=== PATIENT | female | born 1945 | race Hispanic/Latino ===

== ENCOUNTER 2024-02-01 13:46 | Inpatient (IN) | payer OTHER, MEDICARE ==
[~2024-02-01] VITALS: Ht 160 cm; Wt 83.9 kg
--- NOTE | 2024-02-01 14:04 | ERN ---
ED Note History of Present Illness Stated Complaint: ABDOMINAL PAIN Chief Complaint: Abdominal Pain Time Seen by MD: 13:56 Dictation: This 78-year-old female is transferred to us via EMS from a clinic in [place] where she has been receiving IV fluids and antibiotics for one week without improvement. Apparently several weeks ago she was given some antibiotics for UTI. After that she began having three diarrhea stools a day and occasional nausea and vomiting and became progressively weaker. A family member from [place] visited her and found her much weaker than her baseline. They transported her to [place] to a GI clinic where she remained for a week receiving IV fluids, levofloxacin, metronidazole, ondansetron, albumin, acetaminophen, furosemide and Mezalina Her family from [place] came up and found that she was having Q 30 minutes stools over the course of last night and noted that she had had dramatic weight loss and continued to appear ill and [place]. Laboratories from January 27 in [place] include a white count of 17.3 with a left shift, normal platelets and hemoglobin use an elevated BUN and creatinine and an elevated uric acid. LFTs are unremarkable as were the sodium and potassium Was no evidence stool studies were done. An ultrasound was done but no CT imaging. Apparently they were planning to transfer to another hospital in [place] when the family took her out of the clinic. The physician note indicates concern for appendicitis The patient does not have a history of cigarettes alcohol or recreational drugs. She has had a cholecystectomy. She has diabetes and hypertension. She is followed by Dr. Morgan. Her home medications include rybelsus, paroxetine, atenolol, dicyclomine, momentum, olanzapine, valsartan Allergies: Coded Allergies: No Known Drug Allergies (Unverified Allergy, Unknown, 02/01/24) Past Medical History Past Medical History: Diabetes-Type II, Hypertension Surgical History: Cholecystectomy Review of System Dictation All pertinent systems reviewed, negative except as documented in the HPI The ROS is obtained from patient and granddaughter GENERAL/CONSTITUTIONAL: Negative except as documented in HPI. ENT: Negative except as documented in HPI. CARDIOVASCULAR: Negative except as documented in HPI. RESPIRATORY: Negative except as documented in HPI. GASTROINTESTINAL: Negative except as documented in HPI. GENITOURINARY: Negative except as documented in HPI. MUSCULOSKELETAL: Negative except as documented in HPI. SKIN: Negative except as documented in HPI. NEUROLOGIC: Negative except as documented in HPI. Initial Vital Sign VS Vital Signs Date Time Temp Pulse Resp B/P (MAP) Pulse Ox O2 Delivery O2 Flow Rate FiO2 02/01/24 13:50 98.4 86 20 100/63 98 0 02/01/24 16:43 Room Air* 21 Physical Exam Dictation VITAL SIGNS: note is made of triage vital signs CONSTITUTIONAL: This is an ill-appearing patient who is awake, alert, and appropriately interactive. HEAD: Normocephalic, Atraumatic. EYES: Periorbital areas with no swelling, redness, or edema. Lids and lashes are normal. Conjunctival injection is absent. Sclera anicteric. Pupils equal, round, reactive to light. ENT: No nasal discharge noted. Posterior pharynx is without exudate, redness, swelling, masses, or evidence of obstruction. Uvula midline. Mucous membranes dry with a white coating over the tongue NECK: Trachea midline, no masses palpated, and no cervical lymphadenopathy. No swelling. Supple, full range of motion without nuchal rigidity. No vertebral point tenderness. No meningismus. CHEST/AXILLA: Normal chest wall appearance and motion. No tenderness. No crepitus. CV: Normal rate, regular rhythm. No murmur. No edema. RESPIRATORY:Respiratory rate is normal. Bilateral equal breath sounds with good airflow. There were some crackles at both bases No increased work of breathi ng, no retractions. ABDOMEN: Inspection normal. No distention is appreciated. Bowel sounds are active. No mass or organomegaly is appreciated. There is right lower quadrant tenderness. No rebound. No rigidity. No voluntary or involuntary guarding. BACK: Inspection is normal. No midline tenderness is appreciated. The patient appears comfortable when moving. : No CVA tenderness or bladder tenderness. SKIN: Warm, dry, with normal turgor. Capillary refill less than 3 seconds. Normal color.No rash. No cellulitis or abscess. There are multiple bruises over the left arm and leg related to a fall approximately 10 days ago. MS/Extremity: There is no calf tenderness. Baseline range of motion is noted in all 4 extremities. There are no deformities. NEURO: The patient is awake and follows commands but speech is a little slow. Face is symmetric Motor strength 5/5 in all extremities. Sensory grossly intact. PSYCH: Patient is appropriately attentive and cooperative without evidence of hallucination. Results (Laboratory/Radiology) Laboratory/Radiology Laboratory Tests Test 02/01/24 14:15 02/01/24 15:38 02/01/24 16:30 Urine Color LIGHT-YELLOW (YELLOW) Urine Appearance CLEAR (CLEAR) Urine pH 5.5 (5.0-8.0) Urine Specific [place] 1.010 (1.001-1.031) Urine Protein NEGATIVE mg/dL (NEGATIVE) Urine Glucose (UA) NEGATIVE mg/dL (NEGATIVE) Urine Ketones NEGATIVE mg/dL (NEGATIVE) Urine Occult Blood NEGATIVE (NEGATIVE) Urine Nitrate NEGATIVE (NEGATIVE) Urine Bilirubin NEGATIVE mg/dL (NEGATIVE) Urine Urobilinogen 0.2 mg/dL (0.2-1.0) Urine Leukocyte Esterase 75 Breann/uL (NEGATIVE) H Urine RBC 0-1 /HPF (0-1) Urine WBC 6-10 /HPF (0-1) H Urine Squamous Epithelial Cells FEW /HPF (0-2) Urine Bacteria RARE /HPF (None Seen) White Blood Count 15.6 K/uL (4.8-10.8) H Red Blood Count 3.91 MIL/uL (4.00-5.50) L Hemoglobin 10.9 g/dL (12.0-16.0) L Hematocrit 33.9 % (36-48) L Mean Corpuscular Volume 86.7 fL (79-99) Mean Corpuscular Hemoglobin 27.9 pg (27.0-33.0) Mean Corpuscular Hemoglobin Concent 32.2 g/dL (32.0-36.0) Red Cell Distribution Width 16.1 % (11.0-15.5) H Platelet Count 295 K/uL (130-400) Mean Platelet Volume 9.0 fL (7.5-10.5) Immature Granulocyte % (Auto) 1.3 % (0-1) H Neutrophils (%) (Auto) 82.6 % (40.0-77.0) H Lymphocytes (%) (Auto) 7.6 % (21.0-51.0) L Monocytes (%) (Auto) 8.0 % (3.0-13.0) Eosinophils (%) (Auto) 0.1 % (0.0-8.0) Basophils (%) (Auto) 0.4 % (0.0-5.0) Neutrophils # (Auto) 12.9 K/uL (1.8-7.7) H Lymphocytes # (Auto) 1.2 K/uL (1.0-4.8) Monocytes # (Auto) 1.3 K/uL (0.1-1.0) H Eosinophils # (Auto) 0.02 K/uL (0.00-0.70) Basophils # (Auto) 0.06 K/uL (0.00-0.20) Absolute Immature Granulocyte (auto 0.20 K/uL (0-1) Nucleated Red Blood Cells 0.0 % (0.0-0.19) White Cell Morphology Comment CONSISTENT W/DIFF Sodium Level 139 mmol/L (136-145) Potassium Level 4.1 mmol/L (3.5-5.1) Chloride Level 108 mmol/L (101-111) Carbon Dioxide Level 22 mmol/L (21-32) Blood Urea Nitrogen 76 mg/dL (7-18) *H Creatinine 3.3 mg/dL (0.5-1.0) H Glomerular Filtration Rate Calc 14 mL/min (>90) Random Glucose 120 mg/dL (70-105) H Lactic Acid Level 1.8 mmol/L (0.8-2.5) Total Calcium 8.5 mg/dL (8.5-10.1) Magnesium Level 1.40 mg/dL (1.80-2.40) L Total Bilirubin 0.4 mg/dL (0.2-1.0) Aspartate Amino Transf (AST/SGOT) 19 U/L (10-37) Alanine Aminotransferase (ALT/SGPT) 19 U/L (12-78) Alkaline Phosphatase 118 U/L (50-136) B-Type Natriuretic Peptide 383 pg/mL (0-100) H Total Protein 5.5 g/dL (6.0-8.3) L Albumin 2.1 g/dL (3.5-5.0) L Lipase 13 U/L (16-77) L Stool Occult Blood NEGATIVE (NEGATIVE) Labs Reviewed?: Yes ED Course ED Course Orders Procedure Category Date Status Time Cbc With Differential LAB 02/01/24 Complete 14:02 Comprehensive LAB 02/01/24 Complete Metabolic Panel 14:02 Urinalysis Profile LAB 02/01/24 Complete 14:02 Chest 1vw RAD 02/01/24 Resulted 14:02 Lipase LAB 02/01/24 Complete 14:02 Blood Cult VIK 02/01/24 Logged 14:21 Lactic Acid LAB 02/01/24 Complete 14:21 Stool Culture VIK 02/01/24 Logged 14:21 C Difficile A/B LAB 02/01/24 Logged 14:21 Occult Blood Stool LAB 02/01/24 Complete Single Only 14:21 Culture Urine VIK 02/01/24 In Process 14:33 Magnesium LAB 02/01/24 Complete 15:19 B-Type Natriuretic LAB 02/01/24 Complete Peptide 15:19 Ct Abdomen/Pelvis W/O CT 02/01/24 Resulted Contrast 16:30 Zosyn 3.375gm+Ns 50ml PHA 02/01/24 Complete (Zosyn 3.375gm+Ns 18:30 12 Lead Ekg Tracing- EKG 02/01/24 Logged Technical 18:29 Admit Orders ADM 02/01/24 Transmitted 18:20 *Nursing CPOE 02/01/24 Transmitted Communication: 18:20 Continue Home CPOE 02/01/24 Transmitted Meds/Reviewed 18:20 Cbc With Differential LAB 02/02/24 Verified 04:00 Comprehensive LAB 02/02/24 Verified Metabolic Panel 04:00 Initiate MAU 02/01/24 In Process Hyperglycemia Protoco 18:20 Insulin Regular, PHA 02/01/24 In Process Human 3ml (Humulin R 21:00 Dextrose 5 %-0.45 % PHA 02/01/24 In Process Nacl (D5 1/2ns) 18:30 Metronidazole (Flagyl) PHA 02/01/24 In Process 18:30 Zosyn 3.375gm+Ns 50ml PHA 02/01/24 Logged (Zosyn 3.375gm+Ns 18:30 General Surgery CONPHYSVC 02/01/24 Transmitted Consult 18:34 Current Medications Medications (Trade) Dose Ordered Sig/Ana Route PRN Reason Start Time Stop Time Status Last Admin Dose Admin Dextrose/Sodium Chloride 1,000 ml @ 75 mls/hr [id number] IV 02/01/24 18:30 03/02/24 18:29 Insulin Human Regular (humuLIN R 100 UNIT/ML 3ML) INSULIN SLIDING SCAL... ACHS SQ 02/01/24 21:00 03/02/24 20:59 Metronidazole (flaGYL) 500 mg Q8H PO 02/01/24 18:30 02/11/24 18:29 Piperacillin Sod/ Tazobactam Sod (Zosyn 3.375gm+NS 50ml) 2.25 gm Q12H IV 02/02/24 06:30 02/12/24 06:29 Piperacillin Sod/ Tazobactam Sod (Zosyn 3.375gm+NS 50ml) 3.375 gm ONCE ONCE IVPB 02/01/24 18:30 02/01/24 18:31 DC 02/01/24 18:33 Vital Signs Date Time Temp Pulse Resp B/P (MAP) Pulse Ox O2 Delivery O2 Flow Rate FiO2 02/01/24 18:10 98.1 84 18 125/55 97 Room Air* 0 21 02/01/24 16:43 98.8 84 20 124/64 97 Room Air* 0 21 02/01/24 13:50 98.4 86 20 100/63 98 0 Medical Decision Making MDM INITIAL IMPRESSION Initial history and physical concerning for renal insufficiency, persistent diarrhea with leukocytosis after antibiotics possible C difficile diarrhea, Abdomen is tender on the right possible partially treated appendicitis metabolic disturbance Contributing medical problems: Diabetes and hypertension I have reviewed the triage nursing notes and vital signs. Blood pressure is low but the heart rate is normal. She is afebrile Initial plan: Laboratory screening, CT abdomen, anticipate admit DATA REVIEW I have reviewed additional NN, repeat VS, and monitoring where indicated. Heart rate, blood pressure, and O2 saturation are acceptable. Harris diagnostic results: Patient's white count is 15.6 with a left shift. She has mild anemia. Lactic acid is 1.8. BUN and creatinine are 76 and 3.3. Bicarb is 22. Glucose is 120. A BNP is 383. The magnesium is 1.4. There was UTI. CT scan is positive for diverticulitis with a small area of contained perforation and a 2.8 cm pelvic abscess. Other independent historian: The patient's granddaughter supplies some additional history Review of external data: There are no recent ED visits ED COURSE Interventions: Patient received Zosyn in the emergency department. Reassessment: She has been stable in the ED DISPOSITION Final diagnostic impression: Perforated diverticulitis with a pelvic abscess, acute kidney injury I discussed my findings, clinical impression and treatment recommendations with the patient and her family. I have reviewed the social factors contributing to the patient's presentation and disposition planning. My final plan for disposition was made based upon clinical findings, response to treatment and discussion with the patient regarding management options. At 6:14 a.m. I discussed the case with Dr. Morgan who is her primary care physician. At 6:27 p.m. I discussed the case with Dr. Maya on-call for General surgery. Hospitalization is indicated due to the patient's clinical condition and significant risk of short term progression, complication, morbidity or mortality related to the current diagnosis The patient will be admitted for further management of perforated diverticulitis with pelvic abscess, acute kidney injury The patient and family have been advised regarding the reason for admission Questions were invited and answered in layman's terms. This dictation was prepared using medical voice recognition software. Occasional voice recognition errors may occur. When identified, these errors have been corrected. While every attempt is made to correct errors during dictation, errors may still exist. DX & DISP Disposition: Inpatient Decision to Admit Date: Feb 01, 2024 Decision to Admit Time: 18:39 Departure Impression: Primary Impression: Pelvic abscess secondary to perforated diverticulitis Additional Impressions: Acute kidney injury, Hypomagnesemia Condition: Stable Time of Disposition: 18:41 EMERY HALL MD Feb 01, 2024 14:04
[2024-02-01 14:25] LABS: APPEARANCE,URINE CLEAR (CLEAR); BILIRUBIN,URINE NEGATIVE (NEGATIVE); COLOR,URINE LIGHT-YELLOW (YELLOW); GLUCOSE, URINE (UA) NEGATIVE (NEGATIVE); KETONES,URINE NEGATIVE (NEGATIVE); LEUKOCYTE ESTERASE ,URINE 75 Leu/uL (NEGATIVE); NITRATE,URINE NEGATIVE (NEGATIVE); OCCULT BLOOD,URINE NEGATIVE (NEGATIVE); PH,URINE 5.5 (5.0-8.0); PROTEIN,URINE NEGATIVE (NEGATIVE); UROBILINOGEN,URINE 0.2 mg/dL (0.2-1.0)
[2024-02-01 14:33] LABS: ADD UA MICROSCOPIC YES
[2024-02-01 14:38] LABS: BACTERIA,URINE RARE /HPF (None Seen); MUCUS,URINE FEW LPF (None Seen); RBC,URINE 0-1 /HPF (0-1); SQUAMOUS EPITHELIAL CELL,UR FEW /HPF (0-2)
--- NOTE | 2024-02-01 15:09 | HMCIMG ---
CHEST 1VW HISTORY: Abdominal pain COMPARISON: None FINDINGS: A frontal projection of the chest was obtained. Prominent interstitial markings are seen with possible superimposed infiltrates. Elevation of right hemidiaphragm is seen. The heart is borderline enlarged. Degenerative changes are seen. No evidence of aortic calcification is seen. IMPRESSION: 1. Prominent interstitial markings are seen with possible superimposed infiltrates.
[2024-02-01 15:46] LABS: BASOPHILS # (AUTO) 0.06 K/uL (0.00-0.20); BASOPHILS % (AUTO) 0.4 % (0.0-5.0); EOSINOPHILS # (AUTO) 0.02 K/uL (0.00-0.70); EOSINOPHILS % (AUTO) 0.1 % (0.0-8.0); HEMATOCRIT 33.9 % (36-48); LYMPHOCYTES # (AUTO) 1.2 K/uL (1.0-4.8); LYMPHOCYTES % (AUTO) 7.6 % (21.0-51.0); MEAN CORPUSCULAR HEMOGLOBIN 27.9 pg (27.0-33.0); MEAN CORPUSCULAR HGB CONC 32.2 g/dL (32.0-36.0); MEAN CORPUSCULAR VOLUME 86.7 fL (79-99); MONOCYTES # (AUTO) 1.3 K/uL (0.1-1.0); NEUTROPHILS # (AUTO) 12.9 K/uL (1.8-7.7); NEUTROPHILS % (AUTO) 82.6 % (40.0-77.0); PLATELET COUNT (AUTO) 295 K/uL (130-400); RED BLOOD CELL COUNT(AUTO) 3.91 MIL/uL (4.00-5.50); RED CELL DISTRIBUTION WIDTH 16.1 % (11.0-15.5); WHITE BLOOD COUNT (AUTO) 15.6 K/uL (4.8-10.8)
[2024-02-01 16:16] LABS: ALBUMIN 2.1 g/dL (3.5-5.0); BILIRUBIN,TOTAL 0.4 mg/dL (0.2-1.0); CREATININE 3.3 mg/dL (0.5-1.0); POTASSIUM 4.1 mmol/L (3.5-5.1); TOTAL PROTEIN, SERUM 5.5 g/dL (6.0-8.3)
[2024-02-01 16:21] LABS: WBC MORPHOLOGY CONSISTENT W/DIFF
--- NOTE | 2024-02-01 17:51 | HMCIMG ---
CT ABDOMEN/PELVIS W/O CONTRAST CLINICAL HISTORY: diarrhea, rlq tender COMPARISON: None TECHNIQUE: Sequential axial images of abdomen and pelvis without contrast and with sagittal and coronal reconstructions. CT was performed with one or more of the following dose reduction techniques: automated exposure control, adjustment of the mA and/or kV according to patient size, or use of iterative reconstruction technique FINDINGS: There is eventration right diaphragm with right lung base atelectasis. This demonstrated is advanced calcified coronary artery disease. There is diffuse fatty infiltration of the left liver. The spleen is unremarkable. Gallbladder is surgically absent. The pancreas and adrenal glands are unremarkable. There is bilateral renal cortical scarring. There is no identified bowel obstruction. Note is made of sigmoid colon diverticuli with minimal adjacent stranding and a small air and fluid collection communicating with a sigmoid colon diverticulitis 2.8 cm demonstrated best on image 70 of series 2 most consistent with contained sigmoid colon perforation and developing abscess. The uterus is surgically absent. There is mild diffuse degenerative changes of the spine. IMPRESSION: Acute mild sigmoid diverticulitis with contained perforation and developing small 2.8 cm pelvic abscess.
[2024-02-01] MEDS ORDERED: metRONIDazole 500 MG TABLET PO SCH (18:30)
[2024-02-01] MEDS: ZOSYN 3.375GM +NS 50ML IVPB ONE (18:33)
[2024-02-01] MEDS: DEXTROSE 5 %-0.45 % NACL 1,000 ML IV SCH (18:44)
[2024-02-01] MEDS: metRONIDazole 500MG/100ML BAG IV SCH (18:55)
[2024-02-01] MEDS ORDERED: MEMA14CA5 PO (19:39)
[2024-02-01] MEDS ORDERED: OLAN10TA73 PO (19:39)
[2024-02-01] MEDS ORDERED: DICY20TA3 PO (19:39)
[2024-02-01] MEDS ORDERED: ATEN50TA PO (19:39)
[2024-02-01] MEDS ORDERED: SEMA7TAB2 PO (19:39)
[2024-02-01] MEDS ORDERED: PARO-37 PO (19:39)
[2024-02-01] MEDS ORDERED: VALS160T29 PO (19:39)
[2024-02-01] MEDS: INSULIN humuLIN R 100 UNIT/ML 3ML SQ SCH (21:00)
--- NOTE | 2024-02-01 21:06 | EKG ---
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
[2024-02-01 22:54] VITALS: BP 122/57; PULSE 95; RESP 22; TEMP 99
[2024-02-01 23:00] VITALS: O2SAT 96
[2024-02-02] VITALS (8 sets, daily range): BP systolic 94–143; BP diastolic 46–76; PULSE 64–109; RESP 18–20; TEMP 97.5–99.1; O2SAT 94–96
[2024-02-02 03:46] LABS: BASOPHILS # (AUTO) 0.07 K/uL (0.00-0.20); BASOPHILS % (AUTO) 0.4 % (0.0-5.0); EOSINOPHILS # (AUTO) 0.03 K/uL (0.00-0.70); EOSINOPHILS % (AUTO) 0.2 % (0.0-8.0); HEMATOCRIT 33.7 % (36-48); IMMATURE GRANULOCYTE ABSOLUTE 0.19 K/uL (0-1); LYMPHOCYTES # (AUTO) 1.1 K/uL (1.0-4.8); LYMPHOCYTES % (AUTO) 6.5 % (21.0-51.0); MEAN CORPUSCULAR HEMOGLOBIN 27.9 pg (27.0-33.0); MEAN CORPUSCULAR HGB CONC 31.8 g/dL (32.0-36.0); MONOCYTES # (AUTO) 1.5 K/uL (0.1-1.0); NEUTROPHILS # (AUTO) 14.2 K/uL (1.8-7.7); NEUTROPHILS % (AUTO) 82.8 % (40.0-77.0); PLATELET COUNT (AUTO) 271 K/uL (130-400); RED BLOOD CELL COUNT(AUTO) 3.83 MIL/uL (4.00-5.50); RED CELL DISTRIBUTION WIDTH 16.1 % (11.0-15.5); WHITE BLOOD COUNT (AUTO) 17.1 K/uL (4.8-10.8)
[2024-02-02 04:05] LABS: ALBUMIN 1.9 g/dL (3.5-5.0); BILIRUBIN,TOTAL 0.4 mg/dL (0.2-1.0); CREATININE 3.1 mg/dL (0.5-1.0); POTASSIUM 4.3 mmol/L (3.5-5.1); TOTAL PROTEIN, SERUM 5.2 g/dL (6.0-8.3)
[2024-02-02] MEDS: ZOSYN 3.375GM +NS 50ML IV SCH ×2 (06:30→10:18)
[2024-02-02] MEDS: MAGNESIUM OXIDE 400 MG TABLET PO SCH (09:00)
[2024-02-02] MEDS: ATENOLOL 50 MG TABLET PO SCH (09:00)
[2024-02-02] MEDS: LoSARTan 100 MG TABLET PO SCH (09:00)
[2024-02-02] MEDS: DICYCLOMINE HCL 20 MG TAB PO SCH (09:00)
[2024-02-02] MEDS: oLANZapine 5 MG TAB PO SCH (09:00)
[2024-02-02] MEDS: PARoxetine HCL 20 MG TABLET PO SCH (09:00)
[2024-02-02] MEDS: SEMAGLUTIDE 7 MG PO SCH (09:00)
[2024-02-02] MEDS: BALSAM PERU/CASTOR OIL 60 GM TUBE TP SCH (10:14)
[2024-02-02] MEDS: MAGNESIUM 2GM PREMIX 50ML 50 ML IV PRN (10:25)
--- NOTE | 2024-02-02 12:12 | CONS ---
HISTORY OF PRESENT ILLNESS: The patient is a morbidly obese 79-year-old female complaining of diarrhea, nausea, and vomiting, which began last week. The patient had been treated for UTI prior to that with antibiotics and went to [place] for treatment. She was given IV antibiotics there. No studies are available. She was transferred here for further treatment. PAST MEDICAL HISTORY: Diabetes. PAST SURGICAL HISTORY: Cholecystectomy. The patient had a recent fall with bruising to the face and bilateral extremities. PHYSICAL EXAMINATION: GENERAL: The patient is awake, alert, and oriented. She is in no acute distress. VITAL SIGNS: She is afebrile, blood pressure is 98/46, with a heart rate of 109. She presently has no IV. HEART: Tachycardic, but regular. ABDOMEN: Soft with minimal tenderness in the right and left lower quadrants with localized guarding. EXTREMITIES: Show a diabetic foot ulcer to the right plantar metatarsal. Pulses are present, but decreased. DIAGNOSTIC DATA: CT scan of the abdomen shows acute mid sigmoid diverticulitis with small 2.8 cm contained abscess. LABORATORY DATA: White count of 17.1, hematocrit of 10.7, platelets are 271, creatinine of 3.1 with a BUN of 68. Albumin is 1.9. ASSESSMENT AND PLAN: Acute diverticulitis with diarrhea, rule out Clostridium difficile. If diarrhea persists, send for C and S and Clostridium difficile. N.p.o. for today. IV hydration once PICC line is placed. IV antibiotics. If the patient is improved with hydration, can start clears tonight and advance as tolerated. We will follow with you. TID: [id number] RECEIPT: [id number]
[2024-02-02 13:33] LABS: INR 1.13 (0.85-1.15); PROTHROMBIN TIME 12.1 SEC (9.6-11.6)
--- NOTE | 2024-02-02 14:44 | HMCIMG ---
CHEST 1VW REASON: VERIFY PICC LINE COMPARISON: 02/01/2024 FINDINGS: There is a left-sided PICC line with tip in superior vena cava. There is elevation of the right hemidiaphragm. There is some atelectasis medial right lung base. Lungs appear otherwise clear. Heart size is stable. IMPRESSION: 1. The PICC line with tip in the superior vena cava.
[2024-02-03] VITALS (23 sets, daily range): BP systolic 110–195; BP diastolic 52–99; PULSE 77–104; RESP 14–24; TEMP 98.4–99.3; O2SAT 23–100
--- NOTE | 2024-02-03 02:27 | HP ---
HISTORY OF PRESENT ILLNESS: The patient was brought to the Emergency Room via EMS from clinic in [place] where she went to receive therapy. The patient was seen in my office for treatment of diarrhea and abdominal pain, urinary tract infection symptoms. She received treatment with antibiotics and blood work was done, results were abnormal and we called the family to have the patient back in my office for treatment on admission, but they refused. They were taking the patient to [place] for treatment. Apparently, over there, she has received treatment with antibiotics and IV fluids and because of no improvement, they decided to bring her back to the [facility]. PAST MEDICAL HISTORY: Type 2 diabetes, hypertension, dyslipidemia, congestive heart failure, COPD, dementia, pulmonary hypertension. The patient has chronic kidney disease also. ALLERGIES: No known drug allergies. REVIEW OF SYSTEMS: There has been no fever, chills, seizures, loss of consciousness, no sore throat. No diplopia, dysarthria or dysphonia. No chest pain, palpitation. No cough, wheeze or rhonchi. No nausea or vomiting. No dysuria, urgency. PHYSICAL EXAMINATION: GENERAL: She is currently awake, alert, oriented in person, time and place. VITAL SIGNS: Blood pressure 100/63, pulse 86, respiratory rate 20, temperature 98.4. HEENT: Normocephalic, atraumatic. LUNGS: Clear to auscultation. HEART: S1, S2 are distant. ABDOMEN: Soft, nontender, no masses. Bowel sounds present. EXTREMITIES: No clubbing, cyanosis, no edema. LABORATORY DATA: In the Emergency Room, leukocyte esterase was positive, nitrates negative. WBC count 6-10 in urine. WBC count 15,000, hemoglobin 10.9, platelets 295. Sodium 139, potassium 4.1, BUN 76, creatinine 3.3, calcium 8.5, albumin 2.1. CT scan was reported as positive for acute mild sigmoid diverticulitis with contained perforation and developing a small 2.8 pelvic abscess. There is no bowel obstruction. Chest x-ray shows prominent interstitial markings with possible superimposed infiltrates. ASSESSMENT AND PLAN: * Sepsis. The patient will be admitted to medical floor after discussing with the ER physicians. Not a candidate for Intensive Care Unit at this time. We will continue with Zosyn IV, Flagyl IV and IV fluids. Cultures have been sent. * Diverticulitis. Continue with current antibiotics. * Bowel perforation. Continue current antibiotics. Surgical consultation has been made. * Type 2 diabetes. Continue with insulin sliding scale. * Anemia. Continue to monitor. * Acute kidney injury, most likely secondary to sepsis and hypovolemia. Continue to monitor. * Urinary tract infection, pending results of cultures. * The patient will be continued with Zosyn antibiotics, Flagyl. Surgical consultation has been made. Follow up with results. DOS: 02/02/2024 TID: [id number] RECEIPT: [id number] MTDD
[2024-02-03 03:49] LABS: BASOPHILS # (AUTO) 0.07 K/uL (0.00-0.20); BASOPHILS % (AUTO) 0.5 % (0.0-5.0); EOSINOPHILS # (AUTO) 0.05 K/uL (0.00-0.70); EOSINOPHILS % (AUTO) 0.3 % (0.0-8.0); HEMATOCRIT 30.7 % (36-48); IMMATURE GRANULOCYTE ABSOLUTE 0.35 K/uL (0-1); LYMPHOCYTES # (AUTO) 1.9 K/uL (1.0-4.8); LYMPHOCYTES % (AUTO) 12.7 % (21.0-51.0); MEAN CORPUSCULAR HEMOGLOBIN 27.5 pg (27.0-33.0); MEAN CORPUSCULAR HGB CONC 31.9 g/dL (32.0-36.0); MONOCYTES # (AUTO) 1.6 K/uL (0.1-1.0); NEUTROPHILS # (AUTO) 10.8 K/uL (1.8-7.7); NEUTROPHILS % (AUTO) 73.1 % (40.0-77.0); PLATELET COUNT (AUTO) 281 K/uL (130-400); RED BLOOD CELL COUNT(AUTO) 3.57 MIL/uL (4.00-5.50); RED CELL DISTRIBUTION WIDTH 16.1 % (11.0-15.5); WHITE BLOOD COUNT (AUTO) 14.8 K/uL (4.8-10.8)
[2024-02-03] MEDS: BACITRACIN 28.4 GM OINT TP ONE (08:37)
[2024-02-03] MEDS: 0.9%NACL 10ML VIAL IV SCH (08:41)
[2024-02-03] MEDS: HONEY 1 APPL/ML TUBE TP SCH (08:41)
--- NOTE | 2024-02-03 15:41 | PN ---
SUBJECTIVE: The patient was admitted yesterday for assessment and treatment of sepsis, diverticulitis, bowel perforation, and acute kidney injury, was started on IV fluids, IV antibiotics. Surgical consultation was made, not a surgical candidate. Continue with home medications. The patient is feeling significantly improved. No abdominal pain. She is tolerating oral intake. OBJECTIVE: GENERAL: Currently, awake, alert, oriented in person, and place. VITAL SIGNS: Blood pressure 124/54, pulse 104, and respiratory rate 18. HEENT: Normocephalic, atraumatic. LUNGS: Decreased breath sounds bilaterally. HEART: S1, S2 are distant. ABDOMEN: Soft, nontender. EXTREMITIES: No clubbing, cyanosis. LABORATORY DATA: WBC count 14.8, hemoglobin 9.8, and platelets 281. Glucose 140. Chest x-ray yesterday shows PICC line in place. Superior vena cava. ASSESSMENT AND PLAN: * Sepsis. Continue with IV antibiotics and IV fluids. * Diverticulitis. Continue current IV antibiotics as mentioned above. * Bowel perforation. Continue current antibiotics, not a surgical candidate. * Type 2 diabetes. Continue with sliding scale as well as diabetic diet. * Anemia. Continue to monitor. * Acute kidney injury. Continue to monitor. * Urinary tract infection. Continue with current antibiotics, pending results of cultures. Follow up in a.m. with results of tests. DOS:02/03/2024 TID: [id number] RECEIPT: [id number] MTD
[2024-02-03 17:21] LABS: ABG BASE EXCESS -6.7 mmol/L (-2.0-3.0); ABG HCO3 19.5 mmol/L (21.0-28.0); ABG OXYGEN SATURATION 98.4 % (94.0-98.0); ABG PCO2 42 mmHg (32-45); ABG PH 7.289 (7.350-7.450); CARBON MONOXIDE 0 % (0.5-1.5); HHb 1.6; PO2, ARTERIAL BG 349.3 mmHg (83.0-108.0); VENT MODE, BG NRM (ROOM AIR)
--- NOTE | 2024-02-03 17:46 | HMCIMG ---
CT HEAD/BRAIN W/O CONTRAST HISTORY: Lethargy COMPARISON: None TECHNIQUE: Multiple sequential axial images of the head were obtained from the base of the skull through vertex. Patient was not given contrast through intravenous route. FINDINGS: The ventricles and extraventricular CSF spaces are dilated consistent with cerebral atrophy. Nonspecific white matter changes seen. There is no midline shift, mass effect or herniation. No acute intracranial bleed is seen. Visualized portion of the paranasal sinuses are grossly within normal limits. IMPRESSION: 1. No acute intracranial bleed is seen. 2. Atrophy with white matter changes. CT was performed with one or more following dose reduction techniques: automated exposure control, adjustment of the mA and kv according to patient's size, or use of a iterative reconstruction technique.
[2024-02-03 18:00] LABS: BASOPHILS % (AUTO) 0.6 % (0.0-5.0); EOSINOPHILS # (AUTO) 0.07 K/uL (0.00-0.70); EOSINOPHILS % (AUTO) 0.4 % (0.0-8.0); HEMATOCRIT 32.6 % (36-48); IMMATURE GRANULOCYTE ABSOLUTE 0.52 K/uL (0-1); LYMPHOCYTES # (AUTO) 1.9 K/uL (1.0-4.8); LYMPHOCYTES % (AUTO) 10.5 % (21.0-51.0); MEAN CORPUSCULAR HEMOGLOBIN 27.9 pg (27.0-33.0); MEAN CORPUSCULAR HGB CONC 32.5 g/dL (32.0-36.0); MEAN CORPUSCULAR VOLUME 85.8 fL (79-99); MONOCYTES # (AUTO) 1.7 K/uL (0.1-1.0); MONOCYTES % (AUTO) 9.8 % (3.0-13.0); NEUTROPHILS # (AUTO) 13.4 K/uL (1.8-7.7); NEUTROPHILS % (AUTO) 75.8 % (40.0-77.0); PLATELET COUNT (AUTO) 272 K/uL (130-400); RED CELL DISTRIBUTION WIDTH 16.4 % (11.0-15.5); WHITE BLOOD COUNT (AUTO) 17.7 K/uL (4.8-10.8)
[2024-02-03 18:13] LABS: INR 1.06 (0.85-1.15); PROTHROMBIN TIME 11.4 SEC (9.6-11.6)
[2024-02-03 18:17] LABS: CREATININE 2.4 mg/dL (0.5-1.0); MAGNESIUM 2.6 mg/dL (1.80-2.40); POTASSIUM 4.4 mmol/L (3.5-5.1)
[2024-02-03 19:30] LABS: ABG BASE EXCESS -7.9 mmol/L (-2.0-3.0); ABG HCO3 18.3 mmol/L (21.0-28.0); ABG OXYGEN SATURATION 97.2 % (94.0-98.0); ABG PCO2 40 mmHg (32-45); ABG PH 7.279 (7.350-7.450); CPAP, BG 12 cm H2O; PO2, ARTERIAL BG 104.5 mmHg (83.0-108.0); VENT MODE, BG LR BIPAP (ROOM AIR)
--- NOTE | 2024-02-03 19:32 | CONS ---
[facility] CONSULTATION NOTE Date Patient Seen: Feb 03, 2024 Time of Visit: 19:26 Supervising Physician: Dr Rena Bustamante Reason for Consultation: AMS/ ARF Consulting Physician: Dr Morgan Outpatient Specialists: [ ] Inpatient Consults: [ ] PROBLEM LIST: Acute hypoxic respiratory failure Right pleural effusion, POA Acute diverticulitis with contained perforation, evaluated by General surgery, no surgical intervention at this time Urinary tract infection, POA Hypernatremia, POA Congestive heart failure, POA CKD, POA Acute metabolic acidosis, POA Acute encephalopathy, POA DM type II, with hyperglycemia, POA Hypertension, POA Hyperlipidemia, POA PLAN: Continue ICU care Continue BiPAP Keep head of bed above 30 Wean FiO2 to keep O2 saturation above 90% Chest x-ray and ABG daily DuoNeb q.6 hours Continue antibiotics Oral care Continue antibiotics Treat fever aggressively Monitor temperature curve Replete electrolyte accordingly BP monitoring per ICU protocol Continue cardiac monitoring Sodium bicarb 50 mEq x 1 now Pulmonary toilet Early mobilization Intubation watch HPI: 76-year-old female with past medical history of hypertension, congestive heart failure, CKD, DM type 2, high cholesterol who presented to ED via EMS with complaint of generalized body weakness, and worsening alteration in mental status and found to have urinary tract infection, and acute d iverticulitis with contained perforation. Patient was initially admitted to PCCU, was placed on antibiotic therapy and was evaluated by General surgery for possible surgical intervention. However earlier this afternoon patient developed worsening respiratory status and declining mentation. Patient was subsequently transferred to ICU and stat head CT was obtained with negative re sults. ABG was done and showed respiratory acidosis. Patient was then placed on BiPAP and [facility] was consulted for critical care evaluation and BiPAP management. Patient was seen and examined in her room with and family member present at bedside. Unable to complete ROS due to current mental state/BiPAP. All information were obtained from family member and nursing staff report. At present patient is currently hemodynamically stable, we will wake up on stimulation, not in acute respiratory distress, normal sinus rhythm on the monitor with adequate oxygenation and appropriate O2 saturation. She is currently on full support with BiPAP with IPAP of 14, EPAP of 5, with 40% FiO2. Latest chest x-ray and ABG results reviewed. PAST MEDICAL HX: see above PAST SURGICAL HX: noncontributory SOCIAL HISTORY: No tobacco, ETOH, or illicit drug use Coded Allergies: No Known Drug Allergies (Unverified Allergy, Unknown, 02/01/24) REVIEW OF SYSTEMS: Unable to obtain. PHYSICAL EXAM: GENERAL: Lethargic, on full BiPAP support HEENT: EOMI, Sclera non icteric, moist mucosa NECK: Supple, no JVD, trachea midline LUNGS: Clear breath sounds bilaterally. No wheezes HEART: Regular rate and rhythm. Normal S1 and S2, without murmurs ABD: Abdomen soft, nontender. Bowel sounds present EXT: No clubbing cyanosis or edema NEURO: Lethargic able to follow some commands Vital Signs (last 8hr) Date Time Temp Pulse Resp B/P (MAP) Pulse Ox O2 Delivery O2 Flow Rate FiO2 02/03/24 17:40 95 21 40 02/03/24 17:20 98 20 167/99 97 Nasal Cannula 2.0 02/03/24 17:15 92 20 149/85 98 Nasal Cannula 2.0 02/03/24 17:10 91 20 127/67 95 Nasal Cannula 2.0 02/03/24 17:00 87 20 125/57 97 Nasal Cannula 2.0 02/03/24 16:00 99.3 81 20 156/52 97 Nasal Cannula 2.0 02/03/24 12:06 98.8 85 18 118/53 97 Nasal Cannula 2.0 LABS: Hematology Labs: Test 02/03/24 17:47 Range/Units White Blood Count 17.7 H 4.8-10.8 K/uL Red Blood Count 3.80 L 4.00-5.50 MIL/uL Hemoglobin 10.6 L 12.0-16.0 g/dL Hematocrit 32.6 L 36-48 % Mean Corpuscular Volume 85.8 79-99 fL Mean Corpuscular Hemoglobin 27.9 27.0-33.0 pg Mean Corpuscular Hemoglobin Concent 32.5 32.0-36.0 g/dL Red Cell Distribution Width 16.4 H 11.0-15.5 % Platelet Count 272 130-400 K/uL Mean Platelet Volume 9.2 7.5-10.5 fL Immature Granulocyte % (Auto) 2.9 H 0-1 % Neutrophils (%) (Auto) 75.8 40.0-77.0 % Lymphocytes (%) (Auto) 10.5 L 21.0-51.0 % Monocytes (%) (Auto) 9.8 3.0-13.0 % Eosinophils (%) (Auto) 0.4 0.0-8.0 % Basophils (%) (Auto) 0.6 0.0-5.0 % Neutrophils # (Auto) 13.4 H 1.8-7.7 K/uL Lymphocytes # (Auto) 1.9 1.0-4.8 K/uL Monocytes # (Auto) 1.7 H 0.1-1.0 K/uL Eosinophils # (Auto) 0.07 0.00-0.70 K/uL Basophils # (Auto) 0.10 0.00-0.20 K/uL Absolute Immature Granulocyte (auto 0.52 0-1 K/uL Nucleated Red Blood Cells 0.0 0.0-0.19 % Chemistry Labs: Test 02/03/24 17:47 02/03/24 17:09 02/02/24 03:30 Range/Units Sodium Level 146 H 136-145 mmol/L Potassium Level 4.4 3.5-5.1 mmol/L Chloride Level 116 H 101-111 mmol/L Carbon Dioxide Level 20 L 21-32 mmol/L Blood Urea Nitrogen 56 H 7-18 mg/dL Creatinine 2.4 H 0.5-1.0 mg/dL Glomerular Filtration Rate Calc 20 >90 mL/min Random Glucose 137 H 70-105 mg/dL Lactic Acid Level 1.5 0.8-2.5 mmol/L Total Calcium 8.6 8.5-10.1 mg/dL Magnesium Level 2.60 H 1.80-2.40 mg/dL Whole Blood Glucose 115 H 70-110 MG/DL Total Bilirubin 0.4 0.2-1.0 mg/dL Aspartate Amino Transf (AST/SGOT) 19 10-37 U/L Alanine Aminotransferase (ALT/SGPT) 18 12-78 U/L Alkaline Phosphatase 113 50-136 U/L Total Protein 5.2 L 6.0-8.3 g/dL Albumin 1.9 L 3.5-5.0 g/dL Coagulation Labs: Test 02/03/24 17:47 Range/Units Prothrombin Time 11.4 9.6-11.6 SEC Prothromb Time International Ratio 1.06 0.85-1.15 Activated Partial Thromboplast Time 29.0 26.3-35.5 SEC DIAGNOSTICS / RADIOLOGY RESULTS: CT HEAD/BRAIN W/O CONTRAST HISTORY: Lethargy COMPARISON: None TECHNIQUE: Multiple sequential axial images of the head were obtained from the base of the skull through vertex. Patient was not given contrast through intravenous route. FINDINGS: The ventricles and extraventricular CSF spaces are dilated consistent with cerebral atrophy. Nonspecific white matter changes seen. There is no midline shift, mass effect or herniation. No acute intracranial bleed is seen. Visualized portion of the paranasal sinuses are grossly within normal limits. IMPRESSION: 1. No acute intracranial bleed is seen. 2. Atrophy with white matter changes. CT ABDOMEN/PELVIS W/O CONTRAST CLINICAL HISTORY: diarrhea, rlq tender COMPARISON: None TECHNIQUE: Sequential axial images of abdomen and pelvis without contrast and with sagittal and coronal reconstructions. CT was performed with one or more of the following dose reduction techniques: automated exposure control, adjustment of the mA and/or kV according to patient size, or use of iterative reconstruction technique FINDINGS: There is eventration right diaphragm with right lung base atelectasis. This demonstrated is advanced calcified coronary artery disease. There is diffuse fatty infiltration of the left liver. The spleen is unremarkable. Gallbladder is surgically absent. The pancreas and adrenal glands are unremarkable. There is bilateral renal cortical scarring. There is no identified bowel obstruction. Note is made of sigmoid colon diverticuli with minimal adjacent stranding and a small air and fluid collection communicating with a sigmoid colon diverticulitis 2.8 cm demonstrated best on image 70 of series 2 most consistent with contained sigmoid colon perforation and developing abscess. The uterus is surgically absent. There is mild diffuse degenerative changes of the spine. IMPRESSION: Acute mild sigmoid diverticulitis with contained perforation and developing small 2.8 cm pelvic abscess. CHEST 1VW HISTORY: Abdominal pain COMPARISON: None FINDINGS: A frontal projection of the chest was obtained. Prominent interstitial markings are seen with possible superimposed infiltrates. Elevation of right hemidiaphragm is seen. The heart is borderline enlarged. Degenerative changes are seen. No evidence of aortic calcification is seen. IMPRESSION: 1. Prominent interstitial markings are seen with possible superimposed infiltrates. PLAN NEURO: Minimize central acting medications as possible. Fall Precautions. Well lighted room through the day and minimize interruptions through the night to prevent acute delirium. PULMONARY: Supplemental 02 as needed Titrate Fio2 to keep Spo2 > or = 90% DuoNebs and CPT as needed IS hourly while awake for pulmonary hygiene Out of bed to chair as tolerated CARDIOVASCULAR: Follow hemodynamics. Titrate vasopressor to keep MAP >65 or systolic blood pressure >95mmHg DIPS: [ ] LINES: PIV GI & NUTRITION: Continue nutritional support Aspirations precautions Prokinetic agents and laxatives as needed KIDNEYS & ELECTROLYTES: Strict monitoring of intake and output Daily weights Avoid nephrotoxic agents Monitor electrolytes and replace as needed Goal urine output of 30mL/hr or 0.5mL/kg/hr Urine output: [ ] Fluid Balance: [ ] ENDOCRINE: Maintain blood glucose between 100-180 at all times. Insulin sliding scale for blood glucose management INFECTIOUS DISEASE: Trend temperature. Alarcon-culture if febrile. Micro: [ ] Antibiotics: [ ] HEMATOLOGY & COAGULATION: Monitor H&H. Keep Hgb > 7 Transfuse 1 unit of PRBC for Hgb < 7 Transfuse 1 pack of platelets of platelets < 20, 000 Watch for any signs and symptoms of bleeding SKIN: Pressure ulcer prevention per facility protocol Rehab: PT/OT Prophylaxis: GI: [ ] DVT: [ ] Code Status: Full Resuscitation Disposition: ICU Other: Total patient care time exceeds 35 minutes excluding all procedures. Supervising physician: [facility]L Martinez [facility] Feb 03, 2024 19:32
[2024-02-03] MEDS: SODIUM BICARB 50MEQ 50ML VIAL IV ONE (22:04)
[2024-02-03 22:58] LABS: INFLUENZA TYPE A Negative For Type A (NEGATIVE); INFLUENZA TYPE B Negative For Type B (NEGATIVE)
[2024-02-03 23:02] LABS: SARS-CoV-2, RNA, NAAT NEGATIVE SARS CoV-2 (NEGATIVE)
[2024-02-04] VITALS (49 sets, daily range): BP systolic 116–167; BP diastolic 47–92; PULSE 69–123; RESP 16–36; TEMP 97.7–99.5; O2SAT 97–100
[2024-02-04 04:20] LABS: BASOPHILS # (AUTO) 0.08 K/uL (0.00-0.20); BASOPHILS % (AUTO) 0.5 % (0.0-5.0); EOSINOPHILS # (AUTO) 0.03 K/uL (0.00-0.70); EOSINOPHILS % (AUTO) 0.2 % (0.0-8.0); HEMATOCRIT 29.9 % (36-48); LYMPHOCYTES # (AUTO) 1.4 K/uL (1.0-4.8); LYMPHOCYTES % (AUTO) 9.3 % (21.0-51.0); MEAN CORPUSCULAR HEMOGLOBIN 28.4 pg (27.0-33.0); MEAN CORPUSCULAR HGB CONC 32.4 g/dL (32.0-36.0); MEAN CORPUSCULAR VOLUME 87.4 fL (79-99); MONOCYTES # (AUTO) 1.3 K/uL (0.1-1.0); MONOCYTES % (AUTO) 8.7 % (3.0-13.0); NEUTROPHILS # (AUTO) 11.8 K/uL (1.8-7.7); PLATELET COUNT (AUTO) 243 K/uL (130-400); RED BLOOD CELL COUNT(AUTO) 3.42 MIL/uL (4.00-5.50); RED CELL DISTRIBUTION WIDTH 16.5 % (11.0-15.5); WHITE BLOOD COUNT (AUTO) 15.1 K/uL (4.8-10.8)
[2024-02-04 04:27] LABS: ALBUMIN 1.7 g/dL (3.5-5.0); BILIRUBIN,TOTAL 0.4 mg/dL (0.2-1.0); POTASSIUM 3.9 mmol/L (3.5-5.1); TOTAL PROTEIN, SERUM 5.2 g/dL (6.0-8.3)
[2024-02-04 09:03] LABS: ABG BASE EXCESS -3.5 mmol/L (-2.0-3.0); ABG HCO3 22.7 mmol/L (21.0-28.0); ABG PCO2 46 mmHg (32-45); ABG PH 7.309 (7.350-7.450); CARBON MONOXIDE 0.7 % (0.5-1.5); DEVICE COMMENT LR JUDITH; PO2, ARTERIAL BG 101.4 mmHg (83.0-108.0); VENT MODE, BG BIPAP 14-5 (ROOM AIR)
--- NOTE | 2024-02-04 09:22 | CONS ---
[facility] Cardiology Consultation Note This is a 79-year-old female we are asked to evaluate for a reported wide complex tachycardia on her tele monitor. She presented with abdominal pain and was found to have a contained diverticular rupture with abscess, sepsis acute on chronic renal failure. Past history significant for hypertension diabetes mellitus type 2 dyslipidemia COPD and dementia. I have reviewed the strips and this was artifact. There was no evidence to support ventricular tachycardia. The family have decided on a DNR status. Prognosis is poor. We will re- evaluate clinically if needed. STELLA DYSON MD Feb 04, 2024 09:22
--- NOTE | 2024-02-04 09:45 | HMCIMG ---
CHEST 1VW REASON: CHANGE OF CONDITION COMPARISON: 02/02/2024 FINDINGS: There are stable cardiomegaly. There is elevated right hemidiaphragm. There is atelectasis or infiltrate now present in both lung bases. Upper lungs are clear. PICC line remains in place. IMPRESSION: 1. Interval development of bibasilar atelectasis or infiltrate. 2. Elevated right hemidiaphragm, unchanged.
--- NOTE | 2024-02-04 10:13 | PN ---
[facility] PROGRESS NOTE Date Patient Seen: Feb 04, 2024 Time of Visit: 09:58 Supervising Physician: Dr. Bustamante Consulting Physician: Dr Morgan Outpatient Specialists: [facility] Inpatient Consults: Dr. Narayanan, Dr. Bustamante PROBLEM LIST: Acute hypoxic and hypercapnic respiratory failure secondary to below Sepsis - POA Right moderate pleural effusion, POA Acute diverticulitis with contained perforation, evaluated by General surgery, no surgical intervention at this time Non anion gap metabolic acidosis Acute renal failure- secondary to ATN from sepsis Acute complicated cystitis - POA Hypernatremia, POA Chronic congestive heart failure- preserved EF, POA Acute metabolic acidosis, POA Acute encephalopathy, POA DM type II, with hyperglycemia, POA Hypertension, POA Hyperlipidemia, POA INTERVAL HISTORY: 02/03 patient is lethargic but answering questions appropriately. She is oriented to person but disoriented to place time and situation. Patient was upgraded to ICU yesterday after rapid response initiation for decreased mental status. Overnight with the CT scan of the head with no acute intracranial bleed or any significant finding. ABG was done yesterday with metabolic acidosis. Patient received sodium bicarbonate x1 overnight. Chemistry this morning with sodium 144 potassium 3.9 chloride 114, bicarb 22, BUN is 46 creatinine is 2.0 renal function has improved. Patient has put out 400 cc of urine output. We will place a Astorga catheter for strict I/O, and repeat UA, blood culture, fungal culture. Patient is on Zosyn antibiotic. Adjusted per renal function. We will add GPC coverage and antifungal given abdominal abscess. We will also repeat CT scan of the abdomen to see the progression of the abscess. If remains the same and/ or worsening, we will request IR to drain this. Patient remains on BiPAP 09/02/2039%. ABG this morning with pH 7.39, pCO2 46 PO2 101. Bicarb is 22.7 O2 sat is 97%. Base excess-3.5. This is mainly metabolic acidosis with some component of respiratory acidosis. Will give a trial with high flow NC and see how she does. In the mean time, nutrition is poor albumin low, per family she has not been eating well over a week. Given diverticulitis, will start TPN. Spoke with the patient's family, son daughter and patient's . DNR/DNI has been requested and we will kellie this. Condition is guarded. We will keep her in ICU. REVIEW OF SYSTEMS: Unable to obtain. PHYSICAL EXAM: GENERAL: Lethargic, on full BiPAP support HEENT: EOMI, Sclera non icteric, moist mucosa NECK: Supple, no JVD, trachea midline LUNGS: Clear breath sounds bilaterally. No wheezes HEART: Regular rate and rhythm. Normal S1 and S2, without murmurs ABD: Abdomen soft, nontender. Bowel sounds present EXT: No clubbing cyanosis or edema NEURO: Lethargic able to follow some commands Vital Signs (last 8hr) Date Time Temp Pulse Resp B/P (MAP) Pulse Ox O2 Delivery O2 Flow Rate FiO2 02/04/24 09:13 87 20 40 02/04/24 06:47 80 20 40 02/04/24 06:00 82 19 116/52 98 BIPAP 40 02/04/24 05:00 92 23 143/73 98 BIPAP 40 02/04/24 04:00 100 Bi-PAP+ 0 40 02/04/24 04:00 99.1 92 22 141/76 98 BIPAP 40 02/04/24 03:00 92 22 138/70 99 BIPAP 40 02/04/24 02:00 88 26 139/65 97 BIPAP 40 LABS: Hematology Labs: Test 02/04/24 03:38 Range/Units White Blood Count 15.1 H 4.8-10.8 K/uL Red Blood Count 3.42 L 4.00-5.50 MIL/uL Hemoglobin 9.7 L 12.0-16.0 g/dL Hematocrit 29.9 L 36-48 % Mean Corpuscular Volume 87.4 79-99 fL Mean Corpuscular Hemoglobin 28.4 27.0-33.0 pg Mean Corpuscular Hemoglobin Concent 32.4 32.0-36.0 g/dL Red Cell Distribution Width 16.5 H 11.0-15.5 % Platelet Count 243 130-400 K/uL Mean Platelet Volume 9.5 7.5-10.5 fL Immature Granulocyte % (Auto) 3.3 H 0-1 % Neutrophils (%) (Auto) 78.0 H 40.0-77.0 % Lymphocytes (%) (Auto) 9.3 L 21.0-51.0 % Monocytes (%) (Auto) 8.7 3.0-13.0 % Eosinophils (%) (Auto) 0.2 0.0-8.0 % Basophils (%) (Auto) 0.5 0.0-5.0 % Neutrophils # (Auto) 11.8 H 1.8-7.7 K/uL Lymphocytes # (Auto) 1.4 1.0-4.8 K/uL Monocytes # (Auto) 1.3 H 0.1-1.0 K/uL Eosinophils # (Auto) 0.03 0.00-0.70 K/uL Basophils # (Auto) 0.08 0.00-0.20 K/uL Absolute Immature Granulocyte (auto 0.50 0-1 K/uL Nucleated Red Blood Cells 0.0 0.0-0.19 % Chemistry Labs: Test 02/04/24 07:35 02/04/24 03:38 02/03/24 17:47 Range/Units Whole Blood Glucose 157 H 70-110 MG/DL Sodium Level 144 136-145 mmol/L Potassium Level 3.9 3.5-5.1 mmol/L Chloride Level 114 H 101-111 mmol/L Carbon Dioxide Level 22 21-32 mmol/L Blood Urea Nitrogen 46 H 7-18 mg/dL Creatinine 2.0 H 0.5-1.0 mg/dL Glomerular Filtration Rate Calc 25 >90 mL/min Random Glucose 381 #H 70-105 mg/dL Total Calcium 7.9 L 8.5-10.1 mg/dL Total Bilirubin 0.4 0.2-1.0 mg/dL Aspartate Amino Transf (AST/SGOT) 11 10-37 U/L Alanine Aminotransferase (ALT/SGPT) 14 12-78 U/L Alkaline Phosphatase 104 50-136 U/L Total Protein 5.2 L 6.0-8.3 g/dL Albumin 1.7 L 3.5-5.0 g/dL Lactic Acid Level 1.5 0.8-2.5 mmol/L Magnesium Level 2.60 H 1.80-2.40 mg/dL Coagulation Labs: Test 02/03/24 17:47 Range/Units Prothrombin Time 11.4 9.6-11.6 SEC Prothromb Time International Ratio 1.06 0.85-1.15 Activated Partial Thromboplast Time 29.0 26.3-35.5 SEC DIAGNOSTICS / RADIOLOGY RESULTS: [ ] PLAN NEURO: Minimize central acting medications as possible. Fall Precautions. Well lighted room through the day and minimize interruptions through the night to prevent acute delirium. PULMONARY: Supplemental 02 as needed Titrate Fio2 to keep Spo2 > or = 90% DuoNebs and CPT as needed IS hourly while awake for pulmonary hygiene Out of bed to chair as tolerated CARDIOVASCULAR: Follow hemodynamics. Titrate vasopressor to keep MAP >65 or systolic blood pressure >95mmHg DRIPS: D5W LINES: PICC line GI & NUTRITION: Continue nutritional support Aspirations precautions Prokinetic agents and laxatives as needed KIDNEYS & ELECTROLYTES: Strict monitoring of intake and output Daily weights Avoid nephrotoxic agents Monitor electrolytes and replace as needed Goal urine output of 30mL/hr or 0.5mL/kg/hr ENDOCRINE: Maintain blood glucose between 100-180 at all times. Insulin sliding scale for blood glucose management INFECTIOUS DISEASE: Trend temperature. Alarcon-culture if febrile. Micro: Antibiotics: Zosyn 01/31- Doxy 02/03- Fluconazole 02/03- HEMATOLOGY & COAGULATION: Monitor H&H. Keep Hgb > 7 Transfuse 1 unit of PRBC for Hgb < 7 Transfuse 1 pack of platelets of platelets < 20, 000 Watch for any signs and symptoms of bleeding SKIN: Pressure ulcer prevention per facility protocol Right foot wound care Rehab: PT/OT Prophylaxis: GI: Pepcid DVT: Heparin Code Status: Full Resuscitation Disposition: ICU Other: Total patient care time exceeds 35 minutes excluding all procedures. ARNIE DUTTON CNP Feb 04, 2024 10:13
[2024-02-04] MEDS: DOXYCYCLINE 100MG+NS 250ML 250 ML IV SCH (10:18)
[2024-02-04 10:36] LABS: ALBUMIN 1.7 g/dL (3.5-5.0); BILIRUBIN,TOTAL 0.3 mg/dL (0.2-1.0); CREATININE 1.9 mg/dL (0.5-1.0); MAGNESIUM 2.5 mg/dL (1.80-2.40); THYROID STIMULATING HORMONE 2.78 uIU/mL (0.36-3.74); TOTAL PROTEIN, SERUM 5.4 g/dL (6.0-8.3)
--- NOTE | 2024-02-04 11:13 | HMCIMG ---
CHEST 1VW REASON: hypoxia COMPARISON: 02/03/2024 FINDINGS: There are stable cardiomegaly. There are decreasing bibasilar infiltrates. Lungs are otherwise clear. PICC line remains in place. IMPRESSION: 1. Stable cardiomegaly with decreasing bibasilar infiltrates.
[2024-02-04] MEDS: [UNRECOGNIZED DRUG - NUTRITION] IV ONE (11:39)
[2024-02-04 12:55] LABS: APPEARANCE,URINE CLEAR (CLEAR); BACTERIA,URINE RARE /HPF (None Seen); BILIRUBIN,URINE NEGATIVE (NEGATIVE); COLOR,URINE LIGHT-YELLOW (YELLOW); GLUCOSE, URINE (UA) NEGATIVE (NEGATIVE); KETONES,URINE NEGATIVE (NEGATIVE); LEUKOCYTE ESTERASE ,URINE NEGATIVE Leu/uL (NEGATIVE); MUCUS,URINE RARE LPF (None Seen); NITRATE,URINE NEGATIVE (NEGATIVE); OCCULT BLOOD,URINE NEGATIVE (NEGATIVE); PROTEIN,URINE 10 mg/dL (NEGATIVE); RBC,URINE 0-1 /HPF (0-1); SQUAMOUS EPITHELIAL CELL,UR FEW /HPF (0-2); TRANSITIONAL EPI CELLS,URINE RARE /HPF (None Seen); UROBILINOGEN,URINE 0.2 mg/dL (0.2-1.0)
--- NOTE | 2024-02-04 13:55 | HMCSR ---
APPROVED REPORT EXAM: Two-dimensional and M-mode echocardiogram with Doppler and color Doppler. Study Details: Hx: DM, HTN, CHF, COPD, dyslipidemia, dementia, pulmonary HTN INDICATION ICD: Evaluate systolic and valvular function Assess LV Function 2D Dimensions RVDd3.9 cmLVEF(%)34.5 (>50%)LVED Vol(simp.)64.5 mL IVSd0.9 (0.7-1.1cm)FS(%)16 %LVES Vol(simp.)26.2 mL LVDd4.3 (3.8-5.6cm)LA (2D)4.6 (1.6-4.0cm)LVEF(%, simp.)59 % PWd1.0 (0.7-1.1cm)Ao Root(2D)3.2 (2.0-3.7cm)LA ESV INDEX (4CH)29.70 mL/m2 IVSs1.3 cmLVOT diam1.8 (1.8-2.4cm)LA ESV INDEX (2CH)28.50 mL/m2 LVDs3.6 (2.5-4.0cm)LA ESV INDEX (BP)30.60 mL/m2 PWs1.3 cm Deformation Strain Apical 419.0 % Apical 214.0 % Apical 327.0 % Global Xsqxni77.0 % M-Mode Dimensions EPSS0.7 cm Ao Root(MM)3.3 (2.0-3.7cm) Aortic Valve AoV VTI0.5 mAo Mean GR11.0 mmHgLVOT VTI0.25 m ANTOINE (VMAX)1.3 cm2AVA (VTI) 1.3 cm2 Mitral Valve MV E Lipt787.6 cm/sDECEL Uumo151 ms MV A Vmax79.5 cm/sP 1/2 T69 ms E/A ratio1.4MVA (PHT)3.2 cm2 MR Max PG42 mmHg TDI E/E' Yyapva36.9E/E' Uioeowt87.2 Medial E' Peak V5.00 cm/sLateral E' Peak V8.30 cm/s Pulmonary Valve PV VTI0.39 mPV Mean GR7 mmHg Tricuspid Valve TR Vmax3.0 m/s TR Peak GR35.7 mmHg Left Ventricle The left ventricle is normal size. GLS -19.0%. There is normal left ventricular wall thickness. LVEF is 60-65%. The left ventricular diastolic function is normal. Right Ventricle The right ventricle is normal size. The right ventricular systolic function is normal. Atria The left atrium size is normal. The right atrium size is normal. Aortic Valve Aortic valve has calcified nodular thickening. The aortic valve is opens well. No aortic regurgitatio n is present. There is mild aortic valvular stenosis. Mitral Valve The mitral valve is normal in structure. Mitral regurgitation is trace. There is no mitral valve sten osis. Tricuspid Valve The tricuspid valve is normal in structure. There is trace of tricuspid valve regurgitation noted. Pulmonic Valve The pulmonary valve is normal in structure. There is no pulmonic valvular regurgitation. Great Vessels The aortic root is normal in size. The IVC is normal in size and collapses <50% with inspiration. Pericardium There is no pericardial effusion. Other Information Quality : Fair Conclusion LVEF is 60-65%. GLS -19.0%. Aortic valve has calcified nodular thickening. The aortic valve is opens well. There is mild aortic valvular stenosis.
--- NOTE | 2024-02-04 14:05 | PN ---
Patient with respiratory event and change in mental status during the night. Patient was transferred to the ICU where she remains on facemask. Vital signs are presently stable. Hypnic abdomen is mildly tender in the right lower quadrant with localized guarding but no rebound there are decreased bowel sounds Assessment and plan clinically improving diverticulitis with abscess however patient's mental status has worsened and her respiratory status has worsened discussed with family who does not wish the patient to be intubated at that would be needed. At this point continue supportive care and IV antibiotics n.p.o.. No surgical intervention at this time Vitals/Labs Vital Signs Date Time Temp Pulse Resp B/P (MAP) Pulse Ox O2 Delivery O2 Flow Rate FiO2 02/04/24 12:00 100 Hi-Flow N/C+ 30 40 02/04/24 11:00 75 19 153/69 02/04/24 09:15 99.5 Laboratory Tests 02/03/24 17:47 02/04/24 03:38 02/04/24 09:57 Medications Current Medications Piperacillin Sod/ Tazobactam Sod 3.375 gm ONCE ONCE IVPB Last administered on 02/01/24at 18:33; Start 02/01/24 at 18:30; Stop 02/01/24 at 18:31; Status DC Insulin Human Regular INSULIN SLIDING SCAL... ACHS SQ; Start 02/01/24 at 21:00; Stop 03/02/24 at 20:59 Dextrose/Sodium Chloride 1,000 ml @ 75 mls/hr [id number] IV Last administered on 02/04/24at 08:36; Start 02/01/24 at 18:30; Stop 03/02/24 at 18:29 Metronidazole 500 mg Q8H PO; Start 02/01/24 at 18:30; Stop 02/01/24 at 18:41; Status DC Piperacillin Sod/ Tazobactam Sod 2.25 gm Q12H IV; Start 02/02/24 at 06:30; Stop 02/02/24 at 07:17; Status DC Metronidazole/ Sodium Chloride 500 mg Q8H IV Last administered on 02/02/24at 02:36; Start 02/01/24 at 19:00; Stop 02/02/24 at 07:17; Status DC Home Med DAILY PO Last administered on 02/03/24at 14:01; Start 02/02/24 at 09:00; Stop 03/03/24 at 08:59 Olanzapine 5 mg DAILY PO Last administered on 02/03/24at 08:39; Start 02/02/24 at 09:00; Stop 03/03/24 at 08:59 Home Med DAILY PO Last administered on 02/03/24at 14:01; Start 02/02/24 at 09:00; Stop 03/03/24 at 08:59 Losartan Potassium 100 mg DAILY PO Last administered on 02/03/24at 08:38; Start 02/02/24 at 09:00; Stop 02/04/24 at 12:12; Status DC Atenolol 50 mg DAILY PO Last administered on 02/03/24at 08:38; Start 02/02/24 at 09:00; Stop 03/03/24 at 08:59 Dicyclomine HCl 20 mg TID PO Last administered on 02/03/24at 14:01; Start 02/02/24 at 09:00; Stop 03/03/24 at 08:59 Paroxetine HCl 20 mg BID PO Last administered on 02/03/24at 08:39; Start 02/02/24 at 09:00; Stop 03/03/24 at 08:59 Magnesium Oxide 400 mg DAILY PO Last administered on 02/03/24at 08:37; Start 02/02/24 at 09:00; Stop 03/03/24 at 08:59 Piperacillin Sod/ Tazobactam Sod 3.375 gm Q12H IV Last administered on 02/04/24at 08:35; Start 02/02/24 at 07:30; Stop 02/12/24 at 06:29 Magnesium Sulfate 50 ml @ 0 mls/hr PROTOCOL PRN IV Last administered on 02/02/24at 10:25; Start 02/02/24 at 08:30; Stop 03/03/24 at 08:29 Wound Care/ Dressing Products BID TP Last administered on 02/04/24at 10:27; Start 02/02/24 at 09:00; Stop 03/03/24 at 08:59 Sodium Chloride 10 ml DAILY IV Last administered on 02/04/24at 10:18; Start 02/03/24 at 09:00; Stop 03/04/24 at 08:59 Bacitracin apply to left forea... DAILY ONCE TP Last administered on 02/03/24at 08:37; Start 02/03/24 at 09:00; Stop 02/03/24 at 09:01; Status DC Leptospermum Honey 1 appl DAILY TP Last administered on 02/04/24at 10:18; Start 02/03/24 at 09:00; Stop 03/04/24 at 08:59 Sodium Bicarbonate 50 meq ONCE ONCE IV Last administered on 02/03/24at 22:04; Start 02/03/24 at 22:00; Stop 02/03/24 at 22:01; Status DC Fluconazole/ Sodium Chloride 200 ml @ 100 mls/hr DAILY IV Last administered on 02/04/24at 10:18; Start 02/04/24 at 10:00; Stop 03/05/24 at 09:59 Doxycycline Hyclate 250 ml @ 125 mls/hr Q12H IV Last administered on 02/04/24at 10:18; Start 02/04/24 at 10:00; Stop 02/09/24 at 09:59 Multivitamins/ Minerals 10 ml/ Chromium/Copper/ Manganese/Zinc 3 ml/Aa 5 %/Calcium/ Lytes/Dext 20 % 2,000 ml @ 83 mls/hr ONCE ONCE IV Last administered on 02/04/24at 11:39; Start 02/04/24 at 11:00; Stop 02/05/24 at 11:05 DMITRI GALO MD Feb 04, 2024 14:05
--- NOTE | 2024-02-04 14:40 | HMCIMG ---
CT ABDOMEN/PELVIS W/O CONTRAST REASON: pelvic abscess COMPARISON: 02/01/2024 FINDINGS: There is mild bibasilar atelectasis.. There are no focal liver lesions. There is moderate renal cortical thinning on the right, unchanged,, kidneys appear otherwise normal.. Spleen and pancreas appear unremarkable. The gallbladder appears normal as well. There is sigmoid diverticulosis. There are inflammatory changes in the mid sigmoid consistent with diverticulitis. There is a 2.8 cm abscess adjacent to the sigmoid consistent with a small contained perforation. This is unchanged in size and appearance compared to previous exam. Bowel loops appear otherwise unremarkable. There is no evidence of obstruction. The appendix was not separately identified. There is no evidence of free fluid or intraperitoneal air. There are no focal fluid collections. Aorta and retroperitoneum appear normal as do pelvic soft tissue structures. The anterior abdominal wall is intact. Osseous structures appear unremarkable. IMPRESSION: 1. Inflammatory changes and sigmoid consistent with diverticulitis, there is an adjacent 2.8 cm collection of air and fluid consistent with a contained perforation, this is unchanged in size and appearance compared to prior exam. 2. Absent gallbladder. 3. Mild bibasilar atelectasis. CT was performed with one or more following dose reduction techniques: automated exposure control, adjustment of the mA and kv according to patient's size, or use of a iterative reconstruction technique.
[2024-02-04 15:03] LABS: ABG BASE EXCESS -4.8 mmol/L (-2.0-3.0); ABG OXYGEN SATURATION 97.1 % (94.0-98.0); ABG PCO2 48 mmHg (32-45); ABG PH 7.277 (7.350-7.450); CARBON MONOXIDE 0.3 % (0.5-1.5); DEVICE COMMENT LR JUDITH; HHb 2.9; VENT MODE, BG HFNC (ROOM AIR)
[2024-02-04] MEDS: furoSEMIDE 40MG VIAL IV ONE (15:36)
[2024-02-05] VITALS (51 sets, daily range): BP systolic 120–162; BP diastolic 47–80; PULSE 82–108; RESP 13–46; TEMP 99.1–99.9; O2SAT 98–100
--- NOTE | 2024-02-05 00:34 | PN ---
SUBJECTIVE: The patient was transferred to the Intensive Care Unit overnight after she became unresponsive. Initial workup was negative. ABG shows the patient had acidosis and hypoxemia. She was placed on BiPAP. A consultation with ICU team was made. The patient was given bicarbonate IV. Continue with IV antibiotics. The patient was examined at bedside. She was comfortable, barely responding to call. Not moving upper and lower extremities. OBJECTIVE: VITAL SIGNS: In the chart. HEENT: Normocephalic, atraumatic. LUNGS: Decreased breath sounds bilaterally, more so over the right posterior hemithorax. HEART: S1, S2 are distant. ABDOMEN: Soft, nontender. EXTREMITIES: No clubbing or cyanosis. LABORATORY DATA: WBC count 15,000, hemoglobin 9.7, platelets 243. Sodium 144, potassium 3.9, creatinine 2, BUN 46, total bilirubin 0.4. ASSESSMENT AND PLAN: * Respiratory failure with hypoxemia. Continue with oxygen through BiPAP. The patient is a Do Not Resuscitate/Do Not Intubate. * Sepsis secondary to diverticulitis with perforated colon. Not a surgical candidate, continue current antibiotics. * Right pleural effusion, moderate. Continue to monitor. * Acute renal failure on chronic kidney disease. Continue with IV fluids. * Type 2 diabetes. Continue with ICU protocol. * Hypertension. Continue with home medications. * Nutritional state. We will keep the patient n.p.o. She will be started on TPN as per ICU recommendations. * Change in mental status secondary to acute metabolic encephalopathy. Continue to monitor. * I appreciated input of consultants. DOS: 02/04/2024 TID: [id number] RECEIPT: [id number] [facility]
[2024-02-05 04:11] LABS: ABG OXYGEN SATURATION 97.9 % (94.0-98.0); BASE EXCESS,VENOUS BLOOD GAS -3.6 (-2.0-3.0); DEVICE COMMENT RR RN ISAMAR; HCO3,VENOUS BLOOD GAS 22.6 (22.0-29.0); PCO2,VENOUS BLOOD GAS 46 (38-54); PH,VENOUS BLOOD GAS 7.309 (7.320-7.430); PO2,VENOUS BLOOD GAS 136.4 mmHg (23.0-48.0); VENT MODE, BG BIPAP 12-5 (ROOM AIR)
[2024-02-05 05:07] LABS: BASOPHILS # (AUTO) 0.05 K/uL (0.00-0.20); BASOPHILS % (AUTO) 0.4 % (0.0-5.0); EOSINOPHILS # (AUTO) 0.09 K/uL (0.00-0.70); EOSINOPHILS % (AUTO) 0.7 % (0.0-8.0); HEMATOCRIT 28.7 % (36-48); IMMATURE GRANULOCYTE ABSOLUTE 0.37 K/uL (0-1); LYMPHOCYTES # (AUTO) 1.3 K/uL (1.0-4.8); LYMPHOCYTES % (AUTO) 9.2 % (21.0-51.0); MEAN CORPUSCULAR HEMOGLOBIN 27.5 pg (27.0-33.0); MEAN CORPUSCULAR HGB CONC 31.4 g/dL (32.0-36.0); MEAN CORPUSCULAR VOLUME 87.8 fL (79-99); MONOCYTES # (AUTO) 1.7 K/uL (0.1-1.0); MONOCYTES % (AUTO) 12.2 % (3.0-13.0); NEUTROPHILS # (AUTO) 10.3 K/uL (1.8-7.7); NEUTROPHILS % (AUTO) 74.8 % (40.0-77.0); PLATELET COUNT (AUTO) 259 K/uL (130-400); RED BLOOD CELL COUNT(AUTO) 3.27 MIL/uL (4.00-5.50); RED CELL DISTRIBUTION WIDTH 16.6 % (11.0-15.5); WHITE BLOOD COUNT (AUTO) 13.7 K/uL (4.8-10.8)
[2024-02-05 06:20] LABS: ALBUMIN 1.5 g/dL (3.5-5.0); BILIRUBIN,TOTAL 0.3 mg/dL (0.2-1.0); CREATININE 1.8 mg/dL (0.5-1.0); POTASSIUM 3.8 mmol/L (3.5-5.1); TOTAL PROTEIN, SERUM 5.1 g/dL (6.0-8.3)
--- NOTE | 2024-02-05 08:20 | PN ---
SUBJECTIVE: The patient is in intensive care unit. She is more aware of her surroundings, responding, moving upper and lower extremities. She is still with BiPAP in place. Currently, on IV antibiotics, Zosyn and Diflucan, doxycycline. The patient is pending placement of catheter in the right lower quadrant for drainage of possible abscess. OBJECTIVE: GENERAL: She is currently, awake, alert, oriented in person and place with the BiPAP in place. VITAL SIGNS: Blood pressure 146/63, pulse 101, respiratory rate 25. HEENT: Normocephalic and atraumatic. LUNGS: Decreased breath sounds in right anterior and posterior hemithorax. No wheezes. No rhonchi. HEART: S1, S2 are clear. ABDOMEN: Soft. Nontender. No masses. LABORATORY DATA: WBC count 13.7, hemoglobin 9, platelets 259. Sodium 145, potassium 3.8, chloride 114, BUN 43, creatinine 1.8, glucose 330, albumin 1.5. Echocardiogram shows ejection fraction 60% to 65%, calcified aortic valve, mild aortic stenosis. CT scan of the abdomen and pelvis shows inflammatory changes in sigmoid consistent with diverticulitis with an adjacent 2.8 collection of air and fluid consistent with contained perforation unchanged compared to previous examination. Mild bibasilar atelectasis. ASSESSMENT AND PLAN: * Respiratory failure with hypoxemia. Continue with BiPAP. Sepsis secondary to diverticulitis and perforated colon. Continue with recommendations by Surgery. She is scheduled to have drainage catheter in the right lower quadrant. * Right lower lobe pneumonia and pleural effusion. The patient may need to have thoracentesis scheduled. * Acute renal failure, improving. * Type 2 diabetes. Continue ICU protocol. * Hypertension, controlled. * Change in mental status secondary to hypoxemia and sepsis significantly improved. The patient is back to her baseline. Follow up in a.m. by Dr. Dover who will be covering me in the next following days. The patient is DNR/DNI. DOS:02/05/2024 TID: [id number] RECEIPT: [id number]
--- NOTE | 2024-02-05 10:05 | HMCIMG ---
CHEST 1VW REASON: SOB COMPARISON: 02/04/2024 FINDINGS: There is mild cardiomegaly. There is no pulmonary vascular congestion. There is elevation of right hemidiaphragm, unchanged. Lungs appear clear. Left-sided PICC line remains in place. IMPRESSION: 1. Stable cardiomegaly without vascular congestion. 2. Elevated right hemidiaphragm, unchanged.
[2024-02-05] MEDS: INSULIN GLARgine 100 UNITS/ML 10 ML VIAL SQ SCH (10:37)
[2024-02-05] MEDS: furoSEMIDE 40MG VIAL IV ONE (10:40)
[2024-02-05] MEDS: DEXTROSE IV SCH (11:30)
[2024-02-05] MEDS: [UNRECOGNIZED DRUG - OTHER] IV SCH (11:30)
[2024-02-05] MEDS: INSULIN humuLIN R 100 UNIT/ML 3ML SQ SCH (11:30)
[2024-02-05] MEDS: AMINO ACIDS IV SCH (11:30)
[2024-02-05] MEDS: acetaMINOPHEN 650 MG SUPPOSITORY RC PRN (13:19)
--- NOTE | 2024-02-05 18:00 | PN ---
[facility] PROGRESS NOTE Date Patient Seen: Feb 05, 2024 Time of Visit: 17:58 Supervising Physician: Dr. Bustamante Consulting Physician: Dr Morgan Outpatient Specialists: [facility]IL[facility] Inpatient Consults: Dr. Narayanan, Dr. Bustamante PROBLEM LIST: Acute hypoxic and hypercapnic respiratory failure secondary to below Sepsis - POA Right moderate pleural effusion, POA Acute diverticulitis with contained perforation, evaluated by General surgery, no surgical intervention at this time Non anion gap metabolic acidosis Acute renal failure- secondary to ATN from sepsis Acute complicated cystitis - POA Hypernatremia, POA Chronic congestive heart failure- preserved EF, POA Acute metabolic acidosis, POA Acute encephalopathy, POA DM type II, with hyperglycemia, POA Hypertension, POA Hyperlipidemia, POA INTERVAL HISTORY: 02/03 patient is lethargic but answering questions appropriately. She is oriented to person but disoriented to place time and situation. Patient was upgraded to ICU yesterday after rapid response initiation for decreased mental status. Overnight with the CT scan of the head with no acute intracranial bleed or any significant finding. ABG was done yesterday with metabolic acidosis. Patient received sodium bicarbonate x1 overnight. Chemistry this morning with sodium 144 potassium 3.9 chloride 114, bicarb 22, BUN is 46 creatinine is 2.0 renal function has improved. Patient has put out 400 cc of urine output. We will place a Tellez catheter for strict I/O, and repeat UA, blood culture, fungal culture. Patient is on Zosyn antibiotic. Adjusted per renal function. We will add GPC coverage and antifungal given abdominal abscess. We will also repeat CT scan of the abdomen to see the progression of the abscess. If remains the same and/ or worsening, we will request IR to drain this. Patient remains on BiPAP 09/02/2039%. ABG this morning with pH 7.39, pCO2 46 PO2 101. Bicarb is 22.7 O2 sat is 97%. Base excess-3.5. This is mainly metabolic acidosis with some component of respiratory acidosis. Will give a trial with high flow NC and see how she does. In the mean time, nutrition is poor albumin low, per family she has not been eating well over a week. Given diverticulitis, will start TPN. Spoke with the patient's family, son daughter and patient's . DNR/DNI has been requested and we will kellie this. Condition is guarded. We will keep her in ICU. 02/04 patient remains on noninvasive positive pressure ventilation since yesterday, unable to wean it off for break for too long. Patient developed hypercapnia with encephalopathy after 30 minutes off of bipap. Venous blood gas this morning with pH 7.309, pCO2 46, PO2 is 136. Bicarb is 22. Base excess is- 3.6. We will continue to utilize NIPPV for hypercapnia. Continue to follow with the blood gases in the morning. Her chest x-ray was with right hemidiaphragm elevation. Patient also has pulmonary congestion/ pleural effusion. Diuretic has been requested. Continue strict I's and o's. Continue with tellez. Remainder of the lab her renal function has improved, creatinine is 1.8 down from 1.9. BUN is also down to 43 from 45. Glucose however is high at 330 , patient has been started on TPN yesterday. We will increase insulin sliding scale and start long-acting insulin. She remains NPO. In the meantime CT scan of the abdomen was repeated yesterday with persistent abscess in the pelvic area which we had requested IR to drain this however given location and size, she is not candidate for percutaneous drain placement. For now broad antibiotic therapy and antifungal. We will continue to keep patient in the ICU given hypercapnia requiring NIPPV. LVEF is preserved with 60% Spoke with patient's family at this site. REVIEW OF SYSTEMS: Unable to obtain. PHYSICAL EXAM: GENERAL: Lethargic, on full BiPAP support HEENT: EOMI, Sclera non icteric, moist mucosa NECK: Supple, no JVD, trachea midline LUNGS: Clear breath sounds bilaterally. No wheezes HEART: Regular rate and rhythm. Normal S1 and S2, without murmurs ABD: Abdomen soft, nontender. Bowel sounds present EXT: No clubbing cyanosis or edema NEURO: Lethargic able to follow some commands Vital Signs (last 8hr) Date Time Temp Pulse Resp B/P (MAP) Pulse Ox O2 Delivery O2 Flow Rate FiO2 02/05/24 15:30 100 Bi-PAP+ 0 40 02/05/24 15:00 98 16 160/77 99 BIPAP 40 02/05/24 14:37 93 22 40 02/05/24 14:30 100 16 158/59 100 BIPAP 40 02/05/24 14:00 88 13 161/75 99 BIPAP 40 02/05/24 13:30 101 24 161/71 99 BIPAP 40 02/05/24 13:19 99.9 02/05/24 13:00 99.9 107 42 150/70 99 BIPAP 40 02/05/24 12:30 98 17 144/67 100 BIPAP 40 02/05/24 12:00 96 22 148/61 99 BIPAP 40 02/05/24 12:00 100 Bi-PAP+ 0 40 02/05/24 11:54 99 28 40 02/05/24 11:30 99.1 103 46 142/49 100 BIPAP 40 02/05/24 11:00 98 30 137/56 98 N/C High Flow System 40 02/05/24 10:30 96 24 124/71 99 BIPAP 40 02/05/24 10:00 98 27 135/62 99 BIPAP 40 LABS: Hematology Labs: Test 02/05/24 04:00 Range/Units White Blood Count 13.7 H 4.8-10.8 K/uL Red Blood Count 3.27 L 4.00-5.50 MIL/uL Hemoglobin 9.0 L 12.0-16.0 g/dL Hematocrit 28.7 L 36-48 % Mean Corpuscular Volume 87.8 79-99 fL Mean Corpuscular Hemoglobin 27.5 27.0-33.0 pg Mean Corpuscular Hemoglobin Concent 31.4 L 32.0-36.0 g/dL Red Cell Distribution Width 16.6 H 11.0-15.5 % Platelet Count 259 130-400 K/uL Mean Platelet Volume 9.5 7.5-10.5 fL Immature Granulocyte % (Auto) 2.7 H 0-1 % Neutrophils (%) (Auto) 74.8 40.0-77.0 % Lymphocytes (%) (Auto) 9.2 L 21.0-51.0 % Monocytes (%) (Auto) 12.2 3.0-13.0 % Eosinophils (%) (Auto) 0.7 0.0-8.0 % Basophils (%) (Auto) 0.4 0.0-5.0 % Neutrophils # (Auto) 10.3 H 1.8-7.7 K/uL Lymphocytes # (Auto) 1.3 1.0-4.8 K/uL Monocytes # (Auto) 1.7 H 0.1-1.0 K/uL Eosinophils # (Auto) 0.09 0.00-0.70 K/uL Basophils # (Auto) 0.05 0.00-0.20 K/uL Absolute Immature Granulocyte (auto 0.37 0-1 K/uL Nucleated Red Blood Cells 0.0 0.0-0.19 % Chemistry Labs: Test 02/05/24 16:38 02/05/24 04:00 02/04/24 09:57 Range/Units Whole Blood Glucose 372 H 70-110 MG/DL Sodium Level 145 136-145 mmol/L Potassium Level 3.8 3.5-5.1 mmol/L Chloride Level 114 H 101-111 mmol/L Carbon Dioxide Level 26 21-32 mmol/L Blood Urea Nitrogen 43 H 7-18 mg/dL Creatinine 1.8 H 0.5-1.0 mg/dL Glomerular Filtration Rate Calc 28 >90 mL/min Random Glucose 330 #H 70-105 mg/dL Total Calcium 8.5 8.5-10.1 mg/dL Total Bilirubin 0.3 0.2-1.0 mg/dL Aspartate Amino Transf (AST/SGOT) 11 10-37 U/L Alanine Aminotransferase (ALT/SGPT) 11 #L 12-78 U/L Alkaline Phosphatase 95 50-136 U/L Total Protein 5.1 L 6.0-8.3 g/dL Albumin 1.5 L 3.5-5.0 g/dL Lactic Acid Level 1.4 0.8-2.5 mmol/L Magnesium Level 2.50 H 1.80-2.40 mg/dL Ammonia 14 11-32 umol/L Procalcitonin 0.29 0.05-0.5 ng/mL Thyroid Stimulating Hormone (TSH) 2.78 0.36-3.74 uIU/mL DIAGNOSTICS / RADIOLOGY RESULTS: [ ] PLAN NEURO: Minimize central acting medications as possible. Fall Precautions. Well lighted room through the day and minimize interruptions through the night to prevent acute delirium. PULMONARY: Supplemental 02 as needed Titrate Fio2 to keep Spo2 > or = 90% DuoNebs and CPT as needed IS hourly while awake for pulmonary hygiene Out of bed to chair as tolerated CARDIOVASCULAR: Follow hemodynamics. Titrate vasopressor to keep MAP >65 or systolic blood pressure >95mmHg DRIPS: D5W LINES: PICC line GI & NUTRITION: Continue nutritional support Aspirations precautions Prokinetic agents and laxatives as needed KIDNEYS & ELECTROLYTES: Strict monitoring of intake and output Daily weights Avoid nephrotoxic agents Monitor electrolytes and replace as needed Goal urine output of 30mL/hr or 0.5mL/kg/hr ENDOCRINE: Maintain blood glucose between 100-180 at all times. Insulin sliding scale for blood glucose management INFECTIOUS DISEASE: Trend temperature. Alarcon-culture if febrile. Micro: Antibiotics: Zosyn 01/31- Doxy 02/03- Fluconazole 02/03- HEMATOLOGY & COAGULATION: Monitor H&H. Keep Hgb > 7 Transfuse 1 unit of PRBC for Hgb < 7 Transfuse 1 pack of platelets of platelets < 20, 000 Watch for any signs and symptoms of bleeding SKIN: Pressure ulcer prevention per facility protocol Right foot wound care Rehab: PT/OT Prophylaxis: GI: Pepcid DVT: Heparin Code Status: Full Resuscitation Disposition: ICU Other: Total patient care time exceeds 35 minutes excluding all procedures. ARNIE DUTTON [employer] JUDGE Feb 05, 2024 18:00
[2024-02-05] MEDS ORDERED: MULTITRACE-4 ADULT 10ML VIAL 3 ML, M.V.I. IV [ADULT] 10 ML in CLINIMIX-E4.25%AA/D5+LYT2... IV NR (20:00)
[2024-02-06] VITALS (49 sets, daily range): BP systolic 125–186; BP diastolic 50–105; PULSE 81–113; RESP 13–34; TEMP 98–100.3; O2SAT 96–100
[2024-02-06 04:15] LABS: BASOPHILS # (AUTO) 0.06 K/uL (0.00-0.20); BASOPHILS % (AUTO) 0.4 % (0.0-5.0); EOSINOPHILS % (AUTO) 0.6 % (0.0-8.0); HEMATOCRIT 28.8 % (36-48); IMMATURE GRANULOCYTE ABSOLUTE 0.41 K/uL (0-1); LYMPHOCYTES # (AUTO) 1.1 K/uL (1.0-4.8); LYMPHOCYTES % (AUTO) 7.1 % (21.0-51.0); MEAN CORPUSCULAR HEMOGLOBIN 27.9 pg (27.0-33.0); MEAN CORPUSCULAR HGB CONC 31.3 g/dL (32.0-36.0); MEAN CORPUSCULAR VOLUME 89.2 fL (79-99); MONOCYTES # (AUTO) 1.7 K/uL (0.1-1.0); NEUTROPHILS # (AUTO) 12.2 K/uL (1.8-7.7); NEUTROPHILS % (AUTO) 78.3 % (40.0-77.0); PLATELET COUNT (AUTO) 240 K/uL (130-400); RED BLOOD CELL COUNT(AUTO) 3.23 MIL/uL (4.00-5.50); RED CELL DISTRIBUTION WIDTH 16.6 % (11.0-15.5); WHITE BLOOD COUNT (AUTO) 15.6 K/uL (4.8-10.8)
[2024-02-06 04:43] LABS: ALBUMIN 1.6 g/dL (3.5-5.0); BILIRUBIN,TOTAL 0.3 mg/dL (0.2-1.0); CREATININE 1.5 mg/dL (0.5-1.0); POTASSIUM 3.6 mmol/L (3.5-5.1); TOTAL PROTEIN, SERUM 5.4 g/dL (6.0-8.3)
--- NOTE | 2024-02-06 08:11 | PN ---
Pt w/o Abdominal pain awake onn bipap abdomen soft nt persistent small abdominal abscess recommend medical management as patient clinically improved can start po when off bipap Vitals/Labs Vital Signs Date Time Temp Pulse Resp B/P (MAP) Pulse Ox O2 Delivery O2 Flow Rate FiO2 02/06/24 06:53 100 20 40 02/06/24 06:00 158/76 99 BIPAP 02/06/24 04:00 99.0 02/06/24 04:00 0 Laboratory Tests 02/06/24 03:50 Medications Current Medications Piperacillin Sod/ Tazobactam Sod 3.375 gm ONCE ONCE IVPB Last administered on 02/01/24at 18:33; Start 02/01/24 at 18:30; Stop 02/01/24 at 18:31; Status DC Insulin Human Regular INSULIN SLIDING SCAL... ACHS SQ Last administered on 02/05/24at 06:27; Start 02/01/24 at 21:00; Stop 02/05/24 at 09:56; Status DC Dextrose/Sodium Chloride 1,000 ml @ 75 mls/hr [id number] IV Last administered on 02/04/24at 08:36; Start 02/01/24 at 18:30; Stop 02/05/24 at 13:10; Status DC Metronidazole 500 mg Q8H PO; Start 02/01/24 at 18:30; Stop 02/01/24 at 18:41; Status DC Piperacillin Sod/ Tazobactam Sod 2.25 gm Q12H IV; Start 02/02/24 at 06:30; Stop 02/02/24 at 07:17; Status DC Metronidazole/ Sodium Chloride 500 mg Q8H IV Last administered on 02/02/24at 02:36; Start 02/01/24 at 19:00; Stop 02/02/24 at 07:17; Status DC Home Med DAILY PO Last administered on 02/03/24at 14:01; Start 02/02/24 at 09:00; Stop 03/03/24 at 08:59 Olanzapine 5 mg DAILY PO Last administered on 02/03/24at 08:39; Start 02/02/24 at 09:00; Stop 03/03/24 at 08:59 Home Med DAILY PO Last administered on 02/03/24at 14:01; Start 02/02/24 at 09:00; Stop 03/03/24 at 08:59 Losartan Potassium 100 mg DAILY PO Last administered on 02/03/24at 08:38; Start 02/02/24 at 09:00; Stop 02/04/24 at 12:12; Status DC Atenolol 50 mg DAILY PO Last administered on 02/03/24at 08:38; Start 02/02/24 at 09:00; Stop 03/03/24 at 08:59 Dicyclomine HCl 20 mg TID PO Last administered on 02/05/24at 20:50; Start 02/02/24 at 09:00; Stop 03/03/24 at 08:59 Paroxetine HCl 20 mg BID PO Last administered on 02/05/24at 20:50; Start 02/02/24 at 09:00; Stop 03/03/24 at 08:59 Magnesium Oxide 400 mg DAILY PO Last administered on 02/03/24at 08:37; Start 02/02/24 at 09:00; Stop 03/03/24 at 08:59 Piperacillin Sod/ Tazobactam Sod 3.375 gm Q12H IV Last administered on 02/06/24at 06:43; Start 02/02/24 at 07:30; Stop 02/12/24 at 06:29 Magnesium Sulfate 50 ml @ 0 mls/hr PROTOCOL PRN IV Last administered on 02/02/24at 10:25; Start 02/02/24 at 08:30; Stop 03/03/24 at 08:29 Wound Care/ Dressing Products BID TP Last administered on 02/05/24at 20:57; Start 02/02/24 at 09:00; Stop 03/03/24 at 08:59 Sodium Chloride 10 ml DAILY IV Last administered on 02/05/24at 10:18; Start 02/03/24 at 09:00; Stop 03/04/24 at 08:59 Bacitracin apply to left forea... DAILY ONCE TP Last administered on 02/03/24at 08:37; Start 02/03/24 at 09:00; Stop 02/03/24 at 09:01; Status DC Leptospermum Honey 1 appl DAILY TP Last administered on 02/05/24at 10:22; Start 02/03/24 at 09:00; Stop 03/04/24 at 08:59 Sodium Bicarbonate 50 meq ONCE ONCE IV Last administered on 02/03/24at 22:04; Start 02/03/24 at 22:00; Stop 02/03/24 at 22:01; Status DC Fluconazole/ Sodium Chloride 200 ml @ 100 mls/hr DAILY IV Last administered on 02/05/24at 10:16; Start 02/04/24 at 10:00; Stop 03/05/24 at 09:59 Doxycycline Hyclate 250 ml @ 125 mls/hr Q12H IV Last administered on 02/05/24at 20:50; Start 02/04/24 at 10:00; Stop 02/09/24 at 09:59 Multivitamins/ Minerals 10 ml/ Chromium/Copper/ Manganese/Zinc 3 ml/Aa 5 %/Calcium/ Lytes/Dext 20 % 2,000 ml @ 83 mls/hr ONCE ONCE IV Last administered on 02/04/24at 11:39; Start 02/04/24 at 11:00; Stop 02/05/24 at 11:02; Status DC Furosemide 40 mg ONCE ONCE IV Last administered on 02/04/24at 15:36; Start 02/04/24 at 15:30; Stop 02/04/24 at 15:31; Status DC Insulin Glargine 15 units BID@0730,2100 SQ Last administered on 02/05/24at 20:56; Start 02/05/24 at 10:00; Stop 03/06/24 at 09:59 Insulin Human Regular INSULIN SLIDING SCAL... ACHS SQ Last administered on 02/06/24at 06:41; Start 02/05/24 at 11:30; Stop 03/06/24 at 11:29 Furosemide 40 mg ONCE ONCE IV Last administered on 02/05/24at 10:40; Start 02/05/24 at 10:00; Stop 02/05/24 at 10:02; Status DC Acetaminophen 650 mg Q6H PRN RC Last administered on 02/05/24at 13:19; Start 02/05/24 at 13:30; Stop 03/06/24 at 13:29 Chromium/Copper/ Manganese/Zinc 3 ml/Multivitamins/ Minerals 10 ml/ Amino Acids/ Electrolytes/ Dextrose 2,000 ml @ 83 mls/hr AD IV; Start 02/05/24 at 20:00; Stop 02/06/24 at 06:47; Status DMITRI GASTON MD Feb 06, 2024 08:11
--- NOTE | 2024-02-06 09:40 | PN ---
PROGRESS NOTE PROGRESS NOTE DATE OF PROGRESS NOTE: 02/06/24 SUBJECTIVE: SUBJECTIVE: The patient is in intensive care unit. She is more aware of her surroundings, responding, moving upper and lower extremities. She is still with BiPAP in place. Currently, on IV antibiotics, Zosyn and Diflucan, doxycycline. The patient is pending placement of catheter in the right lower quadrant for drainage of possible abscess. VITAL SIGNS Vital Signs Date Time Temp Pulse Resp B/P (MAP) Pulse Ox O2 Delivery O2 Flow Rate FiO2 02/06/24 08:49 110 21 159/77 99 BIPAP 40 02/06/24 07:49 100.2 02/06/24 04:00 0 PHYSICAL EXAM: OBJECTIVE: GENERAL: She is currently, awake, alert, oriented in person and place with the BiPAP in place. VITAL SIGNS: Blood pressure 146/63, pulse 101, respiratory rate 25. HEENT: Normocephalic and atraumatic. LUNGS: Decreased breath sounds in right anterior and posterior hemithorax. No wheezes. No rhonchi. HEART: S1, S2 are clear. ABDOMEN: Soft. Nontender. No masses. LABORATORY: Laboratory Result(s) Test 02/05/24 11:10 02/05/24 16:38 02/05/24 20:13 02/06/24 03:50 Whole Blood Glucose 382 MG/DL (70-110) 372 MG/DL (70-110) 337 MG/DL (70-110) White Blood Count 15.6 K/uL (4.8-10.8) Red Blood Count 3.23 MIL/uL (4.00-5.50) Hemoglobin 9.0 g/dL (12.0-16.0) Hematocrit 28.8 % (36-48) Mean Corpuscular Volume 89.2 fL (79-99) Mean Corpuscular Hemoglobin 27.9 pg (27.0-33.0) Mean Corpuscular Hemoglobin Concent 31.3 g/dL (32.0-36.0) Red Cell Distribution Width 16.6 % (11.0-15.5) Platelet Count 240 K/uL (130-400) Mean Platelet Volume 9.2 fL (7.5-10.5) Immature Granulocyte % (Auto) 2.6 % (0-1) Neutrophils (%) (Auto) 78.3 % (40.0-77.0) Lymphocytes (%) (Auto) 7.1 % (21.0-51.0) Monocytes (%) (Auto) 11.0 % (3.0-13.0) Eosinophils (%) (Auto) 0.6 % (0.0-8.0) Basophils (%) (Auto) 0.4 % (0.0-5.0) Neutrophils # (Auto) 12.2 K/uL (1.8-7.7) Lymphocytes # (Auto) 1.1 K/uL (1.0-4.8) Monocytes # (Auto) 1.7 K/uL (0.1-1.0) Eosinophils # (Auto) 0.10 K/uL (0.00-0.70) Basophils # (Auto) 0.06 K/uL (0.00-0.20) Absolute Immature Granulocyte (auto 0.41 K/uL (0-1) Nucleated Red Blood Cells 0.0 % (0.0-0.19) Sodium Level 146 mmol/L (136-145) Potassium Level 3.6 mmol/L (3.5-5.1) Chloride Level 112 mmol/L (101-111) Carbon Dioxide Level 30 mmol/L (21-32) Blood Urea Nitrogen 43 mg/dL (7-18) Creatinine 1.5 mg/dL (0.5-1.0) Glomerular Filtration Rate Calc 35 mL/min (>90) Random Glucose 349 mg/dL (70-105) Total Calcium 8.8 mg/dL (8.5-10.1) Total Bilirubin 0.3 mg/dL (0.2-1.0) Aspartate Amino Transf (AST/SGOT) 8 U/L (10-37) Alanine Aminotransferase (ALT/SGPT) 11 U/L (12-78) Alkaline Phosphatase 95 U/L (50-136) Total Protein 5.4 g/dL (6.0-8.3) Albumin 1.6 g/dL (3.5-5.0) INPATIENT MEDS: Current Medications Medications Dose Ordered Sig/Ana Start Time Stop Time Status Last Admin Home Med DAILY 02/02/24 09:00 03/03/24 08:59 02/03/24 14:01 Olanzapine 5 mg DAILY 02/02/24 09:00 03/03/24 08:59 02/03/24 08:39 Home Med DAILY 02/02/24 09:00 03/03/24 08:59 02/03/24 14:01 Atenolol 50 mg DAILY 02/02/24 09:00 03/03/24 08:59 02/03/24 08:38 Dicyclomine HCl 20 mg TID 02/02/24 09:00 03/03/24 08:59 02/05/24 20:50 Paroxetine HCl 20 mg BID 02/02/24 09:00 03/03/24 08:59 02/05/24 20:50 Magnesium Oxide 400 mg DAILY 02/02/24 09:00 03/03/24 08:59 02/03/24 08:37 Piperacillin Sod/ Tazobactam Sod 3.375 gm Q12H 02/02/24 07:30 02/12/24 06:29 02/06/24 06:43 Magnesium Sulfate 50 ml @ 0 mls/hr PROTOCOL PRN 02/02/24 08:30 03/03/24 08:29 02/02/24 10:25 Wound Care/ Dressing Products BID 02/02/24 09:00 03/03/24 08:59 02/06/24 08:14 Sodium Chloride 10 ml DAILY 02/03/24 09:00 03/04/24 08:59 02/06/24 08:11 Leptospermum Honey 1 appl DAILY 02/03/24 09:00 03/04/24 08:59 02/06/24 08:14 Fluconazole/ Sodium Chloride 200 ml @ 100 mls/hr DAILY 02/04/24 10:00 03/05/24 09:59 02/06/24 08:11 Doxycycline Hyclate 250 ml @ 125 mls/hr Q12H 02/04/24 10:00 02/09/24 09:59 02/06/24 09:35 Acetaminophen 650 mg Q6H PRN 02/05/24 13:30 03/06/24 13:29 02/05/24 13:19 Multivitamins/ Minerals 10 ml/ Chromium/Copper/ Manganese/Zinc 3 ml/Aa 5 %/Calcium/ Lytes/Dext 20 % 2,000 ml @ 83 mls/hr ONCE ONCE 02/06/24 09:30 02/07/24 09:35 Insulin Glargine 25 units BID@0730,2100 02/06/24 21:00 03/07/24 20:59 UNV Insulin Human Regular 100 unit/ Sodium Chloride 100 ml @ 0 mls/hr AD PRN 02/06/24 10:00 03/07/24 09:59 UNV PROBLEM LIST: (1) Acute diverticulitis ICD Code: K57.92 - Diverticulitis of intestine, part unspecified, without perforation or abscess without bleeding (2) UTI (urinary tract infection) ICD Code: N39.0 - Urinary tract infection, site not specified (3) Hypomagnesemia ICD Code: E83.42 - Hypomagnesemia (4) Acute kidney injury ICD Code: N17.9 - Acute kidney failure, unspecified PLAN: Echocardiogram shows ejection fraction 60% to 65%, calcified aortic valve, mild aortic stenosis. CT scan of the abdomen and pelvis shows inflammatory changes in sigmoid consistent with diverticulitis with an adjacent 2.8 collection of air and fluid consistent with contained perforation unchanged compared to previous examination. Mild bibasilar atelectasis. ASSESSMENT AND PLAN: * Respiratory failure with hypoxemia. Continue with BiPAP. Sepsis secondary to diverticulitis and perforated colon. Continue with recommendations by Surgery. She is scheduled to have drainage catheter in the right lower quadrant. * Right lower lobe pneumonia and pleural effusion. The patient may need to have thoracentesis scheduled. * Acute renal failure, improving. * Type 2 diabetes. Continue ICU protocol. * Hypertension, controlled. * Change in mental status secondary to hypoxemia and sepsis significantly improved. The patient is back to her baseline. Severe malnutrition supportive treatment continue with TPN Perforated colon with fluid contained intraperitoneal collection 2.8 cm follow with repeat CT as no surgical management or intervention Radiology being planned to drain it Patient is DNR ISAIAH FLORES MD Feb 06, 2024 09:40
--- NOTE | 2024-02-06 09:53 | PN ---
[facility] PROGRESS NOTE Date Patient Seen: Feb 06, 2024 Time of Visit: 09:49 Supervising Physician: Dr. Thurston Consulting Physician: Dr Morgan Outpatient Specialists: [facility] Inpatient Consults: Dr. Narayanan, Dr. Bustamante PROBLEM LIST: Acute hypoxic and hypercapnic respiratory failure secondary to below Sepsis - POA Right moderate pleural effusion, POA Acute diverticulitis with contained perforation, - suspect polymicrobial peritonitis- evaluated by General surgery, no surgical intervention at this time Non anion gap metabolic acidosis- resolving Acute renal failure- secondary to ATN from sepsis Acute complicated cystitis - POA Hypernatremia, POA Chronic congestive heart failure- preserved EF, POA Acute metabolic acidosis, POA Acute encephalopathy, POA DM type II, with hyperglycemia, POA Hypertension, POA Hyperlipidemia, POA INTERVAL HISTORY: 02/03 patient is lethargic but answering questions appropriately. She is oriented to person but disoriented to place time and situation. Patient was upgraded to ICU yesterday after rapid response initiation for decreased mental status. Overnight with the CT scan of the head with no acute intracranial bleed or any significant finding. ABG was done yesterday with metabolic acidosis. Patient received sodium bicarbonate x1 overnight. Chemistry this morning with sodium 144 potassium 3.9 chloride 114, bicarb 22, BUN is 46 creatinine is 2.0 renal function has improved. Patient has put out 400 cc of urine output. We will place a Tellez catheter for strict I/O, and repeat UA, blood culture, fungal culture. Patient is on Zosyn antibiotic. Adjusted per renal function. We will add GPC coverage and antifungal given abdominal abscess. We will also repeat CT scan of the abdomen to see the progression of the abscess. If remains the same and/ or worsening, we will request IR to drain this. Patient remains on BiPAP 09/02/2039%. ABG this morning with pH 7.39, pCO2 46 PO2 101. Bicarb is 22.7 O2 sat is 97%. Base excess-3.5. This is mainly metabolic acidosis with some component of respiratory acidosis. Will give a trial with high flow NC and see how she does. In the mean time, nutrition is poor albumin low, per family she has not been eating well over a week. Given diverticulitis, will start TPN. Spoke with the patient's family, son daughter and patient's . DNR/DNI has been requested and we will kellie this. Condition is guarded. We will keep her in ICU. 02/04 patient remains on noninvasive positive pressure ventilation since yesterday, unable to wean it off for break for too long. Patient developed hypercapnia with encephalopathy after 30 minutes off of bipap. Venous blood gas this morning with pH 7.309, pCO2 46, PO2 is 136. Bicarb is 22. Base excess is- 3.6. We will continue to utilize NIPPV for hypercapnia. Continue to follow with the blood gases in the morning. Her chest x-ray was with right hemidiaphragm elevation. Patient also has pulmonary congestion/ pleural effusion. Diuretic has been requested. Continue strict I's and o's. Continue with tellez. Remainder of the lab her renal function has improved, creatinine is 1.8 down from 1.9. BUN is also down to 43 from 45. Glucose however is high at 330 , patient has been started on TPN yesterday. We will increase insulin sliding scale and start long-acting insulin. She remains NPO. In the meantime CT scan of the abdomen was repeated yesterday with persistent abscess in the pelvic area which we had requested IR to drain this however given location and size, she is not candidate for percutaneous drain placement. For now broad antibiotic therapy and antifungal. We will continue to keep patient in the ICU given hypercapnia requiring NIPPV. LVEF is preserved with 60% Spoke with patient's family at this site. 02/05 patient is awake and alert and oriented not in acute distress, remains on BiPAP at the moment, patient did not tolerate off BiPAP yesterday. We can try again to keep her off of it. Repeat chest x-ray see the atelectasis. She has been diuresed with pulse dose Lasix. Urine output is 3.5 L with balance -1 L. lab this morning with BUN of 43 this is similar to yesterday and creatinine is down to 1.5 from 1.8. We will repeat chest x-ray today and tomorrow. Remainder of the lab with leukocytosis worsening and patient had fever 100.2 this AM. We will up the coverage of the antibiotic discontinue Zosyn and start patient on merem. Continue doxy and fluconazole. Patient complained of back pain, will place lidocain patch. Ultram PRN. Glucose over 300 despite long acting insulin. Will start insulin drip, increase long acting. Continue TPN. Spoke with patient and her granddaughter. REVIEW OF SYSTEMS: Unable to obtain. PHYSICAL EXAM: GENERAL: Much more awake, following command appropriately HEENT: EOMI, Sclera non icteric, moist mucosa NECK: Supple, no JVD, trachea midline LUNGS: Clear breath sounds bilaterally. No wheezes HEART: Regular rate and rhythm. Normal S1 and S2, without murmurs ABD: Abdomen soft, nontender. Bowel sounds present EXT: No clubbing cyanosis or edema NEURO: Generalized weakness. Moves all extremities equally. Vital Signs (last 8hr) Date Time Temp Pulse Resp B/P (MAP) Pulse Ox O2 Delivery O2 Flow Rate FiO2 02/06/24 08:49 110 21 159/77 99 BIPAP 40 02/06/24 08:19 113 29 156/83 99 BIPAP 40 02/06/24 07:49 100.2 110 13 129/96 98 BIPAP 40 02/06/24 07:19 104 21 149/68 98 BIPAP 40 02/06/24 06:53 100 20 40 02/06/24 06:49 108 23 149/73 98 BIPAP 40 02/06/24 06:00 107 21 158/76 99 BIPAP 02/06/24 05:30 110 23 152/68 99 BIPAP 40 02/06/24 05:00 108 34 148/61 99 BIPAP 40 02/06/24 04:00 99.0 104 30 148/74 99 BIPAP 40 02/06/24 04:00 100 Bi-PAP+ 0 40 02/06/24 03:30 98 29 151/81 99 BIPAP 40 02/06/24 03:12 102 20 40 02/06/24 03:00 101 29 125/62 100 BIPAP 40 02/06/24 02:30 102 21 142/59 96 BIPAP 40 02/06/24 02:00 105 18 158/81 100 BIPAP 40 LABS: Hematology Labs: Test 02/06/24 03:50 Range/Units White Blood Count 15.6 H 4.8-10.8 K/uL Red Blood Count 3.23 L 4.00-5.50 MIL/uL Hemoglobin 9.0 L 12.0-16.0 g/dL Hematocrit 28.8 L 36-48 % Mean Corpuscular Volume 89.2 79-99 fL Mean Corpuscular Hemoglobin 27.9 27.0-33.0 pg Mean Corpuscular Hemoglobin Concent 31.3 L 32.0-36.0 g/dL Red Cell Distribution Width 16.6 H 11.0-15.5 % Platelet Count 240 130-400 K/uL Mean Platelet Volume 9.2 7.5-10.5 fL Immature Granulocyte % (Auto) 2.6 H 0-1 % Neutrophils (%) (Auto) 78.3 H 40.0-77.0 % Lymphocytes (%) (Auto) 7.1 L 21.0-51.0 % Monocytes (%) (Auto) 11.0 3.0-13.0 % Eosinophils (%) (Auto) 0.6 0.0-8.0 % Basophils (%) (Auto) 0.4 0.0-5.0 % Neutrophils # (Auto) 12.2 H 1.8-7.7 K/uL Lymphocytes # (Auto) 1.1 1.0-4.8 K/uL Monocytes # (Auto) 1.7 H 0.1-1.0 K/uL Eosinophils # (Auto) 0.10 0.00-0.70 K/uL Basophils # (Auto) 0.06 0.00-0.20 K/uL Absolute Immature Granulocyte (auto 0.41 0-1 K/uL Nucleated Red Blood Cells 0.0 0.0-0.19 % Chemistry Labs: Test 02/06/24 03:50 02/05/24 20:13 02/04/24 09:57 Range/Units Sodium Level 146 H 136-145 mmol/L Potassium Level 3.6 3.5-5.1 mmol/L Chloride Level 112 H 101-111 mmol/L Carbon Dioxide Level 30 21-32 mmol/L Blood Urea Nitrogen 43 H 7-18 mg/dL Creatinine 1.5 H 0.5-1.0 mg/dL Glomerular Filtration Rate Calc 35 >90 mL/min Random Glucose 349 H 70-105 mg/dL Total Calcium 8.8 8.5-10.1 mg/dL Total Bilirubin 0.3 0.2-1.0 mg/dL Aspartate Amino Transf (AST/SGOT) 8 L 10-37 U/L Alanine Aminotransferase (ALT/SGPT) 11 L 12-78 U/L Alkaline Phosphatase 95 50-136 U/L Total Protein 5.4 L 6.0-8.3 g/dL Albumin 1.6 L 3.5-5.0 g/dL Whole Blood Glucose 337 H 70-110 MG/DL Lactic Acid Level 1.4 0.8-2.5 mmol/L Magnesium Level 2.50 H 1.80-2.40 mg/dL Ammonia 14 11-32 umol/L Procalcitonin 0.29 0.05-0.5 ng/mL Thyroid Stimulating Hormone (TSH) 2.78 0.36-3.74 uIU/mL DIAGNOSTICS / RADIOLOGY RESULTS: [ ] PLAN NEURO: Minimize central acting medications as possible. Fall Precautions. Well lighted room through the day and minimize interruptions through the night to prevent acute delirium. PULMONARY: Supplemental 02 as needed Titrate Fio2 to keep Spo2 > or = 90% DuoNebs and CPT as needed IS hourly while awake for pulmonary hygiene Out of bed to chair as tolerated CARDIOVASCULAR: Follow hemodynamics. Titrate vasopressor to keep MAP >65 or systolic blood pressure >95mmHg DRIPS: TPN LINES: PICC line GI & NUTRITION: Continue nutritional support Aspirations precautions Prokinetic agents and laxatives as needed KIDNEYS & ELECTROLYTES: Strict monitoring of intake and output Daily weights Avoid nephrotoxic agents Monitor electrolytes and replace as needed Goal urine output of 30mL/hr or 0.5mL/kg/hr ENDOCRINE: Maintain blood glucose between 100-180 at all times. Insulin sliding scale for blood glucose management INFECTIOUS DISEASE: Trend temperature. Alarcon-culture if febrile. Micro: Antibiotics: Zosyn 01/31- 02/05 Doxy 02/03- Fluconazole 02/03- Meropenem 02/05- HEMATOLOGY & COAGULATION: Monitor H&H. Keep Hgb > 7 Transfuse 1 unit of PRBC for Hgb < 7 Transfuse 1 pack of platelets of platelets < 20, 000 Watch for any signs and symptoms of bleeding SKIN: Pressure ulcer prevention per facility protocol Right foot wound care Rehab: PT/OT Prophylaxis: GI: Pepcid DVT: Heparin Code Status: Full Resuscitation Disposition: ICU Other: Total patient care time exceeds 35 minutes excluding all procedures. ARNIE DUTTON PROFESSOR OF SURGERY Feb 06, 2024 09:53
[2024-02-06] MEDS: LIDOCAINE 4% ADH..PATCH TP SCH (10:15)
[2024-02-06] MEDS: MEROPENEM 1 GM in 0.9%NACL 100ML 100 ML IV SCH (10:15)
[2024-02-06] MEDS ORDERED: COMPOUND IV MISC 1 EACH IVSOLN MISC PRN (10:30)
[2024-02-06] MEDS: INSULIN REGULAR, HUMAN 3ML 100 UNIT in 0.9%NACL 100ML 99 ML IV PRN (10:30)
[2024-02-06] MEDS: furoSEMIDE 40MG VIAL IV SCH (10:53)
[2024-02-06] MEDS: traMADol HCL 50 MG TABLET PO PRN (10:58)
[2024-02-06] MEDS ORDERED: PoTASSium chloRIDE 20MEQ ER 20 MEQ ERTAB PO PRN (11:30)
[2024-02-06] MEDS ORDERED: MAGNESIUM 2GM PREMIX 50ML 50 ML IV PRN (11:30)
[2024-02-06] MEDS ORDERED: PoTASSium chl 10% ELIXIR 20MEQ 20 MEQ/15 ML UDCUP PO PRN (11:30)
--- NOTE | 2024-02-06 11:32 | HMCIMG ---
CHEST 1VW REASON: hypoxia COMPARISON: 02/05/2024 FINDINGS: There are stable cardial megaly. There is elevated right hemidiaphragm. There is a right pleural effusion as well. Lungs are otherwise clear. There is no vascular congestion. There is no pneumothorax. IMPRESSION: 1. Persistent elevation of the right hemithorax, there is also a small right pleural effusion. 2. Stable cardiomegaly without vascular congestion.
[2024-02-06] MEDS: PoTASSium chloRIDE 20MEQ/100ML 100 ML IV PRN (13:03)
[2024-02-06] MEDS: [UNRECOGNIZED DRUG - NUTRITION] IV ONE (13:53)
[2024-02-06] MEDS: INSULIN GLARgine 100 UNITS/ML 10 ML VIAL SQ SCH (20:51)
[2024-02-06] MEDS: FAT EMULSIONS 20% 250ML 250 ML IV SCH (20:52)
[2024-02-06] MEDS ORDERED: INSULIN GLARgine 100 UNITS/ML 10 ML VIAL SQ SCH (21:00)
[2024-02-07] VITALS (40 sets, daily range): BP systolic 133–192; BP diastolic 39–108; PULSE 82–108; RESP 15–37; TEMP 99.4–100; O2SAT 98–99
[2024-02-07] MEDS: hydrALAZine 20MG/ML VIAL IV PRN (00:11)
[2024-02-07 04:06] LABS: BASOPHILS # (AUTO) 0.06 K/uL (0.00-0.20); BASOPHILS % (AUTO) 0.4 % (0.0-5.0); EOSINOPHILS # (AUTO) 0.12 K/uL (0.00-0.70); EOSINOPHILS % (AUTO) 0.8 % (0.0-8.0); HEMATOCRIT 28.9 % (36-48); IMMATURE GRANULOCYTE ABSOLUTE 0.33 K/uL (0-1); LYMPHOCYTES # (AUTO) 1.7 K/uL (1.0-4.8); MEAN CORPUSCULAR HGB CONC 31.5 g/dL (32.0-36.0); MEAN CORPUSCULAR VOLUME 88.9 fL (79-99); MONOCYTES # (AUTO) 1.9 K/uL (0.1-1.0); MONOCYTES % (AUTO) 12.2 % (3.0-13.0); NEUTROPHILS # (AUTO) 11.2 K/uL (1.8-7.7); NEUTROPHILS % (AUTO) 73.4 % (40.0-77.0); PLATELET COUNT (AUTO) 257 K/uL (130-400); RED BLOOD CELL COUNT(AUTO) 3.25 MIL/uL (4.00-5.50); RED CELL DISTRIBUTION WIDTH 16.7 % (11.0-15.5); WHITE BLOOD COUNT (AUTO) 15.3 K/uL (4.8-10.8)
[2024-02-07 04:28] LABS: ALBUMIN 1.6 g/dL (3.5-5.0); BILIRUBIN,TOTAL 0.3 mg/dL (0.2-1.0); CREATININE 1.4 mg/dL (0.5-1.0); POTASSIUM 3.5 mmol/L (3.5-5.1); TOTAL PROTEIN, SERUM 5.5 g/dL (6.0-8.3)
--- NOTE | 2024-02-07 06:36 | PN ---
PROGRESS NOTE PROGRESS NOTE DATE OF PROGRESS NOTE: 02/07/24 SUBJECTIVE: uneventful and stable respirations VITAL SIGNS Vital Signs Date Time Temp Pulse Resp B/P (MAP) Pulse Ox O2 Delivery O2 Flow Rate FiO2 02/07/24 04:42 99.7 02/07/24 04:20 108 16 133/50 99 BIPAP 40 02/07/24 04:00 40 PHYSICAL EXAM: OBJECTIVE: GENERAL: She is currently, awake, alert, oriented in person and place with the BiPAP in place. VITAL SIGNS: Blood pressure 146/63, pulse 101, respiratory rate 25. HEENT: Normocephalic and atraumatic. LUNGS: Decreased breath sounds in right anterior and posterior hemithorax. No wheezes. No rhonchi. HEART: S1, S2 are clear. ABDOMEN: Soft. Nontender. No masses. LABORATORY: Laboratory Result(s) Test 02/06/24 10:29 02/06/24 11:54 02/06/24 12:52 02/06/24 13:52 Whole Blood Glucose 433 MG/DL (70-110) 385 MG/DL (70-110) 365 MG/DL (70-110) 353 MG/DL (70-110) Bedside Glucose Comment Protocol Initiated Test 02/06/24 15:24 02/06/24 16:27 02/06/24 17:40 02/06/24 18:18 Whole Blood Glucose 293 MG/DL (70-110) 278 MG/DL (70-110) 246 MG/DL (70-110) Potassium Level 3.8 mmol/L (3.5-5.1) Test 02/06/24 19:08 02/06/24 19:55 02/06/24 22:31 02/07/24 00:15 Whole Blood Glucose 258 MG/DL (70-110) 261 MG/DL (70-110) 306 MG/DL (70-110) 264 MG/DL (70-110) Test 02/07/24 02:46 02/07/24 03:49 02/07/24 04:36 02/07/24 06:15 Whole Blood Glucose 249 MG/DL (70-110) 180 MG/DL (70-110) 209 MG/DL (70-110) White Blood Count 15.3 K/uL (4.8-10.8) Red Blood Count 3.25 MIL/uL (4.00-5.50) Hemoglobin 9.1 g/dL (12.0-16.0) Hematocrit 28.9 % (36-48) Mean Corpuscular Volume 88.9 fL (79-99) Mean Corpuscular Hemoglobin 28.0 pg (27.0-33.0) Mean Corpuscular Hemoglobin Concent 31.5 g/dL (32.0-36.0) Red Cell Distribution Width 16.7 % (11.0-15.5) Platelet Count 257 K/uL (130-400) Mean Platelet Volume 9.0 fL (7.5-10.5) Immature Granulocyte % (Auto) 2.2 % (0-1) Neutrophils (%) (Auto) 73.4 % (40.0-77.0) Lymphocytes (%) (Auto) 11.0 % (21.0-51.0) Monocytes (%) (Auto) 12.2 % (3.0-13.0) Eosinophils (%) (Auto) 0.8 % (0.0-8.0) Basophils (%) (Auto) 0.4 % (0.0-5.0) Neutrophils # (Auto) 11.2 K/uL (1.8-7.7) Lymphocytes # (Auto) 1.7 K/uL (1.0-4.8) Monocytes # (Auto) 1.9 K/uL (0.1-1.0) Eosinophils # (Auto) 0.12 K/uL (0.00-0.70) Basophils # (Auto) 0.06 K/uL (0.00-0.20) Absolute Immature Granulocyte (auto 0.33 K/uL (0-1) Nucleated Red Blood Cells 0.0 % (0.0-0.19) Sodium Level 148 mmol/L (136-145) Potassium Level 3.5 mmol/L (3.5-5.1) Chloride Level 114 mmol/L (101-111) Carbon Dioxide Level 32 mmol/L (21-32) Blood Urea Nitrogen 45 mg/dL (7-18) Creatinine 1.4 mg/dL (0.5-1.0) Glomerular Filtration Rate Calc 38 mL/min (>90) Random Glucose 172 mg/dL (70-105) Total Calcium 9.3 mg/dL (8.5-10.1) Total Bilirubin 0.3 mg/dL (0.2-1.0) Aspartate Amino Transf (AST/SGOT) 14 U/L (10-37) Alanine Aminotransferase (ALT/SGPT) 12 U/L (12-78) Alkaline Phosphatase 99 U/L (50-136) Total Protein 5.5 g/dL (6.0-8.3) Albumin 1.6 g/dL (3.5-5.0) Microbiology Results Date/Time Source Procedure Growth Status 02/06/24 10:45 Nasal Nasal Screen MRSA (PCR)([facility]) - Final Complete INPATIENT MEDS: Current Medications Medications Dose Ordered Sig/Ana Start Time Stop Time Status Last Admin Home Med DAILY 02/02/24 09:00 03/03/24 08:59 02/03/24 14:01 Olanzapine 5 mg DAILY 02/02/24 09:00 03/03/24 08:59 02/03/24 08:39 Home Med DAILY 02/02/24 09:00 03/03/24 08:59 02/03/24 14:01 Atenolol 50 mg DAILY 02/02/24 09:00 03/03/24 08:59 02/06/24 10:52 Dicyclomine HCl 20 mg TID 02/02/24 09:00 03/03/24 08:59 02/05/24 20:50 Paroxetine HCl 20 mg BID 02/02/24 09:00 03/03/24 08:59 02/05/24 20:50 Magnesium Oxide 400 mg DAILY 02/02/24 09:00 03/03/24 08:59 02/03/24 08:37 Magnesium Sulfate 50 ml @ 0 mls/hr PROTOCOL PRN 02/02/24 08:30 03/03/24 08:29 02/02/24 10:25 Wound Care/ Dressing Products BID 02/02/24 09:00 03/03/24 08:59 02/06/24 21:38 Sodium Chloride 10 ml DAILY 02/03/24 09:00 03/04/24 08:59 02/06/24 08:11 Leptospermum Honey 1 appl DAILY 02/03/24 09:00 03/04/24 08:59 02/06/24 08:14 Fluconazole/ Sodium Chloride 200 ml @ 100 mls/hr DAILY 02/04/24 10:00 03/05/24 09:59 02/06/24 08:11 Doxycycline Hyclate 250 ml @ 125 mls/hr Q12H 02/04/24 10:00 02/09/24 09:59 02/06/24 20:50 Acetaminophen 650 mg Q6H PRN 02/05/24 13:30 03/06/24 13:29 02/05/24 13:19 Multivitamins/ Minerals 10 ml/ Chromium/Copper/ Manganese/Zinc 3 ml/Aa 5 %/Calcium/ Lytes/Dext 20 % 2,000 ml @ 83 mls/hr ONCE ONCE 02/06/24 09:30 02/07/24 09:35 02/06/24 13:53 Insulin Human Regular 100 unit/ Sodium Chloride 100 ml @ 0 mls/hr AD PRN 02/06/24 10:00 03/07/24 09:59 02/07/24 00:19 Meropenem 1 gm/ Sodium Chloride 100 ml @ 33.333 mls/ hr Q12H 02/06/24 10:00 02/16/24 09:59 02/06/24 20:50 Lidocaine 1 each DAILY 02/06/24 10:00 03/07/24 09:59 02/06/24 10:15 Tramadol HCl 50 mg Q6H PRN 02/06/24 10:00 02/11/24 09:59 02/06/24 10:58 Insulin Glargine 25 units BID@0730,2100 02/06/24 21:00 03/07/24 20:59 02/06/24 20:51 Furosemide 40 mg DAILY 02/06/24 11:00 03/07/24 10:59 02/06/24 10:53 Hydralazine HCl 20 mg Q4H PRN 02/06/24 11:00 03/07/24 10:59 02/07/24 00:11 Potassium Chloride 100 ml @ 100 mls/hr AD PRN 02/06/24 11:30 03/07/24 11:29 02/06/24 13:03 Potassium Chloride 20 meq AD PRN 02/06/24 11:30 03/07/24 11:29 Potassium Chloride 20 meq AD PRN 02/06/24 11:30 03/07/24 11:29 Fat Emulsion Intravenous 250 ml @ 42 mls/hr QODAY@2100 02/06/24 21:00 03/07/24 20:59 02/06/24 20:52 PROBLEM LIST: (1) Acute diverticulitis ICD Code: K57.92 - Diverticulitis of intestine, part unspecified, without perforation or abscess without bleeding (2) UTI (urinary tract infection) ICD Code: N39.0 - Urinary tract infection, site not specified (3) Hypomagnesemia ICD Code: E83.42 - Hypomagnesemia (4) Acute kidney injury ICD Code: N17.9 - Acute kidney failure, unspecified PLAN: Echocardiogram shows ejection fraction 60% to 65%, calcified aortic valve, mild aortic stenosis. CT scan of the abdomen and pelvis shows inflammatory changes in sigmoid consistent with diverticulitis with an adjacent 2.8 collection of air and fluid consistent with contained perforation unchanged compared to previous examination. Mild bibasilar atelectasis. ASSESSMENT AND PLAN: * Respiratory failure with hypoxemia. Continue with BiPAP. Sepsis secondary to diverticulitis and perforated colon. Continue with recommendations by Surgery. She is scheduled to have drainage catheter in the right lower quadrant. * Right lower lobe pneumonia and pleural effusion. The patient may need to have thoracentesis scheduled. * Acute renal failure, improving. * Type 2 diabetes. Continue ICU protocol. * Hypertension, controlled. * Change in mental status secondary to hypoxemia and sepsis significantly improved. The patient is back to her baseline. Severe malnutrition supportive treatment continue with TPN Perforated colon with fluid contained intraperitoneal collection 2.8 cm follow with repeat CT as no surgical management or intervention Radiology being planned to drain it Patient is DNR ISAIAH FLORES MD Feb 07, 2024 06:36
--- NOTE | 2024-02-07 08:54 | HMCIMG ---
PORTABLE CHEST RADIOGRAPH INDICATION: hypoxia COMPARISON: 02/06/2024 FINDINGS: Patient positioning is not optimal, in this exam is limited as a result. cardiac monitor technician leads overlie the field of view. Stable left PICC. Stable heart size. The pulmonary vascularity appears normal. Right costophrenic angle remains blunted. No evidence for consolidation. No pneumothorax detected. IMPRESSION: Unchanged small to medium-sized right pleural effusion.
[2024-02-07] MEDS ORDERED: furoSEMIDE 40MG VIAL IV SCH (09:00)
--- NOTE | 2024-02-07 10:19 | PN ---
[facility] PROGRESS NOTE Date Patient Seen: Feb 07, 2024 Time of Visit: 10:17 Supervising Physician: Dr. Thurston Consulting Physician: Dr Morgan Outpatient Specialists: [facility] Inpatient Consults: Dr. Narayanan, Dr. Bustamante PROBLEM LIST: Acute hypoxic and hypercapnic respiratory failure secondary to below Sepsis - POA DM type II, with hyperglycemia, POA Right moderate pleural effusion, POA Acute diverticulitis with contained perforation, - suspect polymicrobial peritonitis- evaluated by General surgery, no surgical intervention at this time Non anion gap metabolic acidosis- resolving Acute renal failure- secondary to ATN from sepsis Acute complicated cystitis - POA Hypernatremia, POA Chronic congestive heart failure- preserved EF, POA Acute metabolic acidosis, POA Acute encephalopathy, POA Hypertension, POA Hyperlipidemia, POA INTERVAL HISTORY: 02/03 patient is lethargic but answering questions appropriately. She is oriented to person but disoriented to place time and situation. Patient was upgraded to ICU yesterday after rapid response initiation for decreased mental status. Overnight with the CT scan of the head with no acute intracranial bleed or any significant finding. ABG was done yesterday with metabolic acidosis. Patient received sodium bicarbonate x1 overnight. Chemistry this morning with sodium 144 potassium 3.9 chloride 114, bicarb 22, BUN is 46 creatinine is 2.0 renal function has improved. Patient has put out 400 cc of urine output. We will place a Tellez catheter for strict I/O, and repeat UA, blood culture, fungal culture. Patient is on Zosyn antibiotic. Adjusted per renal function. We will add GPC coverage and antifungal given abdominal abscess. We will also repeat CT scan of the abdomen to see the progression of the abscess. If remains the same and/ or worsening, we will request IR to drain this. Patient remains on BiPAP 09/02/2039%. ABG this morning with pH 7.39, pCO2 46 PO2 101. Bicarb is 22.7 O2 sat is 97%. Base excess-3.5. This is mainly metabolic acidosis with some component of respiratory acidosis. Will give a trial with high flow NC and see how she does. In the mean time, nutrition is poor albumin low, per family she has not been eating well over a week. Given diverticulitis, will start TPN. Spoke with the patient's family, son daughter and patient's . DNR/DNI has been requested and we will kellie this. Condition is guarded. We will keep her in ICU. 02/04 patient remains on noninvasive positive pressure ventilation since yesterday, unable to wean it off for break for too long. Patient developed hypercapnia with encephalopathy after 30 minutes off of bipap. Venous blood gas this morning with pH 7.309, pCO2 46, PO2 is 136. Bicarb is 22. Base excess is- 3.6. We will continue to utilize NIPPV for hypercapnia. Continue to follow with the blood gases in the morning. Her chest x-ray was with right hemidiaphragm elevation. Patient also has pulmonary congestion/ pleural effusion. Diuretic has been requested. Continue strict I's and o's. Continue with tellez. Remainder of the lab her renal function has improved, creatinine is 1.8 down from 1.9. BUN is also down to 43 from 45. Glucose however is high at 330 , patient has been started on TPN yesterday. We will increase insulin sliding scale and start long-acting insulin. She remains NPO. In the meantime CT scan of the abdomen was repeated yesterday with persistent abscess in the pelvic area which we had requested IR to drain this however given location and size, she is not candidate for percutaneous drain placement. For now broad antibiotic therapy and antifungal. We will continue to keep patient in the ICU given hypercapnia requiring NIPPV. LVEF is preserved with 60% Spoke with patient's family at this site. 02/05 patient is awake and alert and oriented not in acute distress, remains on BiPAP at the moment, patient did not tolerate off BiPAP yesterday. We can try again to keep her off of it. Repeat chest x-ray see the atelectasis. She has been diuresed with pulse dose Lasix. Urine output is 3.5 L with balance -1 L. lab this morning with BUN of 43 this is similar to yesterday and creatinine is down to 1.5 from 1.8. We will repeat chest x-ray today and tomorrow. Remainder of the lab with leukocytosis worsening and patient had fever 100.2 this AM. We will up the coverage of the antibiotic discontinue Zosyn and start patient on merem. Continue doxy and fluconazole. Patient complained of back pain, will place lidocain patch. Ultram PRN. Glucose over 300 despite long acting insulin. Will start insulin drip, increase long acting. Continue TPN. Spoke with patient and her granddaughter. 02/06 patient is awake alert oriented no acute event overnight. She is very debilitated. Vital signs blood pressure 160/75 heart rate is 99. T-max is 99.7. She is on high-flow nasal cannula at 25 L with 40% FiO2 saturation oxygen 99%. We can wean it down as tolerated to keep sats greater 92%. Patient has been diuresed yesterday with pulse dose Lasix now Her urine output is 3.5 L with-28 cc balance. Her renal function is improved BUN is 45 and creatinine is down to 1.4 from 1.5. Chemistry with sodium 148 this is up from 146 yesterday potassium is 3.5 chloride is 114. Bicarb is 32 . Glucose over has been up trended so patient was started on insulin drip yesterday. Continue insulin drip per protocl, continue TPN with added insulin in the bag. Continue with daily diuresis. Chest xray in AM. REVIEW OF SYSTEMS: Unable to obtain. PHYSICAL EXAM: GENERAL: Much more awake, following command appropriately HEENT: EOMI, Sclera non icteric, moist mucosa NECK: Supple, no JVD, trachea midline LUNGS: Clear breath sounds bilaterally. No wheezes HEART: Regular rate and rhythm. Normal S1 and S2, without murmurs ABD: Abdomen soft, nontender. Bowel sounds present EXT: No clubbing cyanosis or edema NEURO: Generalized weakness. Moves all extremities equally. Vital Signs (last 8hr) Date Time Temp Pulse Resp B/P (MAP) Pulse Ox O2 Delivery O2 Flow Rate FiO2 02/07/24 09:10 99 167/75 02/07/24 09:03 98 24 HFNC Heated System N/Can 25.0 40 02/07/24 06:57 94 20 40 02/07/24 04:42 99.7 02/07/24 04:20 108 16 133/50 99 BIPAP 40 02/07/24 04:00 98 Bi-PAP+ 40 40 02/07/24 03:49 105 34 175/51 98 BIPAP 40 02/07/24 03:20 99 30 142/43 99 BIPAP 40 02/07/24 02:49 104 17 175/58 99 BIPAP 40 02/07/24 02:19 98 32 152/55 98 BIPAP 40 LABS: Hematology Labs: Test 02/07/24 03:49 Range/Units White Blood Count 15.3 H 4.8-10.8 K/uL Red Blood Count 3.25 L 4.00-5.50 MIL/uL Hemoglobin 9.1 L 12.0-16.0 g/dL Hematocrit 28.9 L 36-48 % Mean Corpuscular Volume 88.9 79-99 fL Mean Corpuscular Hemoglobin 28.0 27.0-33.0 pg Mean Corpuscular Hemoglobin Concent 31.5 L 32.0-36.0 g/dL Red Cell Distribution Width 16.7 H 11.0-15.5 % Platelet Count 257 130-400 K/uL Mean Platelet Volume 9.0 7.5-10.5 fL Immature Granulocyte % (Auto) 2.2 H 0-1 % Neutrophils (%) (Auto) 73.4 40.0-77.0 % Lymphocytes (%) (Auto) 11.0 L 21.0-51.0 % Monocytes (%) (Auto) 12.2 3.0-13.0 % Eosinophils (%) (Auto) 0.8 0.0-8.0 % Basophils (%) (Auto) 0.4 0.0-5.0 % Neutrophils # (Auto) 11.2 H 1.8-7.7 K/uL Lymphocytes # (Auto) 1.7 1.0-4.8 K/uL Monocytes # (Auto) 1.9 H 0.1-1.0 K/uL Eosinophils # (Auto) 0.12 0.00-0.70 K/uL Basophils # (Auto) 0.06 0.00-0.20 K/uL Absolute Immature Granulocyte (auto 0.33 0-1 K/uL Nucleated Red Blood Cells 0.0 0.0-0.19 % Chemistry Labs: Test 02/07/24 10:02 02/07/24 03:49 02/06/24 10:29 Range/Units Whole Blood Glucose 276 H 70-110 MG/DL Sodium Level 148 H 136-145 mmol/L Potassium Level 3.5 3.5-5.1 mmol/L Chloride Level 114 H 101-111 mmol/L Carbon Dioxide Level 32 21-32 mmol/L Blood Urea Nitrogen 45 H 7-18 mg/dL Creatinine 1.4 H 0.5-1.0 mg/dL Glomerular Filtration Rate Calc 38 >90 mL/min Random Glucose 172 #H 70-105 mg/dL Total Calcium 9.3 8.5-10.1 mg/dL Total Bilirubin 0.3 0.2-1.0 mg/dL Aspartate Amino Transf (AST/SGOT) 14 10-37 U/L Alanine Aminotransferase (ALT/SGPT) 12 12-78 U/L Alkaline Phosphatase 99 50-136 U/L Total Protein 5.5 L 6.0-8.3 g/dL Albumin 1.6 L 3.5-5.0 g/dL Bedside Glucose Comment Protocol Initiated DIAGNOSTICS / RADIOLOGY RESULTS: [ ] PLAN NEURO: Minimize central acting medications as possible. Fall Precautions. Well lighted room through the day and minimize interruptions through the night to prevent acute delirium. PULMONARY: Supplemental 02 as needed Titrate Fio2 to keep Spo2 > or = 90% DuoNebs and CPT as needed IS hourly while awake for pulmonary hygiene Out of bed to chair as tolerated CARDIOVASCULAR: Follow hemodynamics. Titrate vasopressor to keep MAP >65 or systolic blood pressure >95mmHg DRIPS: TPN LINES: PICC line GI & NUTRITION: Continue nutritional support Aspirations precautions Prokinetic agents and laxatives as needed KIDNEYS & ELECTROLYTES: Strict monitoring of intake and output Daily weights Avoid nephrotoxic agents Monitor electrolytes and replace as needed Goal urine output of 30mL/hr or 0.5mL/kg/hr ENDOCRINE: Maintain blood glucose between 100-180 at all times. Insulin sliding scale for blood glucose management INFECTIOUS DISEASE: Trend temperature. Alarcon-culture if febrile. Micro: Antibiotics: Zosyn 01/31- 02/05 Doxy 02/03- Fluconazole 02/03- Meropenem 02/05- HEMATOLOGY & COAGULATION: Monitor H&H. Keep Hgb > 7 Transfuse 1 unit of PRBC for Hgb < 7 Transfuse 1 pack of platelets of platelets < 20, 000 Watch for any signs and symptoms of bleeding SKIN: Pressure ulcer prevention per facility protocol Right foot wound care Rehab: PT/OT Prophylaxis: GI: Pepcid DVT: Heparin Code Status: Full Resuscitation Disposition: ICU Other: Total patient care time exceeds 35 minutes excluding all procedures. ARNIE DUTTON BUSINESS DATA ANALYST Feb 07, 2024 10:19
[2024-02-07] MEDS: INSULIN REGULAR IV ONE (15:03)
[2024-02-07] MEDS: M V I IV ONE (15:03)
[2024-02-07] MEDS: MULTITRACE IV ONE (15:03)
[2024-02-07] MEDS: [UNRECOGNIZED DRUG - OTHER] IV ONE (15:03)
[2024-02-07] MEDS: INSULIN humuLIN R 100 UNIT/ML 3ML SQ SCH (20:20)
[2024-02-08] VITALS (18 sets, daily range): BP systolic 117–161; BP diastolic 53–77; PULSE 81–97; RESP 18–27; TEMP 98.6–99.3; O2SAT 96–100
[2024-02-08 04:16] LABS: BASOPHILS % (AUTO) 0.6 % (0.0-5.0); EOSINOPHILS # (AUTO) 0.13 K/uL (0.00-0.70); EOSINOPHILS % (AUTO) 0.8 % (0.0-8.0); HEMATOCRIT 29.9 % (36-48); IMMATURE GRANULOCYTE ABSOLUTE 0.28 K/uL (0-1); LYMPHOCYTES # (AUTO) 1.9 K/uL (1.0-4.8); LYMPHOCYTES % (AUTO) 11.9 % (21.0-51.0); MEAN CORPUSCULAR HEMOGLOBIN 28.2 pg (27.0-33.0); MEAN CORPUSCULAR HGB CONC 31.4 g/dL (32.0-36.0); MEAN CORPUSCULAR VOLUME 89.8 fL (79-99); MONOCYTES # (AUTO) 1.5 K/uL (0.1-1.0); MONOCYTES % (AUTO) 9.5 % (3.0-13.0); NEUTROPHILS # (AUTO) 11.7 K/uL (1.8-7.7); NEUTROPHILS % (AUTO) 75.4 % (40.0-77.0); PLATELET COUNT (AUTO) 293 K/uL (130-400); RED BLOOD CELL COUNT(AUTO) 3.33 MIL/uL (4.00-5.50); RED CELL DISTRIBUTION WIDTH 16.4 % (11.0-15.5); WHITE BLOOD COUNT (AUTO) 15.5 K/uL (4.8-10.8)
[2024-02-08 04:36] LABS: CREATININE 1.2 mg/dL (0.5-1.0); MAGNESIUM 1.7 mg/dL (1.80-2.40); PHOSPHORUS 3.3 mg/dL (2.5-4.9); POTASSIUM 4.4 mmol/L (3.5-5.1)
--- NOTE | 2024-02-08 09:15 | HMCIMG ---
PORTABLE CHEST RADIOGRAPH INDICATION: pleural effusion COMPARISON: 02/07/2024 FINDINGS: panel monitor leads overlie the field of view. Patient positioning is not optimal, but the radiologic examination is still believed to be of reasonable diagnostic quality. Stable left PICC. Heart size is normal. The pulmonary vascularity and raquel appear normal. Right costophrenic angle appears slightly blunted. No evidence for consolidation. Bilateral perihilar linear opacities and similar changes at both lung bases. No pneumothorax detected. IMPRESSION: Minimal bilateral perihilar and bibasilar atelectasis as well as trace right pleural effusion, unchanged.
--- NOTE | 2024-02-08 10:10 | PN ---
PROGRESS NOTE PROGRESS NOTE DATE OF PROGRESS NOTE: 02/08/24 SUBJECTIVE: no new complaints VITAL SIGNS Vital Signs Date Time Temp Pulse Resp B/P (MAP) Pulse Ox O2 Delivery O2 Flow Rate FiO2 02/08/24 08:38 92 129/56 02/08/24 08:00 98.8 21 94 N/C High Flow System 5.0 40 PHYSICAL EXAM: OBJECTIVE: GENERAL: She is currently, awake, alert, oriented in person and place with the BiPAP in place. VITAL SIGNS: Blood pressure 146/63, pulse 101, respiratory rate 25. HEENT: Normocephalic and atraumatic. LUNGS: Decreased breath sounds in right anterior and posterior hemithorax. No wheezes. No rhonchi. HEART: S1, S2 are clear. ABDOMEN: Soft. Nontender. No masses. LABORATORY: Laboratory Result(s) Test 02/07/24 11:02 02/07/24 12:02 02/07/24 13:38 02/07/24 14:59 Whole Blood Glucose 285 MG/DL (70-110) 320 MG/DL (70-110) 343 MG/DL (70-110) 325 MG/DL (70-110) Test 02/07/24 16:10 02/07/24 17:10 02/07/24 18:05 02/07/24 19:02 Whole Blood Glucose 217 MG/DL (70-110) 152 MG/DL (70-110) 163 MG/DL (70-110) 134 MG/DL (70-110) Test 02/07/24 20:14 02/08/24 03:49 Whole Blood Glucose 122 MG/DL (70-110) White Blood Count 15.5 K/uL (4.8-10.8) Red Blood Count 3.33 MIL/uL (4.00-5.50) Hemoglobin 9.4 g/dL (12.0-16.0) Hematocrit 29.9 % (36-48) Mean Corpuscular Volume 89.8 fL (79-99) Mean Corpuscular Hemoglobin 28.2 pg (27.0-33.0) Mean Corpuscular Hemoglobin Concent 31.4 g/dL (32.0-36.0) Red Cell Distribution Width 16.4 % (11.0-15.5) Platelet Count 293 K/uL (130-400) Mean Platelet Volume 9.3 fL (7.5-10.5) Immature Granulocyte % (Auto) 1.8 % (0-1) Neutrophils (%) (Auto) 75.4 % (40.0-77.0) Lymphocytes (%) (Auto) 11.9 % (21.0-51.0) Monocytes (%) (Auto) 9.5 % (3.0-13.0) Eosinophils (%) (Auto) 0.8 % (0.0-8.0) Basophils (%) (Auto) 0.6 % (0.0-5.0) Neutrophils # (Auto) 11.7 K/uL (1.8-7.7) Lymphocytes # (Auto) 1.9 K/uL (1.0-4.8) Monocytes # (Auto) 1.5 K/uL (0.1-1.0) Eosinophils # (Auto) 0.13 K/uL (0.00-0.70) Basophils # (Auto) 0.10 K/uL (0.00-0.20) Absolute Immature Granulocyte (auto 0.28 K/uL (0-1) Nucleated Red Blood Cells 0.0 % (0.0-0.19) Sodium Level 144 mmol/L (136-145) Potassium Level 4.4 mmol/L (3.5-5.1) Chloride Level 110 mmol/L (101-111) Carbon Dioxide Level 32 mmol/L (21-32) Blood Urea Nitrogen 55 mg/dL (7-18) Creatinine 1.2 mg/dL (0.5-1.0) Glomerular Filtration Rate Calc 46 mL/min (>90) Random Glucose 88 mg/dL (70-105) Total Calcium 9.6 mg/dL (8.5-10.1) Phosphorus Level 3.3 mg/dL (2.5-4.9) Magnesium Level 1.70 mg/dL (1.80-2.40) INPATIENT MEDS: Current Medications Medications Dose Ordered Sig/Ana Start Time Stop Time Status Last Admin Home Med DAILY 02/02/24 09:00 03/03/24 08:59 02/03/24 14:01 Olanzapine 5 mg DAILY 02/02/24 09:00 03/03/24 08:59 02/08/24 08:37 Home Med DAILY 02/02/24 09:00 03/03/24 08:59 02/03/24 14:01 Atenolol 50 mg DAILY 02/02/24 09:00 03/03/24 08:59 02/08/24 08:38 Dicyclomine HCl 20 mg TID 02/02/24 09:00 03/03/24 08:59 02/08/24 08:37 Paroxetine HCl 20 mg BID 02/02/24 09:00 03/03/24 08:59 02/08/24 08:38 Magnesium Oxide 400 mg DAILY 02/02/24 09:00 03/03/24 08:59 02/08/24 08:37 Magnesium Sulfate 50 ml @ 0 mls/hr PROTOCOL PRN 02/02/24 08:30 03/03/24 08:29 02/02/24 10:25 Wound Care/ Dressing Products BID 02/02/24 09:00 03/03/24 08:59 02/08/24 08:39 Sodium Chloride 10 ml DAILY 02/03/24 09:00 03/04/24 08:59 02/07/24 08:43 Leptospermum Honey 1 appl DAILY 02/03/24 09:00 03/04/24 08:59 02/08/24 08:39 Fluconazole/ Sodium Chloride 200 ml @ 100 mls/hr DAILY 02/04/24 10:00 03/05/24 09:59 02/08/24 08:36 Doxycycline Hyclate 250 ml @ 125 mls/hr Q12H 02/04/24 10:00 02/09/24 09:59 02/08/24 09:46 Acetaminophen 650 mg Q6H PRN 02/05/24 13:30 03/06/24 13:29 02/05/24 13:19 Insulin Human Regular 100 unit/ Sodium Chloride 100 ml @ 0 mls/hr AD PRN 02/06/24 10:00 03/07/24 09:59 02/07/24 15:04 Meropenem 1 gm/ Sodium Chloride 100 ml @ 33.333 mls/ hr Q12H 02/06/24 10:00 02/16/24 09:59 02/07/24 22:11 Lidocaine 1 each DAILY 02/06/24 10:00 03/07/24 09:59 02/07/24 08:42 Tramadol HCl 50 mg Q6H PRN 02/06/24 10:00 02/11/24 09:59 02/07/24 22:04 Insulin Glargine 25 units BID@0730,2100 02/06/24 21:00 03/07/24 20:59 02/07/24 21:18 Furosemide 40 mg DAILY 02/06/24 11:00 03/07/24 10:59 02/08/24 08:37 Hydralazine HCl 20 mg Q4H PRN 02/06/24 11:00 03/07/24 10:59 02/08/24 02:28 Potassium Chloride 100 ml @ 100 mls/hr AD PRN 02/06/24 11:30 03/07/24 11:29 02/07/24 08:43 Potassium Chloride 20 meq AD PRN 02/06/24 11:30 03/07/24 11:29 Potassium Chloride 20 meq AD PRN 02/06/24 11:30 03/07/24 11:29 Fat Emulsion Intravenous 250 ml @ 42 mls/hr QODAY@2100 02/06/24 21:00 03/07/24 20:59 02/06/24 20:52 Multivitamins/ Minerals 10 ml/ Chromium/Copper/ Manganese/Zinc 3 ml/Insulin Human Regular 80 unit/ Amino Acids/ Electrolytes/ Dextrose 2,000 ml @ 83 mls/hr ONCE ONCE 02/07/24 14:00 02/08/24 14:05 02/07/24 15:03 Insulin Human Regular INSULIN SLIDING SCAL... ACHS 02/07/24 21:00 03/08/24 20:59 PROBLEM LIST: (1) Acute diverticulitis ICD Code: K57.92 - Diverticulitis of intestine, part unspecified, without perforation or abscess without bleeding (2) UTI (urinary tract infection) ICD Code: N39.0 - Urinary tract infection, site not specified (3) Hypomagnesemia ICD Code: E83.42 - Hypomagnesemia (4) Acute kidney injury ICD Code: N17.9 - Acute kidney failure, unspecified PLAN: Echocardiogram shows ejection fraction 60% to 65%, calcified aortic valve, mild aortic stenosis. CT scan of the abdomen and pelvis shows inflammatory changes in sigmoid consistent with diverticulitis with an adjacent 2.8 collection of air and fluid consistent with contained perforation unchanged compared to previous examination. Mild bibasilar atelectasis. ASSESSMENT AND PLAN: * Respiratory failure with hypoxemia. Continue with BiPAP. Sepsis secondary to diverticulitis and perforated colon. Continue with recommendations by Surgery. She is scheduled to have drainage catheter in the right lower quadrant. * Right lower lobe pneumonia and pleural effusion. The patient may need to have thoracentesis scheduled. * Acute renal failure, improving. * Type 2 diabetes. Continue ICU protocol. * Hypertension, controlled. * Change in mental status secondary to hypoxemia and sepsis significantly improved. The patient is back to her baseline. Severe malnutrition supportive treatment continue with TPN Perforated colon with fluid contained intraperitoneal collection 2.8 cm follow with repeat CT as no surgical management or intervention Radiology being planned to drain it Patient is DNR ISAIAH FLORES MD Feb 08, 2024 10:10
--- NOTE | 2024-02-08 10:42 | PN ---
[facility] PROGRESS NOTE Date Patient Seen: Feb 08, 2024 Time of Visit: 10:40 Supervising Physician: Dr. Thurston Consulting Physician: Dr Morgan Outpatient Specialists: [facility] Inpatient Consults: Dr. Narayanan, Dr. Bustamante PROBLEM LIST: Acute hypoxic and hypercapnic respiratory failure secondary to below Sepsis - POA DM type II, with hyperglycemia, POA Right moderate pleural effusion, POA Acute diverticulitis with contained perforation, - suspect polymicrobial peritonitis- evaluated by General surgery, no surgical intervention at this time Non anion gap metabolic acidosis- resolving Acute renal failure- secondary to ATN from sepsis Acute complicated cystitis - POA Hypernatremia, POA Chronic congestive heart failure- preserved EF, POA Acute metabolic acidosis, POA Acute encephalopathy, POA Hypertension, POA Hyperlipidemia, POA INTERVAL HISTORY: 02/03 patient is lethargic but answering questions appropriately. She is oriented to person but disoriented to place time and situation. Patient was upgraded to ICU yesterday after rapid response initiation for decreased mental status. Overnight with the CT scan of the head with no acute intracranial bleed or any significant finding. ABG was done yesterday with metabolic acidosis. Patient received sodium bicarbonate x1 overnight. Chemistry this morning with sodium 144 potassium 3.9 chloride 114, bicarb 22, BUN is 46 creatinine is 2.0 renal function has improved. Patient has put out 400 cc of urine output. We will place a Tellez catheter for strict I/O, and repeat UA, blood culture, fungal culture. Patient is on Zosyn antibiotic. Adjusted per renal function. We will add GPC coverage and antifungal given abdominal abscess. We will also repeat CT scan of the abdomen to see the progression of the abscess. If remains the same and/ or worsening, we will request IR to drain this. Patient remains on BiPAP 09/02/2039%. ABG this morning with pH 7.39, pCO2 46 PO2 101. Bicarb is 22.7 O2 sat is 97%. Base excess-3.5. This is mainly metabolic acidosis with some component of respiratory acidosis. Will give a trial with high flow NC and see how she does. In the mean time, nutrition is poor albumin low, per family she has not been eating well over a week. Given diverticulitis, will start TPN. Spoke with the patient's family, son daughter and patient's . DNR/DNI has been requested and we will kellie this. Condition is guarded. We will keep her in ICU. 02/04 patient remains on noninvasive positive pressure ventilation since yesterday, unable to wean it off for break for too long. Patient developed hypercapnia with encephalopathy after 30 minutes off of bipap. Venous blood gas this morning with pH 7.309, pCO2 46, PO2 is 136. Bicarb is 22. Base excess is- 3.6. We will continue to utilize NIPPV for hypercapnia. Continue to follow with the blood gases in the morning. Her chest x-ray was with right hemidiaphragm elevation. Patient also has pulmonary congestion/ pleural effusion. Diuretic has been requested. Continue strict I's and o's. Continue with tellez. Remainder of the lab her renal function has improved, creatinine is 1.8 down from 1.9. BUN is also down to 43 from 45. Glucose however is high at 330 , patient has been started on TPN yesterday. We will increase insulin sliding scale and start long-acting insulin. She remains NPO. In the meantime CT scan of the abdomen was repeated yesterday with persistent abscess in the pelvic area which we had requested IR to drain this however given location and size, she is not candidate for percutaneous drain placement. For now broad antibiotic therapy and antifungal. We will continue to keep patient in the ICU given hypercapnia requiring NIPPV. LVEF is preserved with 60% Spoke with patient's family at this site. 02/05 patient is awake and alert and oriented not in acute distress, remains on BiPAP at the moment, patient did not tolerate off BiPAP yesterday. We can try again to keep her off of it. Repeat chest x-ray see the atelectasis. She has been diuresed with pulse dose Lasix. Urine output is 3.5 L with balance -1 L. lab this morning with BUN of 43 this is similar to yesterday and creatinine is down to 1.5 from 1.8. We will repeat chest x-ray today and tomorrow. Remainder of the lab with leukocytosis worsening and patient had fever 100.2 this AM. We will up the coverage of the antibiotic discontinue Zosyn and start patient on merem. Continue doxy and fluconazole. Patient complained of back pain, will place lidocain patch. Ultram PRN. Glucose over 300 despite long acting insulin. Will start insulin drip, increase long acting. Continue TPN. Spoke with patient and her granddaughter. 02/06 patient is awake alert oriented no acute event overnight. She is very debilitated. Vital signs blood pressure 160/75 heart rate is 99. T-max is 99.7. She is on high-flow nasal cannula at 25 L with 40% FiO2 saturation oxygen 99%. We can wean it down as tolerated to keep sats greater 92%. Patient has been diuresed yesterday with pulse dose Lasix now Her urine output is 3.5 L with-28 cc balance. Her renal function is improved BUN is 45 and creatinine is down to 1.4 from 1.5. Chemistry with sodium 148 this is up from 146 yesterday potassium is 3.5 chloride is 114. Bicarb is 32 . Glucose over has been up trended so patient was started on insulin drip yesterday. Continue insulin drip per protocl, continue TPN with added insulin in the bag. Continue with daily diuresis. Chest xray in AM. 02/07 patient is awake alert and oriented very weak but following commands appropriately. There is no event overnight patient reported no abdominal pain. At this time patient will need physical therapy to gain some more muscle strength . Otherwise remarkable lab this morning with improving renal function, creatinine is 1.2 down from 1.4 BUN is 55. Patient has been diuresed with Lasix 40 daily. She will still need diuretic given pleural effusion, we will decrease to 20 mg daily. She has put out 2.7 L with balance of +500 cc. She had bowel movement. Continue with the liquid diet as tolerated. We will continue with TPN with insulin. Insulin drip has been discontinued yesterday. Continue with Lantus. We will decrease insulin in the TPN. Continue with current antibiotic doxycycline, meropenem, fluconazole. Chest x-ray repeated this morning with persistent right pleural effusion no change since yesterday. She has been able to come off of BiPAP for longer period of time yesterday all day off of BiPAP. This morning patient has been switched to nasal cannula at 5 L. Continue with incentive spirometry. Repeat cxr and coag in AM. Will assess lung field with US. From critical standpoint patient is stable to be downgraded to PCU. REVIEW OF SYSTEMS: Unable to obtain. PHYSICAL EXAM: GENERAL: Much more awake, following command appropriately HEENT: EOMI, Sclera non icteric, moist mucosa NECK: Supple, no JVD, trachea midline LUNGS: Clear breath sounds bilaterally. No wheezes HEART: Regular rate and rhythm. Normal S1 and S2, without murmurs ABD: Abdomen soft, nontender. Bowel sounds present EXT: No clubbing cyanosis or edema NEURO: Generalized weakness. Moves all extremities equally. Vital Signs (last 8hr) Date Time Temp Pulse Resp B/P (MAP) Pulse Ox O2 Delivery O2 Flow Rate FiO2 02/08/24 08:38 92 129/56 02/08/24 08:00 98.8 93 21 129/56 94 N/C High Flow System 5.0 40 02/08/24 08:00 98 Bi-PAP+ 0 40 02/08/24 07:50 96 20 HFNC Heated System N/Can 5.0 30 02/08/24 07:00 91 22 129/58 99 N/C High Flow System 5.0 40 02/08/24 04:49 89 27 117/57 98 BIPAP 40 02/08/24 04:00 99.3 02/08/24 04:00 98 Bi-PAP+ 0 40 02/08/24 03:49 94 27 123/55 99 BIPAP 40 02/08/24 02:59 97 21 40 02/08/24 02:49 97 26 122/53 99 BIPAP 40 LABS: Hematology Labs: Test 02/08/24 03:49 Range/Units White Blood Count 15.5 H 4.8-10.8 K/uL Red Blood Count 3.33 L 4.00-5.50 MIL/uL Hemoglobin 9.4 L 12.0-16.0 g/dL Hematocrit 29.9 L 36-48 % Mean Corpuscular Volume 89.8 79-99 fL Mean Corpuscular Hemoglobin 28.2 27.0-33.0 pg Mean Corpuscular Hemoglobin Concent 31.4 L 32.0-36.0 g/dL Red Cell Distribution Width 16.4 H 11.0-15.5 % Platelet Count 293 130-400 K/uL Mean Platelet Volume 9.3 7.5-10.5 fL Immature Granulocyte % (Auto) 1.8 H 0-1 % Neutrophils (%) (Auto) 75.4 40.0-77.0 % Lymphocytes (%) (Auto) 11.9 L 21.0-51.0 % Monocytes (%) (Auto) 9.5 3.0-13.0 % Eosinophils (%) (Auto) 0.8 0.0-8.0 % Basophils (%) (Auto) 0.6 0.0-5.0 % Neutrophils # (Auto) 11.7 H 1.8-7.7 K/uL Lymphocytes # (Auto) 1.9 1.0-4.8 K/uL Monocytes # (Auto) 1.5 H 0.1-1.0 K/uL Eosinophils # (Auto) 0.13 0.00-0.70 K/uL Basophils # (Auto) 0.10 0.00-0.20 K/uL Absolute Immature Granulocyte (auto 0.28 0-1 K/uL Nucleated Red Blood Cells 0.0 0.0-0.19 % Chemistry Labs: Test 02/08/24 10:15 02/08/24 03:49 02/07/24 03:49 Range/Units Whole Blood Glucose 110 70-110 MG/DL Sodium Level 144 136-145 mmol/L Potassium Level 4.4 3.5-5.1 mmol/L Chloride Level 110 101-111 mmol/L Carbon Dioxide Level 32 21-32 mmol/L Blood Urea Nitrogen 55 H 7-18 mg/dL Creatinine 1.2 H 0.5-1.0 mg/dL Glomerular Filtration Rate Calc 46 >90 mL/min Random Glucose 88 70-105 mg/dL Total Calcium 9.6 8.5-10.1 mg/dL Phosphorus Level 3.3 2.5-4.9 mg/dL Magnesium Level 1.70 L 1.80-2.40 mg/dL Total Bilirubin 0.3 0.2-1.0 mg/dL Aspartate Amino Transf (AST/SGOT) 14 10-37 U/L Alanine Aminotransferase (ALT/SGPT) 12 12-78 U/L Alkaline Phosphatase 99 50-136 U/L Total Protein 5.5 L 6.0-8.3 g/dL Albumin 1.6 L 3.5-5.0 g/dL DIAGNOSTICS / RADIOLOGY RESULTS: [ ] PLAN NEURO: Minimize central acting medications as possible. Fall Precautions. Well lighted room through the day and minimize interruptions through the night to prevent acute delirium. PULMONARY: Supplemental 02 as needed Titrate Fio2 to keep Spo2 > or = 90% DuoNebs and CPT as needed IS hourly while awake for pulmonary hygiene Out of bed to chair as tolerated CARDIOVASCULAR: Follow hemodynamics. Titrate vasopressor to keep MAP >65 or systolic blood pressure >95mmHg DRIPS: TPN LINES: PICC line GI & NUTRITION: Continue nutritional support Aspirations precautions Prokinetic agents and laxatives as needed KIDNEYS & ELECTROLYTES: Strict monitoring of intake and output Daily weights Avoid nephrotoxic agents Monitor electrolytes and replace as needed Goal urine output of 30mL/hr or 0.5mL/kg/hr ENDOCRINE: Maintain blood glucose between 100-180 at all times. Insulin sliding scale for blood glucose management INFECTIOUS DISEASE: Trend temperature. Alarcon-culture if febrile. Micro: Antibiotics: Zosyn 01/31- 02/05 Doxy 02/03- Fluconazole 02/03- Meropenem 02/05- HEMATOLOGY & COAGULATION: Monitor H&H. Keep Hgb > 7 Transfuse 1 unit of PRBC for Hgb < 7 Transfuse 1 pack of platelets of platelets < 20, 000 Watch for any signs and symptoms of bleeding SKIN: Pressure ulcer prevention per facility protocol Right foot wound care Rehab: PT/OT Prophylaxis: GI: Pepcid DVT: Heparin Code Status: Full Resuscitation Disposition: ICU Other: Total patient care time exceeds 35 minutes excluding all procedures. ARNIE DUTTON DEPUTY MANAGER Feb 08, 2024 10:42
[2024-02-08] MEDS: M V I IV ONE (15:31)
[2024-02-08] MEDS: INSULIN REGULAR IV ONE (15:31)
[2024-02-08] MEDS: [UNRECOGNIZED DRUG - OTHER] IV ONE (15:31)
[2024-02-08] MEDS: MULTITRACE IV ONE (15:31)
[2024-02-08] MEDS: furoSEMIDE 20MG VIAL IV SCH (21:26)
[2024-02-09] VITALS (8 sets, daily range): BP systolic 133–166; BP diastolic 57–89; PULSE 84–92; RESP 18–22; TEMP 97.2–98.7; O2SAT 96–98
[2024-02-09 03:51] LABS: CREATININE 1.3 mg/dL (0.5-1.0); POTASSIUM 4.4 mmol/L (3.5-5.1)
[2024-02-09 03:53] LABS: BASOPHILS # (AUTO) 0.04 K/uL (0.00-0.20); BASOPHILS % (AUTO) 0.3 % (0.0-5.0); EOSINOPHILS # (AUTO) 0.13 K/uL (0.00-0.70); EOSINOPHILS % (AUTO) 0.9 % (0.0-8.0); HEMATOCRIT 29.5 % (36-48); IMMATURE GRANULOCYTE ABSOLUTE 0.15 K/uL (0-1); LYMPHOCYTES # (AUTO) 1.5 K/uL (1.0-4.8); LYMPHOCYTES % (AUTO) 10.5 % (21.0-51.0); MEAN CORPUSCULAR HEMOGLOBIN 28.1 pg (27.0-33.0); MEAN CORPUSCULAR HGB CONC 31.5 g/dL (32.0-36.0); MEAN CORPUSCULAR VOLUME 89.1 fL (79-99); MONOCYTES # (AUTO) 1.4 K/uL (0.1-1.0); MONOCYTES % (AUTO) 9.8 % (3.0-13.0); NEUTROPHILS % (AUTO) 77.4 % (40.0-77.0); PLATELET COUNT (AUTO) 313 K/uL (130-400); RED BLOOD CELL COUNT(AUTO) 3.31 MIL/uL (4.00-5.50); WHITE BLOOD COUNT (AUTO) 14.1 K/uL (4.8-10.8)
[2024-02-09 04:10] LABS: INR 1.03 (0.85-1.15); PARTIAL THROMBOPLASTIN TIME 24.3 SEC (26.3-35.5); PROTHROMBIN TIME 10.9 SEC (9.6-11.6)
--- NOTE | 2024-02-09 06:43 | PN ---
PROGRESS NOTE PROGRESS NOTE DATE OF PROGRESS NOTE: 02/09/24 SUBJECTIVE: Continues to improve no new complaints patient has developed diarrhea VITAL SIGNS Vital Signs Date Time Temp Pulse Resp B/P (MAP) Pulse Ox O2 Delivery O2 Flow Rate FiO2 02/09/24 04:48 98.6 85 18 153/65 Nasal Cannula 2.0 02/09/24 00:00 97 02/08/24 21:50 40 PHYSICAL EXAM: OBJECTIVE: GENERAL: She is currently, awake, alert, oriented in person and place with the BiPAP in place. VITAL SIGNS: Blood pressure 146/63, pulse 101, respiratory rate 25. HEENT: Normocephalic and atraumatic. LUNGS: Decreased breath sounds in right anterior and posterior hemithorax. No wheezes. No rhonchi. HEART: S1, S2 are clear. ABDOMEN: Soft. Nontender. No masses. LABORATORY: Laboratory Result(s) Test 02/08/24 10:15 02/08/24 15:47 02/08/24 21:06 02/09/24 03:20 Whole Blood Glucose 110 MG/DL (70-110) 111 MG/DL (70-110) 189 MG/DL (70-110) White Blood Count 14.1 K/uL (4.8-10.8) Red Blood Count 3.31 MIL/uL (4.00-5.50) Hemoglobin 9.3 g/dL (12.0-16.0) Hematocrit 29.5 % (36-48) Mean Corpuscular Volume 89.1 fL (79-99) Mean Corpuscular Hemoglobin 28.1 pg (27.0-33.0) Mean Corpuscular Hemoglobin Concent 31.5 g/dL (32.0-36.0) Red Cell Distribution Width 16.0 % (11.0-15.5) Platelet Count 313 K/uL (130-400) Mean Platelet Volume 9.7 fL (7.5-10.5) Immature Granulocyte % (Auto) 1.1 % (0-1) Neutrophils (%) (Auto) 77.4 % (40.0-77.0) Lymphocytes (%) (Auto) 10.5 % (21.0-51.0) Monocytes (%) (Auto) 9.8 % (3.0-13.0) Eosinophils (%) (Auto) 0.9 % (0.0-8.0) Basophils (%) (Auto) 0.3 % (0.0-5.0) Neutrophils # (Auto) 11.0 K/uL (1.8-7.7) Lymphocytes # (Auto) 1.5 K/uL (1.0-4.8) Monocytes # (Auto) 1.4 K/uL (0.1-1.0) Eosinophils # (Auto) 0.13 K/uL (0.00-0.70) Basophils # (Auto) 0.04 K/uL (0.00-0.20) Absolute Immature Granulocyte (auto 0.15 K/uL (0-1) Nucleated Red Blood Cells 0.0 % (0.0-0.19) Prothrombin Time 10.9 SEC (9.6-11.6) Prothromb Time International Ratio 1.03 (0.85-1.15) Activated Partial Thromboplast Time 24.3 SEC (26.3-35.5) Sodium Level 139 mmol/L (136-145) Potassium Level 4.4 mmol/L (3.5-5.1) Chloride Level 103 mmol/L (101-111) Carbon Dioxide Level 33 mmol/L (21-32) Blood Urea Nitrogen 60 mg/dL (7-18) Creatinine 1.3 mg/dL (0.5-1.0) Glomerular Filtration Rate Calc 42 mL/min (>90) Random Glucose 161 mg/dL (70-105) Total Calcium 8.9 mg/dL (8.5-10.1) Test 02/09/24 05:56 Whole Blood Glucose 156 MG/DL (70-110) INPATIENT MEDS: Current Medications Medications Dose Ordered Sig/Ana Start Time Stop Time Status Last Admin Home Med DAILY 02/02/24 09:00 03/03/24 08:59 02/03/24 14:01 Olanzapine 5 mg DAILY 02/02/24 09:00 03/03/24 08:59 02/08/24 08:37 Home Med DAILY 02/02/24 09:00 03/03/24 08:59 02/03/24 14:01 Atenolol 50 mg DAILY 02/02/24 09:00 03/03/24 08:59 02/08/24 08:38 Dicyclomine HCl 20 mg TID 02/02/24 09:00 03/03/24 08:59 02/08/24 21:23 Paroxetine HCl 20 mg BID 02/02/24 09:00 03/03/24 08:59 02/08/24 21:23 Magnesium Oxide 400 mg DAILY 02/02/24 09:00 03/03/24 08:59 02/08/24 08:37 Magnesium Sulfate 50 ml @ 0 mls/hr PROTOCOL PRN 02/02/24 08:30 03/03/24 08:29 02/02/24 10:25 Wound Care/ Dressing Products BID 02/02/24 09:00 03/03/24 08:59 02/08/24 21:09 Sodium Chloride 10 ml DAILY 02/03/24 09:00 03/04/24 08:59 02/07/24 08:43 Leptospermum Honey 1 appl DAILY 02/03/24 09:00 03/04/24 08:59 02/08/24 08:39 Fluconazole/ Sodium Chloride 200 ml @ 100 mls/hr DAILY 02/04/24 10:00 03/05/24 09:59 02/08/24 08:36 Doxycycline Hyclate 250 ml @ 125 mls/hr Q12H 02/04/24 10:00 02/09/24 09:59 02/08/24 21:35 Acetaminophen 650 mg Q6H PRN 02/05/24 13:30 03/06/24 13:29 02/05/24 13:19 Insulin Human Regular 100 unit/ Sodium Chloride 100 ml @ 0 mls/hr AD PRN 02/06/24 10:00 03/07/24 09:59 02/07/24 15:04 Meropenem 1 gm/ Sodium Chloride 100 ml @ 33.333 mls/ hr Q12H 02/06/24 10:00 02/16/24 09:59 02/08/24 21:40 Lidocaine 1 each DAILY 02/06/24 10:00 03/07/24 09:59 02/07/24 08:42 Tramadol HCl 50 mg Q6H PRN 02/06/24 10:00 02/11/24 09:59 02/07/24 22:04 Insulin Glargine 25 units BID@0730,2100 02/06/24 21:00 03/07/24 20:59 02/07/24 21:18 Hydralazine HCl 20 mg Q4H PRN 02/06/24 11:00 03/07/24 10:59 02/08/24 02:28 Potassium Chloride 100 ml @ 100 mls/hr AD PRN 02/06/24 11:30 03/07/24 11:29 02/07/24 08:43 Potassium Chloride 20 meq AD PRN 02/06/24 11:30 03/07/24 11:29 Potassium Chloride 20 meq AD PRN 02/06/24 11:30 03/07/24 11:29 Fat Emulsion Intravenous 250 ml @ 42 mls/hr QODAY@2100 02/06/24 21:00 03/07/24 20:59 02/09/24 00:05 Insulin Human Regular INSULIN SLIDING SCAL... ACHS 02/07/24 21:00 03/08/24 20:59 02/08/24 21:35 Furosemide 20 mg Q12H 02/08/24 21:00 03/09/24 20:59 02/08/24 21:26 Multivitamins/ Minerals 10 ml/ Chromium/Copper/ Manganese/Zinc 3 ml/Insulin Human Regular 20 unit/ Amino Acids/ Electrolytes/ Dextrose 2,000 ml @ 83 mls/hr ONCE ONCE 02/08/24 15:30 02/09/24 15:35 02/08/24 15:31 PROBLEM LIST: (1) Acute diverticulitis ICD Code: K57.92 - Diverticulitis of intestine, part unspecified, without perforation or abscess without bleeding (2) UTI (urinary tract infection) ICD Code: N39.0 - Urinary tract infection, site not specified (3) Hypomagnesemia ICD Code: E83.42 - Hypomagnesemia (4) Acute kidney injury ICD Code: N17.9 - Acute kidney failure, unspecified PLAN: Echocardiogram shows ejection fraction 60% to 65%, calcified aortic valve, mild aortic stenosis. CT scan of the abdomen and pelvis shows inflammatory changes in sigmoid consistent with diverticulitis with an adjacent 2.8 collection of air and fluid consistent with contained perforation unchanged compared to previous examination. Mild bibasilar atelectasis. ASSESSMENT AND PLAN: * Respiratory failure with hypoxemia. Continue with BiPAP. Clinically improved *Sepsis secondary to diverticulitis and perforated colon. Continue with recommendations by Surgery. She is scheduled to have drainage catheter in the right lower quadrant. * Right lower lobe pneumonia and pleural effusion. The patient may need to have thoracentesis scheduled. * Acute renal failure, improving. * Type 2 diabetes. Continue ICU protocol. * Hypertension, controlled. * Change in mental status secondary to hypoxemia and sepsis significantly improved. The patient is back to her baseline. * Severe malnutrition supportive treatment continue with TPN Perforated colon with fluid contained intraperitoneal collection 2.8 cm follow with repeat CT as no surgical management or intervention Radiology being planned to drain we do the CT scan today Patient is DNR Workup for diarrhea ISAIAH FLORES MD Feb 09, 2024 06:43
--- NOTE | 2024-02-09 08:51 | HMCIMG ---
CHEST 1VW HISTORY: Pleural effusion COMPARISON: 02/08/2024 FINDINGS: A frontal projection of the chest was obtained. Mild bilateral pulmonary infiltrates are seen may be related to mild pulmonary vascular congestion with possible superimposed pneumonitis. The heart is borderline enlarged. Aortic calcifications are seen. IMPRESSION: 1. Mild bilateral pulmonary infiltrates are seen may be related to mild pulmonary vascular congestion with possible superimposed pneumonitis.
[2024-02-09] MEDS ORDERED: furoSEMIDE 20MG VIAL IV SCH (09:00)
--- NOTE | 2024-02-09 09:23 | PN ---
patenit off bipap tolerating clears abdomen soft nt advance diet will fu as needed outpatient colonoscopy Vitals/Labs Vital Signs Date Time Temp Pulse Resp B/P (MAP) Pulse Ox O2 Delivery O2 Flow Rate FiO2 02/09/24 08:23 98.2 87 18 142/79 96 Nasal Cannula 4.0 02/09/24 07:16 32 Laboratory Tests 02/09/24 03:20 Medications Current Medications Piperacillin Sod/ Tazobactam Sod 3.375 gm ONCE ONCE IVPB Last administered on 02/01/24at 18:33; Start 02/01/24 at 18:30; Stop 02/01/24 at 18:31; Status DC Insulin Human Regular INSULIN SLIDING SCAL... ACHS SQ Last administered on 02/05/24at 06:27; Start 02/01/24 at 21:00; Stop 02/05/24 at 09:56; Status DC Dextrose/Sodium Chloride 1,000 ml @ 75 mls/hr [id number] IV Last administered on 02/04/24at 08:36; Start 02/01/24 at 18:30; Stop 02/05/24 at 13:10; Status DC Metronidazole 500 mg Q8H PO; Start 02/01/24 at 18:30; Stop 02/01/24 at 18:41; Status DC Piperacillin Sod/ Tazobactam Sod 2.25 gm Q12H IV; Start 02/02/24 at 06:30; Stop 02/02/24 at 07:17; Status DC Metronidazole/ Sodium Chloride 500 mg Q8H IV Last administered on 02/02/24at 02:36; Start 02/01/24 at 19:00; Stop 02/02/24 at 07:17; Status DC Home Med DAILY PO Last administered on 02/03/24at 14:01; Start 02/02/24 at 09:00; Stop 03/03/24 at 08:59 Olanzapine 5 mg DAILY PO Last administered on 02/08/24at 08:37; Start 02/02/24 at 09:00; Stop 03/03/24 at 08:59 Home Med DAILY PO Last administered on 02/03/24at 14:01; Start 02/02/24 at 09:00; Stop 03/03/24 at 08:59 Losartan Potassium 100 mg DAILY PO Last administered on 02/03/24at 08:38; Start 02/02/24 at 09:00; Stop 02/04/24 at 12:12; Status DC Atenolol 50 mg DAILY PO Last administered on 02/08/24at 08:38; Start 02/02/24 at 09:00; Stop 03/03/24 at 08:59 Dicyclomine HCl 20 mg TID PO Last administered on 02/08/24at 21:23; Start 02/02/24 at 09:00; Stop 03/03/24 at 08:59 Paroxetine HCl 20 mg BID PO Last administered on 02/08/24at 21:23; Start 02/02/24 at 09:00; Stop 03/03/24 at 08:59 Magnesium Oxide 400 mg DAILY PO Last administered on 02/08/24at 08:37; Start 02/02/24 at 09:00; Stop 03/03/24 at 08:59 Piperacillin Sod/ Tazobactam Sod 3.375 gm Q12H IV Last administered on 02/06/24at 06:43; Start 02/02/24 at 07:30; Stop 02/06/24 at 09:48; Status DC Magnesium Sulfate 50 ml @ 0 mls/hr PROTOCOL PRN IV Last administered on 02/02/24at 10:25; Start 02/02/24 at 08:30; Stop 03/03/24 at 08:29 Wound Care/ Dressing Products BID TP Last administered on 02/08/24at 21:09; Start 02/02/24 at 09:00; Stop 03/03/24 at 08:59 Sodium Chloride 10 ml DAILY IV Last administered on 02/07/24at 08:43; Start 02/03/24 at 09:00; Stop 03/04/24 at 08:59 Bacitracin apply to left forea... DAILY ONCE TP Last administered on 02/03/24at 08:37; Start 02/03/24 at 09:00; Stop 02/03/24 at 09:01; Status DC Leptospermum Honey 1 appl DAILY TP Last administered on 02/08/24at 08:39; Start 02/03/24 at 09:00; Stop 03/04/24 at 08:59 Sodium Bicarbonate 50 meq ONCE ONCE IV Last administered on 02/03/24at 22:04; Start 02/03/24 at 22:00; Stop 02/03/24 at 22:01; Status DC Fluconazole/ Sodium Chloride 200 ml @ 100 mls/hr DAILY IV Last administered on 02/08/24at 08:36; Start 02/04/24 at 10:00; Stop 03/05/24 at 09:59 Doxycycline Hyclate 250 ml @ 125 mls/hr Q12H IV Last administered on 02/08/24at 21:35; Start 02/04/24 at 10:00; Stop 02/09/24 at 09:59 Multivitamins/ Minerals 10 ml/ Chromium/Copper/ Manganese/Zinc 3 ml/Aa 5 %/Calcium/ Lytes/Dext 20 % 2,000 ml @ 83 mls/hr ONCE ONCE IV Last administered on 02/04/24at 11:39; Start 02/04/24 at 11:00; Stop 02/05/24 at 11:02; Status DC Furosemide 40 mg ONCE ONCE IV Last administered on 02/04/24at 15:36; Start 02/04/24 at 15:30; Stop 02/04/24 at 15:31; Status DC Insulin Glargine 15 units BID@0730,2100 SQ Last administered on 02/06/24at 08:12; Start 02/05/24 at 10:00; Stop 02/06/24 at 09:35; Status DC Insulin Human Regular INSULIN SLIDING SCAL... ACHS SQ Last administered on 02/06/24at 06:41; Start 02/05/24 at 11:30; Stop 02/06/24 at 09:35; Status DC Furosemide 40 mg ONCE ONCE IV Last administered on 02/05/24at 10:40; Start 02/05/24 at 10:00; Stop 02/05/24 at 10:02; Status DC Acetaminophen 650 mg Q6H PRN RC Last administered on 02/05/24at 13:19; Start 02/05/24 at 13:30; Stop 03/06/24 at 13:29 Chromium/Copper/ Manganese/Zinc 3 ml/Multivitamins/ Minerals 10 ml/ Amino Acids/ Electrolytes/ Dextrose 2,000 ml @ 83 mls/hr AD IV; Start 02/05/24 at 20:00; Stop 02/06/24 at 06:47; Status DC Multivitamins/ Minerals 10 ml/ Chromium/Copper/ Manganese/Zinc 3 ml/Aa 5 %/Calcium/ Lytes/Dext 20 % 2,000 ml @ 83 mls/hr ONCE ONCE IV Last administered on 02/06/24at 13:53; Start 02/06/24 at 09:30; Stop 02/07/24 at 09:35; Status DC Insulin Glargine 25 units BID@0730,2100 SQ; Start 02/06/24 at 21:00; Stop 02/06/24 at 10:01; Status DC Insulin Human Regular 100 unit/ Sodium Chloride 100 ml @ 0 mls/hr AD PRN IV Last administered on 02/07/24at 15:04; Start 02/06/24 at 10:00; Stop 03/07/24 at 09:59 Meropenem 1 gm/ Sodium Chloride 100 ml @ 33.333 mls/ hr Q12H IV Last administered on 02/08/24at 21:40; Start 02/06/24 at 10:00; Stop 02/16/24 at 09:59 Lidocaine 1 each DAILY TP Last administered on 02/07/24at 08:42; Start 02/06/24 at 10:00; Stop 03/07/24 at 09:59 Tramadol HCl 50 mg Q6H PRN PO Last administered on 02/07/24at 22:04; Start 02/06/24 at 10:00; Stop 02/11/24 at 09:59 Furosemide 40 mg DAILY IV; Start 02/07/24 at 09:00; Stop 02/06/24 at 10:35; Status DC Insulin Glargine 25 units BID@0730,2100 SQ Last administered on 02/07/24at 21:18; Start 02/06/24 at 21:00; Stop 03/07/24 at 20:59 Furosemide 40 mg DAILY IV Last administered on 02/08/24at 08:37; Start 02/06/24 at 11:00; Stop 02/08/24 at 10:29; Status DC Hydralazine HCl 20 mg Q4H PRN IV Last administered on 02/08/24at 02:28; Start 02/06/24 at 11:00; Stop 03/07/24 at 10:59 Potassium Chloride 100 ml @ 100 mls/hr AD PRN IV Last administered on 02/07/24at 08:43; Start 02/06/24 at 11:30; Stop 03/07/24 at 11:29 Potassium Chloride 20 meq AD PRN PO; Start 02/06/24 at 11:30; Stop 03/07/24 at 11:29 Potassium Chloride 20 meq AD PRN PO; Start 02/06/24 at 11:30; Stop 03/07/24 at 11:29 Magnesium Sulfate 50 ml @ 0 mls/hr PROTOCOL PRN IV; Start 02/06/24 at 11:30; Stop 02/06/24 at 11:16; Status DC Fat Emulsion Intravenous 250 ml @ 42 mls/hr QODAY@2100 IV Last administered on 02/09/24at 00:05; Start 02/06/24 at 21:00; Stop 03/07/24 at 20:59 Multivitamins/ Minerals 10 ml/ Chromium/Copper/ Manganese/Zinc 3 ml/Insulin Human Regular 80 unit/ Amino Acids/ Electrolytes/ Dextrose 2,000 ml @ 83 mls/hr ONCE ONCE IV Last administered on 02/07/24at 15:03; Start 02/07/24 at 14:00; Stop 02/08/24 at 14:05; Status DC Insulin Human Regular INSULIN SLIDING SCAL... ACHS SQ Last administered on 02/08/24at 21:35; Start 02/07/24 at 21:00; Stop 03/08/24 at 20:59 Furosemide 20 mg DAILY IV; Start 02/09/24 at 09:00; Stop 02/08/24 at 13:09; Status DC Furosemide 20 mg Q12H IV Last administered on 02/08/24at 21:26; Start 02/08/24 at 21:00; Stop 03/09/24 at 20:59 Multivitamins/ Minerals 10 ml/ Chromium/Copper/ Manganese/Zinc 3 ml/Insulin Human Regular 20 unit/ Amino Acids/ Electrolytes/ Dextrose 2,000 ml @ 83 mls/hr ONCE ONCE IV Last administered on 02/08/24at 15:31; Start 02/08/24 at 15:30; Stop 02/09/24 at 08:19; Status DC DMITRI GALO MD Feb 09, 2024 09:23
--- NOTE | 2024-02-09 13:30 | PN ---
[facility] PROGRESS NOTE Date Patient Seen: Feb 09, 2024 Time of Visit: 13:29 Supervising Physician: Dr. Bustamante Consulting Physician: Dr Morgan Outpatient Specialists: [facility] Inpatient Consults: Dr. Narayanan, Dr. Bustamante PROBLEM LIST: Acute hypoxic and hypercapnic respiratory failure secondary to below Sepsis - POA DM type II, with hyperglycemia, POA Right moderate pleural effusion, POA Acute diverticulitis with contained perforation, - suspect polymicrobial peritonitis- evaluated by General surgery, no surgical intervention at this time Non anion gap metabolic acidosis- resolved Acute renal failure- secondary to ATN from sepsis Acute complicated cystitis - POA Hypernatremia, POA Chronic congestive heart failure- preserved EF LVEF 60%, POA Acute metabolic acidosis, POA- resolved Acute encephalopathy, POA- resolved Hypertension, POA Hyperlipidemia, POA INTERVAL HISTORY: 02/03 patient is lethargic but answering questions appropriately. She is oriented to person but disoriented to place time and situation. Patient was upgraded to ICU yesterday after rapid response initiation for decreased mental status. Overnight with the CT scan of the head with no acute intracranial bleed or any significant finding. ABG was done yesterday with metabolic acidosis. Patient received sodium bicarbonate x1 overnight. Chemistry this morning with sodium 144 potassium 3.9 chloride 114, bicarb 22, BUN is 46 creatinine is 2.0 renal function has improved. Patient has put out 400 cc of urine output. We will place a Tellez catheter for strict I/O, and repeat UA, blood culture, fungal culture. Patient is on Zosyn antibiotic. Adjusted per renal function. We will add GPC coverage and antifungal given abdominal abscess. We will also repeat CT scan of the abdomen to see the progression of the abscess. If remains the same and/ or worsening, we will request IR to drain this. Patient remains on BiPAP 09/02/2039%. ABG this morning with pH 7.39, pCO2 46 PO2 101. Bicarb is 22.7 O2 sat is 97%. Base excess-3.5. This is mainly metabolic acidosis with some component of respiratory acidosis. Will give a trial with high flow NC and see how she does. In the mean time, nutrition is poor albumin low, per family she has not been eating well over a week. Given diverticulitis, will start TPN. Spoke with the patient's family, son daughter and patient's . DNR/DNI has been requested and we will kellie this. Condition is guarded. We will keep her in ICU. 02/04 patient remains on noninvasive positive pressure ventilation since yesterday, unable to wean it off for break for too long. Patient developed hypercapnia with encephalopathy after 30 minutes off of bipap. Venous blood gas this morning with pH 7.309, pCO2 46, PO2 is 136. Bicarb is 22. Base excess is- 3.6. We will continue to utilize NIPPV for hypercapnia. Continue to follow with the blood gases in the morning. Her chest x-ray was with right hemidiaphragm elevation. Patient also has pulmonary congestion/ pleural effusion. Diuretic has been requested. Continue strict I's and o's. Continue with tellez. Remainder of the lab her renal function has improved, creatinine is 1.8 down from 1.9. BUN is also down to 43 from 45. Glucose however is high at 330 , pa antonina has been started on TPN yesterday. We will increase insulin sliding scale and start long-acting insulin. She remains NPO. In the meantime CT scan of the abdomen was repeated yesterday with persistent abscess in the pelvic area which we had requested IR to drain this however given location and size, she is not candidate for percutaneous drain placement. For now broad antibiotic therapy and antifungal. We will continue to keep patient in the ICU given hypercapnia requiring NIPPV. LVEF is preserved with 60% Spoke with patient's family at this site. 02/05 patient is awake and alert and oriented not in acute distress, remains on BiPAP at the moment, patient did not tolerate off BiPAP yesterday. We can try again to keep her off of it. Repeat chest x-ray see the atelectasis. She has been diuresed with pulse dose Lasix. Urine output is 3.5 L with balance -1 L. lab this morning with BUN of 43 this is similar to yesterday and creatinine is down to 1.5 from 1.8. We will repeat chest x-ray today and tomorrow. Remainder of the lab with leukocytosis worsening and patient had fever 100.2 this AM. We will up the coverage of the antibiotic discontinue Zosyn and start patient on merem. Continue doxy and fluconazole. Patient complained of back pain, will place lidocain patch. Ultram PRN. Glucose over 300 despite long acting insulin. Will start insulin drip, increase long acting. Continue TPN. Spoke with patient and her granddaughter. 02/06 patient is awake alert oriented no acute event overnight. She is very debilitated. Vital signs blood pressure 160/75 heart rate is 99. T-max is 99.7. She is on high-flow nasal cannula at 25 L with 40% FiO2 saturation oxygen 99%. We can wean it down as tolerated to keep sats greater 92%. Patient has been diuresed yesterday with pulse dose Lasix now Her urine output is 3.5 L with-28 cc balance. Her renal function is improved BUN is 45 and creatinine is down to 1.4 from 1.5. Chemistry with sodium 148 this is up from 146 yesterday potassium is 3.5 chloride is 114. Bicarb is 32 . Glucose over has been up trended so patient was started on insulin drip yesterday. Continue insulin drip per protocl, continue TPN with added insulin in the bag. Continue with daily diuresis. Chest xray in AM. 02/07 patient is awake alert and oriented very weak but following commands appropriately. There is no event overnight patient reported no abdominal pain. At this time patient will need physical therapy to gain some more muscle strength . Otherwise remarkable lab this morning with improving renal function, creatinine is 1.2 down from 1.4 BUN is 55. Patient has been diuresed with Lasix 40 daily. She will still need diuretic given pleural effusion, we will decrease to 20 mg daily. She has put out 2.7 L with balance of +500 cc. She had bowel movement. Continue with the liquid diet as tolerated. We will continue with TPN with insulin. Insulin drip has been discontinued yesterday. Continue with Lantus. We will decrease insulin in the TPN. Continue with current antibiotic doxycycline, meropenem, fluconazole. Chest x-ray repeated this morning with persistent right pleural effusion no change since yesterday. She has been able to come off of BiPAP for longer period of time yesterday all day off of BiPAP. This morning patient has been switched to nasal cannula at 5 L. Continue with incentive spirometry. Repeat cxr and coag in AM. Will assess lung field with US. From critical standpoint patient is stable to be downgraded to PCU. 02/08 patient is awake alert and oriented x3 not acute distress. Patient is laying down in bed back to bed from recliner this morning assisted by Physical therapy. Lab this morning with creatinine of 1.3 this is up trending slightly from 1.2 BUN is 60 this is up from 55 and bicarb is 33 this from 32. Urine output is 3.8 L with -1.5 L balance. Patient has been doing well oxygenating, chest x-ray with right pleural effusion persisted but much better compared to yesterday. We did increase the Lasix to q.12 hours from daily yesterday, but given worsened renal function, we will hold this today. Also, patient already had bowel movement x2. She had been started on diet and now advanced to a full liquid diet per surgery. We can dc TPN. She remains on O2 support at 3LNC. Sat 98%. 2 hours of bipap overnight. We can make bipap PRN. Downgrade to surgical floor. REVIEW OF SYSTEMS: Unable to obtain. PHYSICAL EXAM: GENERAL: Much more awake, following command appropriately HEENT: EOMI, Sclera non icteric, moist mucosa NECK: Supple, no JVD, trachea midline LUNGS: Clear breath sounds bilaterally. No wheezes HEART: Regular rate and rhythm. Normal S1 and S2, without murmurs ABD: Abdomen soft, nontender. Bowel sounds present EXT: No clubbing cyanosis or edema NEURO: Generalized weakness. Moves all extremities equally. Vital Signs (last 8hr) Date Time Temp Pulse Resp B/P (MAP) Pulse Ox O2 Delivery O2 Flow Rate FiO2 02/09/24 12:43 97.2 84 18 134/89 98 Nasal Cannula 4.0 02/09/24 10:25 85 142/79 02/09/24 08:23 98.2 87 18 142/79 96 Nasal Cannula 4.0 02/09/24 08:00 96 Nasal Cannula* 4 36 02/09/24 07:16 85 18 N/Cannula Low lpm 3.0 32 LABS: Hematology Labs: Test 02/09/24 03:20 Range/Units White Blood Count 14.1 H 4.8-10.8 K/uL Red Blood Count 3.31 L 4.00-5.50 MIL/uL Hemoglobin 9.3 L 12.0-16.0 g/dL Hematocrit 29.5 L 36-48 % Mean Corpuscular Volume 89.1 79-99 fL Mean Corpuscular Hemoglobin 28.1 27.0-33.0 pg Mean Corpuscular Hemoglobin Concent 31.5 L 32.0-36.0 g/dL Red Cell Distribution Width 16.0 H 11.0-15.5 % Platelet Count 313 130-400 K/uL Mean Platelet Volume 9.7 7.5-10.5 fL Immature Granulocyte % (Auto) 1.1 H 0-1 % Neutrophils (%) (Auto) 77.4 H 40.0-77.0 % Lymphocytes (%) (Auto) 10.5 L 21.0-51.0 % Monocytes (%) (Auto) 9.8 3.0-13.0 % Eosinophils (%) (Auto) 0.9 0.0-8.0 % Basophils (%) (Auto) 0.3 0.0-5.0 % Neutrophils # (Auto) 11.0 H 1.8-7.7 K/uL Lymphocytes # (Auto) 1.5 1.0-4.8 K/uL Monocytes # (Auto) 1.4 H 0.1-1.0 K/uL Eosinophils # (Auto) 0.13 0.00-0.70 K/uL Basophils # (Auto) 0.04 0.00-0.20 K/uL Absolute Immature Granulocyte (auto 0.15 0-1 K/uL Nucleated Red Blood Cells 0.0 0.0-0.19 % Chemistry Labs: Test 02/09/24 12:24 02/09/24 03:20 02/08/24 03:49 Range/Units Whole Blood Glucose 192 H 70-110 MG/DL Sodium Level 139 136-145 mmol/L Potassium Level 4.4 3.5-5.1 mmol/L Chloride Level 103 101-111 mmol/L Carbon Dioxide Level 33 H 21-32 mmol/L Blood Urea Nitrogen 60 H 7-18 mg/dL Creatinine 1.3 H 0.5-1.0 mg/dL Glomerular Filtration Rate Calc 42 >90 mL/min Random Glucose 161 #H 70-105 mg/dL Total Calcium 8.9 8.5-10.1 mg/dL Phosphorus Level 3.3 2.5-4.9 mg/dL Magnesium Level 1.70 L 1.80-2.40 mg/dL Coagulation Labs: Test 02/09/24 03:20 Range/Units Prothrombin Time 10.9 9.6-11.6 SEC Prothromb Time International Ratio 1.03 0.85-1.15 Activated Partial Thromboplast Time 24.3 L 26.3-35.5 SEC DIAGNOSTICS / RADIOLOGY RESULTS: [ ] PLAN NEURO: Minimize central acting medications as possible. Maintain fall precautions, adequate lighting during the day PULMONARY: Supplemental 02 as needed. Maintain aspiration precautions at all times CARDIOVASCULAR: Follow hemodynamics. Vital signs per facility protocol GI & NUTRITION: Continue with nutritional support. Continue stool softeners and laxatives as needed. KIDNEYS & ELECTROLYTES: Strict monitoring of intake, output and overall fluid balance. Avoid nephrotoxic medications to the extent possible. Medications to be dosed according to renal function. Monitor electrolytes and replace as needed ENDOCRINE: Maintain blood glucose between 100-180 at all times. Hypoglycemia protocol in place INFECTIOUS DISEASE: Trend temperature, WBC and procalcitonin level Follow cultures, deescalate antibiotics as soon as possible. Panculture if new onset fever ONCOLOGY/HEMATOLOGY/COAGULATION: Monitor for s/s of bleeding Monitor hemoglobin, coagulation studies as needed SKIN: Pressure ulcer prevention per facility protocol Specialty mattress ORTHO/REHAB: Continue PT/OT Prophylaxis: Continue GI and DVT prophylaxis Code Status: Full Resuscitation Disposition: TBD Other: Total patient care time exceeds 35 minutes excluding all procedures. ARNIE DUTTON CNP Feb 09, 2024 13:30
--- NOTE | 2024-02-09 14:19 | HMCIMG ---
CT ABDOMEN/PELVIS W/O CONTRAST HISTORY: Pelvic abscess COMPARISON: 02/04/2024 TECHNIQUE: Multiple sequential axial images of the abdomen and pelvis were obtained from the dome of the diaphragm through symphysis pubis. Patient was not given contrast through intravenous route. Oral contrast was not given. FINDINGS: No pleural effusion is seen bilaterally. There is no evidence of parenchymal disease or pulmonary nodule of the visualized lower lungs. Degenerative changes of the thoracolumbar spine are present. The heart is not enlarged. The liver, spleen, adrenal glands and pancreas are unremarkable. There is no evidence of hydronephrosis bilaterally. No evidence of renal stone is seen. Fecal material is seen in the colon. There are normal size retroperitoneal and mesenteric lymph nodes. No ascites is seen. Atherosclerotic changes are present. Note is again made of mild acute sigmoid diverticulitis with minimal fat stranding. There is adjacent diverticula abscess measuring 4.3 x 3.5 cm with air-fluid level unchanged. Pelvic sidewalls are symmetric bilaterally. Bladder is poorly distended. IMPRESSION: 1. Note is again made of mild acute sigmoid diverticulitis with minimal fat stranding. There is adjacent diverticula abscess measuring 4.3 x 3.5 cm with air-fluid level unchanged. CT was performed with one or more following dose reduction techniques: automated exposure control, adjustment of the mA and kv according to patient's size, or use of a iterative reconstruction technique.
[2024-02-09 16:16] LABS: ABG BASE EXCESS 5.4 mmol/L (-2.0-3.0); ABG HCO3 30.4 mmol/L (21.0-28.0); ABG PCO2 47 mmHg (32-45); CARBON MONOXIDE 0.6 % (0.5-1.5); PO2, ARTERIAL BG 127.3 mmHg (83.0-108.0); VENT MODE, BG 3LNC (ROOM AIR)
[2024-02-09] MEDS ORDERED: [UNRECOGNIZED DRUG - NUTRITION] IV NR (18:30)
[2024-02-09] MEDS: [UNRECOGNIZED DRUG - NUTRITION] IV NR (20:26)
[2024-02-09] MEDS: ondanSETRON 4MG INJ IVP PRN (22:52)
[2024-02-10] VITALS (28 sets, daily range): BP systolic 102–136; BP diastolic 44–90; PULSE 81–111; RESP 17–46; TEMP 98.5–101.6; O2SAT 97–100
[2024-02-10 04:37] LABS: HEMATOCRIT 30.7 % (36-48); MEAN CORPUSCULAR HEMOGLOBIN 27.8 pg (27.0-33.0); MEAN CORPUSCULAR HGB CONC 31.6 g/dL (32.0-36.0); RED BLOOD CELL COUNT(AUTO) 3.49 MIL/uL (4.00-5.50); RED CELL DISTRIBUTION WIDTH 15.6 % (11.0-15.5)
[2024-02-10 04:59] LABS: ALBUMIN 1.6 g/dL (3.5-5.0); BILIRUBIN,TOTAL 0.4 mg/dL (0.2-1.0); CREATININE 1.5 mg/dL (0.5-1.0); POTASSIUM 5.4 mmol/L (3.5-5.1); TOTAL PROTEIN, SERUM 5.7 g/dL (6.0-8.3)
[2024-02-10] MEDS: acetaMINOPHEN 325 MG TAB PO PRN (05:46)
[2024-02-10 07:27] LABS: CREATININE 1.5 mg/dL (0.5-1.0); POTASSIUM 5.2 mmol/L (3.5-5.1)
--- NOTE | 2024-02-10 08:17 | PN ---
PROGRESS NOTE PROGRESS NOTE DATE OF PROGRESS NOTE: 02/10/24 SUBJECTIVE: Patient has developed diarrhea and has been more confused VITAL SIGNS Vital Signs Date Time Temp Pulse Resp B/P (MAP) Pulse Ox O2 Delivery O2 Flow Rate FiO2 02/10/24 08:09 99.9 99 18 118/53 94 Nasal Cannula 4.0 02/10/24 02:47 40 PHYSICAL EXAM: OBJECTIVE: GENERAL: She is currently, awake, alert, oriented in person and place with the BiPAP in place. VITAL SIGNS: Blood pressure 146/63, pulse 101, respiratory rate 25. HEENT: Normocephalic and atraumatic. LUNGS: Decreased breath sounds in right anterior and posterior hemithorax. No wheezes. No rhonchi. HEART: S1, S2 are clear. ABDOMEN: Soft. Nontender. No masses. LABORATORY: Laboratory Result(s) Test 02/09/24 12:24 02/09/24 16:15 02/09/24 16:59 02/09/24 19:43 Whole Blood Glucose 192 MG/DL (70-110) 128 MG/DL (70-110) 107 MG/DL (70-110) Blood Gas Specimen Type Arterial Arterial Blood pH 7.430 (7.350-7.450) Arterial Blood Partial Pressure CO2 47 mmHg (32-45) Arterial Blood Partial Pressure O2 127.3 mmHg (83.0-108.0) Arterial Blood HCO3 30.4 mmol/L (21.0-28.0) Arterial Blood Oxygen Saturation 98.0 % (94.0-98.0) Arterial Blood Base Excess 5.4 mmol/L (-2.0-3.0) Hemoglobin (Blood Gas) 10.4 g/dL (12.0-16.0) Sodium (Blood Gas) 136 MMOL/L (136-145) Bedside Potassium (Blood Gas) 4.8 MMOL/L (3.4-4.5) Bedside Chloride (Blood Gas) 101 MMOL/L (98-107) Bedside Glucose (Blood Gas) 154 MG/DL (65-95) Bedside Ionized Calcium (Blood Gas) 1.25 MMOL/L (1.15-1.33) Bedside Lactic Acid (Blood Gas) 1.2 MMOL/L (0.8-2.5) Blood Gas Temperature 37.0 CELSIUS (35.5-37.0) Blood Gas Flow-by 3.00 L/min (0.00-15.00) Blood Gas Vent Mode 3LNC (ROOM AIR) FiO2 32.0 % Blood Gas Specimen Comment RR CLAUDE Test 02/10/24 04:31 02/10/24 06:59 White Blood Count 24.0 K/uL (4.8-10.8) Red Blood Count 3.49 MIL/uL (4.00-5.50) Hemoglobin 9.7 g/dL (12.0-16.0) Hematocrit 30.7 % (36-48) Mean Corpuscular Volume 88.0 fL (79-99) Mean Corpuscular Hemoglobin 27.8 pg (27.0-33.0) Mean Corpuscular Hemoglobin Concent 31.6 g/dL (32.0-36.0) Red Cell Distribution Width 15.6 % (11.0-15.5) Platelet Count 327 K/uL (130-400) Mean Platelet Volume 9.6 fL (7.5-10.5) Nucleated Red Blood Cells 0.0 % (0.0-0.19) Sodium Level 135 mmol/L (136-145) 136 mmol/L (136-145) Potassium Level 5.4 mmol/L (3.5-5.1) 5.2 mmol/L (3.5-5.1) Chloride Level 100 mmol/L (101-111) 102 mmol/L (101-111) Carbon Dioxide Level 31 mmol/L (21-32) 31 mmol/L (21-32) Blood Urea Nitrogen 64 mg/dL (7-18) 72 mg/dL (7-18) Creatinine 1.5 mg/dL (0.5-1.0) 1.5 mg/dL (0.5-1.0) Glomerular Filtration Rate Calc 35 mL/min (>90) 35 mL/min (>90) Random Glucose 224 mg/dL (70-105) 199 mg/dL (70-105) Total Calcium 8.7 mg/dL (8.5-10.1) 8.8 mg/dL (8.5-10.1) Total Bilirubin 0.4 mg/dL (0.2-1.0) Aspartate Amino Transf (AST/SGOT) 28 U/L (10-37) Alanine Aminotransferase (ALT/SGPT) 34 U/L (12-78) Alkaline Phosphatase 145 U/L (50-136) Ammonia 16 umol/L (11-32) Total Protein 5.7 g/dL (6.0-8.3) Albumin 1.6 g/dL (3.5-5.0) Lactic Acid Level 1.8 mmol/L (0.8-2.5) Procalcitonin 0.54 ng/mL (0.05-0.5) INPATIENT MEDS: Current Medications Medications Dose Ordered Sig/Ana Start Time Stop Time Status Last Admin Olanzapine 5 mg DAILY 02/02/24 09:00 03/03/24 08:59 Hold 02/09/24 10:26 Home Med (Semaglutide (Rybelsus) 7 MG) DAILY 02/02/24 09:00 03/03/24 08:59 02/09/24 10:27 Atenolol 50 mg DAILY 02/02/24 09:00 03/03/24 08:59 02/09/24 10:25 Paroxetine HCl 20 mg BID 02/02/24 09:00 03/03/24 08:59 02/09/24 22:53 Magnesium Oxide 400 mg DAILY 02/02/24 09:00 03/03/24 08:59 02/09/24 10:26 Magnesium Sulfate 50 ml @ 0 mls/hr PROTOCOL PRN 02/02/24 08:30 03/03/24 08:29 02/02/24 10:25 Wound Care/ Dressing Products BID 02/02/24 09:00 03/03/24 08:59 02/09/24 23:01 Sodium Chloride 10 ml DAILY 02/03/24 09:00 03/04/24 08:59 02/09/24 10:44 Leptospermum Honey 1 appl DAILY 02/03/24 09:00 03/04/24 08:59 02/09/24 10:26 Fluconazole/ Sodium Chloride 200 ml @ 100 mls/hr DAILY 02/04/24 10:00 03/05/24 09:59 02/09/24 10:24 Acetaminophen 650 mg Q6H PRN 02/05/24 13:30 03/06/24 13:29 02/05/24 13:19 Insulin Human Regular 100 unit/ Sodium Chloride 100 ml @ 0 mls/hr AD PRN 02/06/24 10:00 03/07/24 09:59 02/07/24 15:04 Meropenem 1 gm/ Sodium Chloride 100 ml @ 33.333 mls/ hr Q12H 02/06/24 10:00 02/16/24 09:59 02/09/24 22:53 Lidocaine 1 each DAILY 02/06/24 10:00 03/07/24 09:59 02/09/24 10:26 Tramadol HCl 50 mg Q6H PRN 02/06/24 10:00 02/11/24 09:59 02/07/24 22:04 Insulin Glargine 25 units BID@0730,2100 02/06/24 21:00 03/07/24 20:59 02/10/24 05:56 Hydralazine HCl 20 mg Q4H PRN 02/06/24 11:00 03/07/24 10:59 02/08/24 02:28 Potassium Chloride 100 ml @ 100 mls/hr AD PRN 02/06/24 11:30 03/07/24 11:29 02/07/24 08:43 Potassium Chloride 20 meq AD PRN 02/06/24 11:30 03/07/24 11:29 Potassium Chloride 20 meq AD PRN 02/06/24 11:30 03/07/24 11:29 Fat Emulsion Intravenous 250 ml @ 42 mls/hr QODAY@2100 02/06/24 21:00 03/07/24 20:59 02/09/24 00:05 Insulin Human Regular INSULIN SLIDING SCAL... ACHS 02/07/24 21:00 03/08/24 20:59 02/10/24 05:57 Ondansetron HCl 4 mg Q6H PRN 02/09/24 23:00 03/10/24 22:59 02/09/24 22:52 Acetaminophen 650 mg Q6H PRN 02/10/24 06:00 03/11/24 05:59 02/10/24 05:46 PROBLEM LIST: (1) Acute diverticulitis ICD Code: K57.92 - Diverticulitis of intestine, part unspecified, without perforation or abscess without bleeding (2) UTI (urinary tract infection) ICD Code: N39.0 - Urinary tract infection, site not specified (3) Hypomagnesemia ICD Code: E83.42 - Hypomagnesemia (4) Acute kidney injury ICD Code: N17.9 - Acute kidney failure, unspecified PLAN: Echocardiogram shows ejection fraction 60% to 65%, calcified aortic valve, mild aortic stenosis. CT scan of the abdomen and pelvis shows inflammatory changes in sigmoid consistent with diverticulitis with an adjacent 2.8 collection of air and fluid consistent with contained perforation unchanged compared to previous examination. Mild bibasilar atelectasis. ASSESSMENT AND PLAN: * Respiratory failure with hypoxemia. Continue with BiPAP. Clinically improved *Sepsis secondary to diverticulitis and perforated colon. Continue with recommendations by Surgery. She is scheduled to have drainage catheter in the right lower quadrant. * Right lower lobe pneumonia and pleural effusion. The patient may need to have thoracentesis scheduled. * Acute renal failure, improving. * Type 2 diabetes. Continue ICU protocol. * Hypertension, controlled. * Change in mental status secondary to hypoxemia and sepsis significantly improved. The patient is back to her baseline. * Severe malnutrition supportive treatment continue with TPN Perforated colon with fluid contained intraperitoneal collection 2.8 cm follow with repeat CT as no surgical management or intervention Radiology being planned to drain we do the CT scan today Patient is DNR Workup for diarrhea Increased confusion supportive treatment ISAIAH FLORES MD Feb 10, 2024 08:17
[2024-02-10] MEDS ORDERED: VANCOMYCIN KIT 1 GM/250 ML IV.KIT IV ONE (09:00)
[2024-02-10] MEDS ORDERED: LAbetaLOL 20MG SYG IV PRN (09:00)
--- NOTE | 2024-02-10 09:59 | PN ---
[facility] PROGRESS NOTE Date Patient Seen: Feb 10, 2024 Time of Visit: 09:58 Supervising Physician: Rena Bustamante MD Consulting Physician: Dr Morgan Outpatient Specialists: [facility] Inpatient Consults: Dr. Narayanan, Dr. Bustamante PROBLEM LIST: Acute hypoxic and hypercapnic respiratory failure secondary to below Sepsis - POA DM type II, with hyperglycemia, POA Right moderate pleural effusion, POA Acute diverticulitis with contained perforation, - suspect polymicrobial peritonitis- evaluated by General surgery, no surgical intervention at this time Diverticula Abscess 4.2 x 4[address] 02/09 Non anion gap metabolic acidosis- resolved Acute renal failure- secondary to ATN from sepsis Acute complicated cystitis - POA Hypernatremia, POA Chronic congestive heart failure- preserved EF LVEF 60%, POA Acute metabolic acidosis, POA- resolved Acute encephalopathy, POA- resolved Hypertension, POA Hyperlipidemia, POA INTERVAL HISTORY: 02/03 patient is lethargic but answering questions appropriately. She is oriented to person but disoriented to place time and situation. Patient was upgraded to ICU yesterday after rapid response initiation for decreased mental status. Overnight with the CT scan of the head with no acute intracranial bleed or any significant finding. ABG was done yesterday with metabolic acidosis. Patient received sodium bicarbonate x1 overnight. Chemistry this morning with sodium 144 potassium 3.9 chloride 114, bicarb 22, BUN is 46 creatinine is 2.0 renal function has improved. Patient has put out 400 cc of urine output. We will place a Tellez catheter for strict I/O, and repeat UA, blood culture, fungal culture. Patient is on Zosyn antibiotic. Adjusted per renal function. We will add GPC coverage and antifungal given abdominal abscess. We will also repeat CT scan of the abdomen to see the progression of the abscess. If remains the same and/ or worsening, we will request IR to drain this. Patient remains on BiPAP 09/02/2039%. ABG this morning with pH 7.39, pCO2 46 PO2 101. Bicarb is 22.7 O2 sat is 97%. Base excess-3.5. This is mainly metabolic acidosis with some component of respiratory acidosis. Will give a trial with high flow NC and see how she does. In the mean time, nutrition is poor albumin low, per family she has not been eating well over a week. Given diverticulitis, will start TPN. Spoke with the patient's family, son daughter and patient's . DNR/DNI has been requested and we will kellie this. Condition is guarded. We will keep her in ICU. 02/04 patient remains on noninvasive positive pressure ventilation since yesterday, unable to wean it off for break for too long. Patient developed hypercapnia with encephalopathy after 30 minutes off of bipap. Venous blood gas this morning with pH 7.309, pCO2 46, PO2 is 136. Bicarb is 22. Base excess is- 3.6. We will continue to utilize NIPPV for hypercapnia. Continue to follow with the blood gases in the morning. Her chest x-ray was with right hemidiaphragm elevation. Patient also has pulmonary congestion/ pleural effusion. Diuretic has been requested. Continue strict I's and o's. Continue with tellez. Remainder of the lab her renal function has improved, creatinine is 1.8 down from 1.9. BUN is also down to 43 from 45. Glucose however is high at 330 , patient has been started on TPN yesterday. We will increase insulin sliding scale and start long-acting insulin. She remains NPO. In the meantime CT scan of the abdomen was repeated yesterday with persistent abscess in the pelvic area which we had requested IR to drain this however given location and size, she is not candidate for percutaneous drain placement. For now broad antibiotic therapy and antifungal. We will continue to keep patient in the ICU given hypercapnia requiring NIPPV. LVEF is preserved with 60% Spoke with patient's family at this site. 02/05 patient is awake and alert and oriented not in acute distress, remains on BiPAP at the moment, patient did not tolerate off BiPAP yesterday. We can try again to keep her off of it. Repeat chest x-ray see the atelectasis. She has been diuresed with pulse dose Lasix. Urine output is 3.5 L with balance -1 L. lab this morning with BUN of 43 this is similar to yesterday and creatinine is down to 1.5 from 1.8. We will repeat chest x-ray today and tomorrow. Remainder of the lab with leukocytosis worsening and patient had fever 100.2 this AM. We will up the coverage of the antibiotic discontinue Zosyn and start patient on merem. Continue doxy and fluconazole. Patient complained of back pain, will place lidocain patch. Ultram PRN. Glucose over 300 despite long acting insulin. Will start insulin drip, increase long acting. Continue TPN. Spoke with patient and her granddaughter. 02/06 patient is awake alert oriented no acute event overnight. She is very debilitated. Vital signs blood pressure 160/75 heart rate is 99. T-max is 99.7. She is on high-flow nasal cannula at 25 L with 40% FiO2 saturation oxygen 99%. We can wean it down as tolerated to keep sats greater 92%. Patient has been diuresed yesterday with pulse dose Lasix now Her urine output is 3.5 L with-28 cc balance. Her renal function is improved BUN is 45 and creatinine is down to 1.4 from 1.5. Chemistry with sodium 148 this is up from 146 yesterday potassium is 3.5 chloride is 114. Bicarb is 32 . Glucose over has been up trended so patient was started on insulin drip yesterday. Continue insulin drip per protocl, continue TPN with added insulin in the bag. Continue with daily diuresis. Chest xray in AM. 02/07 patient is awake alert and oriented very weak but following commands appropriately. There is no event overnight patient reported no abdominal pain. At this time patient will need physical therapy to gain some more muscle strength . Otherwise remarkable lab this morning with improving renal function, creatinine is 1.2 down from 1.4 BUN is 55. Patient has been diuresed with Lasix 40 daily. She will still need diuretic given pleural effusion, we will decrease to 20 mg daily. She has put out 2.7 L with balance of +500 cc. She had bowel movement. Continue with the liquid diet as tolerated. We will continue with TPN with insulin. Insulin drip has been discontinued yesterday. Continue with Lantus. We will decrease insulin in the TPN. Continue with current antibiotic doxycycline, meropenem, fluconazole. Chest x-ray repeated this morning with persistent right pleural effusion no change since yesterday. She has been able to come off of BiPAP for longer period of time yesterday all day off of BiPAP. This morning patient has been switched to nasal cannula at 5 L. Continue with incentive spirometry. Repeat cxr and coag in AM. Will assess lung field with US. From critical standpoint patient is stable to be downgraded to PCU. 02/08 patient is awake alert and oriented x3 not acute distress. Patient is laying down in bed back to bed from recliner this morning assisted by Physical therapy. Lab this morning with creatinine of 1.3 this is up trending slightly from 1.2 BUN is 60 this is up from 55 and bicarb is 33 this from 32. Urine output is 3.8 L with -1.5 L balance. Patient has been doing well oxygenating, chest x-ray with right pleural effusion persisted but much better compared to yesterday. We did increase the Lasix to q.12 hours from daily yesterday, but given worsened renal function, we will hold this today. Also, patient already had bowel movement x2. She had been started on diet and now advanced to a full liquid diet per surgery. We can dc TPN. She remains on O2 support at 3LNC. Sat 98%. 2 hours of bipap overnight. We can make bipap PRN. Downgrade to surgical floor. 02/09-patient is awake alert and oriented x3 but lethargic. Upgraded to the ICU per General surgery request due to high risk for decompensation. Patient continues receiving TPN nutrition via PICC line. Patient has been febrile with a T-max of 101.7 and a T low of 97.2 in the last 24 hours. Heart rate in the 80s respiratory rate 23 blood pressure 122/65 with O2 sat of 96% on 3 L via nasal cannula. Urine output of 1.9 L in last 24 hours with a I&O balance-604 mL patient has had frequent bowel movements today at loose stools. Pending IR eval for possible I&D of diverticular abscess. On laboratory white count increased today to 24 H&H 9.7/30.7 platelet count is [id number]. Chemistries sodium 136 potassium is 5.2 on repeat on ABG 4.7, BUN 72 creatinine 1.5 random glucose 199 mg/dL with a procalcitonin of 0.54 increased. Patient continues on meropenem and fluconazole and Zyvox has been added per ID. REVIEW OF SYSTEMS: Unable to obtain. PHYSICAL EXAM: GENERAL: Patient is awake alert and oriented x3 but lethargic. HEENT: EOMI, Sclera non icteric, moist mucosa NECK: Supple, no JVD, trachea midline LUNGS: Clear breath sounds bilaterally. No wheezes HEART: Regular rate and rhythm. Normal S1 and S2, without murmurs ABD: Abdomen soft, nontender. Bowel sounds present EXT: No clubbing cyanosis or edema NEURO: Generalized weakness. Moves all extremities equally. Vital Signs (last 8hr) Date Time Temp Pulse Resp B/P (MAP) Pulse Ox O2 Delivery O2 Flow Rate FiO2 02/10/24 08:09 99.9 99 18 118/53 94 Nasal Cannula 4.0 02/10/24 05:46 101.7 02/10/24 04:00 101.7 111 20 127/61 99 Nasal Cannula 3.0 02/10/24 02:47 92 28 40 LABS: Hematology Labs: Test 02/10/24 04:31 02/09/24 03:20 Range/Units White Blood Count 24.0 H 4.8-10.8 K/uL Red Blood Count 3.49 L 4.00-5.50 MIL/uL Hemoglobin 9.7 L 12.0-16.0 g/dL Hematocrit 30.7 L 36-48 % Mean Corpuscular Volume 88.0 79-99 fL Mean Corpuscular Hemoglobin 27.8 27.0-33.0 pg Mean Corpuscular Hemoglobin Concent 31.6 L 32.0-36.0 g/dL Red Cell Distribution Width 15.6 H 11.0-15.5 % Platelet Count 327 130-400 K/uL Mean Platelet Volume 9.6 7.5-10.5 fL Nucleated Red Blood Cells 0.0 0.0-0.19 % Immature Granulocyte % (Auto) 1.1 H 0-1 % Neutrophils (%) (Auto) 77.4 H 40.0-77.0 % Lymphocytes (%) (Auto) 10.5 L 21.0-51.0 % Monocytes (%) (Auto) 9.8 3.0-13.0 % Eosinophils (%) (Auto) 0.9 0.0-8.0 % Basophils (%) (Auto) 0.3 0.0-5.0 % Neutrophils # (Auto) 11.0 H 1.8-7.7 K/uL Lymphocytes # (Auto) 1.5 1.0-4.8 K/uL Monocytes # (Auto) 1.4 H 0.1-1.0 K/uL Eosinophils # (Auto) 0.13 0.00-0.70 K/uL Basophils # (Auto) 0.04 0.00-0.20 K/uL Absolute Immature Granulocyte (auto 0.15 0-1 K/uL Chemistry Labs: Test 02/10/24 06:59 02/10/24 04:31 02/09/24 19:43 02/09/24 03:20 Range/Units Sodium Level 136 136-145 mmol/L Potassium Level 5.2 H 3.5-5.1 mmol/L Chloride Level 102 101-111 mmol/L Carbon Dioxide Level 31 21-32 mmol/L Blood Urea Nitrogen 72 H 7-18 mg/dL Creatinine 1.5 H 0.5-1.0 mg/dL Glomerular Filtration Rate Calc 35 >90 mL/min Random Glucose 199 H 70-105 mg/dL Lactic Acid Level 1.8 0.8-2.5 mmol/L Total Calcium 8.8 8.5-10.1 mg/dL Procalcitonin 0.54 H 0.05-0.5 ng/mL Total Bilirubin 0.4 0.2-1.0 mg/dL Aspartate Amino Transf (AST/SGOT) 28 10-37 U/L Alanine Aminotransferase (ALT/SGPT) 34 12-78 U/L Alkaline Phosphatase 145 H 50-136 U/L Ammonia 16 11-32 umol/L Total Protein 5.7 L 6.0-8.3 g/dL Albumin 1.6 L 3.5-5.0 g/dL Whole Blood Glucose 107 70-110 MG/DL Vitamin B12 Level 1246 H 193-986 pg/mL Coagulation Labs: Test 02/09/24 03:20 Range/Units Prothrombin Time 10.9 9.6-11.6 SEC Prothromb Time International Ratio 1.03 0.85-1.15 Activated Partial Thromboplast Time 24.3 L 26.3-35.5 SEC DIAGNOSTICS / RADIOLOGY RESULTS: Signed PATIENT: COMPA GRANADOS MR#: [id number] : 1945 SEX: F AGE: 79 LOCATION: [facility] ORDER [id number] STATUS: ADM IN REPORT#: [id number] SERVICE [id number] REASON: abdominal pain ORDERING PHYSICIAN: DMITRI GALO MD PROCEDURE: ABD PEL WO - CT ABDOMEN/PELVIS W/O CONTRAST CT ABDOMEN/PELVIS W/O CONTRAST HISTORY: Abdominal pain COMPARISON: 02/09/2024 TECHNIQUE: Multiple sequential axial images of the abdomen and pelvis were obtained from the dome of the diaphragm through symphysis pubis. Patient was not given contrast through intravenous route. Oral contrast was not given. FINDINGS: Tiny bilateral pleural effusions are seen. Minimal bilateral lower lung infiltrates are seen. Degenerative changes of the thoracolumbar spine are present. The heart is not enlarged. Mild small bowel dilatation is seen. There are motion artifacts degrading the image quality. There is diverticulosis. There is fluid-filled small bowel loops and colon. There is complex fluid collection with air collection near the sigmoid colon at the posterior pelvis measuring 4.2 x 4.4 cm. Findings are suggestive of diverticular abscess also seen on previous study grossly unchanged allowing for technical differences. No evidence of free intraperitoneal air is seen. The liver, spleen, adrenal glands and pancreas are unremarkable. There is no evidence of hydronephrosis bilaterally. No evidence of renal stone is seen. Fecal material is seen in the colon. There are normal size retroperitoneal and mesenteric lymph nodes. No ascites is seen. Atherosclerotic changes are present. Pelvic sidewalls are symmetric bilaterally. Bladder is poorly distended with Tellez catheter. IMPRESSION: 1. There is complex fluid collection with air collection near the sigmoid colon at the posterior pelvis measuring 4.2 x 4.4 cm. Findings are suggestive of diverticular abscess also seen on previous study grossly unchanged allowing for technical differences. No evidence of free intraperitoneal air is seen. CT was performed with one or more following dose reduction techniques: automated exposure control, adjustment of the mA and kv according to patient's size, or use of a iterative reconstruction technique. DICTATED BY: TICO ZAMORA MD DATE: 02/10/24 1256 ELECTRONICALLY SIGNED BY: TICO ZAMORA MD DATE: 02/10/24 1300 PLAN Upgrade to ICU due to high risk for decompensation Blood cultures Daily CMP Lactic acid daily ABG + CT abdomen and pelvis as recommended per surgery IR to eval for I and D of diverticular abscess NEURO: Avoid central acting medications as possible. Fall Precautions. Well lighted room through the day and minimize interruptions through the night to prevent acute delirium. PULMONARY: Supplemental 02 as needed Titrate Fio2 to keep Spo2 > or = 90% DuoNebs and CPT as needed IS hourly while awake for pulmonary hygiene Out of bed to chair as tolerated BiPAP HS and p.r.n. CARDIOVASCULAR: Follow hemodynamics. Titrate vasopressor to keep MAP >65 or systolic blood pressure >95mmHg Telemetry monitoring DRIPS: TPN LINES: PICC line GI & NUTRITION: Continue nutritional support Aspirations precautions Prokinetic agents and laxatives as needed TPN KIDNEYS & ELECTROLYTES: Strict monitoring of intake and output Daily weights Avoid nephrotoxic agents Monitor electrolytes and replace as needed Goal urine output of 30mL/hr or 0.5mL/kg/hr Urine output 1.9 L in the last 24 hours I&O balance-604 mL x5 BM loose stools. ENDOCRINE: Maintain blood glucose between 100-180 at all times. Insulin sliding scale for blood glucose management INFECTIOUS DISEASE: Trend temperature. Alarcon-culture if febrile. Follow ID recommendations Micro: Antibiotics: Fluconazole 02/03- Meropenem 02/05- Zyvox added 02/10/24 HEMATOLOGY & COAGULATION: Monitor H&H. Keep Hgb > 7 Transfuse 1 unit of PRBC for Hgb < 7 Transfuse 1 pack of platelets of platelets < 20, 000 Watch for any signs and symptoms of bleeding SKIN: Pressure ulcer prevention per facility protocol Right foot wound care Rehab: PT/OT Prophylaxis: GI: Pepcid DVT: Heparin Code Status: Full Resuscitation Disposition: ICU Other: Total patient care time exceeds 45 minutes excluding all procedures. [facility] Feb 10, 2024 09:58
[2024-02-10] MEDS: SODIUM CHLORIDE 3% FOR INHALATION 4 ML/AMP VIAL.NEB IH ONE ×3 (11:19→18:16)
--- NOTE | 2024-02-10 13:00 | HMCIMG ---
CT ABDOMEN/PELVIS W/O CONTRAST HISTORY: Abdominal pain COMPARISON: 02/09/2024 TECHNIQUE: Multiple sequential axial images of the abdomen and pelvis were obtained from the dome of the diaphragm through symphysis pubis. Patient was not given contrast through intravenous route. Oral contrast was not given. FINDINGS: Tiny bilateral pleural effusions are seen. Minimal bilateral lower lung infiltrates are seen. Degenerative changes of the thoracolumbar spine are present. The heart is not enlarged. Mild small bowel dilatation is seen. There are motion artifacts degrading the image quality. There is diverticulosis. There is fluid-filled small bowel loops and colon. There is complex fluid collection with air collection near the sigmoid colon at the posterior pelvis measuring 4.2 x 4.4 cm. Findings are suggestive of diverticular abscess also seen on previous study grossly unchanged allowing for technical differences. No evidence of free intraperitoneal air is seen. The liver, spleen, adrenal glands and pancreas are unremarkable. There is no evidence of hydronephrosis bilaterally. No evidence of renal stone is seen. Fecal material is seen in the colon. There are normal size retroperitoneal and mesenteric lymph nodes. No ascites is seen. Atherosclerotic changes are present. Pelvic sidewalls are symmetric bilaterally. Bladder is poorly distended with Astorga catheter. IMPRESSION: 1. There is complex fluid collection with air collection near the sigmoid colon at the posterior pelvis measuring 4.2 x 4.4 cm. Findings are suggestive of diverticular abscess also seen on previous study grossly unchanged allowing for technical differences. No evidence of free intraperitoneal air is seen. CT was performed with one or more following dose reduction techniques: automated exposure control, adjustment of the mA and kv according to patient's size, or use of a iterative reconstruction technique.
--- NOTE | 2024-02-10 14:50 | PN ---
called for elevated wbc tachycardia this am repeat CT stable abd soft nt loose stool this am stable ct today resume diet as tolerated stool c diff Vitals/Labs Vital Signs Date Time Temp Pulse Resp B/P (MAP) Pulse Ox O2 Delivery O2 Flow Rate FiO2 02/10/24 11:19 90 18 N/Cannula Low lpm 4.0 36 02/10/24 11:02 98 02/10/24 11:01 98.8 02/10/24 10:19 116/69 Laboratory Tests 02/10/24 04:31 02/10/24 06:59 Medications Current Medications Piperacillin Sod/ Tazobactam Sod 3.375 gm ONCE ONCE IVPB Last administered on 02/01/24at 18:33; Start 02/01/24 at 18:30; Stop 02/01/24 at 18:31; Status DC Insulin Human Regular INSULIN SLIDING SCAL... ACHS SQ Last administered on 02/05/24at 06:27; Start 02/01/24 at 21:00; Stop 02/05/24 at 09:56; Status DC Dextrose/Sodium Chloride 1,000 ml @ 75 mls/hr [id number] IV Last administered on 02/04/24at 08:36; Start 02/01/24 at 18:30; Stop 02/05/24 at 13:10; Status DC Metronidazole 500 mg Q8H PO; Start 02/01/24 at 18:30; Stop 02/01/24 at 18:41; Status DC Piperacillin Sod/ Tazobactam Sod 2.25 gm Q12H IV; Start 02/02/24 at 06:30; Stop 02/02/24 at 07:17; Status DC Metronidazole/ Sodium Chloride 500 mg Q8H IV Last administered on 02/02/24at 02:36; Start 02/01/24 at 19:00; Stop 02/02/24 at 07:17; Status DC Home Med DAILY PO Last administered on 02/09/24at 10:27; Start 02/02/24 at 09:00; Stop 02/09/24 at 17:22; Status DC Olanzapine 5 mg DAILY PO Last administered on 02/09/24at 10:26; Start 02/02/24 at 09:00; Stop 03/03/24 at 08:59; Status Hold Home Med (Semaglutide (Rybelsus) 7 MG) DAILY PO Last administered on 02/09/24at 10:27; Start 02/02/24 at 09:00; Stop 03/03/24 at 08:59 Losartan Potassium 100 mg DAILY PO Last administered on 02/03/24at 08:38; Start 02/02/24 at 09:00; Stop 02/04/24 at 12:12; Status DC Atenolol 50 mg DAILY PO Last administered on 02/09/24at 10:25; Start 02/02/24 at 09:00; Stop 02/10/24 at 08:39; Status DC Dicyclomine HCl 20 mg TID PO Last administered on 02/09/24at 10:24; Start 02/02/24 at 09:00; Stop 02/09/24 at 17:08; Status DC Paroxetine HCl 20 mg BID PO Last administered on 02/09/24at 22:53; Start 02/02/24 at 09:00; Stop 03/03/24 at 08:59 Magnesium Oxide 400 mg DAILY PO Last administered on 02/09/24at 10:26; Start 02/02/24 at 09:00; Stop 03/03/24 at 08:59 Piperacillin Sod/ Tazobactam Sod 3.375 gm Q12H IV Last administered on 02/06/24at 06:43; Start 02/02/24 at 07:30; Stop 02/06/24 at 09:48; Status DC Magnesium Sulfate 50 ml @ 0 mls/hr PROTOCOL PRN IV Last administered on 02/02/24at 10:25; Start 02/02/24 at 08:30; Stop 03/03/24 at 08:29 Wound Care/ Dressing Products BID TP Last administered on 02/10/24at 08:55; Start 02/02/24 at 09:00; Stop 03/03/24 at 08:59 Sodium Chloride 10 ml DAILY IV Last administered on 02/10/24at 08:49; Start 02/03/24 at 09:00; Stop 03/04/24 at 08:59 Bacitracin apply to left forea... DAILY ONCE TP Last administered on 02/03/24at 08:37; Start 02/03/24 at 09:00; Stop 02/03/24 at 09:01; Status DC Leptospermum Honey 1 appl DAILY TP Last administered on 02/10/24at 08:55; Start 02/03/24 at 09:00; Stop 03/04/24 at 08:59 Sodium Bicarbonate 50 meq ONCE ONCE IV Last administered on 02/03/24at 22:04; Start 02/03/24 at 22:00; Stop 02/03/24 at 22:01; Status DC Fluconazole/ Sodium Chloride 200 ml @ 100 mls/hr DAILY IV Last administered on 02/10/24at 08:49; Start 02/04/24 at 10:00; Stop 03/05/24 at 09:59 Doxycycline Hyclate 250 ml @ 125 mls/hr Q12H IV Last administered on 02/08/24at 21:35; Start 02/04/24 at 10:00; Stop 02/09/24 at 09:59; Status DC Multivitamins/ Minerals 10 ml/ Chromium/Copper/ Manganese/Zinc 3 ml/Aa 5 %/Calcium/ Lytes/Dext 20 % 2,000 ml @ 83 mls/hr ONCE ONCE IV Last administered on 02/04/24at 11:39; Start 02/04/24 at 11:00; Stop 02/05/24 at 11:02; Status DC Furosemide 40 mg ONCE ONCE IV Last administered on 02/04/24at 15:36; Start 02/04/24 at 15:30; Stop 02/04/24 at 15:31; Status DC Insulin Glargine 15 units BID@0730,2100 SQ Last administered on 02/06/24at 08:12; Start 02/05/24 at 10:00; Stop 02/06/24 at 09:35; Status DC Insulin Human Regular INSULIN SLIDING SCAL... ACHS SQ Last administered on 02/06/24at 06:41; Start 02/05/24 at 11:30; Stop 02/06/24 at 09:35; Status DC Furosemide 40 mg ONCE ONCE IV Last administered on 02/05/24at 10:40; Start 02/05/24 at 10:00; Stop 02/05/24 at 10:02; Status DC Acetaminophen 650 mg Q6H PRN RC Last administered on 02/05/24at 13:19; Start 02/05/24 at 13:30; Stop 03/06/24 at 13:29 Chromium/Copper/ Manganese/Zinc 3 ml/Multivitamins/ Minerals 10 ml/ Amino Acids/ Electrolytes/ Dextrose 2,000 ml @ 83 mls/hr AD IV; Start 02/05/24 at 20:00; Stop 02/06/24 at 06:47; Status DC Multivitamins/ Minerals 10 ml/ Chromium/Copper/ Manganese/Zinc 3 ml/Aa 5 %/Calcium/ Lytes/Dext 20 % 2,000 ml @ 83 mls/hr ONCE ONCE IV Last administered on 02/06/24at 13:53; Start 02/06/24 at 09:30; Stop 02/07/24 at 09:35; Status DC Insulin Glargine 25 units BID@0730,2100 SQ; Start 02/06/24 at 21:00; Stop 02/06/24 at 10:01; Status DC Insulin Human Regular 100 unit/ Sodium Chloride 100 ml @ 0 mls/hr AD PRN IV Last administered on 02/07/24at 15:04; Start 02/06/24 at 10:00; Stop 03/07/24 at 09:59 Meropenem 1 gm/ Sodium Chloride 100 ml @ 33.333 mls/ hr Q12H IV Last administered on 02/10/24at 11:05; Start 02/06/24 at 10:00; Stop 02/16/24 at 09:59 Lidocaine 1 each DAILY TP Last administered on 02/10/24at 08:51; Start 02/06/24 at 10:00; Stop 03/07/24 at 09:59 Tramadol HCl 50 mg Q6H PRN PO Last administered on 02/07/24at 22:04; Start 02/06/24 at 10:00; Stop 02/11/24 at 09:59 Furosemide 40 mg DAILY IV; Start 02/07/24 at 09:00; Stop 02/06/24 at 10:35; Status DC Insulin Glargine 25 units BID@0730,2100 SQ Last administered on 02/10/24at 05:56; Start 02/06/24 at 21:00; Stop 03/07/24 at 20:59 Furosemide 40 mg DAILY IV Last administered on 02/08/24at 08:37; Start 02/06/24 at 11:00; Stop 02/08/24 at 10:29; Status DC Hydralazine HCl 20 mg Q4H PRN IV Last administered on 02/08/24at 02:28; Start 02/06/24 at 11:00; Stop 03/07/24 at 10:59 Potassium Chloride 100 ml @ 100 mls/hr AD PRN IV Last administered on 02/07/24at 08:43; Start 02/06/24 at 11:30; Stop 03/07/24 at 11:29 Potassium Chloride 20 meq AD PRN PO; Start 02/06/24 at 11:30; Stop 03/07/24 at 11:29 Potassium Chloride 20 meq AD PRN PO; Start 02/06/24 at 11:30; Stop 03/07/24 at 11:29 Magnesium Sulfate 50 ml @ 0 mls/hr PROTOCOL PRN IV; Start 02/06/24 at 11:30; Stop 02/06/24 at 11:16; Status DC Fat Emulsion Intravenous 250 ml @ 42 mls/hr QODAY@2100 IV Last administered on 02/09/24at 00:05; Start 02/06/24 at 21:00; Stop 03/07/24 at 20:59 Multivitamins/ Minerals 10 ml/ Chromium/Copper/ Manganese/Zinc 3 ml/Insulin Human Regular 80 unit/ Amino Acids/ Electrolytes/ Dextrose 2,000 ml @ 83 mls/hr ONCE ONCE IV Last administered on 02/07/24at 15:03; Start 02/07/24 at 14:00; Stop 02/08/24 at 14:05; Status DC Insulin Human Regular INSULIN SLIDING SCAL... ACHS SQ Last administered on 02/10/24at 05:57; Start 02/07/24 at 21:00; Stop 03/08/24 at 20:59 Furosemide 20 mg DAILY IV; Start 02/09/24 at 09:00; Stop 02/08/24 at 13:09; Status DC Furosemide 20 mg Q12H IV Last administered on 02/09/24at 10:26; Start 02/08/24 at 21:00; Stop 02/09/24 at 13:39; Status DC Multivitamins/ Minerals 10 ml/ Chromium/Copper/ Manganese/Zinc 3 ml/Insulin Human Regular 20 unit/ Amino Acids/ Electrolytes/ Dextrose 2,000 ml @ 83 mls/hr ONCE ONCE IV Last administered on 02/08/24at 15:31; Start 02/08/24 at 15:30; Stop 02/09/24 at 08:19; Status DC Chromium/Copper/ Manganese/Zinc 3 ml/Multivitamins/ Minerals 10 ml/Aa 5 %/Calcium/Lytes/ Dext 20 % 1,000 ml @ 80 mls/hr AD IV; Start 02/09/24 at 18:30; Stop 03/10/24 at 18:29; Status Cancel Chromium/Copper/ Manganese/Zinc 1.5 ml/ Multivitamins/ Minerals 5 ml/ Amino Acids/ Electrolytes/ Dextrose 1,000 ml @ 83 mls/hr AD IV Last administered on 02/09/24at 20:26; Start 02/09/24 at 19:00; Stop 02/10/24 at 06:33; Status DC Ondansetron HCl 4 mg Q6H PRN IVP Last administered on 02/09/24at 22:52; Start 02/09/24 at 23:00; Stop 03/10/24 at 22:59 Acetaminophen 650 mg Q6H PRN PO Last administered on 02/10/24at 05:46; Start 02/10/24 at 06:00; Stop 03/11/24 at 05:59 Labetalol HCl 10 mg Q6H PRN IV; Start 02/10/24 at 09:00; Stop 03/11/24 at 08:59 Vancomycin HCl 1 gm ONCE ONCE IV; Start 02/10/24 at 09:00; Stop 02/10/24 at 08:45; Status DC Sodium Chloride 4 ml STK-MED ONCE IH Last administered on 02/10/24at 11:19; Start 02/10/24 at 11:00; Stop 02/10/24 at 11:00; Status DC Multivitamins/ Minerals 5 ml/ Chromium/Copper/ Manganese/Zinc 1.5 ml/Amino Acids/ Electrolytes/ Dextrose 1,000 ml @ 83 mls/hr AD IV; Start 02/10/24 at 13:30; Stop 03/11/24 at 13:29 Linezolid 300 ml @ 150 mls/hr Q12H IV; Start 02/10/24 at 15:00; Stop 02/20/24 at 14:59 Sodium Chloride 4 ml STK-MED ONCE IH; Start 02/10/24 at 14:38; Stop 02/10/24 at 14:40; Status DC DMITRI GALO MD Feb 10, 2024 14:50
[2024-02-10] MEDS: LINEZOLID 600 MG/ISO-OSM 300 ML IV SCH (14:57)
[2024-02-10 17:00] LABS: ABG HCO3 29.1 mmol/L (21.0-28.0); ABG OXYGEN SATURATION 96.6 % (94.0-98.0); ABG PCO2 47 mmHg (32-45); ABG PH 7.412 (7.350-7.450); CARBON MONOXIDE 0.3 % (0.5-1.5); DEVICE COMMENT LR; HHb 3.4; PO2, ARTERIAL BG 95.6 mmHg (83.0-108.0); VENT MODE, BG NC ROSSIE RN (ROOM AIR)
[2024-02-10] MEDS ORDERED: COMPOUND IV REFRIGERATED 1 EACH IVSOLN MISC PRN (18:00)
[2024-02-10] MEDS: FAMOTIDINE 20MG VIAL IV SCH (21:08)
[2024-02-10] MEDS: [UNRECOGNIZED DRUG - NUTRITION] IV NR (21:50)
[2024-02-11] VITALS (19 sets, daily range): BP systolic 112–150; BP diastolic 43–90; PULSE 85–100; RESP 13–32; TEMP 97.7–99.1; O2SAT 97–100
--- NOTE | 2024-02-11 04:30 | CONS ---
INFECTIOUS DISEASE CONSULTATION DATE OF SERVICE: 02/10/2024 REQUESTING PHYSICIAN: Nya Dvoer MD REASON FOR CONSULTATION: Sepsis and intra-abdominal abscess. HISTORY OF PRESENT ILLNESS: This is a 79-year-old female with history of diabetes mellitus, hypertension, CHF, and dyslipidemia, brought to the hospital with abdominal pain. Pain localized to the lower quadrant. The patient apparently was receiving IV antibiotic and IV fluid in the clinic in [place] for the past 1 week. Due to worsening of condition, the patient was brought to the Emergency Room and brought to the US. CT of the abdomen was done, shows sigmoid diverticulitis with perforation and abscess. I was unable to drain the abscess due to the location of the fluid. The patient is on multiple antibiotics, which include meropenem and fluconazole, but the patient's WBC is elevated and continued to have fever. The patient is being followed by Surgical team. PAST MEDICAL HISTORY: * Diabetes mellitus. * Hypertension. * Dyslipidemia. * CHF. * COPD. * Dementia. * Pulmonary hypertension. PAST SURGICAL HISTORY: Cholecystectomy. ALLERGIES: No known drug allergy. CURRENT MEDICATIONS: Include: * Fluconazole. * TPN. * Meropenem. * Fat emulsion. * Tylenol. * Zofran. SOCIAL HISTORY: Lives with . No alcohol, tobacco or illicit drug use. FAMILY HISTORY: Positive for diabetes mellitus. REVIEW OF SYSTEMS: Greater than 10 systems were reviewed and negative except as documented above. PHYSICAL EXAMINATION: GENERAL: An elderly female, awake, ill-looking. VITAL SIGNS: Temperature 101.7, pulse 90, respiratory rate 18, blood pressure 116/69. EYES: No icterus. Pupils equal and reactive. HENT: No oral thrush seen. Moist oral mucosa. NECK: Supple, no JVD or thyromegaly. LUNGS: Good air entry. No rales, no rhonchi. CARDIOVASCULAR: S1, S2 regular. No murmur heard. ABDOMEN: Full, soft, nontender. Bowel sounds present. CENTRAL NERVOUS SYSTEM: Awake, alert, and oriented x 3. No focal deficits. SKIN: No rashes, no itchiness. LYMPHATIC: No peripheral lymphadenopathy. BACK: No deformity. No pressure ulcer. LABORATORY DATA: Sodium 136, potassium 5.2, BUN 72, creatinine 1.5. WBC 24.0, hemoglobin 9.7, platelet 227. Influenza antigen negative. Blood culture, no growth for 5 days. RADIOLOGY: CT of the abdomen shows acute sigmoid colon diverticulitis with abscess. ASSESSMENT: A 79-year-old female admitted with abdominal pain. CURRENT PROBLEMS: Include: * Sepsis. * Diverticulitis with perforation. * Intra-abdominal abscess. * Anemia. * Leukocytosis. * Hyperkalemia. PLAN: * Continue micafungin. * Continue TPN. * Start the patient on linezolid. * Continue critical care support. * Continue antidiabetic. * Monitor electrolytes. * The patient will be followed up closely. Thank you for allowing me to participate in the care of this patient. TID: [id number] RECEIPT: [id number]
[2024-02-11 05:28] LABS: BASOPHILS # (AUTO) 0.04 K/uL (0.00-0.20); BASOPHILS % (AUTO) 0.3 % (0.0-5.0); EOSINOPHILS # (AUTO) 0.14 K/uL (0.00-0.70); EOSINOPHILS % (AUTO) 0.9 % (0.0-8.0); HEMATOCRIT 25.6 % (36-48); LYMPHOCYTES # (AUTO) 1.4 K/uL (1.0-4.8); MEAN CORPUSCULAR HEMOGLOBIN 28.5 pg (27.0-33.0); MEAN CORPUSCULAR VOLUME 88.9 fL (79-99); MONOCYTES # (AUTO) 1.4 K/uL (0.1-1.0); MONOCYTES % (AUTO) 8.9 % (3.0-13.0); NEUTROPHILS # (AUTO) 12.7 K/uL (1.8-7.7); NEUTROPHILS % (AUTO) 80.3 % (40.0-77.0); PLATELET COUNT (AUTO) 295 K/uL (130-400); RED BLOOD CELL COUNT(AUTO) 2.88 MIL/uL (4.00-5.50); RED CELL DISTRIBUTION WIDTH 15.6 % (11.0-15.5); WHITE BLOOD COUNT (AUTO) 15.7 K/uL (4.8-10.8)
[2024-02-11 05:37] LABS: ALBUMIN 1.5 g/dL (3.5-5.0); BILIRUBIN,TOTAL 0.3 mg/dL (0.2-1.0); CREATININE 1.4 mg/dL (0.5-1.0); POTASSIUM 4.5 mmol/L (3.5-5.1); TOTAL PROTEIN, SERUM 5.3 g/dL (6.0-8.3)
[2024-02-11 05:56] LABS: WBC MORPHOLOGY CONSISTENT W/DIFF
--- NOTE | 2024-02-11 07:14 | PN ---
PROGRESS NOTE PROGRESS NOTE DATE OF PROGRESS NOTE: 02/11/24 SUBJECTIVE: Patient was transferred back to ICU for severe diarrhea and hypotension is doing better VITAL SIGNS Vital Signs Date Time Temp Pulse Resp B/P (MAP) Pulse Ox O2 Delivery O2 Flow Rate FiO2 02/11/24 00:11 95 20 40 02/10/24 17:50 110/80 99 Nasal Cannula 3.0 02/10/24 15:50 98.4 PHYSICAL EXAM: OBJECTIVE: GENERAL: She is currently, awake, alert, oriented in person and place with the BiPAP in place. VITAL SIGNS: Blood pressure 146/63, pulse 101, respiratory rate 25. HEENT: Normocephalic and atraumatic. LUNGS: Decreased breath sounds in right anterior and posterior hemithorax. No wheezes. No rhonchi. HEART: S1, S2 are clear. ABDOMEN: Soft. Nontender. No masses. LABORATORY: Laboratory Result(s) Test 02/10/24 11:03 02/10/24 16:58 02/10/24 17:48 02/10/24 21:13 Whole Blood Glucose 103 MG/DL (70-110) 121 MG/DL (70-110) 94 MG/DL (70-110) Blood Gas Specimen Type Arterial Arterial Blood pH 7.412 (7.350-7.450) Arterial Blood Partial Pressure CO2 47 mmHg (32-45) Arterial Blood Partial Pressure O2 95.6 mmHg (83.0-108.0) Arterial Blood HCO3 29.1 mmol/L (21.0-28.0) Arterial Blood Oxygen Saturation 96.6 % (94.0-98.0) Arterial Blood Base Excess 4.0 mmol/L (-2.0-3.0) Hemoglobin (Blood Gas) 10.0 g/dL (12.0-16.0) Sodium (Blood Gas) 137 MMOL/L (136-145) Bedside Potassium (Blood Gas) 4.7 MMOL/L (3.4-4.5) Bedside Chloride (Blood Gas) 105 MMOL/L (98-107) Bedside Glucose (Blood Gas) 149 MG/DL (65-95) Bedside Ionized Calcium (Blood Gas) 1.17 MMOL/L (1.15-1.33) Bedside Lactic Acid (Blood Gas) 1.0 MMOL/L (0.8-2.5) Blood Gas Temperature 37.0 CELSIUS (35.5-37.0) Blood Gas Flow-by 3.00 L/min (0.00-15.00) Blood Gas Vent Mode TYSHAWN ORTA RN (ROOM AIR) FiO2 32.0 % Blood Gas Specimen Comment LR Test 02/11/24 04:43 White Blood Count 15.7 K/uL (4.8-10.8) Red Blood Count 2.88 MIL/uL (4.00-5.50) Hemoglobin 8.2 g/dL (12.0-16.0) Hematocrit 25.6 % (36-48) Mean Corpuscular Volume 88.9 fL (79-99) Mean Corpuscular Hemoglobin 28.5 pg (27.0-33.0) Mean Corpuscular Hemoglobin Concent 32.0 g/dL (32.0-36.0) Red Cell Distribution Width 15.6 % (11.0-15.5) Platelet Count 295 K/uL (130-400) Mean Platelet Volume 10.7 fL (7.5-10.5) Immature Granulocyte % (Auto) 0.6 % (0-1) Neutrophils (%) (Auto) 80.3 % (40.0-77.0) Lymphocytes (%) (Auto) 9.0 % (21.0-51.0) Monocytes (%) (Auto) 8.9 % (3.0-13.0) Eosinophils (%) (Auto) 0.9 % (0.0-8.0) Basophils (%) (Auto) 0.3 % (0.0-5.0) Neutrophils # (Auto) 12.7 K/uL (1.8-7.7) Lymphocytes # (Auto) 1.4 K/uL (1.0-4.8) Monocytes # (Auto) 1.4 K/uL (0.1-1.0) Eosinophils # (Auto) 0.14 K/uL (0.00-0.70) Basophils # (Auto) 0.04 K/uL (0.00-0.20) Absolute Immature Granulocyte (auto 0.10 K/uL (0-1) Nucleated Red Blood Cells 0.0 % (0.0-0.19) White Cell Morphology Comment CONSISTENT W/DIFF Sodium Level 132 mmol/L (136-145) Potassium Level 4.5 mmol/L (3.5-5.1) Chloride Level 100 mmol/L (101-111) Carbon Dioxide Level 30 mmol/L (21-32) Blood Urea Nitrogen 60 mg/dL (7-18) Creatinine 1.4 mg/dL (0.5-1.0) Glomerular Filtration Rate Calc 38 mL/min (>90) Random Glucose 156 mg/dL (70-105) Lactic Acid Level 1.3 mmol/L (0.8-2.5) Total Calcium 8.4 mg/dL (8.5-10.1) Total Bilirubin 0.3 mg/dL (0.2-1.0) Aspartate Amino Transf (AST/SGOT) 23 U/L (10-37) Alanine Aminotransferase (ALT/SGPT) 24 U/L (12-78) Alkaline Phosphatase 120 U/L (50-136) C-Reactive Protein, Quantitative 94.80 mg/L (0.5-3.0) Total Protein 5.3 g/dL (6.0-8.3) Albumin 1.5 g/dL (3.5-5.0) INPATIENT MEDS: Current Medications Medications Dose Ordered Sig/[facility] Start Time Stop Time Status Last Admin Home Med (Semaglutide (Rybelsus) 7 MG) DAILY 02/02/24 09:00 03/03/24 08:59 02/09/24 10:27 Paroxetine HCl 20 mg BID 02/02/24 09:00 03/03/24 08:59 02/09/24 22:53 Magnesium Oxide 400 mg DAILY 02/02/24 09:00 03/03/24 08:59 02/09/24 10:26 Magnesium Sulfate 50 ml @ 0 mls/hr PROTOCOL PRN 02/02/24 08:30 03/03/24 08:29 02/02/24 10:25 Wound Care/ Dressing Products BID 02/02/24 09:00 03/03/24 08:59 02/10/24 21:08 Sodium Chloride 10 ml DAILY 02/03/24 09:00 03/04/24 08:59 02/10/24 08:49 Leptospermum Honey 1 appl DAILY 02/03/24 09:00 03/04/24 08:59 02/10/24 08:55 Fluconazole/ Sodium Chloride 200 ml @ 100 mls/hr DAILY 02/04/24 10:00 03/05/24 09:59 02/10/24 08:49 Acetaminophen 650 mg Q6H PRN 02/05/24 13:30 03/06/24 13:29 02/05/24 13:19 Insulin Human Regular 100 unit/ Sodium Chloride 100 ml @ 0 mls/hr AD PRN 02/06/24 10:00 03/07/24 09:59 02/07/24 15:04 Meropenem 1 gm/ Sodium Chloride 100 ml @ 33.333 mls/ hr Q12H 02/06/24 10:00 02/16/24 09:59 02/10/24 21:50 Lidocaine 1 each DAILY 02/06/24 10:00 03/07/24 09:59 02/10/24 08:51 Insulin Glargine 25 units BID@0730,209902/06/24 21:00 03/07/24 20:59 02/10/24 21:24 Hydralazine HCl 20 mg Q4H PRN 02/06/24 11:00 03/07/24 10:59 02/08/24 02:28 Potassium Chloride 100 ml @ 100 mls/hr AD PRN 02/06/24 11:30 03/07/24 11:29 02/07/24 08:43 Potassium Chloride 20 meq AD PRN 02/06/24 11:30 03/07/24 11:29 Potassium Chloride 20 meq AD PRN 02/06/24 11:30 03/07/24 11:29 Fat Emulsion Intravenous 250 ml @ 42 mls/hr QODAY@2100 02/06/24 21:00 03/07/24 20:59 02/10/24 21:08 Insulin Human Regular INSULIN SLIDING SCAL... ACHS 02/07/24 21:00 03/08/24 20:59 02/10/24 05:57 Ondansetron HCl 4 mg Q6H PRN 02/09/24 23:00 03/10/24 22:59 02/09/24 22:52 Acetaminophen 650 mg Q6H PRN 02/10/24 06:00 03/11/24 05:59 02/10/24 05:46 Labetalol HCl 10 mg Q6H PRN 02/10/24 09:00 03/11/24 08:59 Multivitamins/ Minerals 5 ml/ Chromium/Copper/ Manganese/Zinc 1.5 ml/Amino Acids/ Electrolytes/ Dextrose 1,000 ml @ 83 mls/hr AD 02/10/24 13:30 03/11/24 13:29 02/10/24 21:50 Linezolid 300 ml @ 150 mls/hr Q12H 02/10/24 15:00 02/20/24 14:59 02/11/24 03:55 Famotidine 20 mg Q24H 02/10/24 21:00 03/11/24 20:59 02/10/24 21:08 Heparin Sodium (Porcine) 5,000 unit Q12H 02/11/24 09:00 03/12/24 08:59 PROBLEM LIST: (1) Acute diverticulitis ICD Code: K57.92 - Diverticulitis of intestine, part unspecified, without perforation or abscess without bleeding (2) UTI (urinary tract infection) ICD Code: N39.0 - Urinary tract infection, site not specified (3) Hypomagnesemia ICD Code: E83.42 - Hypomagnesemia (4) Acute kidney injury ICD Code: N17.9 - Acute kidney failure, unspecified PLAN: Echocardiogram shows ejection fraction 60% to 65%, calcified aortic valve, mild aortic stenosis. CT scan of the abdomen and pelvis shows inflammatory changes in sigmoid consistent with diverticulitis with an adjacent 2.8 collection of air and fluid consistent with contained perforation unchanged compared to previous examination. Mild bibasilar atelectasis. ASSESSMENT AND PLAN: * Respiratory failure with hypoxemia. Continue with BiPAP. Clinically improved *Sepsis secondary to diverticulitis and perforated colon. Continue with recommendations by Surgery. She is scheduled to have drainage catheter in the right lower quadrant. * Right lower lobe pneumonia and pleural effusion. The patient may need to have thoracentesis scheduled. * Acute renal failure, improving. * Type 2 diabetes. Continue ICU protocol. * Hypertension, controlled. * Change in mental status secondary to hypoxemia and sepsis significantly improved. The patient is back to her baseline. * Severe malnutrition supportive treatment continue with TPN Perforated colon with fluid contained intraperitoneal collection 2.8 cm follow with repeat CT as no surgical management or intervention Radiology being planned to drain we do the CT scan today Patient is DNR Workup for diarrhea Increased confusion supportive treatment Severe malnutrition albumin supplementation ISAIAH FLORES MD Feb 11, 2024 07:14
--- NOTE | 2024-02-11 09:17 | HMCIMG ---
CHEST 1VW HISTORY: Respiratory failure COMPARISON: 02/09/2024 FINDINGS: A frontal projection of the chest was obtained. Mild bilateral pulmonary infiltrates are seen may be related to mild pulmonary vascular congestion with possible superimposed pneumonitis. There is elevation of right hemidiaphragm. The heart is borderline enlarged. Degenerative changes are seen. No evidence of aortic calcification is seen. IMPRESSION: 1. Mild bilateral pulmonary infiltrates are seen may be related to mild pulmonary vascular congestion with possible superimposed pneumonitis. Elevation of right hemidiaphragm.
[2024-02-11] MEDS ORDERED: ALBUMIN (HUMAN) 25% 50 ML IV SCH (09:30)
--- NOTE | 2024-02-11 09:45 | PN ---
[facility] PROGRESS NOTE Date Patient Seen: Feb 11, 2024 Time of Visit: 09:45 Supervising Physician: Dr Jaime Rodgers MD Consulting Physician: Dr Morgan Outpatient Specialists: [facility] Inpatient Consults: Dr. Narayanan, Dr. Bustamante PROBLEM LIST: Acute hypoxic and hypercapnic respiratory failure secondary to below Sepsis - POA DM type II, with hyperglycemia, POA small rt pleural effusion, POA not large enough for thoracentesis on POC US Elevated Rt hemidiaphragm POA Acute diverticulitis with contained perforation, - suspect polymicrobial peritonitis- evaluated by General surgery, no surgical intervention at this time Diverticula Abscess 4.2 x [address] 02/09 Non anion gap metabolic acidosis- resolved Acute renal failure- secondary to ATN from sepsis Acute complicated cystitis - POA Hypernatremia, POA Chronic congestive heart failure- preserved EF LVEF 60%, POA Acute metabolic acidosis, POA- resolved Acute encephalopathy, POA- resolved Hypertension, POA Hyperlipidemia, POA INTERVAL HISTORY: 02/03 patient is lethargic but answering questions appropriately. She is oriented to person but disoriented to place time and situation. Patient was upgraded to ICU yesterday after rapid response initiation for decreased mental status. Overnight with the CT scan of the head with no acute intracranial bleed or any significant finding. ABG was done yesterday with metabolic acidosis. Patient received sodium bicarbonate x1 overnight. Chemistry this morning with sodium 144 potassium 3.9 chloride 114, bicarb 22, BUN is 46 creatinine is 2.0 renal function has improved. Patient has put out 400 cc of urine output. We will place a Tellez catheter for strict I/O, and repeat UA, blood culture, fungal culture. Patient is on Zosyn antibiotic. Adjusted per renal function. We will add GPC coverage and antifungal given abdominal abscess. We will also repeat CT scan of the abdomen to see the progression of the abscess. If remains the same and/ or worsening, we will request IR to drain this. Patient remains on BiPAP 09/02/2039%. ABG this morning with pH 7.39, pCO2 46 PO2 101. Bicarb is 22.7 O2 sat is 97%. Base excess-3.5. This is mainly metabolic acidosis with some component of respiratory acidosis. Will give a trial with high flow NC and see how she does. In the mean time, nutrition is poor albumin low, per family she has not been eating well over a week. Given diverticulitis, will start TPN. Spoke with the patient's family, son daughter and patient's . DNR/DNI has been requested and we will kellie this. Condition is guarded. We will keep her in ICU. 02/04 patient remains on noninvasive positive pressure ventilation since yesterday, unable to wean it off for break for too long. Patient developed hypercapnia with encephalopathy after 30 minutes off of bipap. Venous blood gas this morning with pH 7.309, pCO2 46, PO2 is 136. Bicarb is 22. Base excess is- 3.6. We will continue to utilize NIPPV for hypercapnia. Continue to follow with the blood gases in the morning. Her chest x-ray was with right hemidiaphragm elevation. Patient also has pulmonary congestion/ pleural effusion. Diuretic has been requested. Continue strict I's and o's. Continue with tellez. Remainder of the lab her renal function has improved, creatinine is 1.8 down from 1.9. BUN is also down to 43 from 45. Glucose however is high at 330 , patient has been started on TPN yesterday. We will increase insulin sliding scale and start long-acting insulin. She remains NPO. In the meantime CT scan of the abdomen was repeated yesterday with persistent abscess in the pelvic area which we had requested IR to drain this however given location and size, she is not candidate for percutaneous drain placement. For now broad antibiotic therapy and antifungal. We will continue to keep patient in the ICU given hypercapnia requiring NIPPV. L VEF is preserved with 60% Spoke with patient's family at this site. 02/05 patient is awake and alert and oriented not in acute distress, remains on BiPAP at the moment, patient did not tolerate off BiPAP yesterday. We can try again to keep her off of it. Repeat chest x-ray see the atelectasis. She has been diuresed with pulse dose Lasix. Urine output is 3.5 L with balance -1 L. lab this morning with BUN of 43 this is similar to yesterday and creatinine is down to 1.5 from 1.8. We will repeat chest x-ray today and tomorrow. Remainder of the lab with leukocytosis worsening and patient had fever 100.2 this AM. We will up the coverage of the antibiotic discontinue Zosyn and start patient on merem. Continue doxy and fluconazole. Patient complained of back pain, will place lidocain patch. Ultram PRN. Glucose over 300 despite long acting insulin. Will start insulin drip, increase long acting. Continue TPN. Spoke with patient and her granddaughter. 02/06 patient is awake alert oriented no acute event overnight. She is very debilitated. Vital signs blood pressure 160/75 heart rate is 99. T-max is 99.7. She is on high-flow nasal cannula at 25 L with 40% FiO2 saturation oxygen 99%. We can wean it down as tolerated to keep sats greater 92%. Patient has been d iuresed yesterday with pulse dose Lasix now Her urine output is 3.5 L with-28 cc balance. Her renal function is improved BUN is 45 and creatinine is down to 1.4 from 1.5. Chemistry with sodium 148 this is up from 146 yesterday potassium is 3.5 chloride is 114. Bicarb is 32 . Glucose over has been up trended so patient was started on insulin drip yesterday. Continue insulin drip per protocl, continue TPN with added insulin in the bag. Continue with daily diuresis. Chest xray in AM. 02/07 patient is awake alert and oriented very weak but following commands appropriately. There is no event overnight patient reported no abdominal pain. At this time patient will need physical therapy to gain some more muscle strength . Otherwise remarkable lab this morning with improving renal function, creatinine is 1.2 down from 1.4 BUN is 55. Patient has been diuresed with Lasix 40 daily. She will still need diuretic given pleural effusion, we will decrease to 20 mg daily. She has put out 2.7 L with balance of +500 cc. She had bowel movement. Continue with the liquid diet as tolerated. We will continue with TPN with insulin. Insulin drip has been discontinued yesterday. Continue with Lantus. We will decrease insulin in the TPN. Continue with current antibiotic doxycycline, meropenem, fluconazole. Chest x-ray repeated this morning with persistent right pleural effusion no change since yesterday. She has been able to come off of BiPAP for longer period of time yesterday all day off of BiPAP. This morning patient has been switched to nasal cannula at 5 L. Continue with incentive spirometry. Repeat cxr and coag in AM. Will assess lung field with US. From critical standpoint patient is stable to be downgraded to PCU. 02/08 patient is awake alert and oriented x3 not acute distress. Patient is laying down in bed back to bed from recliner this morning assisted by Physical therapy. Lab this morning with creatinine of 1.3 this is up trending slightly from 1.2 BUN is 60 this is up from 55 and bicarb is 33 this from 32. Urine output is 3.8 L with -1.5 L balance. Patient has been doing well oxygenating, chest x-ray with right pleural effusion persisted but much better compared to yesterday. We did increase the Lasix to q.12 hours from daily yesterday, but given worsened renal function, we will hold this today. Also, patient already had bowel movement x2. She had been started on diet and now advanced to a full liquid diet per surgery. We can dc TPN. She remains on O2 support at 3LNC. Sat 98%. 2 hours of bipap overnight. We can make bipap PRN. Downgrade to surgical floor. 02/09-patient is awake and oriented x3 but lethargic. Upgraded to the ICU per General surgery request due to high risk for decompensation. Patient continues receiving TPN nutrition via PICC line. Patient has been febrile with a T-max of 101.7 and a T low of 97.2 in the last 24 hours. Heart rate in the 80s respiratory rate 23 blood pressure 122/65 with O2 sat of 96% on 3 L via nasal cannula. Urine output of 1.9 L in last 24 hours with a I&O balance-604 mL patient has had frequent bowel movements today at loose stools. Pending IR eval for possible I&D of diverticular abscess. On laboratory white count increased today to 24 H&H 9.7/30.7 platelet count is [id number]. Chemistries sodium 136 potassium is 5.2 on repeat on ABG 4.7, BUN 72 creatinine 1.5 random glucose 199 mg/dL with a procalcitonin of 0.54 increased. Patient continues on meropenem and fluconazole and Zyvox has been added per ID. 02/10-patient is awake alert and oriented x3, encephalopathy has resolved. She is hemodynamically stable off pressors with a blood pressure of 131/64 heart rate in the 80s respiratory rate 20 on 3 L via nasal cannula afebrile with a T- max of 99.9 in the last 24 hours with a T low of 98.4. She continues on pa renteral nutrition via PICC line. Per IR unable to perform I&D of diverticular abscess due to location. Patient had 1 L of urine output in the last 24 hours with a positive balance of 639 mL patient had two bowel movements. On laboratory WBCs are trending down today 15.7 H&H is 8.2/25.6 with a platelet count of [id number]. Chemistries sodium 132 chloride 100 carbon dioxide 30 BUN 60 creatinine 1.4 GFR of 38 glucose 150 mg/dL, CRP 94.8 total protein 5.3 albumin 1.5. On chest x-ray mild bilateral pulmonary infiltrates are seen may be related to mild pulmonary vascular congestion with possible superimposed pneumonitis, elevation of right hemidiaphragm. Awaiting further recommendations from surgical standpoint. For now patient is stable to downgrade from ICU. Patient's current code status DNR and DNI. REVIEW OF SYSTEMS: General: No malaise or fever. Neurological: No fainting episodes or seizures. HEENT: No nasal congestion or nasal secretion. Respiratory: No cough, yes to shortness of breath on minimal exertion, no wheezing Cardiac: No chest pain or palpitations. Gastrointestinal: No vomiting yes to loose stools Genitourinary: No dysuria hematuria. Skin: No rashes or lesions. Hematological: No bruises or bleeding. Musculoskeletal: No joint pains or arthralgias. Psychiatric: No depression or panic attacks. PHYSICAL EXAM: GENERAL: Patient awake alert and oriented x3 HEENT: EOMI, Sclera non icteric, moist mucosa NECK: Supple, no JVD, trachea midline LUNGS: Clear breath sounds bilaterally. No wheezes HEART: Regular rate and rhythm. Normal S1 and S2, without murmurs ABD: Abdomen soft, nontender. Bowel sounds present EXT: No clubbing cyanosis or edema NEURO: Patient deconditioned awake alert and oriented x3. Vital Signs (last 8hr) Date Time Temp Pulse Resp B/P (MAP) Pulse Ox O2 Delivery O2 Flow Rate FiO2 02/11/24 05:50 93 29 129/90 99 Nasal Cannula 3.0 10/23/24 04:50 98.4 94 16 122/83 98 Nasal Cannula 3.0 02/11/24 04:00 97 Nasal Cannula* 3 32 02/11/24 03:49 85 21 118/47 99 Nasal Cannula 3.0 02/11/24 02:49 97 23 122/55 98 Nasal Cannula 3.0 02/11/24 01:49 100 20 112/62 100 Nasal Cannula 3.0 LABS: Hematology Labs: Test 02/11/24 04:43 Range/Units White Blood Count 15.7 H 4.8-10.8 K/uL Red Blood Count 2.88 L 4.00-5.50 MIL/uL Hemoglobin 8.2 L 12.0-16.0 g/dL Hematocrit 25.6 L 36-48 % Mean Corpuscular Volume 88.9 79-99 fL Mean Corpuscular Hemoglobin 28.5 27.0-33.0 pg Mean Corpuscular Hemoglobin Concent 32.0 32.0-36.0 g/dL Red Cell Distribution Width 15.6 H 11.0-15.5 % Platelet Count 295 130-400 K/uL Mean Platelet Volume 10.7 H 7.5-10.5 fL Immature Granulocyte % (Auto) 0.6 0-1 % Neutrophils (%) (Auto) 80.3 H 40.0-77.0 % Lymphocytes (%) (Auto) 9.0 L 21.0-51.0 % Monocytes (%) (Auto) 8.9 3.0-13.0 % Eosinophils (%) (Auto) 0.9 0.0-8.0 % Basophils (%) (Auto) 0.3 0.0-5.0 % Neutrophils # (Auto) 12.7 H 1.8-7.7 K/uL Lymphocytes # (Auto) 1.4 1.0-4.8 K/uL Monocytes # (Auto) 1.4 H 0.1-1.0 K/uL Eosinophils # (Auto) 0.14 0.00-0.70 K/uL Basophils # (Auto) 0.04 0.00-0.20 K/uL Absolute Immature Granulocyte (auto 0.10 0-1 K/uL Nucleated Red Blood Cells 0.0 0.0-0.19 % White Cell Morphology Comment CONSISTENT W/DIFF Chemistry Labs: Test 02/11/24 04:43 02/10/24 21:13 02/10/24 06:59 02/10/24 04:31 Range/Units Sodium Level 132 L 136-145 mmol/L Potassium Level 4.5 3.5-5.1 mmol/L Chloride Level 100 L 101-111 mmol/L Carbon Dioxide Level 30 21-32 mmol/L Blood Urea Nitrogen 60 H 7-18 mg/dL Creatinine 1.4 H 0.5-1.0 mg/dL Glomerular Filtration Rate Calc 38 >90 mL/min Random Glucose 156 H 70-105 mg/dL Lactic Acid Level 1.3 0.8-2.5 mmol/L Total Calcium 8.4 L 8.5-10.1 mg/dL Total Bilirubin 0.3 0.2-1.0 mg/dL Aspartate Amino Transf (AST/SGOT) 23 10-37 U/L Alanine Aminotransferase (ALT/SGPT) 24 12-78 U/L Alkaline Phosphatase 120 50-136 U/L C-Reactive Protein, Quantitative 94.80 H 0.5-3.0 mg/L Total Protein 5.3 L 6.0-8.3 g/dL Albumin 1.5 L 3.5-5.0 g/dL Whole Blood Glucose 94 70-110 MG/DL Procalcitonin 0.54 H 0.05-0.5 ng/mL Ammonia 16 11-32 umol/L DIAGNOSTICS / RADIOLOGY RESULTS: [ ]Signed PATIENT: COMPA GRANADOS MR#: [id number] : 1945 SEX: F AGE: 79 LOCATION: [facility] ORDER 2300 STATUS: ADM IN REPORT#: [id number] SERVICE 0600 REASON: hypoxic resp failure ORDERING PHYSICIAN: JOAN PARKER PROCEDURE: CXR1VW - CHEST 1VW CHEST 1VW HISTORY: Respiratory failure COMPARISON: 02/09/2024 FINDINGS: A frontal projection of the chest was obtained. Mild bilateral pulmonary infiltrates are seen may be related to mild pulmonary vascular congestion with possible superimposed pneumonitis. There is elevation of right hemidiaphragm. The heart is borderline enlarged. Degenerative changes are seen. No evidence of aortic calcification is seen. IMPRESSION: 1. Mild bilateral pulmonary infiltrates are seen may be related to mild pulmonary vascular congestion with possible superimposed pneumonitis. Elevation of right hemidiaphragm. DICTATED BY: TICO ZAMORA MD DATE: 02/11/24913 ELECTRONICALLY SIGNED BY: TICO ZAMORA MD DATE: 02/11/24916 PLAN May downgrade to med surge with tele Follow cultures Monitor for fevers Daily CMP Daily lactic acid Per IR unable to perform I&D of diverticular abscess due to location Follow General surgery recommendations Continue parenteral nutrition and advance diet per surgery recommendations as tolerated Discontinue parenteral nutrition once patient tolerating diet. Telemetry monitoring NEURO: Avoid central acting medications as possible. Fall Precautions. Well lighted room through the day and minimize interruptions through the night to prevent acute delirium. PULMONARY: Supplemental 02 as needed Titrate Fio2 to keep Spo2 > or = 90% DuoNebs and CPT as needed IS hourly while awake for pulmonary hygiene Out of bed to chair as tolerated BiPAP HS and p.r.n. CARDIOVASCULAR: Follow hemodynamics. Titrate vasopressor to keep MAP >65 or systolic blood pressure >95mmHg Telemetry monitoring DRIPS: TPN LINES: PICC line GI & NUTRITION: Continue nutritional support Aspirations precautions Prokinetic agents and laxatives as needed TPN KIDNEYS & ELECTROLYTES: Strict monitoring of intake and output Daily weights Avoid nephrotoxic agents Monitor electrolytes and replace as needed Goal urine output of 30mL/hr or 0.5mL/kg/hr ENDOCRINE: Maintain blood glucose between 100-180 at all times. Insulin sliding scale for blood glucose management INFECTIOUS DISEASE: Trend temperature. Alarcon-culture if febrile. Follow ID recommendations Micro: Antibiotics: Fluconazole 02/03- Meropenem 02/05- Zyvox added 02/10/24 HEMATOLOGY & COAGULATION: Monitor H&H. Keep Hgb > 7 Transfuse 1 unit of PRBC for Hgb < 7 Transfuse 1 pack of platelets of platelets < 20, 000 Watch for any signs and symptoms of bleeding SKIN: Pressure ulcer prevention per facility protocol Right foot wound care Rehab: PT/OT Prophylaxis: GI: Pepcid DVT: Heparin Code Status: Full Resuscitation Disposition: ICU Other: Total patient care time exceeds 45 minutes excluding all procedures. JOAN PARKER CLAMMER Feb 11, 2024 09:45
[2024-02-11] MEDS: HEParin 5,000 UNIT VIAL SQ SCH (10:27)
--- NOTE | 2024-02-11 12:45 | PN ---
INFECTIOUS DISEASE PROGRESS NOTE Date of Service: Feb 11, 2024 SUBJECTIVE: Patient was seen and examined at bedside in the ICU room 208. Patient however has been downgraded and pending room availability. Patient is more awake and alert and able to answer questions appropriately. WBC trended down to 15.7 this morning, no fever, temperature is 99.1. Repeat CT scan of the abdomen/pelvis still showing diverticular abscess and sigmoid diverticulitis. Patient currently continues on linezolid IV as it was started yesterday as well as meropenem and fluconazole IV. Will continue to monitor patient. PHYSICAL EXAM EYES: Anicteric. Pupils equal and reactive. HENT: No oral thrush seen, moist Oral mucosa NECK: Supple, no JVD or thyromegaly. LUNGS: Good air entry. No rales, no rhonchi. CARDIOVASCULAR: S1, S2 regular. No murmur heard. ABDOMEN: Soft, non tender, bowel sounds present, no organomegaly CENTRAL NERVOUS SYSTEM: Awake, alert, oriented x 3. No focal deficits. SKIN: No rashes, no swelling. LYMPHATICS: No peripheral lymphadenopathy MUSCULOSKELETAL: No joint swelling, erythema or tenderness. EXTREMITIES: No cyanosis or clubbing BACK: No deformity, no pressure ulcer. GENITOURINARY: No dysuria or hematuria Vital Sign (Last 12 Hours) 02/11/24 02/11/24 02/11/24 02/11/24 00:49 01:49 02:49 03:49 Temp 98.8 Pulse 91 100 97 85 Resp B/P (MAP) 143/78 112/62 122/55 118/47 Pulse Ox 99 100 98 99 O2 Delivery Nasal Cannula Nasal Cannula Nasal Cannula Nasal Cannula O2 Flow Rate 3.0 3.0 3.0 3.0 02/11/24 02/11/24 02/11/24 02/11/24 04:00 04:50 05:50 08:00 Temp 98.4 99.1 Pulse 94 93 96 Resp 16 21 B/P (MAP) 122/83 129/90 145/82 Pulse Ox 97 98 99 99 O2 Delivery Nasal Cannula* Nasal Cannula Nasal Cannula Nasal Cannula O2 Flow Rate 3 3.0 3.0 3.0 FiO2 32 02/11/24 02/11/24 02/11/24 02/11/24 08:00 09:00 10:00 11:00 Pulse 99 87 94 Resp 20 21 20 B/P (MAP) 139/60 131/64 117/64 Pulse Ox 99 97 98 99 O2 Delivery Nasal Cannula* Nasal Cannula Nasal Cannula Nasal Cannula O2 Flow Rate 3 3.0 3.0 3.0 FiO2 32 Intake & Output (last 24hrs) 02/10/24 02/10/24 02/11/24 15:00 23:00 07:00 Intake Total 75 ml 683.0 ml 964.0 ml Output Total 400 ml 600 ml Balance 75 ml 283.0 ml 364.0 ml LABS: Laboratory: Test 02/11/24 11:25 02/11/24 04:43 02/10/24 16:58 02/10/24 06:59 Range/Units Whole Blood Glucose 150 #H 70-110 MG/DL White Blood Count 15.7 H 4.8-10.8 K/uL Red Blood Count 2.88 L 4.00-5.50 MIL/uL Hemoglobin 8.2 L 12.0-16.0 g/dL Hematocrit 25.6 L 36-48 % Mean Corpuscular Volume 88.9 79-99 fL Mean Corpuscular Hemoglobin 28.5 27.0-33.0 pg Mean Corpuscular Hemoglobin Concent 32.0 32.0-36.0 g/dL Red Cell Distribution Width 15.6 H 11.0-15.5 % Platelet Count 295 130-400 K/uL Mean Platelet Volume 10.7 H 7.5-10.5 fL Immature Granulocyte % (Auto) 0.6 0-1 % Neutrophils (%) (Auto) 80.3 H 40.0-77.0 % Lymphocytes (%) (Auto) 9.0 L 21.0-51.0 % Monocytes (%) (Auto) 8.9 3.0-13.0 % Eosinophils (%) (Auto) 0.9 0.0-8.0 % Basophils (%) (Auto) 0.3 0.0-5.0 % Neutrophils # (Auto) 12.7 H 1.8-7.7 K/uL Lymphocytes # (Auto) 1.4 1.0-4.8 K/uL Monocytes # (Auto) 1.4 H 0.1-1.0 K/uL Eosinophils # (Auto) 0.14 0.00-0.70 K/uL Basophils # (Auto) 0.04 0.00-0.20 K/uL Absolute Immature Granulocyte (auto 0.10 0-1 K/uL Nucleated Red Blood Cells 0.0 0.0-0.19 % White Cell Morphology Comment CONSISTENT W/DIFF Sodium Level 132 L 136-145 mmol/L Potassium Level 4.5 3.5-5.1 mmol/L Chloride Level 100 L 101-111 mmol/L Carbon Dioxide Level 30 21-32 mmol/L Blood Urea Nitrogen 60 H 7-18 mg/dL Creatinine 1.4 H 0.5-1.0 mg/dL Glomerular Filtration Rate Calc 38 >90 mL/min Random Glucose 156 H 70-105 mg/dL Lactic Acid Level 1.3 0.8-2.5 mmol/L Total Calcium 8.4 L 8.5-10.1 mg/dL Total Bilirubin 0.3 0.2-1.0 mg/dL Aspartate Amino Transf (AST/SGOT) 23 10-37 U/L Alanine Aminotransferase (ALT/SGPT) 24 12-78 U/L Alkaline Phosphatase 120 50-136 U/L C-Reactive Protein, Quantitative 94.80 H 0.5-3.0 mg/L Total Protein 5.3 L 6.0-8.3 g/dL Albumin 1.5 L 3.5-5.0 g/dL Blood Gas Specimen Type Arterial Arterial Blood pH 7.412 7.350-7.450 Arterial Blood Partial Pressure CO2 47 H 32-45 mmHg Arterial Blood Partial Pressure O2 95.6 83.0-108.0 mmHg Arterial Blood HCO3 29.1 H 21.0-28.0 mmol/L Arterial Blood Oxygen Saturation 96.6 94.0-98.0 % Arterial Blood Base Excess 4.0 H -2.0-3.0 mmol/L Hemoglobin (Blood Gas) 10.0 L 12.0-16.0 g/dL Sodium (Blood Gas) 137 136-145 MMOL/L Bedside Potassium (Blood Gas) 4.7 H 3.4-4.5 MMOL/L Bedside Chloride (Blood Gas) 105 98-107 MMOL/L Bedside Glucose (Blood Gas) 149 H 65-95 MG/DL Bedside Ionized Calcium (Blood Gas) 1.17 1.15-1.33 MMOL/L Bedside Lactic Acid (Blood Gas) 1.0 0.8-2.5 MMOL/L Blood Gas Temperature 37.0 35.5-37.0 CELSIUS Blood Gas Flow-by 3.00 0.00-15.00 L/min Blood Gas Vent Mode TYSHAWN ORTA RN ROOM AIR FiO2 32.0 % Blood Gas Specimen Comment LR Procalcitonin 0.54 H 0.05-0.5 ng/mL Test 02/10/24 04:31 Range/Units Ammonia 16 11-32 umol/L ASSESSMENT: Diverticulitis with perforation. Intra-abdominal abscess. Sepsis. Leukocytosis. Diabetes mellitus. Encephalopathy has improved. PLAN: Continue linezolid. Continue meropenem IV. Continue fluconazole IV. Monitor electrolytes. Patient is currently on TPN. Continue GI prophylaxis. Patient has been downgraded to medical-surgical. This case was reviewed and discussed with my supervising physician and the above assessment and plan was formulated and agreed upon. ATTESTATION BY PHYSICIAN I have seen and examined the patient. I reviewed the documentation, medical decision making, and treatment plan as noted by the mid-level provider above. I agree with the findings and plan of care. GABBI OGDEN MD, MIRTA L [facility] Feb 11, 2024 12:45
[2024-02-11] MEDS: M.V.I. IV [ADULT] 10 ML in CLINIMIX-E4.25%AA/D5+LYT2000ML 2,000 ML IV ONE (13:30)
[2024-02-12] VITALS (9 sets, daily range): BP systolic 126–150; BP diastolic 58–77; PULSE 64–109; RESP 18–24; TEMP 97.7–98.9; O2SAT 96–100
[2024-02-12 05:33] LABS: BASOPHILS # (AUTO) 0.02 K/uL (0.00-0.20); BASOPHILS % (AUTO) 0.2 % (0.0-5.0); EOSINOPHILS # (AUTO) 0.19 K/uL (0.00-0.70); EOSINOPHILS % (AUTO) 1.8 % (0.0-8.0); HEMATOCRIT 25.2 % (36-48); IMMATURE GRANULOCYTE ABSOLUTE 0.06 K/uL (0-1); LYMPHOCYTES # (AUTO) 1.2 K/uL (1.0-4.8); LYMPHOCYTES % (AUTO) 11.3 % (21.0-51.0); MEAN CORPUSCULAR HEMOGLOBIN 27.5 pg (27.0-33.0); MEAN CORPUSCULAR VOLUME 88.7 fL (79-99); MONOCYTES # (AUTO) 1.1 K/uL (0.1-1.0); MONOCYTES % (AUTO) 9.9 % (3.0-13.0); NEUTROPHILS # (AUTO) 8.2 K/uL (1.8-7.7); NEUTROPHILS % (AUTO) 76.2 % (40.0-77.0); PLATELET COUNT (AUTO) 311 K/uL (130-400); RED BLOOD CELL COUNT(AUTO) 2.84 MIL/uL (4.00-5.50); RED CELL DISTRIBUTION WIDTH 15.2 % (11.0-15.5); WHITE BLOOD COUNT (AUTO) 10.8 K/uL (4.8-10.8)
[2024-02-12 06:08] LABS: ALBUMIN 1.6 g/dL (3.5-5.0); BILIRUBIN,TOTAL 0.3 mg/dL (0.2-1.0); CREATININE 1.1 mg/dL (0.5-1.0); TOTAL PROTEIN, SERUM 5.8 g/dL (6.0-8.3)
--- NOTE | 2024-02-12 07:50 | PN ---
PROGRESS NOTE PROGRESS NOTE DATE OF PROGRESS NOTE: 02/12/24 SUBJECTIVE: Patient still with fluctuating course but overall improving VITAL SIGNS Vital Signs Date Time Temp Pulse Resp B/P (MAP) Pulse Ox O2 Delivery O2 Flow Rate FiO2 02/12/24 04:00 98.1 102 24 146/58 98 BIPAP 02/12/24 00:10 40 02/11/24 20:00 3 PHYSICAL EXAM: OBJECTIVE: GENERAL: She is currently, awake, alert, oriented in person and place with the BiPAP in place. VITAL SIGNS: Blood pressure 146/63, pulse 101, respiratory rate 25. HEENT: Normocephalic and atraumatic. LUNGS: Decreased breath sounds in right anterior and posterior hemithorax. No wheezes. No rhonchi. HEART: S1, S2 are clear. ABDOMEN: Soft. Nontender. No masses. LABORATORY: Laboratory Result(s) Test 02/11/24 11:25 02/11/24 19:46 02/12/24 05:07 02/12/24 05:13 Whole Blood Glucose 150 MG/DL (70-110) 133 MG/DL (70-110) 163 MG/DL (70-110) White Blood Count 10.8 K/uL (4.8-10.8) Red Blood Count 2.84 MIL/uL (4.00-5.50) Hemoglobin 7.8 g/dL (12.0-16.0) Hematocrit 25.2 % (36-48) Mean Corpuscular Volume 88.7 fL (79-99) Mean Corpuscular Hemoglobin 27.5 pg (27.0-33.0) Mean Corpuscular Hemoglobin Concent 31.0 g/dL (32.0-36.0) Red Cell Distribution Width 15.2 % (11.0-15.5) Platelet Count 311 K/uL (130-400) Mean Platelet Volume 10.5 fL (7.5-10.5) Immature Granulocyte % (Auto) 0.6 % (0-1) Neutrophils (%) (Auto) 76.2 % (40.0-77.0) Lymphocytes (%) (Auto) 11.3 % (21.0-51.0) Monocytes (%) (Auto) 9.9 % (3.0-13.0) Eosinophils (%) (Auto) 1.8 % (0.0-8.0) Basophils (%) (Auto) 0.2 % (0.0-5.0) Neutrophils # (Auto) 8.2 K/uL (1.8-7.7) Lymphocytes # (Auto) 1.2 K/uL (1.0-4.8) Monocytes # (Auto) 1.1 K/uL (0.1-1.0) Eosinophils # (Auto) 0.19 K/uL (0.00-0.70) Basophils # (Auto) 0.02 K/uL (0.00-0.20) Absolute Immature Granulocyte (auto 0.06 K/uL (0-1) Nucleated Red Blood Cells 0.0 % (0.0-0.19) Red Blood Cell Morphology See comments Sodium Level 135 mmol/L (136-145) Potassium Level 5.0 mmol/L (3.5-5.1) Chloride Level 102 mmol/L (101-111) Carbon Dioxide Level 29 mmol/L (21-32) Blood Urea Nitrogen 49 mg/dL (7-18) Creatinine 1.1 mg/dL (0.5-1.0) Glomerular Filtration Rate Calc 51 mL/min (>90) Random Glucose 151 mg/dL (70-105) Lactic Acid Level 1.2 mmol/L (0.8-2.5) Total Calcium 9.0 mg/dL (8.5-10.1) Total Bilirubin 0.3 mg/dL (0.2-1.0) Aspartate Amino Transf (AST/SGOT) 32 U/L (10-37) Alanine Aminotransferase (ALT/SGPT) 26 U/L (12-78) Alkaline Phosphatase 136 U/L (50-136) Total Protein 5.8 g/dL (6.0-8.3) Albumin 1.6 g/dL (3.5-5.0) Procalcitonin 0.16 ng/mL (0.05-0.5) Test 02/12/24 06:52 Whole Blood Glucose 112 MG/DL (70-110) INPATIENT MEDS: Current Medications Medications Dose Ordered Sig/Ana Start Time Stop Time Status Last Admin Home Med (Semaglutide (Rybelsus) 7 MG) DAILY 02/02/24 09:00 03/03/24 08:59 02/09/24 10:27 Paroxetine HCl 20 mg BID 02/02/24 09:00 03/03/24 08:59 02/11/24 20:33 Magnesium Oxide 400 mg DAILY 02/02/24 09:00 03/03/24 08:59 02/09/24 10:26 Magnesium Sulfate 50 ml @ 0 mls/hr PROTOCOL PRN 02/02/24 08:30 03/03/24 08:29 02/02/24 10:25 Wound Care/ Dressing Products BID 02/02/24 09:00 03/03/24 08:59 02/11/24 21:00 Sodium Chloride 10 ml DAILY 02/03/24 09:00 03/04/24 08:59 02/11/24 10:29 Leptospermum Honey 1 appl DAILY 02/03/24 09:00 03/04/24 08:59 02/11/24 10:34 Fluconazole/ Sodium Chloride 200 ml @ 100 mls/hr DAILY 02/04/24 10:00 03/05/24 09:59 02/11/24 10:26 Acetaminophen 650 mg Q6H PRN 02/05/24 13:30 03/06/24 13:29 02/05/24 13:19 Insulin Human Regular 100 unit/ Sodium Chloride 100 ml @ 0 mls/hr AD PRN 02/06/24 10:00 03/07/24 09:59 02/07/24 15:04 Meropenem 1 gm/ Sodium Chloride 100 ml @ 33.333 mls/ hr Q12H 02/06/24 10:00 02/16/24 09:59 02/11/24 22:06 Lidocaine 1 each DAILY 02/06/24 10:00 03/07/24 09:59 02/11/24 10:26 Insulin Glargine 25 units BID@0730,2100 02/06/24 21:00 03/07/24 20:59 02/12/24 06:36 Hydralazine HCl 20 mg Q4H PRN 02/06/24 11:00 03/07/24 10:59 02/08/24 02:28 Potassium Chloride 100 ml @ 100 mls/hr AD PRN 02/06/24 11:30 03/07/24 11:29 02/07/24 08:43 Potassium Chloride 20 meq AD PRN 02/06/24 11:30 03/07/24 11:29 Potassium Chloride 20 meq AD PRN 02/06/24 11:30 03/07/24 11:29 Fat Emulsion Intravenous 250 ml @ 42 mls/hr QODAY@2100 02/06/24 21:00 03/07/24 20:59 02/10/24 21:08 Insulin Human Regular INSULIN SLIDING SCAL... ACHS 02/07/24 21:00 03/08/24 20:59 02/10/24 05:57 Ondansetron HCl 4 mg Q6H PRN 02/09/24 23:00 03/10/24 22:59 02/09/24 22:52 Acetaminophen 650 mg Q6H PRN 02/10/24 06:00 03/11/24 05:59 02/10/24 05:46 Labetalol HCl 10 mg Q6H PRN 02/10/24 09:00 03/11/24 08:59 Linezolid 300 ml @ 150 mls/hr Q12H 02/10/24 15:00 02/20/24 14:59 02/12/24 03:18 Famotidine 20 mg Q24H 02/10/24 21:00 03/11/24 20:59 02/11/24 20:33 Heparin Sodium (Porcine) 5,000 unit Q12H 02/11/24 09:00 03/12/24 08:59 02/11/24 20:33 Multivitamins/ Minerals 10 ml/ Amino Acids/ Electrolytes/ Dextrose 2,000 ml @ 83 mls/hr ONCE ONCE 02/11/24 22:00 02/12/24 22:05 02/11/24 13:30 PROBLEM LIST: (1) Acute diverticulitis ICD Code: K57.92 - Diverticulitis of intestine, part unspecified, without per foration or abscess without bleeding (2) UTI (urinary tract infection) ICD Code: N39.0 - Urinary tract infection, site not specified (3) Hypomagnesemia ICD Code: E83.42 - Hypomagnesemia (4) Acute kidney injury ICD Code: N17.9 - Acute kidney failure, unspecified PLAN: Echocardiogram shows ejection fraction 60% to 65%, calcified aortic valve, mild aortic stenosis. CT scan of the abdomen and pelvis shows inflammatory changes in sigmoid consistent with diverticulitis with an adjacent 2.8 collection of air and fluid consistent with contained perforation unchanged compared to previous examination. Mild bibasilar atelectasis. ASSESSMENT AND PLAN: * Respiratory failure with hypoxemia. Continue with BiPAP. Clinically improved *Sepsis secondary to diverticulitis and perforated colon. Continue with recommendations by Surgery. She is scheduled to have drainage catheter in the right lower quadrant. * Right lower lobe pneumonia and pleural effusion. The patient may need to have thoracentesis scheduled. * Acute renal failure, improving. * Type 2 diabetes. Continue ICU protocol. * Hypertension, controlled. * Change in mental status secondary to hypoxemia and sepsis significantly improved. The patient is back to her baseline. * Severe malnutrition supportive treatment continue with TPN Perforated colon with fluid contained intraperitoneal collection 2.8 cm follow with repeat CT as no surgical management or intervention Radiology being planned to drain we do the CT scan today Patient is DNR Workup for diarrhea Increased confusion supportive treatment Severe malnutrition albumin supplementation ISAIAH FLORES MD Feb 12, 2024 07:50
--- NOTE | 2024-02-12 09:40 | PN ---
INFECTIOUS DISEASE PROGRESS NOTE Date of Service: Feb 12, 2024 SUBJECTIVE: Patient was seen and examined at bedside in room 413. Patient is awake and alert and oriented. The WBC trended down to normal level of 10.8 this morning. Continues on linezolid, meropenem and fluconazole IV. No reports of nausea or vomiting. Patient continues on TPN. Patient passed a bedside swallow test yesterday. Diet wi/l be advanced as recommended by General surgery. No reports of fever, temperature is 98.1. Patient will need rehabilitation. Will have case management refer patient to [facility]. We will continue to monitor. PHYSICAL EXAM EYES: Anicteric. Pupils equal and reactive. HENT: No oral thrush seen, moist Oral mucosa. NECK: Supple, no JVD or thyromegaly. LUNGS: Good air entry. No rales, no rhonchi. Oxygen at 2LPM via nasal cannula. CARDIOVASCULAR: S1, S2 regular. No murmur heard. ABDOMEN: Soft, non tender, bowel sounds present, no organomegaly CENTRAL NERVOUS SYSTEM: Awake, alert, oriented x 3. SKIN: No rashes, no swelling. LYMPHATICS: No peripheral lymphadenopathy. MUSCULOSKELETAL: No joint swelling, erythema or tenderness. EXTREMITIES: No cyanosis or clubbing. Weakness. BACK: No deformity, no pressure ulcer. GENITOURINARY: No dysuria or hematuria. Vital Sign (Last 12 Hours) 02/12/24 02/12/24 02/12/24 02/12/24 00:00 00:10 04:00 08:00 Temp 99.0 98.1 98.1 Pulse 98 103 102 107 Resp B/P (MAP) 150/67 146/58 139/61 Pulse Ox 98 98 100 O2 Delivery Room Air BIPAP BIPAP FiO2 40 Intake & Output (last 24hrs) 02/11/24 02/11/24 02/12/24 15:00 23:00 07:00 Intake Total 814.3 ml Output Total 1000 ml Balance 814.3 ml -1000 ml LABS: Laboratory: Test 02/12/24 06:52 02/12/24 05:13 02/11/24 04:43 02/10/24 16:58 Range/Units Whole Blood Glucose 112 H 70-110 MG/DL White Blood Count 10.8 4.8-10.8 K/uL Red Blood Count 2.84 L 4.00-5.50 MIL/uL Hemoglobin 7.8 L 12.0-16.0 g/dL Hematocrit 25.2 L 36-48 % Mean Corpuscular Volume 88.7 79-99 fL Mean Corpuscular Hemoglobin 27.5 27.0-33.0 pg Mean Corpuscular Hemoglobin Concent 31.0 L 32.0-36.0 g/dL Red Cell Distribution Width 15.2 11.0-15.5 % Platelet Count 311 130-400 K/uL Mean Platelet Volume 10.5 7.5-10.5 fL Immature Granulocyte % (Auto) 0.6 0-1 % Neutrophils (%) (Auto) 76.2 40.0-77.0 % Lymphocytes (%) (Auto) 11.3 L 21.0-51.0 % Monocytes (%) (Auto) 9.9 3.0-13.0 % Eosinophils (%) (Auto) 1.8 0.0-8.0 % Basophils (%) (Auto) 0.2 0.0-5.0 % Neutrophils # (Auto) 8.2 H 1.8-7.7 K/uL Lymphocytes # (Auto) 1.2 1.0-4.8 K/uL Monocytes # (Auto) 1.1 H 0.1-1.0 K/uL Eosinophils # (Auto) 0.19 0.00-0.70 K/uL Basophils # (Auto) 0.02 0.00-0.20 K/uL Absolute Immature Granulocyte (auto 0.06 0-1 K/uL Nucleated Red Blood Cells 0.0 0.0-0.19 % Red Blood Cell Morphology See comments Sodium Level 135 L 136-145 mmol/L Potassium Level 5.0 3.5-5.1 mmol/L Chloride Level 102 101-111 mmol/L Carbon Dioxide Level 29 21-32 mmol/L Blood Urea Nitrogen 49 H 7-18 mg/dL Creatinine 1.1 H 0.5-1.0 mg/dL Glomerular Filtration Rate Calc 51 >90 mL/min Random Glucose 151 H 70-105 mg/dL Lactic Acid Level 1.2 0.8-2.5 mmol/L Total Calcium 9.0 8.5-10.1 mg/dL Total Bilirubin 0.3 0.2-1.0 mg/dL Aspartate Amino Transf (AST/SGOT) 32 10-37 U/L Alanine Aminotransferase (ALT/SGPT) 26 12-78 U/L Alkaline Phosphatase 136 50-136 U/L Total Protein 5.8 L 6.0-8.3 g/dL Albumin 1.6 L 3.5-5.0 g/dL Procalcitonin 0.16 0.05-0.5 ng/mL White Cell Morphology Comment CONSISTENT W/DIFF C-Reactive Protein, Quantitative 94.80 H 0.5-3.0 mg/L Blood Gas Specimen Type Arterial Arterial Blood pH 7.412 7.350-7.450 Arterial Blood Partial Pressure CO2 47 H 32-45 mmHg Arterial Blood Partial Pressure O2 95.6 83.0-108.0 mmHg Arterial Blood HCO3 29.1 H 21.0-28.0 mmol/L Arterial Blood Oxygen Saturation 96.6 94.0-98.0 % Arterial Blood Base Excess 4.0 H -2.0-3.0 mmol/L Hemoglobin (Blood Gas) 10.0 L 12.0-16.0 g/dL Sodium (Blood Gas) 137 136-145 MMOL/L Bedside Potassium (Blood Gas) 4.7 H 3.4-4.5 MMOL/L Bedside Chloride (Blood Gas) 105 98-107 MMOL/L Bedside Glucose (Blood Gas) 149 H 65-95 MG/DL Bedside Ionized Calcium (Blood Gas) 1.17 1.15-1.33 MMOL/L Bedside Lactic Acid (Blood Gas) 1.0 0.8-2.5 MMOL/L Blood Gas Temperature 37.0 35.5-37.0 CELSIUS Blood Gas Flow-by 3.00 0.00-15.00 L/min Blood Gas Vent Mode TYSHAWN ORTA RN ROOM AIR FiO2 32.0 % Blood Gas Specimen Comment LR ASSESSMENT: Diverticulitis with perforation. Intra-abdominal abscess. Sepsis. Leukocytosis, improving. Diabetes mellitus. Debility. PLAN: Case management evaluation for referral to [facility] for rehabilitation. Continue linezolid. Continue meropenem IV. Continue fluconazole IV. Monitor electrolytes. Patient is currently on TPN. Advance diet as recommended by General surgery. Continue GI prophylaxis. This case was reviewed and discussed with my supervising physician and the above assessment and plan was formulated and agreed upon. ATTESTATION BY PHYSICIAN I have seen and examined the patient. I reviewed the documentation, medical decision making, and treatment plan as noted by the mid-level provider above. I agree with the findings and plan of care. GABBI OGDEN MD, [facility], [place] Feb 12, 2024 09:40
--- NOTE | 2024-02-12 12:33 | HMCIMG ---
CHEST 1VW HISTORY: Respiratory failure COMPARISON: 02/11/2024 FINDINGS: A frontal projection of the chest was obtained. No acute pulmonary infiltrates is seen. The heart is enlarged. Elevation of right hemidiaphragm is seen. Degenerative changes are seen. Aortic calcifications are seen. IMPRESSION: 1. No acute pulmonary infiltrate is seen.
--- NOTE | 2024-02-12 12:57 | PN ---
[facility] PROGRESS NOTE Date Patient Seen: Feb 12, 2024 Time of Visit: 12:52 Supervising Physician: Yuridia Consulting Physician: Dr Morgan Outpatient Specialists: SIL[facility]ANO Inpatient Consults: Dr. Narayanan, Dr. Bustamante PROBLEM LIST: Acute hypoxic and hypercapnic respiratory failure secondary to below Sepsis - POA DM type II, with hyperglycemia, POA small rt pleural effusion, POA not large enough for thoracentesis on POC US Elevated Rt hemidiaphragm POA Acute diverticulitis with contained perforation, - suspect polymicrobial peritonitis- evaluated by General surgery, no surgical intervention at this time Diverticula Abscess 4.2 x [address] 02/09 Non anion gap metabolic acidosis- resolved Acute renal failure- secondary to ATN from sepsis Acute complicated cystitis - POA Hypernatremia, POA Chronic congestive heart failure- preserved EF LVEF 60%, POA Acute metabolic acidosis, POA- resolved Acute encephalopathy, POA- resolved Hypertension, POA Hyperlipidemia, POA Plan Summary: Supplemental oxygen as needed Wean off as tolerated Keep NPO Continue TPN Continue IV antibiotics as per Infectious Disease Follow Surgery recommendations Prognosis remains guarded INTERVAL HISTORY: 02/03 patient is lethargic but answering questions appropriately. She is oriented to person but disoriented to place time and situation. Patient was upgraded to ICU yesterday after rapid response initiation for decreased mental status. Overnight with the CT scan of the head with no acute intracranial bleed or any significant finding. ABG was done yesterday with metabolic acidosis. Patient received sodium bicarbonate x1 overnight. Chemistry this morning with sodium 144 potassium 3.9 chloride 114, bicarb 22, BUN is 46 creatinine is 2.0 renal function has improved. Patient has put out 400 cc of urine output. We will place a Tellez catheter for strict I/O, and repeat UA, blood culture, fungal culture. Patient is on Zosyn antibiotic. Adjusted per renal function. We will add GPC coverage and antifungal given abdominal abscess. We will also repeat CT scan of the abdomen to see the progression of the abscess. If remains the same and/ or worsening, we will request IR to drain this. Patient remains on BiPAP 09/02/2039%. ABG this morning with pH 7.39, pCO2 46 PO2 101. Bicarb is 22.7 O2 sat is 97%. Base excess-3.5. This is mainly metabolic acidosis with some component of respiratory acidosis. Will give a trial with high flow NC and see how she does. In the mean time, nutrition is poor albumin low, per family she has not been eating well over a week. Given diverticulitis, will start TPN. Spoke with the patient's family, son daughter and patient's . DNR/DNI has been requested and we will kellie this. Condition is guarded. We will keep her in ICU. 02/04 patient remains on noninvasive positive pressure ventilation since yesterday, unable to wean it off for break for too long. Patient developed h ypercapnia with encephalopathy after 30 minutes off of bipap. Venous blood gas this morning with pH 7.309, pCO2 46, PO2 is 136. Bicarb is 22. Base excess is- 3.6. We will continue to utilize NIPPV for hypercapnia. Continue to follow with the blood gases in the morning. Her chest x-ray was with right hemidiaphragm elevation. Patient also has pulmonary congestion/ pleural effu paola. Diuretic has been requested. Continue strict I's and o's. Continue with tellez. Remainder of the lab her renal function has improved, creatinine is 1.8 down from 1.9. BUN is also down to 43 from 45. Glucose however is high at 330 , patient has been started on TPN yesterday. We will increase insulin sliding scale and start long-acting insulin. She remains NPO. In the meantime CT scan of the abdomen was repeated yesterday with persistent abscess in the pelvic area which we had requested IR to drain this however given location and size, she is not candidate for percutaneous drain placement. For now broad antibiotic therapy and antifungal. We will continue to keep patient in the ICU given hypercapnia requiring NIPPV. LVEF is preserved with 60% Spoke with patient's family at this site. 02/05 patient is awake and alert and oriented not in acute distress, remains on BiPAP at the moment, patient did not tolerate off BiPAP yesterday. We can try again to keep her off of it. Repeat chest x-ray see the atelectasis. She has been diuresed with pulse dose Lasix. Urine output is 3.5 L with balance -1 L. lab this morning with BUN of 43 this is similar to yesterday and creatinine is down to 1.5 from 1.8. We will repeat chest x-ray today and tomorrow. Remainder of the lab with leukocytosis worsening and patient had fever 100.2 this AM. We will up the coverage of the antibiotic discontinue Zosyn and start patient on merem. Continue doxy and fluconazole. Patient complained of back pain, will place lidocain patch. Ultram PRN. Glucose over 300 despite long acting insulin. Will start insulin drip, increase long acting. Continue TPN. Spoke with patient and her granddaughter. 02/06 patient is awake alert oriented no acute event overnight. She is very debilitated. Vital signs blood pressure 160/75 heart rate is 99. T-max is 99.7. She is on high-flow nasal cannula at 25 L with 40% FiO2 saturation oxygen 99%. We can wean it down as tolerated to keep sats greater 92%. Patient has been diuresed yesterday with pulse dose Lasix now Her urine output is 3.5 L with-28 cc balance. Her renal function is improved BUN is 45 and creatinine is down to 1.4 from 1.5. Chemistry with sodium 148 this is up from 146 yesterday potassium is 3.5 chloride is 114. Bicarb is 32 . Glucose over has been up trended so patient was started on insulin drip yesterday. Continue insulin drip per protocl, continue TPN with added insulin in the bag. Continue with daily diuresis. Chest xray in AM. 02/07 patient is awake alert and oriented very weak but following commands appropriately. There is no event overnight patient reported no abdominal pain. At this time patient will need physical therapy to gain some more muscle strength . Otherwise remarkable lab this morning with improving renal function, creatinine is 1.2 down from 1.4 BUN is 55. Patient has been diuresed with Lasix 40 daily. She will still need diuretic given pleural effusion, we will decrease to 20 mg daily. She has put out 2.7 L with balance of +500 cc. She had bowel movement. Continue with the liquid diet as tolerated. We will continue with TPN with insulin. Insulin drip has been discontinued yesterday. Continue with Lantus. We will decrease insulin in the TPN. Continue with current antibiotic doxycycline, meropenem, fluconazole. Chest x-ray repeated this morning with persistent right pleural effusion no change since yesterday. She has been able to come off of BiPAP for longer period of time yesterday all day off of BiPAP. This morning patient has been switched to nasal cannula at 5 L. Continue with incentive spirometry. Repeat cxr and coag in AM. Will assess lung field with US. From critical standpoint patient is stable to be downgraded to PCU. 02/08 patient is awake alert and oriented x3 not acute distress. Patient is laying down in bed back to bed from recliner this morning assisted by Physical therapy. Lab this morning with creatinine of 1.3 this is up trending slightly from 1.2 BUN is 60 this is up from 55 and bicarb is 33 this from 32. Urine output is 3.8 L with -1.5 L balance. Patient has been doing well oxygenating, chest x-ray with right pleural effusion persisted but much better compared to yesterday. We did increase the Lasix to q.12 hours from daily yesterday, but given worsened renal function, we will hold this today. Also, patient already had bowel movement x2. She had been started on diet and now advanced to a full liquid diet per surgery. We can dc TPN. She remains on O2 support at 3LNC. Sat 98%. 2 hours of bipap overnight. We can make bipap PRN. Downgrade to surgical floor. 02/09-patient is awake and oriented x3 but lethargic. Upgraded to the ICU per General surgery request due to high risk for decompensation. Patient continues receiving TPN nutrition via PICC line. Patient has been febrile with a T-max of 101.7 and a T low of 97.2 in the last 24 hours. Heart rate in the 80s respiratory rate 23 blood pressure 122/65 with O2 sat of 96% on 3 L via nasal cannula. Urine output of 1.9 L in last 24 hours with a I&O balance-604 mL patient has had frequent bowel movements today at loose stools. Pending IR eval for possible I&D of diverticular abscess. On laboratory white count increased today to 24 H&H 9.7/30.7 platelet count is [id number]. Chemistries sodium 136 potassium is 5.2 on repeat on ABG 4.7, BUN 72 creatinine 1.5 random glucose 199 mg/dL with a procalcitonin of 0.54 increased. Patient continues on meropenem and fluconazole and Zyvox has been added per ID. 02/10-patient is awake alert and oriented x3, encephalopathy has resolved. She is hemodynamically stable off pressors with a blood pressure of 131/64 heart rate in the 80s respiratory rate 20 on 3 L via nasal cannula afebrile with a T- max of 99.9 in the last 24 hours with a T low of 98.4. She continues on parenteral nutrition via PICC line. Per IR unable to perform I&D of diverticular abscess due to location. Patient had 1 L of urine output in the last 24 hours with a positive balance of 639 mL patient had two bowel movements. On laboratory WBCs are trending down today 15.7 H&H is 8.2/25.6 with a platelet count of [id number]. Chemistries sodium 132 chloride 100 carbon dioxide 30 BUN 60 creatinine 1.4 GFR of 38 glucose 150 mg/dL, CRP 94.8 total protein 5.3 albumin 1.5. On chest x-ray mild bilateral pulmonary infiltrates are seen may be related to mild pulmonary vascular congestion with possible superimposed pneumonitis, elevation of right hemidiaphragm. Awaiting further recommendations from surgical standpoint. For now patient is stable to downgrade from ICU. Patient's current code status DNR and DNI. 02/11 - patient was transferred out of ICU where she was being cared for secondary to sepsis. Patient was found to acute diverticulitis with contained perforation. Patient was also found to have a diverticular abscess. IR was consulted for percutaneous drain placement however interventional radiologist was not able to place a drain secondary to location of the diverticular abscess. General surgery has been consulted. Patient does continue to be very weak, deconditioned and debilitated. Patient continues to be hypoxemic requiring2 L via nasal cannula. Patient continues on IV antibiotics as per Infectious Di sease and white count is trending down. As per today's labs show a white count of 10.8. We obtain a chest x-ray today which was unremarkable. Instructed nursing to wean patient off O2 as tolerated. We will continue to follow with you. REVIEW OF SYSTEMS: General: No malaise or fever. Neurological: No fainting episodes or seizures. HEENT: No nasal congestion or nasal secretion. Respiratory: No cough, yes to shortness of breath on minimal exertion, no wheezing Cardiac: No chest pain or palpitations. Gastrointestinal: No vomiting yes to loose stools Genitourinary: No dysuria hematuria. Skin: No rashes or lesions. Hematological: No bruises or bleeding. Musculoskeletal: No joint pains or arthralgias. Psychiatric: No depression or panic attacks. PHYSICAL EXAM: GENERAL: Patient awake alert and oriented x3 HEENT: EOMI, Sclera non icteric, moist mucosa NECK: Supple, no JVD, trachea midline LUNGS: Clear breath sounds bilaterally. No wheezes HEART: Regular rate and rhythm. Normal S1 and S2, without murmurs ABD: Abdomen soft, nontender. Bowel sounds present EXT: No clubbing cyanosis or edema NEURO: Patient deconditioned awake alert and oriented x3. Vital Signs (last 8hr) Date Time Temp Pulse Resp B/P (MAP) Pulse Ox O2 Delivery O2 Flow Rate FiO2 02/12/24 12:25 89 18 N/Cannula Low lpm 2.0 28 02/12/24 12:00 97.7 109 24 126/77 97 Nasal Cannula 2.0 24 02/12/24 08:00 98.1 107 24 139/61 100 BIPAP 02/12/24 08:00 99 Nasal Cannula* 3 32 LABS: Hematology Labs: Test 02/12/24 05:13 02/11/24 04:43 Range/Units White Blood Count 10.8 4.8-10.8 K/uL Red Blood Count 2.84 L 4.00-5.50 MIL/uL Hemoglobin 7.8 L 12.0-16.0 g/dL Hematocrit 25.2 L 36-48 % Mean Corpuscular Volume 88.7 79-99 fL Mean Corpuscular Hemoglobin 27.5 27.0-33.0 pg Mean Corpuscular Hemoglobin Concent 31.0 L 32.0-36.0 g/dL Red Cell Distribution Width 15.2 11.0-15.5 % Platelet Count 311 130-400 K/uL Mean Platelet Volume 10.5 7.5-10.5 fL Immature Granulocyte % (Auto) 0.6 0-1 % Neutrophils (%) (Auto) 76.2 40.0-77.0 % Lymphocytes (%) (Auto) 11.3 L 21.0-51.0 % Monocytes (%) (Auto) 9.9 3.0-13.0 % Eosinophils (%) (Auto) 1.8 0.0-8.0 % Basophils (%) (Auto) 0.2 0.0-5.0 % Neutrophils # (Auto) 8.2 H 1.8-7.7 K/uL Lymphocytes # (Auto) 1.2 1.0-4.8 K/uL Monocytes # (Auto) 1.1 H 0.1-1.0 K/uL Eosinophils # (Auto) 0.19 0.00-0.70 K/uL Basophils # (Auto) 0.02 0.00-0.20 K/uL Absolute Immature Granulocyte (auto 0.06 0-1 K/uL Nucleated Red Blood Cells 0.0 0.0-0.19 % Red Blood Cell Morphology See comments White Cell Morphology Comment CONSISTENT W/DIFF Chemistry Labs: Test 02/12/24 11:40 02/12/24 05:13 02/11/24 04:43 Range/Units Whole Blood Glucose 144 H 70-110 MG/DL Sodium Level 135 L 136-145 mmol/L Potassium Level 5.0 3.5-5.1 mmol/L Chloride Level 102 101-111 mmol/L Carbon Dioxide Level 29 21-32 mmol/L Blood Urea Nitrogen 49 H 7-18 mg/dL Creatinine 1.1 H 0.5-1.0 mg/dL Glomerular Filtration Rate Calc 51 >90 mL/min Random Glucose 151 H 70-105 mg/dL Lactic Acid Level 1.2 0.8-2.5 mmol/L Total Calcium 9.0 8.5-10.1 mg/dL Total Bilirubin 0.3 0.2-1.0 mg/dL Aspartate Amino Transf (AST/SGOT) 32 10-37 U/L Alanine Aminotransferase (ALT/SGPT) 26 12-78 U/L Alkaline Phosphatase 136 50-136 U/L Total Protein 5.8 L 6.0-8.3 g/dL Albumin 1.6 L 3.5-5.0 g/dL Procalcitonin 0.16 0.05-0.5 ng/mL C-Reactive Protein, Quantitative 94.80 H 0.5-3.0 mg/L DIAGNOSTICS / RADIOLOGY RESULTS: IMAGING REPORT Signed PATIENT: COMPA GRANADOS MR#: [id number] : 1945 SEX: F AGE: 79 LOCATION: [facility] ORDER 2300 STATUS: ADM IN REPORT#: [id number] SERVICE 0600 REASON: hypoxic resp failure ORDERING PHYSICIAN: JOAN PARKER PROCEDURE: CXR1VW - CHEST 1VW CHEST 1VW HISTORY: Respiratory failure COMPARISON: 02/11/2024 FINDINGS: A frontal projection of the chest was obtained. No acute pulmonary infiltrates is seen. The heart is enlarged. Elevation of right hemidiaphragm is seen. Degenerative changes are seen. Aortic calcifications are seen. IMPRESSION: 1. No acute pulmonary infiltrate is seen. DICTATED BY: TICO ZAMORA MD DATE: 02/12/241229 ELECTRONICALLY SIGNED BY: TICO ZAMORA MD DATE: 02/12/241232 PLAN NEURO: Minimize central acting medications as possible. Maintain fall precautions, adequate lighting during the day PULMONARY: Supplemental 02 as needed. Maintain aspiration precautions at all times CARDIOVASCULAR: Follow hemodynamics. Vital signs per facility protocol GI & NUTRITION: Continue with nutritional support. Continue stool softeners and laxatives as needed. KIDNEYS & ELECTROLYTES: Strict monitoring of intake, output and overall fluid balance. Avoid nephrotoxic medications to the extent possible. Medications to be dosed according to renal function. Monitor electrolytes and replace as needed ENDOCRINE: Maintain blood glucose between 100-180 at all times. Hypoglycemia protocol in place INFECTIOUS DISEASE: Trend temperature, WBC and procalcitonin level Follow cultures, deescalate antibiotics as soon as possible. Panculture if new onset fever ONCOLOGY/HEMATOLOGY/COAGULATION: Monitor for s/s of bleeding Monitor hemoglobin, coagulation studies as needed SKIN: Pressure ulcer prevention per facility protocol Specialty mattress ORTHO/REHAB: Continue PT/OT Prophylaxis: Continue GI and DVT prophylaxis Code Status: Do not resuscitate Disposition: As per attending. Other: Total patient care time exceeds 35 minutes excluding all procedures. ATTESTATION BY PHYSICIAN I reviewed the documentation, medical decision making, and treatment plan as noted by the mid-level provider above. I agree with the findings and plan of care. Isreal Oleary MD, ECTOR NP Feb 12, 2024 12:57
[2024-02-12] MEDS: MULTITRACE IV ONE (18:59)
[2024-02-12] MEDS: INSULIN REGULAR IV ONE (18:59)
[2024-02-12] MEDS: M V I IV ONE (18:59)
[2024-02-12] MEDS: [UNRECOGNIZED DRUG - OTHER] IV ONE (18:59)
[2024-02-13] VITALS (12 sets, daily range): BP systolic 128–151; BP diastolic 57–88; PULSE 80–124; RESP 18–22; TEMP 98.3–100.1; O2SAT 93–99
[2024-02-13 04:47] LABS: HEMATOCRIT 25.2 % (36-48); MEAN CORPUSCULAR HEMOGLOBIN 27.8 pg (27.0-33.0); MEAN CORPUSCULAR VOLUME 89.7 fL (79-99); RED BLOOD CELL COUNT(AUTO) 2.81 MIL/uL (4.00-5.50); RED CELL DISTRIBUTION WIDTH 15.1 % (11.0-15.5); WHITE BLOOD COUNT (AUTO) 9.8 K/uL (4.8-10.8)
[2024-02-13 05:04] LABS: ALBUMIN 1.6 g/dL (3.5-5.0); BILIRUBIN,TOTAL 0.4 mg/dL (0.2-1.0); POTASSIUM 5.4 mmol/L (3.5-5.1); TOTAL PROTEIN, SERUM 5.8 g/dL (6.0-8.3)
--- NOTE | 2024-02-13 07:47 | PN ---
PROGRESS NOTE PROGRESS NOTE DATE OF PROGRESS NOTE: 02/13/24 SUBJECTIVE: No further nausea vomiting and diarrhea inpatient is hungry VITAL SIGNS Vital Signs Date Time Temp Pulse Resp B/P (MAP) Pulse Ox O2 Delivery O2 Flow Rate FiO2 02/13/24 06:32 80 18 N/Cannula Low lpm 2.0 28 02/13/24 04:00 98.6 140/64 100 PHYSICAL EXAM: OBJECTIVE: GENERAL: She is currently, awake, alert, oriented in person and place with the BiPAP in place. VITAL SIGNS: Blood pressure 146/63, pulse 101, respiratory rate 25. HEENT: Normocephalic and atraumatic. LUNGS: Decreased breath sounds in right anterior and posterior hemithorax. No wheezes. No rhonchi. HEART: S1, S2 are clear. ABDOMEN: Soft. Nontender. No masses. LABORATORY: Laboratory Result(s) Test 02/12/24 11:40 02/12/24 16:14 02/12/24 19:52 02/13/24 04:25 Whole Blood Glucose 144 MG/DL (70-110) 125 MG/DL (70-110) 117 MG/DL (70-110) White Blood Count 9.8 K/uL (4.8-10.8) Red Blood Count 2.81 MIL/uL (4.00-5.50) Hemoglobin 7.8 g/dL (12.0-16.0) Hematocrit 25.2 % (36-48) Mean Corpuscular Volume 89.7 fL (79-99) Mean Corpuscular Hemoglobin 27.8 pg (27.0-33.0) Mean Corpuscular Hemoglobin Concent 31.0 g/dL (32.0-36.0) Red Cell Distribution Width 15.1 % (11.0-15.5) Platelet Count 321 K/uL (130-400) Mean Platelet Volume 10.8 fL (7.5-10.5) Nucleated Red Blood Cells 0.0 % (0.0-0.19) Sodium Level 135 mmol/L (136-145) Potassium Level 5.4 mmol/L (3.5-5.1) Chloride Level 102 mmol/L (101-111) Carbon Dioxide Level 28 mmol/L (21-32) Blood Urea Nitrogen 42 mg/dL (7-18) Creatinine 1.0 mg/dL (0.5-1.0) Glomerular Filtration Rate Calc 57 mL/min (>90) Random Glucose 95 mg/dL (70-105) Lactic Acid Level 1.0 mmol/L (0.8-2.5) Total Calcium 9.1 mg/dL (8.5-10.1) Total Bilirubin 0.4 mg/dL (0.2-1.0) Aspartate Amino Transf (AST/SGOT) 42 U/L (10-37) Alanine Aminotransferase (ALT/SGPT) 37 U/L (12-78) Alkaline Phosphatase 149 U/L (50-136) Total Protein 5.8 g/dL (6.0-8.3) Albumin 1.6 g/dL (3.5-5.0) Test 02/13/24 05:00 Whole Blood Glucose 99 MG/DL (70-110) INPATIENT MEDS: Current Medications Medications Dose Ordered Sig/Ana Start Time Stop Time Status Last Admin Home Med (Semaglutide (Rybelsus) 7 MG) DAILY 02/02/24 09:00 03/03/24 08:59 02/09/24 10:27 Paroxetine HCl 20 mg BID 02/02/24 09:00 03/03/24 08:59 02/12/24 20:43 Magnesium Oxide 400 mg DAILY 02/02/24 09:00 03/03/24 08:59 02/12/24 09:44 Magnesium Sulfate 50 ml @ 0 mls/hr PROTOCOL PRN 02/02/24 08:30 03/03/24 08:29 02/02/24 10:25 Wound Care/ Dressing Products BID 02/02/24 09:00 03/03/24 08:59 02/12/24 20:53 Sodium Chloride 10 ml DAILY 02/03/24 09:00 03/04/24 08:59 02/12/24 09:00 Leptospermum Honey 1 appl DAILY 02/03/24 09:00 03/04/24 08:59 02/12/24 09:00 Fluconazole/ Sodium Chloride 200 ml @ 100 mls/hr DAILY 02/04/24 10:00 03/05/24 09:59 02/12/24 09:39 Acetaminophen 650 mg Q6H PRN 02/05/24 13:30 03/06/24 13:29 02/05/24 13:19 Insulin Human Regular 100 unit/ Sodium Chloride 100 ml @ 0 mls/hr AD PRN 02/06/24 10:00 03/07/24 09:59 02/07/24 15:04 Meropenem 1 gm/ Sodium Chloride 100 ml @ 33.333 mls/ hr Q12H 02/06/24 10:00 02/16/24 09:59 02/12/24 20:43 Lidocaine 1 each DAILY 02/06/24 10:00 03/07/24 09:59 02/12/24 09:42 Insulin Glargine 25 units BID@0730,2100 02/06/24 21:00 03/07/24 20:59 02/12/24 06:36 Hydralazine HCl 20 mg Q4H PRN 02/06/24 11:00 03/07/24 10:59 02/08/24 02:28 Potassium Chloride 100 ml @ 100 mls/hr AD PRN 02/06/24 11:30 03/07/24 11:29 02/07/24 08:43 Potassium Chloride 20 meq AD PRN 02/06/24 11:30 03/07/24 11:29 Potassium Chloride 20 meq AD PRN 02/06/24 11:30 03/07/24 11:29 Fat Emulsion Intravenous 250 ml @ 42 mls/hr QODAY@2100 02/06/24 21:00 03/07/24 20:59 02/10/24 21:08 Insulin Human Regular INSULIN SLIDING SCAL... ACHS 02/07/24 21:00 03/08/24 20:59 02/10/24 05:57 Ondansetron HCl 4 mg Q6H PRN 02/09/24 23:00 03/10/24 22:59 02/09/24 22:52 Acetaminophen 650 mg Q6H PRN 02/10/24 06:00 03/11/24 05:59 02/12/24 09:44 Labetalol HCl 10 mg Q6H PRN 02/10/24 09:00 03/11/24 08:59 Linezolid 300 ml @ 150 mls/hr Q12H 02/10/24 15:00 02/20/24 14:59 02/13/24 03:02 Famotidine 20 mg Q24H 02/10/24 21:00 03/11/24 20:59 02/12/24 20:43 Heparin Sodium (Porcine) 5,000 unit Q12H 02/11/24 09:00 03/12/24 08:59 02/12/24 20:55 Multivitamins/ Minerals 10 ml/ Chromium/Copper/ Manganese/Zinc 3 ml/Insulin Human Regular 20 unit/ Amino Acids/ Electrolytes/ Dextrose 2,000 ml @ 83 mls/hr ONCE ONCE 02/12/24 17:00 02/13/24 17:05 02/12/24 18:59 PROBLEM LIST: (1) Acute diverticulitis ICD Code: K57.92 - Diverticulitis of intestine, part unspecified, without perforation or abscess without bleeding (2) UTI (urinary tract infection) ICD Code: N39.0 - Urinary tract infection, site not specified (3) Hypomagnesemia ICD Code: E83.42 - Hypomagnesemia (4) Acute kidney injury ICD Code: N17.9 - Acute kidney failure, unspecified PLAN: Echocardiogram shows ejection fraction 60% to 65%, calcified aortic valve, mild aortic stenosis. CT scan of the abdomen and pelvis shows inflammatory changes in sigmoid consistent with diverticulitis with an adjacent 2.8 collection of air and fluid consistent with contained perforation unchanged compared to previous examination. Mild bibasilar atelectasis. ASSESSMENT AND PLAN: * Respiratory failure with hypoxemia. Continue with BiPAP. Clinically improved *Sepsis secondary to diverticulitis and perforated colon. Continue with recommendations by Surgery. She is scheduled to have drainage catheter in the right lower quadrant. * Right lower lobe pneumonia and pleural effusion. The patient may need to have thoracentesis scheduled. * Acute renal failure, improving. * Type 2 diabetes. Sliding scale. * Hypertension, controlled. * Change in mental status secondary to hypoxemia and sepsis significantly improved. The patient is back to her baseline. * Severe malnutrition supportive treatment continue with TPN Perforated colon with fluid contained intraperitoneal collection 2.8 cm follow with repeat CT as no surgical management or intervention Radiology being planned to drain we do the CT scan today Patient is DNR Improved diarrhea Improved confusion supportive treatment Severe malnutrition albumin supplementation Progress diet as tolerated start with clear liquids today continue with TPN ISAIAH FLORES MD Feb 13, 2024 07:47
--- NOTE | 2024-02-13 11:50 | HMCIMG ---
CHEST 1VW HISTORY: Respiratory failure COMPARISON: 02/12/2024 FINDINGS: A frontal projection of the chest was obtained. Prominent interstitial markings are seen with possible superimposed infiltrates. There may be right pleural effusion with elevation of right hemidiaphragm unchanged. The heart is borderline enlarged. All the lines and tubes are again seen in place. Aortic calcifications are seen. IMPRESSION: 1. No interval change is seen.
--- NOTE | 2024-02-13 11:59 | PN ---
INFECTIOUS DISEASE PROGRESS NOTE Date of Service: Feb 13, 2024 SUBJECTIVE: Patient was seen and examined at bedside in room 413. Patient is awake, alert and oriented. Patient had a low-grade fever of 100.0 last night, current temperature however is 98.2. The WBC remains within normal level of 9.8. Continues on linezolid, meropenem and fluconazole IV. Patient continues on clear liquid diet and on TPN. No nausea reported this morning. Per report Case management will work on placement after a decision is made whether the patient will need to continue on the TPN. We will continue to monitor. PHYSICAL EXAM EYES: Anicteric. Pupils equal and reactive. HENT: No oral thrush seen, moist Oral mucosa. NECK: Supple, no JVD or thyromegaly. LUNGS: Good air entry. No rales, no rhonchi. Oxygen at 2LPM via nasal cannula. CARDIOVASCULAR: S1, S2 regular. No murmur heard. ABDOMEN: Soft, non tender, bowel sounds present, no organomegaly CENTRAL NERVOUS SYSTEM: Awake, alert, oriented x 3. SKIN: No rashes, no swelling. LYMPHATICS: No peripheral lymphadenopathy. MUSCULOSKELETAL: No joint swelling, erythema or tenderness. EXTREMITIES: No cyanosis or clubbing. Weakness. BACK: No deformity, no pressure ulcer. GENITOURINARY: No dysuria or hematuria. Vital Sign (Last 12 Hours) 02/13/24 02/13/24 02/13/24 02/13/24 00:00 04:00 06:32 08:00 Temp 100.0 98.6 98.2 Pulse 109 107 80 104 Resp 22 22 18 20 B/P (MAP) 134/57 140/64 141/59 Pulse Ox 99 100 97 O2 Delivery Nasal Cannula Nasal Cannula N/Cannula Low lpm Nasal Cannula O2 Flow Rate 2.5 2.5 2.0 3.0 FiO2 28 28 02/13/24 11:27 Pulse 110 Resp 18 O2 Delivery N/Cannula Low lpm O2 Flow Rate 1.0 FiO2 24 Intake & Output (last 24hrs) 02/12/24 02/12/24 02/13/24 15:00 23:00 07:00 Output Total 1200 ml 950 ml Balance -1200 ml -950 ml LABS: Laboratory: Test 02/13/24 11:46 02/13/24 04:25 02/12/24 05:13 Range/Units Whole Blood Glucose 110 70-110 MG/DL White Blood Count 9.8 4.8-10.8 K/uL Red Blood Count 2.81 L 4.00-5.50 MIL/uL Hemoglobin 7.8 L 12.0-16.0 g/dL Hematocrit 25.2 L 36-48 % Mean Corpuscular Volume 89.7 79-99 fL Mean Corpuscular Hemoglobin 27.8 27.0-33.0 pg Mean Corpuscular Hemoglobin Concent 31.0 L 32.0-36.0 g/dL Red Cell Distribution Width 15.1 11.0-15.5 % Platelet Count 321 130-400 K/uL Mean Platelet Volume 10.8 H 7.5-10.5 fL Nucleated Red Blood Cells 0.0 0.0-0.19 % Sodium Level 135 L 136-145 mmol/L Potassium Level 5.4 H 3.5-5.1 mmol/L Chloride Level 102 101-111 mmol/L Carbon Dioxide Level 28 21-32 mmol/L Blood Urea Nitrogen 42 H 7-18 mg/dL Creatinine 1.0 0.5-1.0 mg/dL Glomerular Filtration Rate Calc 57 >90 mL/min Random Glucose 95 70-105 mg/dL Lactic Acid Level 1.0 0.8-2.5 mmol/L Total Calcium 9.1 8.5-10.1 mg/dL Total Bilirubin 0.4 # 0.2-1.0 mg/dL Aspartate Amino Transf (AST/SGOT) 42 H 10-37 U/L Alanine Aminotransferase (ALT/SGPT) 37 # 12-78 U/L Alkaline Phosphatase 149 H 50-136 U/L Total Protein 5.8 L 6.0-8.3 g/dL Albumin 1.6 L 3.5-5.0 g/dL Immature Granulocyte % (Auto) 0.6 0-1 % Neutrophils (%) (Auto) 76.2 40.0-77.0 % Lymphocytes (%) (Auto) 11.3 L 21.0-51.0 % Monocytes (%) (Auto) 9.9 3.0-13.0 % Eosinophils (%) (Auto) 1.8 0.0-8.0 % Basophils (%) (Auto) 0.2 0.0-5.0 % Neutrophils # (Auto) 8.2 H 1.8-7.7 K/uL Lymphocytes # (Auto) 1.2 1.0-4.8 K/uL Monocytes # (Auto) 1.1 H 0.1-1.0 K/uL Eosinophils # (Auto) 0.19 0.00-0.70 K/uL Basophils # (Auto) 0.02 0.00-0.20 K/uL Absolute Immature Granulocyte (auto 0.06 0-1 K/uL Red Blood Cell Morphology See comments Procalcitonin 0.16 0.05-0.5 ng/mL ASSESSMENT: Diverticulitis with perforation. Intra-abdominal abscess. Sepsis. Leukocytosis, improving. Diabetes mellitus. Debility. PLAN: Continue linezolid. Continue meropenem IV. Continue fluconazole IV. Monitor electrolytes. Patient is currently on TPN. Advance diet as recommended by General surgery. Continue physical therapy. Continue GI prophylaxis. This case was reviewed and discussed with my supervising physician and the above assessment and plan was formulated and agreed upon. ATTESTATION BY PHYSICIAN I have seen and examined the patient. I reviewed the documentation, medical decision making, and treatment plan as noted by the mid-level provider above. I agree with the findings and plan of care. GABBI OGDEN MD, [facility] Feb 13, 2024 11:59
--- NOTE | 2024-02-13 12:52 | PN ---
[facility] PROGRESS NOTE Date Patient Seen: Feb 13, 2024 Time of Visit: 12:47 Supervising Physician: Anirudh Consulting Physician: Dr Morgan Outpatient Specialists: [facility] Inpatient Consults: Dr. Narayanan, Dr. Bustamante PROBLEM LIST: Acute hypoxic and hypercapnic respiratory failure secondary to below Sepsis - POA DM type II, with hyperglycemia, POA small rt pleural effusion, POA not large enough for thoracentesis on POC US Elevated Rt hemidiaphragm POA Acute diverticulitis with contained perforation, - suspect polymicrobial peritonitis- evaluated by General surgery, no surgical intervention at this time Diverticula Abscess 4.2 x [address] 02/09 Non anion gap metabolic acidosis- resolved Acute renal failure- secondary to ATN from sepsis Acute complicated cystitis - POA Hypernatremia, POA Chronic congestive heart failure- preserved EF LVEF 60%, POA Acute metabolic acidosis, POA- resolved Acute encephalopathy, POA- resolved Hypertension, POA Hyperlipidemia, POA Plan Summary: Supplemental oxygen as needed Wean off as tolerated Continue clear liquid diet and advance as tolerates DC TPN once tolerating oral intake Continue IV antibiotics as per Infectious Disease Follow Surgery recommendations Prognosis remains guarded INTERVAL HISTORY: 02/03 patient is lethargic but answering questions appropriately. She is oriented to person but disoriented to place time and situation. Patient was upgraded to ICU yesterday after rapid response initiation for decreased mental status. Overnight with the CT scan of the head with no acute intracranial bleed or any significant finding. ABG was done yesterday with metabolic acidosis. Charles sarkar received sodium bicarbonate x1 overnight. Chemistry this morning with sodium 144 potassium 3.9 chloride 114, bicarb 22, BUN is 46 creatinine is 2.0 renal function has improved. Patient has put out 400 cc of urine output. We will place a Tellez catheter for strict I/O, and repeat UA, blood culture, fungal culture. Patient is on Zosyn antibiotic. Adjusted per renal function. We will add GPC coverage and antifungal given abdominal abscess. We will also repeat CT scan of the abdomen to see the progression of the abscess. If remains the same and/ or worsening, we will request IR to drain this. Patient remains on BiPAP 09/02/2039%. ABG this morning with pH 7.39, pCO2 46 PO2 101. Bicarb is 22.7 O2 sat is 97%. Base excess-3.5. This is mainly metabolic acidosis with some component of respiratory acidosis. Will give a trial with high flow NC and see how she does. In the mean time, nutrition is poor albumin low, per family she has not been eating well over a week. Given diverticulitis, will start TPN. Spoke with the patient's family, son daughter and patient's . DNR/DNI has been requested and we will kellie this. Condition is guarded. We will keep her in ICU. 02/04 patient remains on noninvasive positive pressure ventilation since yesterday, unable to wean it off for break for too long. Patient developed hypercapnia with encephalopathy after 30 minutes off of bipap. Venous blood gas this morning with pH 7.309, pCO2 46, PO2 is 136. Bicarb is 22. Base excess is- 3.6. We will continue to utilize NIPPV for hypercapnia. Continue to follow with the blood gases in the morning. Her chest x-ray was with right hemidiaphragm elevation. Patient also has pulmonary congestion/ pleural effusion. Diuretic has been requested. Continue strict I's and o's. Continue with tellez. Remainder of the lab her renal function has improved, creatinine is 1.8 down from 1.9. BUN is also down to 43 from 45. Glucose however is high at 330 , patient has been started on TPN yesterday. We will increase insulin sliding scale and start long-acting insulin. She remains NPO. In the meantime CT scan of the abdomen was repeated yesterday with persistent abscess in the pelvic area which we had requested IR to drain this however given location and size, she is not candidate for percutaneous drain placement. For now broad antibiotic therapy and antifungal. We will continue to keep patient in the ICU given hypercapnia requiring NIPPV. LVEF is preserved with 60% Spoke with patient's family at this site. 02/05 patient is awake and alert and oriented not in acute distress, remains on BiPAP at the moment, patient did not tolerate off BiPAP yesterday. We can try again to keep her off of it. Repeat chest x-ray see the atelectasis. She has been diuresed with pulse dose Lasix. Urine output is 3.5 L with balance -1 L. lab this morning with BUN of 43 this is similar to yesterday and creatinine is down to 1.5 from 1.8. We will repeat chest x-ray today and tomorrow. Remainder of the lab with leukocytosis worsening and patient had fever 100.2 this AM. We will up the coverage of the antibiotic discontinue Zosyn and start patient on merem. Continue doxy and fluconazole. Patient complained of back pain, will place lidocain patch. Ultram PRN. Glucose over 300 despite long acting insulin. Will start insulin drip, increase long acting. Continue TPN. Spoke with patient and her granddaughter. 02/06 patient is awake alert oriented no acute event overnight. She is very debilitated. Vital signs blood pressure 160/75 heart rate is 99. T-max is 99.7. She is on high-flow nasal cannula at 25 L with 40% FiO2 saturation oxygen 99%. We can wean it down as tolerated to keep sats greater 92%. Patient has been diuresed yesterday with pulse dose Lasix now Her urine output is 3.5 L with-28 cc balance. Her renal function is improved BUN is 45 and creatinine is down to 1.4 from 1.5. Chemistry with sodium 148 this is up from 146 yesterday potassium is 3.5 chloride is 114. Bicarb is 32 . Glucose over has been up trended so patient was started on insulin drip yesterday. Continue insulin drip per protocl, continue TPN with added insulin in the bag. Continue with daily diuresis. Chest xray in AM. 02/07 patient is awake alert and oriented very weak but following commands appropriately. There is no event overnight patient reported no abdominal pain. At this time patient will need physical therapy to gain some more muscle strength . Otherwise remarkable lab this morning with improving renal function, creatinine is 1.2 down from 1.4 BUN is 55. Patient has been diuresed with Lasix 40 daily. She will still need diuretic given pleural effusion, we will decrease to 20 mg daily. She has put out 2.7 L with balance of +500 cc. She had bowel movement. Continue with the liquid diet as tolerated. We will continue with TPN with insulin. Insulin drip has been discontinued yesterday. Continue with Lantus. We will decrease insulin in the TPN. Continue with current antibiotic doxycycline, meropenem, fluconazole. Chest x-ray repeated this morning with persistent right pleural effusion no change since yesterday. She has been able to come off of BiPAP for longer period of time yesterday all day off of BiPAP. This morning patient has been switched to nasal cannula at 5 L. Continue with incentive spirometry. Repeat cxr and coag in AM. Will assess lung field with US. From critical standpoint patient is stable to be downgraded to PCU. 02/08 patient is awake alert and oriented x3 not acute distress. Patient is laying down in bed back to bed from recliner this morning assisted by Physical therapy. Lab this morning with creatinine of 1.3 this is up trending slightly from 1.2 BUN is 60 this is up from 55 and bicarb is 33 this from 32. Urine output is 3.8 L with -1.5 L balance. Patient has been doing well oxygenating, chest x-ray with right pleural effusion persisted but much better compared to yesterday. We did increase the Lasix to q.12 hours from daily yesterday, but given worsened renal function, we will hold this today. Also, patient already had bowel movement x2. She had been started on diet and now advanced to a full liquid diet per surgery. We can dc TPN. She remains on O2 support at 3LNC. Sat 98%. 2 hours of bipap overnight. We can make bipap PRN. Downgrade to surgical floor. 02/09-patient is awake and oriented x3 but lethargic. Upgraded to the ICU per General surgery request due to high risk for decompensation. Patient continues receiving TPN nutrition via PICC line. Patient has been febrile with a T-max of 101.7 and a T low of 97.2 in the last 24 hours. Heart rate in the 80s respiratory rate 23 blood pressure 122/65 with O2 sat of 96% on 3 L via nasal cannula. Urine output of 1.9 L in last 24 hours with a I&O balance-604 mL patient has had frequent bowel movements today at loose stools. Pending IR eval for possible I&D of diverticular abscess. On laboratory white count increased today to 24 H&H 9.7/30.7 platelet count is [id number]. Chemistries sodium 136 potassium is 5.2 on repeat on ABG 4.7, BUN 72 creatinine 1.5 random glucose 199 mg/dL with a procalcitonin of 0.54 increased. Patient continues on meropenem and fluconazole and Zyvox has been added per ID. 02/10-patient is awake alert and oriented x3, encephalopathy has resolved. She is hemodynamically stable off pressors with a blood pressure of 131/64 heart rate in the 80s respiratory rate 20 on 3 L via nasal cannula afebrile with a T- max of 99.9 in the last 24 hours with a T low of 98.4. She continues on parenteral nutrition via PICC line. Per IR unable to perform I&D of diverticular abscess due to location. Patient had 1 L of urine output in the last 24 hours with a positive balance of 639 mL patient had two bowel movements. On laboratory WBCs are trending down today 15.7 H&H is 8.2/25.6 with a platelet count of [id number]. Chemistries sodium 132 chloride 100 carbon dioxide 30 BUN 60 creatinine 1.4 GFR of 38 glucose 150 mg/dL, CRP 94.8 total protein 5.3 albumin 1.5. On chest x-ray mild bilateral pulmonary infiltrates are seen may be related to mild pulmonary vascular congestion with possible superimposed pneumonitis, elevation of right hemidiaphragm. Awaiting further recommendations from surgical standpoint. For now patient is stable to downgrade from ICU. Patient's current code status DNR and DNI. 02/11 - patient was transferred out of ICU where she was being cared for secondary to sepsis. Patient was found to acute diverticulitis with contained perforation. Patient was also found to have a diverticular abscess. IR was consulted for percutaneous drain placement however interventional radiologist was not able to place a drain secondary to location of the diverticular abscess. General surgery has been consulted. Patient does continue to be very weak, deconditioned and debilitated. Patient continues to be hypoxemic requiring2 L via nasal cannula. Patient continues on IV antibiotics as per Infectious Disease and white count is trending down. As per today's labs show a white count of 10.8. We obtain a chest x-ray today which was unremarkable. Instructed nursing to wean patient off O2 as tolerated. We will continue to follow with you. 02/12 - patient is seen evaluated at the bedside. Patient is lying in bed resting quietly continues to be weak, deconditioned and hypoxemic on 2 L via nasal cannula patient is accompanied by multiple family members. No acute changes reported overnight. Patient was started on clear liquid diet yesterday and thus far tolerating well. Patient's family reports patient having bowel movements. Patient remains afebrile. White count is within normal limits. Patient does report that her respiratory status continues to improve daily. Instructed nursing to wean off O2 as tolerated. Surgical team has been consulted and currently pending evaluation and recommendation. For now recommend continue IV antibiotics per Infectious Disease. REVIEW OF SYSTEMS: General: No malaise or fever. Neurological: No fainting episodes or seizures. HEENT: No nasal congestion or nasal secretion. Respiratory: No cough, yes to shortness of breath on minimal exertion, no wheezing Cardiac: No chest pain or palpitations. Gastrointestinal: No vomiting yes to loose stools Genitourinary: No dysuria hematuria. Skin: No rashes or lesions. Hematological: No bruises or bleeding. Musculoskeletal: No joint pains or arthralgias. Psychiatric: No depression or panic attacks. PHYSICAL EXAM: GENERAL: Patient awake alert and oriented x3 HEENT: EOMI, Sclera non icteric, moist mucosa NECK: Supple, no JVD, trachea midline LUNGS: Clear breath sounds bilaterally. No wheezes HEART: Regular rate and rhythm. Normal S1 and S2, without murmurs ABD: Abdomen soft, nontender. Bowel sounds present EXT: No clubbing cyanosis or edema NEURO: Patient deconditioned awake alert and oriented x3. Vital Signs (last 8hr) Date Time Temp Pulse Resp B/P (MAP) Pulse Ox O2 Delivery O2 Flow Rate FiO2 02/13/24 12:00 98.6 111 20 151/70 92 Nasal Cannula 2.0 02/13/24 11:27 110 18 N/Cannula Low lpm 1.0 02/13/24 08:00 98.2 104 20 141/59 97 Nasal Cannula 3.0 02/13/24 06:32 80 18 N/Cannula Low lpm 2.0 28 LABS: Hematology Labs: Test 02/13/24 04:25 02/12/24 05:13 Range/Units White Blood Count 9.8 4.8-10.8 K/uL Red Blood Count 2.81 L 4.00-5.50 MIL/uL Hemoglobin 7.8 L 12.0-16.0 g/dL Hematocrit 25.2 L 36-48 % Mean Corpuscular Volume 89.7 79-99 fL Mean Corpuscular Hemoglobin 27.8 27.0-33.0 pg Mean Corpuscular Hemoglobin Concent 31.0 L 32.0-36.0 g/dL Red Cell Distribution Width 15.1 11.0-15.5 % Platelet Count 321 130-400 K/uL Mean Platelet Volume 10.8 H 7.5-10.5 fL Nucleated Red Blood Cells 0.0 0.0-0.19 % Immature Granulocyte % (Auto) 0.6 0-1 % Neutrophils (%) (Auto) 76.2 40.0-77.0 % Lymphocytes (%) (Auto) 11.3 L 21.0-51.0 % Monocytes (%) (Auto) 9.9 3.0-13.0 % Eosinophils (%) (Auto) 1.8 0.0-8.0 % Basophils (%) (Auto) 0.2 0.0-5.0 % Neutrophils # (Auto) 8.2 H 1.8-7.7 K/uL Lymphocytes # (Auto) 1.2 1.0-4.8 K/uL Monocytes # (Auto) 1.1 H 0.1-1.0 K/uL Eosinophils # (Auto) 0.19 0.00-0.70 K/uL Basophils # (Auto) 0.02 0.00-0.20 K/uL Absolute Immature Granulocyte (auto 0.06 0-1 K/uL Red Blood Cell Morphology See comments Chemistry Labs: Test 02/13/24 11:46 02/13/24 04:25 02/12/24 05:13 Range/Units Whole Blood Glucose 110 70-110 MG/DL Sodium Level 135 L 136-145 mmol/L Potassium Level 5.4 H 3.5-5.1 mmol/L Chloride Level 102 101-111 mmol/L Carbon Dioxide Level 28 21-32 mmol/L Blood Urea Nitrogen 42 H 7-18 mg/dL Creatinine 1.0 0.5-1.0 mg/dL Glomerular Filtration Rate Calc 57 >90 mL/min Random Glucose 95 70-105 mg/dL Lactic Acid Level 1.0 0.8-2.5 mmol/L Total Calcium 9.1 8.5-10.1 mg/dL Total Bilirubin 0.4 # 0.2-1.0 mg/dL Aspartate Amino Transf (AST/SGOT) 42 H 10-37 U/L Alanine Aminotransferase (ALT/SGPT) 37 # 12-78 U/L Alkaline Phosphatase 149 H 50-136 U/L Total Protein 5.8 L 6.0-8.3 g/dL Albumin 1.6 L 3.5-5.0 g/dL Procalcitonin 0.16 0.05-0.5 ng/mL DIAGNOSTICS / RADIOLOGY RESULTS: [ ] PLAN NEURO: Minimize central acting medications as possible. Maintain fall precautions, adequate lighting during the day PULMONARY: Supplemental 02 as needed. Maintain aspiration precautions at all times CARDIOVASCULAR: Follow hemodynamics. Vital signs per facility protocol GI & NUTRITION: Continue with nutritional support. Continue stool softeners and laxatives as needed. KIDNEYS & ELECTROLYTES: Strict monitoring of intake, output and overall fluid balance. Avoid nephrotoxic medications to the extent possible. Medications to be dosed according to renal function. Monitor electrolytes and replace as needed ENDOCRINE: Maintain blood glucose between 100-180 at all times. Hypoglycemia protocol in place INFECTIOUS DISEASE: Trend temperature, WBC and procalcitonin level Follow cultures, deescalate antibiotics as soon as possible. Panculture if new onset fever ONCOLOGY/HEMATOLOGY/COAGULATION: Monitor for s/s of bleeding Monitor hemoglobin, coagulation studies as needed SKIN: Pressure ulcer prevention per facility protocol Specialty mattress ORTHO/REHAB: Continue PT/OT Prophylaxis: Continue GI and DVT prophylaxis Code Status: Do not resuscitate Disposition: As per attending. Other: Total patient care time exceeds 35 minutes excluding all procedures. ATTESTATION BY PHYSICIAN I reviewed the documentation, medical decision making, and treatment plan as noted by the mid-level provider above. I agree with the findings and plan of care. Isreal Oleary MD, ECTOR NP Feb 13, 2024 12:52
[2024-02-13] MEDS ORDERED: M V I IV ONE (19:30)
[2024-02-13] MEDS ORDERED: CHLOR IV ONE (19:30)
[2024-02-13] MEDS ORDERED: [UNRECOGNIZED DRUG - OTHER] IV ONE (19:30)
[2024-02-13] MEDS ORDERED: CALC IV ONE (19:30)
[2024-02-13] MEDS ORDERED: POT IV ONE (19:30)
[2024-02-13] MEDS ORDERED: ACET IV ONE (19:30)
[2024-02-13] MEDS ORDERED: MAG IV ONE (19:30)
[2024-02-13] MEDS ORDERED: SODIUM IV ONE (19:30)
[2024-02-14] VITALS (11 sets, daily range): BP systolic 127–157; BP diastolic 60–86; PULSE 66–127; RESP 18–22; TEMP 98.1–99; O2SAT 95–100
[2024-02-14] MEDS: CHLOR IV ONE ×2 (01:46→21:28)
[2024-02-14] MEDS: POT IV ONE ×2 (01:46→21:28)
[2024-02-14] MEDS: ACET IV ONE ×2 (01:46→21:28)
[2024-02-14] MEDS: SODIUM IV ONE ×2 (01:46→21:28)
[2024-02-14] MEDS: MAG IV ONE ×2 (01:46→21:28)
[2024-02-14] MEDS: M V I IV ONE (01:46)
[2024-02-14] MEDS: CALC IV ONE ×2 (01:46→21:28)
[2024-02-14] MEDS: [UNRECOGNIZED DRUG - OTHER] IV ONE (01:46)
--- NOTE | 2024-02-14 12:53 | PN ---
SUBJECTIVE: The patient denies any chest pain or abdominal pain. No vomiting at this time or diarrhea. OBJECTIVE: VITAL SIGNS: Blood pressure is 148/81, pulse is 120, respirations 19. LUNGS: Mostly decreased breath sounds, no wheezing. HEART: Regular rate and rhythm. ABDOMEN: Soft. No localized tenderness, no guarding, no rebound. ASSESSMENT AND PLAN: Diabetes mellitus, perforated diverticulitis with intraabdominal abscess. The patient on broad-spectrum antibiotics. Acute renal failure, diabetes mellitus, hypertension, tachycardia. Continue with antibiotics. Further management as per Surgery. The patient has a hemoglobin of 7.8, will be monitored closely. TID: [id number] RECEIPT: [id number]
--- NOTE | 2024-02-14 13:35 | PN ---
[facility] PROGRESS NOTE Date Patient Seen: Feb 14, 2024 Time of Visit: 13:32 Supervising Physician: Anirudh Consulting Physician: Dr Morgan Outpatient Specialists: NA Inpatient Consults: Dr. Narayanan, Dr. Bustamante, Dr Gonzalez PROBLEM LIST: Acute hypoxic and hypercapnic respiratory failure secondary to below - resolved Sepsis - POA DM type II, with hyperglycemia, POA small rt pleural effusion, POA not large enough for thoracentesis on POC US Elevated Rt hemidiaphragm POA Acute diverticulitis with contained perforation, - suspect polymicrobial peritonitis- evaluated by General surgery, no surgical intervention at this time Diverticula Abscess 4.2 x [address] 02/09 Non anion gap metabolic acidosis- resolved Acute renal failure- secondary to ATN from sepsis Acute complicated cystitis - POA Hypernatremia, POA Chronic congestive heart failure- preserved EF LVEF 60%, POA Acute metabolic acidosis, POA- resolved Acute encephalopathy, POA- resolved Hypertension, POA Hyperlipidemia, POA Plan Summary: Supplemental oxygen as needed Wean off as tolerated Continue clear liquid diet and advance as tolerates DC TPN once tolerating oral intake Continue IV antibiotics as per Infectious Disease Follow Surgery recommendations Prognosis remains guarded INTERVAL HISTORY: 02/03 patient is lethargic but answering questions appropriately. She is oriented to person but disoriented to place time and situation. Patient was upgraded to ICU yesterday after rapid response initiation for decreased mental status. Overnight with the CT scan of the head with no acute intracranial bleed or any significant finding. ABG was done yesterday with metabolic acidosis. Patient received sodium bicarbonate x1 overnight. Chemistry this morning with sodium 144 potassium 3.9 chloride 114, bicarb 22, BUN is 46 creatinine is 2.0 renal function has improved. Patient has put out 400 cc of urine output. We will place a Tellez catheter for strict I/O, and repeat UA, blood culture, fungal culture. Patient is on Zosyn antibiotic. Adjusted per renal function. We will add GPC coverage and antifungal given abdominal abscess. We will also repeat CT scan of the abdomen to see the progression of the abscess. If remains the same and/ or worsening, we will request IR to drain this. Patient remains on BiPAP 09/02/2039%. ABG this morning with pH 7.39, pCO2 46 PO2 101. Bicarb is 22.7 O2 sat is 97%. Base excess-3.5. This is mainly metabolic acidosis with some component of respiratory acidosis. Will give a trial with high flow NC and see how she does. In the mean time, nutrition is poor albumin low, per family she has not been eating well over a week. Given diverticulitis, will start TPN. Spoke with the patient's family, son daughter and patient's . DNR/DNI has been requested and we will kellie this. Condition is guarded. We will keep her in ICU. 02/04 patient remains on noninvasive positive pressure ventilation since yesterday, unable to wean it off for break for too long. Patient developed hypercapnia with encephalopathy after 30 minutes off of bipap. Venous blood gas this morning with pH 7.309, pCO2 46, PO2 is 136. Bicarb is 22. Base excess is- 3.6. We will continue to utilize NIPPV for hypercapnia. Continue to follow with the blood gases in the morning. Her chest x-ray was with right hemidiaphragm elevation. Patient also has pulmonary congestion/ pleural effusion. Diuretic has been requested. Continue strict I's and o's. Continue with tellez. Remainder of the lab her renal function has improved, creatinine is 1.8 down f rom 1.9. BUN is also down to 43 from 45. Glucose however is high at 330 , patient has been started on TPN yesterday. We will increase insulin sliding scale and start long-acting insulin. She remains NPO. In the meantime CT scan of the abdomen was repeated yesterday with persistent abscess in the pelvic area which we had requested IR to drain this however given location and size, she is not candidate for percutaneous drain placement. For now broad antibiotic therapy and antifungal. We will continue to keep patient in the ICU given hypercapnia requiring NIPPV. LVEF is preserved with 60% Spoke with patient's family at this site. 02/05 patient is awake and alert and oriented not in acute distress, remains on BiPAP at the moment, patient did not tolerate off BiPAP yesterday. We can try again to keep her off of it. Repeat chest x-ray see the atelectasis. She has been diuresed with pulse dose Lasix. Urine output is 3.5 L with balance -1 L. lab this morning with BUN of 43 this is similar to yesterday and creatinine is down to 1.5 from 1.8. We will repeat chest x-ray today and tomorrow. Remainder of the lab with leukocytosis worsening and patient had fever 100.2 this AM. We will up the coverage of the antibiotic discontinue Zosyn and start patient on merem. Continue doxy and fluconazole. Patient complained of back pain, will place lidocain patch. Ultram PRN. Glucose over 300 despite long acting insulin. Will start insulin drip, increase long acting. Continue TPN. Spoke with patient and her granddaughter. 02/06 patient is awake alert oriented no acute event overnight. She is very debilitated. Vital signs blood pressure 160/75 heart rate is 99. T-max is 99.7. She is on high-flow nasal cannula at 25 L with 40% FiO2 saturation oxygen 99%. We can wean it down as tolerated to keep sats greater 92%. Patient has been diuresed yesterday with pulse dose Lasix now Her urine output is 3.5 L with-28 cc balance. Her renal function is improved BUN is 45 and creatinine is down to 1.4 from 1.5. Chemistry with sodium 148 this is up from 146 yesterday potassium is 3.5 chloride is 114. Bicarb is 32 . Glucose over has been up trended so patient was started on insulin drip yesterday. Continue insulin drip per protocl, continue TPN with added insulin in the bag. Continue with daily diuresis. Chest xray in AM. 02/07 patient is awake alert and oriented very weak but following commands appropriately. There is no event overnight patient reported no abdominal pain. At this time patient will need physical therapy to gain some more muscle strength . Otherwise remarkable lab this morning with improving renal function, creatinine is 1.2 down from 1.4 BUN is 55. Patient has been diuresed with Lasix 40 daily. She will still need diuretic given pleural effusion, we will decrease to 20 mg daily. She has put out 2.7 L with balance of +500 cc. She had bowel movement. Continue with the liquid diet as tolerated. We will continue with TPN with insulin. Insulin drip has been discontinued yesterday. Continue with Lantus. We will decrease insulin in the TPN. Continue with current antibiotic doxycycline, meropenem, fluconazole. Chest x-ray repeated this morning with persistent right pleural effusion no change since yesterday. She has been able to come off of BiPAP for longer period of time yesterday all day off of BiPAP. This morning patient has been switched to nasal cannula at 5 L. Continue with incentive spirometry. Repeat cxr and coag in AM. Will assess lung field with US. From critical standpoint patient is stable to be downgraded to PCU. 02/08 patient is awake alert and oriented x3 not acute distress. Patient is laying down in bed back to bed from recliner this morning assisted by Physical therapy. Lab this morning with creatinine of 1.3 this is up trending slightly from 1.2 BUN is 60 this is up from 55 and bicarb is 33 this from 32. Urine output is 3.8 L with -1.5 L balance. Patient has been doing well oxygenating, chest x-ray with right pleural effusion persisted but much better compared to yesterday. We did increase the Lasix to q.12 hours from daily yesterday, but given worsened renal function, we will hold this today. Also, patient already had bowel movement x2. She had been started on diet and now advanced to a full liquid diet per surgery. We can dc TPN. She remains on O2 support at 3LNC. Sat 98%. 2 hours of bipap overnight. We can make bipap PRN. Downgrade to surgical floor. 02/09-patient is awake and oriented x3 but lethargic. Upgraded to the ICU per General surgery request due to high risk for decompensation. Patient continues receiving TPN nutrition via PICC line. Patient has been febrile with a T-max of 101.7 and a T low of 97.2 in the last 24 hours. Heart rate in the 80s respiratory rate 23 blood pressure 122/65 with O2 sat of 96% on 3 L via nasal c annula. Urine output of 1.9 L in last 24 hours with a I&O balance-604 mL patient has had frequent bowel movements today at loose stools. Pending IR eval for possible I&D of diverticular abscess. On laboratory white count increased today to 24 H&H 9.7/30.7 platelet count is [id number]. Chemistries sodium 136 potassium is 5.2 on repeat on ABG 4.7, BUN 72 creatinine 1.5 random glucose 199 mg/dL with a procalcitonin of 0.54 increased. Patient continues on meropenem and fluconazole and Zyvox has been added per ID. 02/10-patient is awake alert and oriented x3, encephalopathy has resolved. She is hemodynamically stable off pressors with a blood pressure of 131/64 heart rate in the 80s respiratory rate 20 on 3 L via nasal cannula afebrile with a T- max of 99.9 in the last 24 hours with a T low of 98.4. She continues on parenteral nutrition via PICC line. Per IR unable to perform I&D of diverticular abscess due to location. Patient had 1 L of urine output in the last 24 hours with a positive balance of 639 mL patient had two bowel movements. On laboratory WBCs are trending down today 15.7 H&H is 8.2/25.6 with a platelet count of [id number]. Chemistries sodium 132 chloride 100 carbon dioxide 30 BUN 60 creatinine 1.4 GFR of 38 glucose 150 mg/dL, CRP 94.8 total protein 5.3 albumin 1.5. On chest x-ray mild bilateral pulmonary infiltrates are seen may be related to mild pulmonary vascular congestion with possible superimposed pneumonitis, elevation of right hemidiaphragm. Awaiting further recommendations from surgical standpoint. For now patient is stable to downgrade from ICU. Patient's current code status DNR and DNI. 02/11 - patient was transferred out of ICU where she was being cared for secondary to sepsis. Patient was found to acute diverticulitis with contained perforation. Patient was also found to have a diverticular abscess. IR was consulted for percutaneous drain placement however interventional radiologist was not able to place a drain secondary to location of the diverticular abscess. General surgery has been consulted. Patient does continue to be very weak, deconditioned and debilitated. Patient continues to be hypoxemic requiring2 L via nasal cannula. Patient continues on IV antibiotics as per Infectious Disease and white count is trending down. As per today's labs show a white count of 10.8. We obtain a chest x-ray today which was unremarkable. Instructed nursing to wean patient off O2 as tolerated. We will continue to follow with you. 02/12 - patient is seen evaluated at the bedside. Patient is lying in bed resting quietly continues to be weak, deconditioned and hypoxemic on 2 L via nasal cannula patient is accompanied by multiple family members. No acute changes reported overnight. Patient was started on clear liquid diet yesterday and thus far tolerating well. Patient's family reports patient having bowel movements. Patient remains afebrile. White count is within normal limits. Patient does report that her respiratory status continues to improve daily. Instructed nursing to wean off O2 as tolerated. Surgical team has been consulted and currently pending evaluation and recommendation. For now recommend continue IV antibiotics per Infectious Disease. /26 - patient is seen lying in bed resting quietly continues to be weak and debilitated. Patient is being weaned off O2 and currently on room air with no signs of respiratory distress. Patient reports her respiratory status continues to improve daily. Patient continues on clear liquid diet and tolerating well. As per daughter, patient had a bowel movement earlier this morning. Patient also continues on TPN. Recommend to discontinue as patient is tolerating oral diet. Surgical team has been consulted regarding the diverticular abscess and still pending evaluation and recommendations. For now recommend continue IV antibiotics as per Infectious Disease. From pulmonary standpoint, patient is stable. Continue to follow up with you. REVIEW OF SYSTEMS: General: No malaise or fever. Neurological: No fainting episodes or seizures. HEENT: No nasal congestion or nasal secretion. Respiratory: No cough, yes to shortness of breath on minimal exertion, no wheezing Cardiac: No chest pain or palpitations. Gastrointestinal: No vomiting yes to loose stools Genitourinary: No dysuria hematuria. Skin: No rashes or lesions. Hematological: No bruises or bleeding. Musculoskeletal: No joint pains or arthralgias. Psychiatric: No depression or panic attacks. PHYSICAL EXAM: GENERAL: Patient awake alert and oriented x3 HEENT: EOMI, Sclera non icteric, moist mucosa NECK: Supple, no JVD, trachea midline LUNGS: Clear breath sounds bilaterally. No wheezes HEART: Regular rate and rhythm. Normal S1 and S2, without murmurs ABD: Abdomen soft, nontender. Bowel sounds present EXT: No clubbing cyanosis or edema NEURO: Patient deconditioned awake alert and oriented x3. Vital Signs (last 8hr) Date Time Temp Pulse Resp B/P (MAP) Pulse Ox O2 Delivery O2 Flow Rate FiO2 02/14/24 12:00 98.4 113 19 151/77 95 Room Air 02/14/24 08:00 98.1 120 19 148/81 95 Room Air 02/14/24 06:46 118 18 N/A Room Air 0.0 21 LABS: Hematology Labs: Test 02/13/24 04:25 Range/Units White Blood Count 9.8 4.8-10.8 K/uL Red Blood Count 2.81 L 4.00-5.50 MIL/uL Hemoglobin 7.8 L 12.0-16.0 g/dL Hematocrit 25.2 L 36-48 % Mean Corpuscular Volume 89.7 79-99 fL Mean Corpuscular Hemoglobin 27.8 27.0-33.0 pg Mean Corpuscular Hemoglobin Concent 31.0 L 32.0-36.0 g/dL Red Cell Distribution Width 15.1 11.0-15.5 % Platelet Count 321 130-400 K/uL Mean Platelet Volume 10.8 H 7.5-10.5 fL Nucleated Red Blood Cells 0.0 0.0-0.19 % Chemistry Labs: Test 02/14/24 11:47 02/13/24 04:25 Range/Units Whole Blood Glucose 130 H 70-110 MG/DL Sodium Level 135 L 136-145 mmol/L Potassium Level 5.4 H 3.5-5.1 mmol/L Chloride Level 102 101-111 mmol/L Carbon Dioxide Level 28 21-32 mmol/L Blood Urea Nitrogen 42 H 7-18 mg/dL Creatinine 1.0 0.5-1.0 mg/dL Glomerular Filtration Rate Calc 57 >90 mL/min Random Glucose 95 70-105 mg/dL Lactic Acid Level 1.0 0.8-2.5 mmol/L Total Calcium 9.1 8.5-10.1 mg/dL Total Bilirubin 0.4 # 0.2-1.0 mg/dL Aspartate Amino Transf (AST/SGOT) 42 H 10-37 U/L Alanine Aminotransferase (ALT/SGPT) 37 # 12-78 U/L Alkaline Phosphatase 149 H 50-136 U/L Total Protein 5.8 L 6.0-8.3 g/dL Albumin 1.6 L 3.5-5.0 g/dL DIAGNOSTICS / RADIOLOGY RESULTS: PATIENT: COMPA GRANADOS MR#: [id number] : 1945 SEX: F AGE: 79 LOCATION: [facility] ORDER 2300 STATUS: ADM IN REPORT#: [id number] SERVICE 0600 REASON: hypoxic resp failure ORDERING PHYSICIAN: JOAN PARKER PROCEDURE: CXR1VW - CHEST 1VW CHEST 1VW HISTORY: Respiratory failure COMPARISON: 02/12/2024 FINDINGS: A frontal projection of the chest was obtained. Prominent interstitial markings are seen with possible superimposed infiltrates. There may be right pleural effusion with elevation of right hemidiaphragm unchanged. The heart is borderline enlarged. All the lines and tubes are again seen in place. Aortic calcifications are seen. IMPRESSION: 1. No interval change is seen. DICTATED BY: TICO ZAMORA MD DATE: 02/13/24 1147 ELECTRONICALLY SIGNED BY: TICO ZAMORA MD DATE: 02/13/24 1150 PLAN NEURO: Minimize central acting medications as possible. Maintain fall precautions, adequate lighting during the day PULMONARY: Supplemental 02 as needed. Maintain aspiration precautions at all times CARDIOVASCULAR: Follow hemodynamics. Vital signs per facility protocol GI & NUTRITION: Continue with nutritional support. Continue stool softeners and laxatives as needed. KIDNEYS & ELECTROLYTES: Strict monitoring of intake, output and overall fluid balance. Avoid nephrotoxic medications to the extent possible. Medications to be dosed according to renal function. Monitor electrolytes and replace as needed ENDOCRINE: Maintain blood glucose between 100-180 at all times. Hypoglycemia protocol in place INFECTIOUS DISEASE: Trend temperature, WBC and procalcitonin level Follow cultures, deescalate antibiotics as soon as possible. Panculture if new onset fever ONCOLOGY/HEMATOLOGY/COAGULATION: Monitor for s/s of bleeding Monitor hemoglobin, coagulation studies as needed SKIN: Pressure ulcer prevention per facility protocol Specialty mattress ORTHO/REHAB: Continue PT/OT Prophylaxis: Continue GI and DVT prophylaxis Code Status: Do not resuscitate Disposition: [facility] as per attending. Other: Total patient care time exceeds 35 minutes excluding all procedures. ATTESTATION BY PHYSICIAN I reviewed the documentation, medical decision making, and treatment plan as noted by the mid-level provider above. I agree with the findings and plan of care. Isreal Oleary MD, ECTOR NP Feb 14, 2024 13:35
[2024-02-14] MEDS: INSULIN REGULAR IV ONE (21:28)
[2024-02-14] MEDS: [UNRECOGNIZED DRUG - OTHER] IV ONE (21:28)
[2024-02-14] MEDS: HUMAN IV ONE (21:28)
--- NOTE | 2024-02-14 22:26 | PN ---
INFECTIOUS DISEASE FOLLOWUP NOTE DATE OF SERVICE: 02/14/2024 SUBJECTIVE: The patient is seen and examined at bedside today. The patient has no fever, no chills. No vomiting, no abdominal pain. No rashes or itchiness. No dysuria, no hematuria. Remained on TPN. PHYSICAL EXAMINATION:. VITAL SIGNS: Temperature 97.4. EYES: No icterus. Pupils equal and reactive. HENT: No oral thrush seen. Moist oral mucosa. NECK: Supple, no JVD or thyromegaly. LUNGS: Good air entry. No rales, no rhonchi. CARDIOVASCULAR: S1, S2 regular. No murmur heard. ABDOMEN: Obese, soft, nontender. Bowel sounds present. CENTRAL NERVOUS SYSTEM: Awake, alert, oriented x 3. No focal deficits. SKIN: No rashes, no itchiness. LYMPHATIC: No peripheral lymphadenopathy. ASSESSMENT: A 79-year-old female with multiple problems, which include: * Diverticulitis with perforation. * Intraabdominal abscess. * Abdominal pain. * Obesity. * Anemia. * Debility. PLAN: * Continue linezolid. * Continue fluconazole. * Continue meropenem. * Continue TPN. * Continue GI prophylaxis. * Monitor electrolytes. * The patient will be followed up closely. TID: [id number] RECEIPT: [id number]
[2024-02-15 03:36] VITALS: BP 140/75; PULSE 120; RESP 23; TEMP 98
[2024-02-15 04:19] LABS: HEMATOCRIT 25.7 % (36-48); MEAN CORPUSCULAR HEMOGLOBIN 27.6 pg (27.0-33.0); MEAN CORPUSCULAR HGB CONC 31.5 g/dL (32.0-36.0); MEAN CORPUSCULAR VOLUME 87.4 fL (79-99); RED BLOOD CELL COUNT(AUTO) 2.94 MIL/uL (4.00-5.50); RED CELL DISTRIBUTION WIDTH 14.9 % (11.0-15.5); WHITE BLOOD COUNT (AUTO) 8.8 K/uL (4.8-10.8)
[2024-02-15 05:00] LABS: POTASSIUM 4.6 mmol/L (3.5-5.1)
[2024-02-15] MEDS ORDERED: LORazepam 1 MG TABLET PO PRN (07:00)
[2024-02-15 08:08] VITALS: BP 166/81; PULSE 121; RESP 22; TEMP 99
[2024-02-15 10:18] VITALS: O2SAT 96
[2024-02-15 11:41] VITALS: BP 152/73; PULSE 122; RESP 18; TEMP 100.2
--- NOTE | 2024-02-15 12:01 | PN ---
SUBJECTIVE: The patient denies any chest pain, shortness of breath. Denies abdominal pain. The patient is on clear liquids, which is going to be advanced to full thick liquids. OBJECTIVE: VITAL SIGNS: Blood pressure 160/60, pulse is 60, respirations is 14. LUNGS: Mostly decreased breath sounds. No wheeze or rhonchi. HEART: Regular. ABDOMEN: Soft, nontender. EXTREMITIES: Noted. LABORATORY DATA: Significant for WBC 8.8, hemoglobin 8.1, BUN is 29, creatinine 1.0. ASSESSMENT AND PLAN: Intraabdominal abscess, perforated diverticulitis with abscess, abdominal pain resolved, leukocytosis resolved. Anemia, stable. Hypertension, stable. The patient is going to advance to full liquids. Condition discussed with the family. TID: [id number] RECEIPT: [id number]
--- NOTE | 2024-02-15 13:11 | PN ---
[facility] PROGRESS NOTE Date Patient Seen: Feb 15, 2024 Time of Visit: 13:08 Supervising Physician: Anirudh Consulting Physician: Dr Morgan Outpatient Specialists: NA Inpatient Consults: Dr. Narayanan, Dr. Bustamante, Dr Gonzalez PROBLEM LIST: Acute hypoxic and hypercapnic respiratory failure secondary to below - resolved Sepsis - POA resolved DM type II, with hyperglycemia, POA small rt pleural effusion, POA not large enough for thoracentesis on POC US Elevated Rt hemidiaphragm POA Acute diverticulitis with contained perforation, - suspect polymicrobial peritonitis- evaluated by General surgery, no surgical intervention at this time Diverticula Abscess 4.2 x [address] 02/09 Non anion gap metabolic acidosis- resolved Acute renal failure- secondary to ATN from sepsis - improved Acute complicated cystitis - POA -ruled out by cx Hypernatremia, POA resolved Chronic congestive heart failure- preserved EF LVEF 60%, POA Acute metabolic acidosis, POA- resolved Acute encephalopathy, POA- resolved Hypertension, POA Hyperlipidemia, POA Plan Summary: Supplemental oxygen as needed Continue clear liquid diet and advance as tolerates DC TPN once tolerating oral intake Continue IV antibiotics as per Infectious Disease Follow Surgery recommendations Prognosis remains guarded PT evaluate and treat Out of [id number] as tolerates INTERVAL HISTORY: 02/03 patient is lethargic but answering questions appropriately. She is oriented to person but disoriented to place time and situation. Patient was upgraded to ICU yesterday after rapid response initiation for decreased mental status. Overnight with the CT scan of the head with no acute intracranial bleed or any significant finding. ABG was done yesterday with metabolic acidosis. Patient received sodium bicarbonate x1 overnight. Chemistry this morning with sodium 144 potassium 3.9 chloride 114, bicarb 22, BUN is 46 creatinine is 2.0 renal function has improved. Patient has put out 400 cc of urine output. We will place a Tellez catheter for strict I/O, and repeat UA, blood culture, fungal culture. Patient is on Zosyn antibiotic. Adjusted per renal function. We will add GPC coverage and antifungal given abdominal abscess. We will also repeat CT scan of the abdomen to see the progression of the abscess. If remains the same and/ or worsening, we will request IR to drain this. Patient remains on BiPAP 09/02/2039%. ABG this morning with pH 7.39, pCO2 46 PO2 101. Bicarb is 22.7 O2 sat is 97%. Base excess-3.5. This is mainly metabolic acidosis with some component of respiratory acidosis. Will give a trial with high flow NC and see how she does. In the mean time, nutrition is poor albumin low, per family she has not been eating well over a week. Given diverticulitis, will start TPN. Spoke with the patient's family, son daughter and patient's . DNR/DNI has been requested and we will kellie this. Condition is guarded. We will keep her in ICU. 02/04 patient remains on noninvasive positive pressure ventilation since yesterday, unable to wean it off for break for too long. Patient developed hypercapnia with encephalopathy after 30 minutes off of bipap. Venous blood gas this morning with pH 7.309, pCO2 46, PO2 is 136. Bicarb is 22. Base excess is- 3.6. We will continue to utilize NIPPV for hypercapnia. Continue to follow with the blood gases in the morning. Her chest x-ray was with right hemidiaphragm elevation. Patient also has pulmonary congestion/ pleural effusion. Diuretic has been requested. Continue strict I's and o's. Continue with tellez. Remainder of the lab her renal function has improved, creatinine is 1.8 down from 1.9. BUN is also down to 43 from 45. Glucose however is high at 330 , patient has been started on TPN yesterday. We will increase insulin sliding scale and start long-acting insulin. She remains NPO. In the meantime CT scan of the abdomen was repeated yesterday with persistent abscess in the pelvic area which we had requested IR to drain this however given location and size, she is not candidate for percutaneous drain placement. For now broad antibiotic therapy and antifungal. We will continue to keep patient in the ICU given hypercapnia requiring NIPPV. LVEF is preserved with 60% Spoke with patient's family at this site. 02/05 patient is awake and alert and oriented not in acute distress, remains on BiPAP at the moment, patient did not tolerate off BiPAP yesterday. We can try again to keep her off of it. Repeat chest x-ray see the atelectasis. She has been diuresed with pulse dose Lasix. Urine output is 3.5 L with balance -1 L. lab this morning with BUN of 43 this is similar to yesterday and creatinine is down to 1.5 from 1.8. We will repeat chest x-ray today and tomorrow. Remainder of the lab with leukocytosis worsening and patient had fever 100.2 this AM. We will up the coverage of the antibiotic discontinue Zosyn and start patient on merem. Continue doxy and fluconazole. Patient complained of back pain, will place lidocain patch. Ultram PRN. Glucose over 300 despite long acting insulin. Will start insulin drip, increase long acting. Continue TPN. Spoke with patient and her granddaughter. 02/06 patient is awake alert oriented no acute event overnight. She is very debilitated. Vital signs blood pressure 160/75 heart rate is 99. T-max is 99.7. She is on high-flow nasal cannula at 25 L with 40% FiO2 saturation oxygen 99%. We can wean it down as tolerated to keep sats greater 92%. Patient has been diuresed yesterday with pulse dose Lasix now Her urine output is 3.5 L with-28 cc balance. Her renal function is improved BUN is 45 and creatinine is down to 1.4 from 1.5. Chemistry with sodium 148 this is up from 146 yesterday potassium is 3.5 chloride is 114. Bicarb is 32 . Glucose over has been up trended so patient was started on insulin drip yesterday. Continue insulin drip per protocl, continue TPN with added insulin in the bag. Continue with daily diuresis. Chest xray in AM. 02/07 patient is awake alert and oriented very weak but following commands appropriately. There is no event overnight patient reported no abdominal pain. At this time patient will need physical therapy to gain some more muscle strength . Otherwise remarkable lab this morning with improving renal function, creatinine is 1.2 down from 1.4 BUN is 55. Patient has been diuresed with Lasix 40 daily. She will still need diuretic given pleural effusion, we will decrease to 20 mg daily. She has put out 2.7 L with balance of +500 cc. She had bowel movement. Continue with the liquid diet as tolerated. We will continue with TPN with insulin. Insulin drip has been discontinued yesterday. Continue with Lantus. We will decrease insulin in the TPN. Continue with current antibiotic doxycycline, meropenem, fluconazole. Chest x-ray repeated this morning with persistent right pleural effusion no change since yesterday. She has been able to come off of BiPAP for longer period of time yesterday all day off of BiPAP. This morning patient has been switched to nasal cannula at 5 L. Continue with incentive spirometry. Repeat cxr and coag in AM. Will assess lung field with US. From critical standpoint patient is stable to be downgraded to PCU. 02/08 patient is awake alert and oriented x3 not acute distress. Patient is laying down in bed back to bed from recliner this morning assisted by Physical therapy. Lab this morning with creatinine of 1.3 this is up trending slightly from 1.2 BUN is 60 this is up from 55 and bicarb is 33 this from 32. Urine output is 3.8 L with -1.5 L balance. Patient has been doing well oxygenating, chest x-ray with right pleural effusion persisted but much better compared to yesterday. We did increase the Lasix to q.12 hours from daily yesterday, but g ivtom worsened renal function, we will hold this today. Also, patient already had bowel movement x2. She had been started on diet and now advanced to a full liquid diet per surgery. We can dc TPN. She remains on O2 support at 3LNC. Sat 98%. 2 hours of bipap overnight. We can make bipap PRN. Downgrade to surgical floor. 02/09-patient is awake and oriented x3 but lethargic. Upgraded to the ICU per General surgery request due to high risk for decompensation. Patient continues receiving TPN nutrition via PICC line. Patient has been febrile with a T-max of 101.7 and a T low of 97.2 in the last 24 hours. Heart rate in the 80s re spiratory rate 23 blood pressure 122/65 with O2 sat of 96% on 3 L via nasal cannula. Urine output of 1.9 L in last 24 hours with a I&O balance-604 mL patient has had frequent bowel movements today at loose stools. Pending IR eval for possible I&D of diverticular abscess. On laboratory white count increased today to 24 H&H 9.7/30.7 platelet count is [id number]. Chemistries sodium 136 potassium is 5.2 on repeat on ABG 4.7, BUN 72 creatinine 1.5 random glucose 199 mg/dL with a procalcitonin of 0.54 increased. Patient continues on meropenem and fluconazole and Zyvox has been added per ID. 02/10-patient is awake alert and oriented x3, encephalopathy has resolved. She is hemodynamically stable off pressors with a blood pressure of 131/64 heart rate in the 80s respiratory rate 20 on 3 L via nasal cannula afebrile with a T- max of 99.9 in the last 24 hours with a T low of 98.4. She continues on parenteral nutrition via PICC line. Per IR unable to perform I&D of diverticular abscess due to location. Patient had 1 L of urine output in the last 24 hours with a positive balance of 639 mL patient had two bowel movements. On laboratory WBCs are trending down today 15.7 H&H is 8.2/25.6 with a platelet count of [id number]. Chemistries sodium 132 chloride 100 carbon dioxide 30 BUN 60 creatinine 1.4 GFR of 38 glucose 150 mg/dL, CRP 94.8 total protein 5.3 albumin 1.5. On chest x-ray mild bilateral pulmonary infiltrates are seen may be related to mild pulmonary vascular congestion with possible superimposed pneumonitis, elevation of right hemidiaphragm. Awaiting further recommendations from surgical standpoint. For now patient is stable to downgrade from ICU. Patient's current code status DNR and DNI. 02/11 - patient was transferred out of ICU where she was being cared for secondary to sepsis. Patient was found to acute diverticulitis with contained perforation. Patient was also found to have a diverticular abscess. IR was consulted for percutaneous drain placement however interventional radiologist was not able to place a drain secondary to location of the diverticular abscess. General surgery has been consulted. Patient does continue to be very weak, deconditioned and debilitated. Patient continues to be hypoxemic requiring2 L via nasal cannula. Patient continues on IV antibiotics as per Infectious Disease and white count is trending down. As per today's labs show a white count of 10.8. We obtain a chest x-ray today which was unremarkable. Instructed nursing to wean patient off O2 as tolerated. We will continue to follow with you. 02/12 - patient is seen evaluated at the bedside. Patient is lying in bed resting quietly continues to be weak, deconditioned and hypoxemic on 2 L via nasal cannula patient is accompanied by multiple family members. No acute changes reported overnight. Patient was started on clear liquid diet yesterday and thus far tolerating well. Patient's family reports patient having bowel movements. Patient remains afebrile. White count is within normal limits. Patient does report that her respiratory status continues to improve daily. Instructed nursing to wean off O2 as tolerated. Surgical team has been consulted and currently pending evaluation and recommendation. For now recommend continue IV antibiotics per Infectious Disease. 02/13 - patient is seen lying in bed resting quietly continues to be weak and debilitated. Patient is being weaned off O2 and currently on room air with no signs of respiratory distress. Patient reports her respiratory status continues to improve daily. Patient continues on clear liquid diet and tolerating well. As per daughter, patient had a bowel movement earlier this morning. Patient also continues on TPN. Recommend to discontinue as patient is tolerating oral diet. Surgical team has been consulted regarding the diverticular abscess and still pending evaluation and recommendations. For now recommend continue IV antibiotics as per Infectious Disease. From pulmonary standpoint, patient is stable. Continue to follow up with you. 02/14 - patient is seen lying in bed resting quietly with no signs of acute distress. Patient is accompanied by multiple family members. Per family, cesar ent slept well overnight. Patient remains on room air denies dyspnea. Patient continues denies chest discomfort, chest pain, or shortness on breath. No acute changes reported overnight. Patient continues on TPN despite tolerating oral diet. Recommend to discontinue TPN. Patient continues on IV antibiotics as per Infectious Disease. Patient remains stable from pulmonary standpoint. REVIEW OF SYSTEMS: General: No malaise or fever. Neurological: No fainting episodes or seizures. HEENT: No nasal congestion or nasal secretion. Respiratory: No cough, yes to shortness of breath on minimal exertion, no wheezing Cardiac: No chest pain or palpitations. Gastrointestinal: No vomiting yes to loose stools Genitourinary: No dysuria hematuria. Skin: No rashes or lesions. Hematological: No bruises or bleeding. Musculoskeletal: No joint pains or arthralgias. Psychiatric: No depression or panic attacks. PHYSICAL EXAM: GENERAL: Patient awake alert and oriented x3 HEENT: EOMI, Sclera non icteric, moist mucosa NECK: Supple, no JVD, trachea midline LUNGS: Clear breath sounds bilaterally. No wheezes HEART: Regular rate and rhythm. Normal S1 and S2, without murmurs ABD: Abdomen soft, nontender. Bowel sounds present EXT: No clubbing cyanosis or edema NEURO: Patient deconditioned awake alert and oriented x3. Vital Signs (last 8hr) Date Time Temp Pulse Resp B/P (MAP) Pulse Ox O2 Delivery O2 Flow Rate FiO2 02/15/24 11:41 100.2 122 18 152/73 98 Room Air 02/15/24 08:08 99.0 121 22 166/81 96 Room Air LABS: Hematology Labs: Test 02/15/24 03:59 Range/Units White Blood Count 8.8 4.8-10.8 K/uL Red Blood Count 2.94 L 4.00-5.50 MIL/uL Hemoglobin 8.1 L 12.0-16.0 g/dL Hematocrit 25.7 L 36-48 % Mean Corpuscular Volume 87.4 79-99 fL Mean Corpuscular Hemoglobin 27.6 27.0-33.0 pg Mean Corpuscular Hemoglobin Concent 31.5 L 32.0-36.0 g/dL Red Cell Distribution Width 14.9 11.0-15.5 % Platelet Count 356 130-400 K/uL Mean Platelet Volume 10.1 7.5-10.5 fL Nucleated Red Blood Cells 0.0 0.0-0.19 % Chemistry Labs: Test 02/15/24 10:46 02/15/24 03:59 Range/Units Whole Blood Glucose 151 H 70-110 MG/DL Sodium Level 134 L 136-145 mmol/L Potassium Level 4.6 3.5-5.1 mmol/L Chloride Level 101 101-111 mmol/L Carbon Dioxide Level 29 21-32 mmol/L Blood Urea Nitrogen 29 H 7-18 mg/dL Creatinine 1.0 0.5-1.0 mg/dL Glomerular Filtration Rate Calc 57 >90 mL/min Random Glucose 108 H 70-105 mg/dL Total Calcium 9.1 8.5-10.1 mg/dL Procalcitonin 0.09 0.05-0.5 ng/mL DIAGNOSTICS / RADIOLOGY RESULTS: [ ] PLAN NEURO: Minimize central acting medications as possible. Maintain fall precautions, adequate lighting during the day PULMONARY: Supplemental 02 as needed. Maintain aspiration precautions at all times CARDIOVASCULAR: Follow hemodynamics. Vital signs per facility protocol GI & NUTRITION: Continue with nutritional support. Continue stool softeners and laxatives as needed. KIDNEYS & ELECTROLYTES: Strict monitoring of intake, output and overall fluid balance. Avoid nephrotoxic medications to the extent possible. Medications to be dosed according to renal function. Monitor electrolytes and replace as needed ENDOCRINE: Maintain blood glucose between 100-180 at all times. Hypoglycemia protocol in place INFECTIOUS DISEASE: Trend temperature, WBC and procalcitonin level Follow cultures, deescalate antibiotics as soon as possible. Panculture if new onset fever ONCOLOGY/HEMATOLOGY/COAGULATION: Monitor for s/s of bleeding Monitor hemoglobin, coagulation studies as needed SKIN: Pressure ulcer prevention per facility protocol Specialty mattress ORTHO/REHAB: Continue PT/OT Prophylaxis: Continue GI and DVT prophylaxis Code Status: Do not resuscitate Disposition: [facility] Munroeen as per attending. Other: Total patient care time exceeds 35 minutes excluding all procedures. ATTESTATION BY PHYSICIAN I reviewed the documentation, medical decision making, and treatment plan as noted by the mid-level provider above. I agree with the findings and plan of care. Isreal Oleary MD, ECTOR NP Feb 15, 2024 13:11
[2024-02-15 16:35] VITALS: BP 154/77; PULSE 122; RESP 21; TEMP 99.5
[2024-02-15 20:00] VITALS: BP 168/84; PULSE 123; RESP 20; TEMP 98.2; O2SAT 92
[2024-02-16] VITALS (10 sets, daily range): BP systolic 135–159; BP diastolic 74–89; PULSE 110–130; RESP 20–24; TEMP 98.2–100.4; O2SAT 91–99
[2024-02-16] MEDS: HUMAN IV SCH (06:09)
[2024-02-16] MEDS: MAG IV SCH (06:09)
[2024-02-16] MEDS: CALC IV SCH (06:09)
[2024-02-16] MEDS: SODIUM IV SCH (06:09)
[2024-02-16] MEDS: [UNRECOGNIZED DRUG - OTHER] IV SCH (06:09)
[2024-02-16] MEDS: INSULIN REGULAR IV SCH (06:09)
[2024-02-16] MEDS: POT IV SCH (06:09)
[2024-02-16] MEDS: ACET IV SCH (06:09)
[2024-02-16] MEDS: CHLOR IV SCH (06:09)
--- NOTE | 2024-02-16 11:41 | PN ---
INFECTIOUS DISEASE PROGRESS NOTE Date of Service: Feb 16, 2024 SUBJECTIVE: Patient was seen and examined at bedside in room 413. Patient is awake, alert and oriented. Patient had a low-grade fever of 100.4 this morning. Patient continues on linezolid, meropenem and fluconazole IV. Patient tolerating full liquid diet well. Reported feeling nauseated yesterday but no reports of nausea today. Patient has a skin laceration on the left lateral leg caused during transferring from the chair to the bed. Patient has been referred to [facility] and pending insurance authorization. We will continue to monitor. PHYSICAL EXAM EYES: Anicteric. Pupils equal and reactive. HENT: No oral thrush seen, moist Oral mucosa. NECK: Supple, no JVD or thyromegaly. LUNGS: Good air entry. No rales, no rhonchi. Oxygen at 2LPM via nasal cannula. CARDIOVASCULAR: S1, S2 regular. No murmur heard. ABDOMEN: Soft, non tender, bowel sounds present, no organomegaly CENTRAL NERVOUS SYSTEM: Awake, alert, oriented x 3. SKIN: No rashes, no swelling. LYMPHATICS: No peripheral lymphadenopathy. MUSCULOSKELETAL: No joint swelling, erythema or tenderness. EXTREMITIES: No cyanosis or clubbing. Weakness. BACK: No deformity, no pressure ulcer. GENITOURINARY: No dysuria or hematuria. Vital Sign (Last 12 Hours) 02/16/24 02/16/24 02/16/24 02/16/24 00:00 04:00 07:44 07:55 Temp 98.4 98.2 100.4 Pulse 130 128 119 Resp 20 20 20 B/P (MAP) 155/74 140/77 Pulse Ox 94 92 O2 Delivery Room Air Room Air N/A Room Air FiO2 21 02/16/24 08:00 Temp 100.4 Pulse 130 Resp 21 B/P (MAP) 135/79 Pulse Ox 91 O2 Delivery Room Air Intake & Output (last 24hrs) 02/15/24 02/15/24 02/16/24 14:59 22:59 06:59 Intake Total 520 ml 0 ml Output Total 960 ml 1300 ml Balance -440 ml -1300 ml LABS: Laboratory: Test 02/16/24 10:56 02/15/24 03:59 Range/Units Whole Blood Glucose 110 70-110 MG/DL White Blood Count 8.8 4.8-10.8 K/uL Red Blood Count 2.94 L 4.00-5.50 MIL/uL Hemoglobin 8.1 L 12.0-16.0 g/dL Hematocrit 25.7 L 36-48 % Mean Corpuscular Volume 87.4 79-99 fL Mean Corpuscular Hemoglobin 27.6 27.0-33.0 pg Mean Corpuscular Hemoglobin Concent 31.5 L 32.0-36.0 g/dL Red Cell Distribution Width 14.9 11.0-15.5 % Platelet Count 356 130-400 K/uL Mean Platelet Volume 10.1 7.5-10.5 fL Nucleated Red Blood Cells 0.0 0.0-0.19 % Sodium Level 134 L 136-145 mmol/L Potassium Level 4.6 3.5-5.1 mmol/L Chloride Level 101 101-111 mmol/L Carbon Dioxide Level 29 21-32 mmol/L Blood Urea Nitrogen 29 H 7-18 mg/dL Creatinine 1.0 0.5-1.0 mg/dL Glomerular Filtration Rate Calc 57 >90 mL/min Random Glucose 108 H 70-105 mg/dL Total Calcium 9.1 8.5-10.1 mg/dL Procalcitonin 0.09 0.05-0.5 ng/mL ASSESSMENT: Diverticulitis with perforation. Intra-abdominal abscess. Sepsis. Leukocytosis, improving. Diabetes mellitus. Debility. PLAN: Repeat blood culture. Continue linezolid. Continue meropenem. Continue fluconazole IV. Monitor electrolytes. Patient is currently on TPN. Advance diet as recommended by General surgery. Continue physical therapy. Continue GI prophylaxis. Patient has been referred to [facility] and pending insurance authorization. This case was reviewed and discussed with my supervising physician and the above assessment and plan was formulated and agreed upon. ATTESTATION BY PHYSICIAN I have seen and examined the patient. I reviewed the documentation, medical decision making, and treatment plan as noted by the mid-level provider above. I agree with the findings and plan of care. GABBI OGDEN MD, MIRTA L [facility] Feb 16, 2024 11:41
--- NOTE | 2024-02-16 12:54 | PN ---
[facility] PROGRESS NOTE Date Patient Seen: Feb 16, 2024 Time of Visit: 12:51 Supervising Physician: Anirudh Consulting Physician: Dr Morgan Outpatient Specialists: NA Inpatient Consults: Dr. Narayanan, Dr. Bustamante, Dr Gonzalez PROBLEM LIST: Acute hypoxic and hypercapnic respiratory failure secondary to below - resolved Sepsis - POA resolved DM type II, with hyperglycemia, POA small rt pleural effusion, POA not large enough for thoracentesis on POC US Elevated Rt hemidiaphragm POA Acute diverticulitis with contained perforation, - suspect polymicrobial peritonitis- evaluated by General surgery, no surgical intervention at this time Diverticula Abscess 4.2 x [address] 02/09 Non anion gap metabolic acidosis- resolved Acute renal failure- secondary to ATN from sepsis - improved Acute complicated cystitis - POA -ruled out by cx Hypernatremia, POA resolved Chronic congestive heart failure- preserved EF LVEF 60%, POA Acute metabolic acidosis, POA- resolved Acute encephalopathy, POA- resolved Hypertension, POA Hyperlipidemia, POA Plan Summary: Supplemental oxygen as needed Continue full liquid diet and advance as tolerates DC TPN once tolerating oral intake Continue IV antibiotics as per Infectious Disease Follow Surgery recommendations Prognosis remains guarded PT evaluate and treat Out of [id number] as tolerates INTERVAL HISTORY: 02/03 patient is lethargic but answering questions appropriately. She is oriented to person but disoriented to place time and situation. Patient was upgraded to ICU yesterday after rapid response initiation for decreased mental status. Overnight with the CT scan of the head with no acute intracranial bleed or any significant finding. ABG was done yesterday with metabolic acidosis. Patient received sodium bicarbonate x1 overnight. Chemistry this morning with sodium 144 potassium 3.9 chloride 114, bicarb 22, BUN is 46 creatinine is 2.0 renal function has improved. Patient has put out 400 cc of urine output. We will place a Tellez catheter for strict I/O, and repeat UA, blood culture, fungal culture. Patient is on Zosyn antibiotic. Adjusted per renal function. We will add GPC coverage and antifungal given abdominal abscess. We will also repeat CT scan of the abdomen to see the progression of the abscess. If remains the same and/ or worsening, we will request IR to drain this. Patient remains on BiPAP 09/02/2039%. ABG this morning with pH 7.39, pCO2 46 PO2 101. Bicarb is 22.7 O2 sat is 97%. Base excess-3.5. This is mainly metabolic acidosis with some component of respiratory acidosis. Will give a trial with high flow NC and see how she does. In the mean time, nutrition is poor albumin low, per family she has not been eating well over a week. Given diverticulitis, will start TPN. Spoke with the patient's family, son daughter and patient's . DNR/DNI has been requested and we will kellie this. Condition is guarded. We will keep her in ICU. 02/04 patient remains on noninvasive positive pressure ventilation since yesterday, unable to wean it off for break for too long. Patient developed hypercapnia with encephalopathy after 30 minutes off of bipap. Venous blood gas this morning with pH 7.309, pCO2 46, PO2 is 136. Bicarb is 22. Base excess is- 3.6. We will continue to utilize NIPPV for hypercapnia. Continue to follow with the blood gases in the morning. Her chest x-ray was with right hemidiaphragm elevation. Patient also has pulmonary congestion/ pleural effusion. Diuretic has been requested. Continue strict I's and o's. Continue with tellez. Remainder of the lab her renal function has improved, creatinine is 1.8 down from 1.9. BUN is also down to 43 from 45. Glucose however is high at 330 , patient has been started on TPN yesterday. We will increase insulin sliding scale and start long-acting insulin. She remains NPO. In the meantime CT scan of the abdomen was repeated yesterday with persistent abscess in the pelvic area which we had requested IR to drain this however given location and size, she is not candidate for percutaneous drain placement. For now broad antibiotic therapy and antifungal. We will continue to keep patient in the ICU given hypercapnia requiring NIPPV. LVEF is preserved with 60% Spoke with patient's family at this site. 02/05 patient is awake and alert and oriented not in acute distress, remains on BiPAP at the moment, patient did not tolerate off BiPAP yesterday. We can try again to keep her off of it. Repeat chest x-ray see the atelectasis. She has been diuresed with pulse dose Lasix. Urine output is 3.5 L with balance -1 L. lab this morning with BUN of 43 this is similar to yesterday and creatinine is down to 1.5 from 1.8. We will repeat chest x-ray today and tomorrow. Remainder of the lab with leukocytosis worsening and patient had fever 100.2 this AM. We will up the coverage of the antibiotic discontinue Zosyn and start patient on merem. Continue doxy and fluconazole. Patient complained of back pain, will place lidocain patch. Ultram PRN. Glucose over 300 despite long acting insulin. Will start insulin drip, increase long acting. Continue TPN. Spoke with patient and her granddaughter. 02/06 patient is awake alert oriented no acute event overnight. She is very debilitated. Vital signs blood pressure 160/75 heart rate is 99. T-max is 99.7. She is on high-flow nasal cannula at 25 L with 40% FiO2 saturation oxygen 99%. We can wean it down as tolerated to keep sats greater 92%. Patient has been diuresed yesterday with pulse dose Lasix now Her urine output is 3.5 L with-28 cc balance. Her renal function is improved BUN is 45 and creatinine is down to 1.4 from 1.5. Chemistry with sodium 148 this is up from 146 yesterday potassium is 3.5 chloride is 114. Bicarb is 32 . Glucose over has been up trended so patient was started on insulin drip yesterday. Continue insulin drip per protocl, continue TPN with added insulin in the bag. Continue with daily diuresis. Chest xray in AM. 02/07 patient is awake alert and oriented very weak but following commands appropriately. There is no event overnight patient reported no abdominal pain. At this time patient will need physical therapy to gain some more muscle strength . Otherwise remarkable lab this morning with improving renal function, creatinine is 1.2 down from 1.4 BUN is 55. Patient has been diuresed with Lasix 40 daily. She will still need diuretic given pleural effusion, we will decrease to 20 mg daily. She has put out 2.7 L with balance of +500 cc. She had bowel movement. Continue with the liquid diet as tolerated. We will continue with TPN with insulin. Insulin drip has been discontinued yesterday. Continue with Lantus. We will decrease insulin in the TPN. Continue with current antibiotic doxycycline, meropenem, fluconazole. Chest x-ray repeated this morning with persistent right pleural effusion no change since yesterday. She has been able to come off of BiPAP for longer period of time yesterday all day off of BiPAP. This morning patient has been switched to nasal cannula at 5 L. Continue with incentive spirometry. Repeat cxr and coag in AM. Will assess lung field with US. From critical standpoint patient is stable to be downgraded to PCU. 02/08 patient is awake alert and oriented x3 not acute distress. Patient is laying down in bed back to bed from recliner this morning assisted by Physical therapy. Lab this morning with creatinine of 1.3 this is up trending slightly from 1.2 BUN is 60 this is up from 55 and bicarb is 33 this from 32. Urine output is 3.8 L with -1.5 L balance. Patient has been doing well oxygenating, chest x-ray with right pleural effusion persisted but much better compared to yesterday. We did increase the Lasix to q.12 hours from daily yesterday, but gi jeanette worsened renal function, we will hold this today. Also, patient already had bowel movement x2. She had been started on diet and now advanced to a full liquid diet per surgery. We can dc TPN. She remains on O2 support at 3LNC. Sat 98%. 2 hours of bipap overnight. We can make bipap PRN. Downgrade to surgical floor. 02/09-patient is awake and oriented x3 but lethargic. Upgraded to the ICU per General surgery request due to high risk for decompensation. Patient continues receiving TPN nutrition via PICC line. Patient has been febrile with a T-max of 101.7 and a T low of 97.2 in the last 24 hours. Heart rate in the 80s res piratory rate 23 blood pressure 122/65 with O2 sat of 96% on 3 L via nasal cannula. Urine output of 1.9 L in last 24 hours with a I&O balance-604 mL patient has had frequent bowel movements today at loose stools. Pending IR eval for possible I&D of diverticular abscess. On laboratory white count increased today to 24 H&H 9.7/30.7 platelet count is [id number]. Chemistries sodium 136 potassium is 5.2 on repeat on ABG 4.7, BUN 72 creatinine 1.5 random glucose 199 mg/dL with a procalcitonin of 0.54 increased. Patient continues on meropenem and fluconazole and Zyvox has been added per ID. 02/10-patient is awake alert and oriented x3, encephalopathy has resolved. She is hemodynamically stable off pressors with a blood pressure of 131/64 heart rate in the 80s respiratory rate 20 on 3 L via nasal cannula afebrile with a T- max of 99.9 in the last 24 hours with a T low of 98.4. She continues on parenteral nutrition via PICC line. Per IR unable to perform I&D of diverticular abscess due to location. Patient had 1 L of urine output in the last 24 hours with a positive balance of 639 mL patient had two bowel movements. On laboratory WBCs are trending down today 15.7 H&H is 8.2/25.6 with a platelet count of [id number]. Chemistries sodium 132 chloride 100 carbon dioxide 30 BUN 60 creatinine 1.4 GFR of 38 glucose 150 mg/dL, CRP 94.8 total protein 5.3 albumin 1.5. On chest x-ray mild bilateral pulmonary infiltrates are seen may be related to mild pulmonary vascular congestion with possible superimposed pneumonitis, elevation of right hemidiaphragm. Awaiting further recommendations from surgical standpoint. For now patient is stable to downgrade from ICU. Patient's current code status DNR and DNI. 02/11 - patient was transferred out of ICU where she was being cared for secondary to sepsis. Patient was found to acute diverticulitis with contained perforation. Patient was also found to have a diverticular abscess. IR was consulted for percutaneous drain placement however interventional radiologist was not able to place a drain secondary to location of the diverticular abscess. General surgery has been consulted. Patient does continue to be very weak, deconditioned and debilitated. Patient continues to be hypoxemic requiring2 L via nasal cannula. Patient continues on IV antibiotics as per Infectious Disease and white count is trending down. As per today's labs show a white count of 10.8. We obtain a chest x-ray today which was unremarkable. Instructed nursing to wean patient off O2 as tolerated. We will continue to follow with you. 02/12 - patient is seen evaluated at the bedside. Patient is lying in bed resting quietly continues to be weak, deconditioned and hypoxemic on 2 L via nasal cannula patient is accompanied by multiple family members. No acute changes reported overnight. Patient was started on clear liquid diet yesterday and thus far tolerating well. Patient's family reports patient having bowel movements. Patient remains afebrile. White count is within normal limits. Patient does report that her respiratory status continues to improve daily. Instructed nursing to wean off O2 as tolerated. Surgical team has been consulted and currently pending evaluation and recommendation. For now recommend continue IV antibiotics per Infectious Disease. 02/13 - patient is seen lying in bed resting quietly continues to be weak and debilitated. Patient is being weaned off O2 and currently on room air with no signs of respiratory distress. Patient reports her respiratory status continues to improve daily. Patient continues on clear liquid diet and tolerating well. As per daughter, patient had a bowel movement earlier this morning. Patient also continues on TPN. Recommend to discontinue as patient is tolerating oral diet. Surgical team has been consulted regarding the diverticular abscess and still pending evaluation and recommendations. For now recommend continue IV antibiotics as per Infectious Disease. From pulmonary standpoint, patient is stable. Continue to follow up with you. 02/14 - patient is seen lying in bed resting quietly with no signs of acute distress. Patient is accompanied by multiple family members. Per family, patie nt slept well overnight. Patient remains on room air denies dyspnea. Patient continues denies chest discomfort, chest pain, or shortness on breath. No acute changes reported overnight. Patient continues on TPN despite tolerating oral diet. Recommend to discontinue TPN. Patient continues on IV antibiotics as per Infectious Disease. Patient remains stable from pulmonary standpoint. 02/15 - Patient is seen and evaluated at the bedside. PT is accompanied by her daughter. Pt remains on room air with no signs of respiratory distress. Pt's diet was advanced to full liquid and so far tolerating well. Pt continues on IV abts as per ID. Pt remains stable from pulmonary standpoint. REVIEW OF SYSTEMS: General: No malaise or fever. Neurological: No fainting episodes or seizures. HEENT: No nasal congestion or nasal secretion. Respiratory: No cough, yes to shortness of breath on minimal exertion, no wheezing Cardiac: No chest pain or palpitations. Gastrointestinal: No vomiting yes to loose stools Genitourinary: No dysuria hematuria. Skin: No rashes or lesions. Hematological: No bruises or bleeding. Musculoskeletal: No joint pains or arthralgias. Psychiatric: No depression or panic attacks. PHYSICAL EXAM: GENERAL: Patient awake alert and oriented x3 HEENT: EOMI, Sclera non icteric, moist mucosa NECK: Supple, no JVD, trachea midline LUNGS: Clear breath sounds bilaterally. No wheezes HEART: Regular rate and rhythm. Normal S1 and S2, without murmurs ABD: Abdomen soft, nontender. Bowel sounds present EXT: No clubbing cyanosis or edema NEURO: Patient deconditioned awake alert and oriented x3. Vital Signs (last 8hr) Date Time Temp Pulse Resp B/P (MAP) Pulse Ox O2 Delivery O2 Flow Rate FiO2 02/16/24 12:00 98.8 120 24 153/89 92 Nasal Cannula 2.0 02/16/24 08:00 100.4 130 21 135/79 91 Room Air 02/16/24 07:55 119 20 N/A Room Air 21 02/16/24 07:44 100.4 LABS: Hematology Labs: Test 02/15/24 03:59 Range/Units White Blood Count 8.8 4.8-10.8 K/uL Red Blood Count 2.94 L 4.00-5.50 MIL/uL Hemoglobin 8.1 L 12.0-16.0 g/dL Hematocrit 25.7 L 36-48 % Mean Corpuscular Volume 87.4 79-99 fL Mean Corpuscular Hemoglobin 27.6 27.0-33.0 pg Mean Corpuscular Hemoglobin Concent 31.5 L 32.0-36.0 g/dL Red Cell Distribution Width 14.9 11.0-15.5 % Platelet Count 356 130-400 K/uL Mean Platelet Volume 10.1 7.5-10.5 fL Nucleated Red Blood Cells 0.0 0.0-0.19 % Chemistry Labs: Test 02/16/24 10:56 02/15/24 03:59 Range/Units Whole Blood Glucose 110 70-110 MG/DL Sodium Level 134 L 136-145 mmol/L Potassium Level 4.6 3.5-5.1 mmol/L Chloride Level 101 101-111 mmol/L Carbon Dioxide Level 29 21-32 mmol/L Blood Urea Nitrogen 29 H 7-18 mg/dL Creatinine 1.0 0.5-1.0 mg/dL Glomerular Filtration Rate Calc 57 >90 mL/min Random Glucose 108 H 70-105 mg/dL Total Calcium 9.1 8.5-10.1 mg/dL Procalcitonin 0.09 0.05-0.5 ng/mL DIAGNOSTICS / RADIOLOGY RESULTS: [ ] PLAN NEURO: Minimize central acting medications as possible. Maintain fall precautions, adequate lighting during the day PULMONARY: Supplemental 02 as needed. Maintain aspiration precautions at all times CARDIOVASCULAR: Follow hemodynamics. Vital signs per facility protocol GI & NUTRITION: Continue with nutritional support. Continue stool softeners and laxatives as needed. KIDNEYS & ELECTROLYTES: Strict monitoring of intake, output and overall fluid balance. Avoid nephrotoxic medications to the extent possible. Medications to be dosed according to renal function. Monitor electrolytes and replace as needed ENDOCRINE: Maintain blood glucose between 100-180 at all times. Hypoglycemia protocol in place INFECTIOUS DISEASE: Trend temperature, WBC and procalcitonin level Follow cultures, deescalate antibiotics as soon as possible. Panculture if new onset fever ONCOLOGY/HEMATOLOGY/COAGULATION: Monitor for s/s of bleeding Monitor hemoglobin, coagulation studies as needed SKIN: Pressure ulcer prevention per facility protocol Specialty mattress ORTHO/REHAB: Continue PT/OT Prophylaxis: Continue GI and DVT prophylaxis Code Status: Do not resuscitate Disposition: [facility] as per attending. Other: Total patient care time exceeds 35 minutes excluding all procedures. ATTESTATION BY PHYSICIAN I reviewed the documentation, medical decision making, and treatment plan as noted by the mid-level provider above. I agree with the findings and plan of care. Isreal Oleary MD, ECTOR N BEAN Feb 16, 2024 12:54
--- NOTE | 2024-02-16 13:04 | CONS ---
GASTROENTEROLOGY CONSULTATION NOTE Date of Consultation: Feb 16, 2024 Time of Consultation: 13:04 History of Present Illness: This is a 79-year-old female with past medical history of type 2 diabetes, hypertension, dyslipidemia, CHF, COPD, dementia, pulmonary hypertension, chronic kidney disease who presented due to diarrhea and abdominal pain. She also had UTI symptoms. Upon further evaluation she underwent CT abdomen and pelvis on 02/01/2024 that revealed acute mild sigmoid diverticulitis with contained perforation and developing small 2.8 cm pelvic abscess. Patient is being followed by surgery. Review of Systems: CONSTITUTIONAL: No malaise or change in sensation of wellbeing. ENMT: No rhinorrhea, otorrhea, sinus pain, ear ache. CARDIOVASCULAR: No angina, palpitations, orthopnea or paroxysmal dyspnea. RESPIRATORY: No SOB. GASTROINTESTINAL: No abdominal pain, nausea, vomiting, diarrhea, hematemesis, melena or change in the patient's habitual bowel movements consistency/number. GENITOURINARY: No dysuria, hematuria or change in bladder continence. MUSCULOSKELETAL: No new muscle pain or decrease in muscular strength. No new joint swelling, redness or tenderness. SKIN: No new rash. Past Medical History: PAST MEDICAL HISTORY: Type 2 diabetes, hypertension, dyslipidemia, congestive heart failure, COPD, dementia, pulmonary hypertension. The patient has chronic kidney disease also. ALLERGIES: No known drug allergies. REVIEW OF SYSTEMS: There has been no fever, chills, seizures, loss of consciousness, no sore throat. No diplopia, dysarthria or dysphonia. No chest pain, palpitation. No cough, wheeze or rhonchi. No nausea or vomiting. No dysuria, urgency. Coded Allergies: No Known Drug Allergies (Unverified Allergy, Unknown, 02/01/24) Physical Exam: GEN: Awake, alert, oriented in person, time and place, and in no acute distress. HEENT: No sinus tenderness. Tympanic membranes were not examined. No rhinorrhea. Oral pharyngeal mucosa is pink, moist and within normal limits. Neck is supple with no cervical lymphadenopathy, thyromegaly or JVD. CHEST: Inspection, palpation and percussion of the chest were unremarkable. Lung auscultation revealed normal breath sounds bilaterally. CARDIAC: PMI is within normal limits. Heart sounds are regular. Normal S1, S2. No gallop or murmur. ABD: Soft, non-tender and not distended. No peritoneal signs on palpation. No organomegaly. Normal bowel sounds. EXT: No cyanosis or clubbing. No edema. SKIN: Intact. No rashes. JOINTS: No evidence of synovitis or acute arthritis. NEURO: Alert and oriented to name, place and person. Cranial nerve examination is unremarkable. No focal motor deficits. Normal speech. Gait is normal. Strength is normal. Vital Sign (Last 24 Hours) 02/16/24 02/16/24 07:55 12:00 Temp 98.8 Pulse 120 Resp 24 B/P (MAP) 153/89 Pulse Ox 92 O2 Delivery Nasal Cannula O2 Flow Rate 2.0 FiO2 21 Intake & Output (last 24hrs) 02/15/24 02/15/24 02/16/24 15:00 23:00 07:00 Intake Total 520 ml 0 ml Output Total 960 ml 1300 ml Balance -440 ml -1300 ml Laboratory: [ ] Laboratory: Test 02/16/24 10:56 02/15/24 03:59 Range/Units Whole Blood Glucose 110 70-110 MG/DL White Blood Count 8.8 4.8-10.8 K/uL Red Blood Count 2.94 L 4.00-5.50 MIL/uL Hemoglobin 8.1 L 12.0-16.0 g/dL Hematocrit 25.7 L 36-48 % Mean Corpuscular Volume 87.4 79-99 fL Mean Corpuscular Hemoglobin 27.6 27.0-33.0 pg Mean Corpuscular Hemoglobin Concent 31.5 L 32.0-36.0 g/dL Red Cell Distribution Width 14.9 11.0-15.5 % Platelet Count 356 130-400 K/uL Mean Platelet Volume 10.1 7.5-10.5 fL Nucleated Red Blood Cells 0.0 0.0-0.19 % Sodium Level 134 L 136-145 mmol/L Potassium Level 4.6 3.5-5.1 mmol/L Chloride Level 101 101-111 mmol/L Carbon Dioxide Level 29 21-32 mmol/L Blood Urea Nitrogen 29 H 7-18 mg/dL Creatinine 1.0 0.5-1.0 mg/dL Glomerular Filtration Rate Calc 57 >90 mL/min Random Glucose 108 H 70-105 mg/dL Total Calcium 9.1 8.5-10.1 mg/dL Procalcitonin 0.09 0.05-0.5 ng/mL Current Medications Medications (Trade) Dose Ordered Sig/Ana Route PRN Reason Start Time Stop Time Status Last Admin Dose Admin Acetaminophen (TYLenol 325MG TAB) 650 mg Q6H PRN PO FEVER 02/10/24 06:00 03/11/24 05:59 02/16/24 07:44 650 MG Acetaminophen (TYLenol 650MG SUPPOSITORY) 650 mg Q6H PRN RC FEVER 02/05/24 13:30 03/06/24 13:29 02/05/24 13:19 650 MG Albumin Human 50 ml @ 50 mls/hr Q6H IV 02/11/24 09:30 02/11/24 10:21 DC Atenolol (Atenolol) 50 mg DAILY PO 02/02/24 09:00 02/10/24 08:39 DC 02/09/24 10:25 50 MG Chromium/Copper/ Manganese/Zinc 1.5 ml/ Multivitamins/ Minerals 5 ml/ Amino Acids/ Electrolytes/ Dextrose 1,000 ml @ 83 mls/hr AD IV 02/09/24 19:00 02/10/24 06:33 DC 02/09/24 20:26 83 MLS/HR Chromium/Copper/ Manganese/Zinc 3 ml/Multivitamins/ Minerals 10 ml/ Amino Acids/ Electrolytes/ Dextrose 2,000 ml @ 83 mls/hr AD IV 02/05/24 20:00 02/06/24 06:47 DC Chromium/Copper/ Manganese/Zinc 3 ml/Multivitamins/ Minerals 10 ml/Aa 5 %/Calcium/Lytes/ Dext 20 % 1,000 ml @ 80 mls/hr AD IV 02/09/24 18:30 03/10/24 18:29 Cancel Dextrose/Sodium Chloride 1,000 ml @ 75 mls/hr [id number] IV 02/01/24 18:30 02/05/24 13:10 DC 02/04/24 08:36 75 MLS/HR Dicyclomine HCl (Bentyl 20mg Tab) 20 mg TID PO 02/02/24 09:00 02/09/24 17:08 DC 02/09/24 10:24 20 MG Doxycycline Hyclate 250 ml @ 125 mls/hr Q12H IV 02/04/24 10:00 02/09/24 09:59 DC 02/08/24 21:35 125 MLS/HR Famotidine (Pepcid 20mg Vial) 20 mg Q24H IV 02/10/24 21:00 03/11/24 20:59 02/15/24 20:07 20 MG Fat Emulsion Intravenous 250 ml @ 42 mls/hr QODAY@2100 IV 02/06/24 21:00 03/07/24 20:59 02/14/24 20:51 42 MLS/HR Fluconazole/ Sodium Chloride 200 ml @ 100 mls/hr DAILY IV 02/04/24 10:00 03/05/24 09:59 02/16/24 09:00 100 MLS/HR Furosemide (LASix 20MG VIAL) 20 mg DAILY IV 02/09/24 09:00 02/08/24 13:09 DC Furosemide (LASix 20MG VIAL) 20 mg Q12H IV 02/08/24 21:00 02/09/24 13:39 DC 02/09/24 10:26 20 MG Furosemide (LASix 40MG VIAL) 40 mg DAILY IV 02/06/24 11:00 02/08/24 10:29 DC 02/08/24 08:37 40 MG Furosemide (LASix 40MG VIAL) 40 mg DAILY IV 02/07/24 09:00 02/06/24 10:35 DC Heparin Sodium (Porcine) (HEParin 5,000 UNIT VIAL) 5,000 unit Q12H SQ 02/11/24 09:00 03/12/24 08:59 02/16/24 08:52 5,000 UNIT Home Med (Home Medication) DAILY PO 02/02/24 09:00 02/09/24 17:22 DC 02/09/24 10:27 1 EACH Home Med (Home Medication) (Semaglutide (Rybelsus) 7 MG) DAILY PO 02/02/24 09:00 03/03/24 08:59 02/09/24 10:27 1 EACH Hydralazine HCl (APRESOLine 20MG INJ) 20 mg Q4H PRN IV ADMINISTER FOR SBP > 160 02/06/24 11:00 03/07/24 10:59 02/08/24 02:28 20 MG Insulin Glargine (LANtus 100 UNITS/ML 10 ML VIAL) 15 units BID@0730,2100 SQ 02/05/24 10:00 02/06/24 09:35 DC 02/06/24 08:12 15 UNITS Insulin Glargine (LANtus 100 UNITS/ML 10 ML VIAL) 25 units BID@0730,2100 SQ 02/06/24 21:00 02/06/24 10:01 DC Insulin Glargine (LANtus 100 UNITS/ML 10 ML VIAL) 25 units BID@0730,2100 SQ 02/06/24 21:00 03/07/24 20:59 02/15/24 20:08 25 UNITS Insulin Human Regular (humuLIN R 100 UNIT/ML 3ML) INSULIN SLIDING SCAL... ACHS SQ 02/01/24 21:00 02/05/24 09:56 DC 02/05/24 06:27 7 UNIT Insulin Human Regular (humuLIN R 100 UNIT/ML 3ML) INSULIN SLIDING SCAL... ACHS SQ 02/05/24 11:30 02/06/24 09:35 DC 02/06/24 06:41 16 UNIT Insulin Human Regular (humuLIN R 100 UNIT/ML 3ML) INSULIN SLIDING SCAL... ACHS SQ 02/07/24 21:00 03/08/24 20:59 02/10/24 05:57 6 UNIT Insulin Human Regular 100 unit/ Sodium Chloride 100 ml @ 0 mls/hr AD PRN IV HYPERGLYCEMIA PROTOCOL 02/06/24 10:00 03/07/24 09:59 02/07/24 15:04 7 MLS/HR Labetalol HCl (TRANdate 20MG SYG) 10 mg Q6H PRN IV IF SBP GREATER THAN 170 02/10/24 09:00 03/11/24 08:59 Leptospermum Honey (Medihoney) 1 appl DAILY TP 02/03/24 09:00 03/04/24 08:59 02/15/24 10:37 1 APPL Lidocaine (Lidocaine Patch 4%) 1 each DAILY TP 02/06/24 10:00 03/07/24 09:59 02/16/24 08:42 1 EACH Linezolid 300 ml @ 150 mls/hr Q12H IV 02/10/24 15:00 02/20/24 14:59 02/16/24 04:23 150 MLS/HR Lorazepam (AtiVAN) 1 mg HS PRN PO ANXIETY/AGITATION 02/15/24 07:00 03/16/24 06:59 Losartan Potassium (CozAAR 100MG TAB) 100 mg DAILY PO 02/02/24 09:00 02/04/24 12:12 DC 02/03/24 08:38 100 MG Magnesium Oxide (Mag-Ox) 400 mg DAILY PO 02/02/24 09:00 03/03/24 08:59 02/16/24 08:42 400 MG Magnesium Sulfate 50 ml @ 0 mls/hr PROTOCOL PRN IV MAGNESIUM PROTOCOL 02/02/24 08:30 03/03/24 08:29 02/02/24 10:25 25 MLS/HR Magnesium Sulfate 50 ml @ 0 mls/hr PROTOCOL PRN IV MAGNESIUM PROTOCOL 02/06/24 11:30 02/06/24 11:16 DC Meropenem 1 gm/ Sodium Chloride 100 ml @ 33.333 mls/ hr Q12H IV 02/06/24 10:00 02/16/24 09:59 DC 02/15/24 20:07 33.333 MLS/HR Metronidazole (flaGYL) 500 mg Q8H PO 02/01/24 18:30 02/01/24 18:41 DC Metronidazole/ Sodium Chloride (flaGYL) 500 mg Q8H IV 02/01/24 19:00 02/02/24 07:17 DC 02/02/24 02:36 500 MG Multivitamins/ Minerals 5 ml/ Chromium/Copper/ Manganese/Zinc 1.5 ml/Amino Acids/ Electrolytes/ Dextrose 1,000 ml @ 83 mls/hr AD IV 02/10/24 13:30 02/11/24 08:14 DC 02/10/24 21:50 83 MLS/HR Olanzapine (ZyPREXA 5 mg tab) 5 mg DAILY PO 02/02/24 09:00 02/10/24 16:58 DC 02/09/24 10:26 5 MG Ondansetron HCl (zoFRAN 4MG INJ) 4 mg Q6H PRN IVP NAUSEA/VOMITING 02/09/24 23:00 03/10/24 22:59 02/15/24 11:34 4 MG Paroxetine HCl (PAxil 20 MG TABLET) 20 mg BID PO 02/02/24 09:00 03/03/24 08:59 02/16/24 08:42 20 MG Piperacillin Sod/ Tazobactam Sod (Zosyn 3.375gm+NS 50ml) 2.25 gm Q12H IV 02/02/24 06:30 02/02/24 07:17 DC Piperacillin Sod/ Tazobactam Sod (Zosyn 3.375gm+NS 50ml) 3.375 gm Q12H IV 02/02/24 07:30 02/06/24 09:48 DC 02/06/24 06:43 3.375 GM Potassium Chloride 100 ml @ 100 mls/hr AD PRN IV POTASSIUM PROTOCOL 02/06/24 11:30 03/07/24 11:29 02/07/24 08:43 100 MLS/HR Potassium Chloride (K-Dur/Klor-Con 20meq) 20 meq AD PRN PO POTASSIUM PROTOCOL 02/06/24 11:30 03/07/24 11:29 Potassium Chloride (KCl 10% Elixir 20meq/15ml) 20 meq AD PRN PO POTASSIUM PROTOCOL 02/06/24 11:30 03/07/24 11:29 Sodium Chloride (NS Flush 10ml) 10 ml DAILY IV 02/03/24 09:00 03/04/24 08:59 02/16/24 09:00 10 ML Sodium/Pot/Mag/ Calc/Chlor/Acet 20 ml/Insulin Human Regular 10 unit/Amino Acids/ Dextrose 1,000 ml @ 83 mls/hr Q12H IV 02/15/24 19:00 02/16/24 18:59 02/16/24 06:09 83 MLS/HR Tramadol HCl (UltRAM) 50 mg Q6H PRN PO MODERATE PAIN (4-6) 02/06/24 10:00 02/10/24 16:47 DC 02/07/24 22:04 50 MG Wound Care/ Dressing Products (Venelex Ointment) BID TP 02/02/24 09:00 03/03/24 08:59 02/15/24 20:11 1 GM Diagnostics / Radiology: [COPY/PASTE HERE IF NO REPORTS PLEASE DELETE SECTION] Assessment: Sigmoid diverticulitis with contained perforation Plan: Follow surgical recommendations Patient not candidate for colonoscopy given the above Continue GI prophylaxis Advance diet as tolerated Avoid NSAIDs Antireflux measures Monitor H&H and transfuse as needed Call with questions, concerns or change in clinical status Patient to follow-up at clinic post discharge Thank you for this consult [facility] Feb 16, 2024 13:04
[2024-02-16] MEDS: MEROPENEM 1 GM in 0.9%NACL 100ML 100 ML IV SCH (15:00)
--- NOTE | 2024-02-16 15:43 | PN ---
INFECTIOUS DISEASE FOLLOWUP NOTE DATE OF SERVICE: 02/15/2024 SUBJECTIVE: Remained on TPN. Patient is tolerating antibiotics. No nausea or vomiting. Abdominal pain is resolved. Fever has resolved. No cough, no shortness of breath. No dysuria or hematuria. No bleeding tendency. PHYSICAL EXAMINATION: VITAL SIGNS: Temperature 97.5. EYES: No icterus. Pupils equal and reactive. HENT: No oral thrush seen. Moist oral mucosa. NECK: Supple, no JVD or thyromegaly. LUNGS: Good air entry. No rales, no rhonchi. CARDIOVASCULAR: S1, S2 regular. No murmur heard. ABDOMEN: Full, soft. Bowel sound is present. Obese. No organomegaly. CENTRAL NERVOUS SYSTEM: Awake, alert, oriented x 3. No focal deficits. SKIN: No rashes, no itchiness. LYMPHATIC: No peripheral lymphadenopathy. BACK: No deformity, no pressure ulcer. HEMATOLOGIC: No bleeding or petechial lesion present. ASSESSMENT: A 79-year-old female with multiple problems including: * Sepsis. * Intra-abdominal abscess. * Diverticulitis with perforation. * Obesity. * Diabetes mellitus. * Debility. PLAN: * Continue nutritional support. * Continue TPN. * Continue meropenem. * Continue linezolid. * Continue fluconazole. * Continue DVT prophylaxis. * Monitor electrolytes and correct as needed. TID: [id number] RECEIPT: [id number] MTDD
--- NOTE | 2024-02-16 22:31 | PN ---
PROGRESS NOTE PROGRESS NOTE DATE OF PROGRESS NOTE: 02/16/24 SUBJECTIVE: Patient has no significant clinical improvement VITAL SIGNS Vital Signs Date Time Temp Pulse Resp B/P (MAP) Pulse Ox O2 Delivery O2 Flow Rate FiO2 02/16/24 20:17 99.0 113 22 142/88 98 Nasal Cannula 2.0 24 PHYSICAL EXAM: OBJECTIVE: GENERAL: She is currently, awake, alert, oriented in person and place with the BiPAP in place. VITAL SIGNS: Blood pressure 146/63, pulse 101, respiratory rate 25. HEENT: Normocephalic and atraumatic. LUNGS: Decreased breath sounds in right anterior and posterior hemithorax. No wheezes. No rhonchi. HEART: S1, S2 are clear. ABDOMEN: Soft. Nontender. No masses. LABORATORY: Laboratory Result(s) Test 02/16/24 05:16 02/16/24 10:56 02/16/24 16:17 02/16/24 19:38 Whole Blood Glucose 101 MG/DL (70-110) 110 MG/DL (70-110) 133 MG/DL (70-110) 124 MG/DL (70-110) INPATIENT MEDS: Current Medications Medications Dose Ordered Sig/Ana Start Time Stop Time Status Last Admin Home Med (Semaglutide (Rybelsus) 7 MG) DAILY 02/02/24 09:00 03/03/24 08:59 02/09/24 10:27 Paroxetine HCl 20 mg BID 02/02/24 09:00 03/03/24 08:59 02/16/24 20:29 Magnesium Oxide 400 mg DAILY 02/02/24 09:00 03/03/24 08:59 02/16/24 08:42 Magnesium Sulfate 50 ml @ 0 mls/hr PROTOCOL PRN 02/02/24 08:30 03/03/24 08:29 02/02/24 10:25 Wound Care/ Dressing Products BID 02/02/24 09:00 03/03/24 08:59 02/16/24 20:36 Sodium Chloride 10 ml DAILY 02/03/24 09:00 03/04/24 08:59 02/16/24 09:00 Leptospermum Honey 1 appl DAILY 02/03/24 09:00 03/04/24 08:59 02/16/24 09:00 Fluconazole/ Sodium Chloride 200 ml @ 100 mls/hr DAILY 02/04/24 10:00 03/05/24 09:59 02/16/24 09:00 Acetaminophen 650 mg Q6H PRN 02/05/24 13:30 03/06/24 13:29 02/05/24 13:19 Insulin Human Regular 100 unit/ Sodium Chloride 100 ml @ 0 mls/hr AD PRN 02/06/24 10:00 03/07/24 09:59 02/07/24 15:04 Lidocaine 1 each DAILY 02/06/24 10:00 03/07/24 09:59 02/16/24 08:42 Insulin Glargine 25 units BID@0730,2100 02/06/24 21:00 03/07/24 20:59 02/15/24 20:08 Hydralazine HCl 20 mg Q4H PRN 02/06/24 11:00 03/07/24 10:59 02/08/24 02:28 Potassium Chloride 100 ml @ 100 mls/hr AD PRN 02/06/24 11:30 03/07/24 11:29 02/07/24 08:43 Potassium Chloride 20 meq AD PRN 02/06/24 11:30 03/07/24 11:29 Potassium Chloride 20 meq AD PRN 02/06/24 11:30 03/07/24 11:29 Fat Emulsion Intravenous 250 ml @ 42 mls/hr QODAY@2100 02/06/24 21:00 03/07/24 20:59 02/16/24 20:36 Insulin Human Regular INSULIN SLIDING SCAL... ACHS 02/07/24 21:00 03/08/24 20:59 02/10/24 05:57 Ondansetron HCl 4 mg Q6H PRN 02/09/24 23:00 03/10/24 22:59 02/15/24 11:34 Acetaminophen 650 mg Q6H PRN 02/10/24 06:00 03/11/24 05:59 02/16/24 07:44 Labetalol HCl 10 mg Q6H PRN 02/10/24 09:00 03/11/24 08:59 Linezolid 300 ml @ 150 mls/hr Q12H 02/10/24 15:00 02/20/24 14:59 02/16/24 15:20 Famotidine 20 mg Q24H 02/10/24 21:00 03/11/24 20:59 02/16/24 20:30 Heparin Sodium (Porcine) 5,000 unit Q12H 02/11/24 09:00 03/12/24 08:59 02/16/24 20:36 Lorazepam 1 mg HS PRN 02/15/24 07:00 03/16/24 06:59 Meropenem 1 gm/ Sodium Chloride 100 ml @ 33.333 mls/ hr Q12H 02/16/24 15:00 02/26/24 14:59 02/16/24 15:00 PROBLEM LIST: (1) Acute diverticulitis ICD Code: K57.92 - Diverticulitis of intestine, part unspecified, without perforation or abscess without bleeding (2) UTI (urinary tract infection) ICD Code: N39.0 - Urinary tract infection, site not specified (3) Hypomagnesemia ICD Code: E83.42 - Hypomagnesemia (4) Acute kidney injury ICD Code: N17.9 - Acute kidney failure, unspecified PLAN: Echocardiogram shows ejection fraction 60% to 65%, calcified aortic valve, mild aortic stenosis. CT scan of the abdomen and pelvis shows inflammatory changes in sigmoid consistent with diverticulitis with an adjacent 2.8 collection of air and fluid consistent with contained perforation unchanged compared to previous examination. Mild bibasilar atelectasis. ASSESSMENT AND PLAN: * Respiratory failure with hypoxemia. Continue with BiPAP. Clinically improved *Sepsis secondary to diverticulitis and perforated colon. Continue with recommendations by Surgery. She is scheduled to have drainage catheter in the right lower quadrant. * Right lower lobe pneumonia and pleural effusion. The patient may need to have thoracentesis scheduled. * Acute renal failure, improving. * Type 2 diabetes. Sliding scale. * Hypertension, controlled. * Change in mental status secondary to hypoxemia and sepsis significantly improved. The patient is back to her baseline. * Severe malnutrition supportive treatment continue with TPN Perforated colon with fluid contained intraperitoneal collection 2.8 cm follow with repeat CT as no surgical management or intervention Radiology being planned to drain we do the CT scan today Patient is DNR Improved diarrhea Improved confusion supportive treatment Severe malnutrition albumin supplementation Progress diet as tolerated start with clear liquids today continue with TPN ISAIAH FLORES MD Feb 16, 2024 22:31
[2024-02-17] VITALS (7 sets, daily range): BP systolic 127–169; BP diastolic 70–98; PULSE 81–125; RESP 18–22; TEMP 97.9–98.6; O2SAT 98–99
[2024-02-17 04:51] LABS: HEMATOCRIT 24.6 % (36-48); MEAN CORPUSCULAR HGB CONC 31.7 g/dL (32.0-36.0); MEAN CORPUSCULAR VOLUME 88.2 fL (79-99); RED BLOOD CELL COUNT(AUTO) 2.79 MIL/uL (4.00-5.50); RED CELL DISTRIBUTION WIDTH 15.1 % (11.0-15.5); WHITE BLOOD COUNT (AUTO) 7.4 K/uL (4.8-10.8)
[2024-02-17 04:59] LABS: POTASSIUM 4.9 mmol/L (3.5-5.1)
[2024-02-17] MEDS: HUMAN IV SCH (05:25)
[2024-02-17] MEDS: INSULIN REGULAR IV SCH (05:25)
[2024-02-17] MEDS: CHLOR IV SCH (05:25)
[2024-02-17] MEDS: ACET IV SCH (05:25)
[2024-02-17] MEDS: MAG IV SCH (05:25)
[2024-02-17] MEDS: [UNRECOGNIZED DRUG - OTHER] IV SCH (05:25)
[2024-02-17] MEDS: CALC IV SCH (05:25)
[2024-02-17] MEDS: SODIUM IV SCH (05:25)
[2024-02-17] MEDS: POT IV SCH (05:25)
--- NOTE | 2024-02-17 13:22 | PN ---
INFECTIOUS DISEASE PROGRESS NOTE Date of Service: Feb 17, 2024 SUBJECTIVE: Patient was seen and examined at bedside in room 413. Patient is awake, alert and oriented x 3. Patient continues on TPN and per report patient is been referred to LTAC. Tolerating full liquid diet well. No fever , temperature is 98.6 and a WBC of 7.4. A repeat UA came back negative. Patient continues on linezolid, meropenem and fluconazole IV. No reports of nauseated or vomiting today. We will continue to monitor. PHYSICAL EXAM EYES: Anicteric. Pupils equal and reactive. HENT: No oral thrush seen, moist Oral mucosa. NECK: Supple, no JVD or thyromegaly. LUNGS: Good air entry. No rales, no rhonchi. Oxygen at 2LPM via nasal cannula. CARDIOVASCULAR: S1, S2 regular. No murmur heard. ABDOMEN: Soft, non tender, bowel sounds present, no organomegaly CENTRAL NERVOUS SYSTEM: Awake, alert, oriented x 3. SKIN: No rashes, no swelling. LYMPHATICS: No peripheral lymphadenopathy. MUSCULOSKELETAL: No joint swelling, erythema or tenderness. EXTREMITIES: No cyanosis or clubbing. Weakness. BACK: No deformity, no pressure ulcer. GENITOURINARY: No dysuria or hematuria. Vital Sign (Last 12 Hours) 02/17/24 02/17/24 02/17/24 02/17/24 04:17 06:37 08:00 12:00 Temp 98.1 97.9 98.6 Pulse 109 121 125 125 Resp 20 20 18 18 B/P (MAP) 127/98 149/77 169/78 Pulse Ox 100 99 99 O2 Delivery Nasal Cannula N/Cannula Low lpm Nasal Cannula Nasal Cannula O2 Flow Rate 2.0 2.0 2.0 2.0 FiO2 24 28 l Intake & Output (last 24hrs) 02/16/24 02/16/24 02/17/24 14:59 22:59 06:59 Intake Total 720 ml 1300.0 ml Output Total 300 ml 1400 ml 1600 ml Balance -300 ml -680 ml -300.0 ml LABS: Laboratory: Test 02/17/24 11:33 02/17/24 04:41 Range/Units Whole Blood Glucose 168 H 70-110 MG/DL White Blood Count 7.4 4.8-10.8 K/uL Red Blood Count 2.79 L 4.00-5.50 MIL/uL Hemoglobin 7.8 L 12.0-16.0 g/dL Hematocrit 24.6 L 36-48 % Mean Corpuscular Volume 88.2 79-99 fL Mean Corpuscular Hemoglobin 28.0 27.0-33.0 pg Mean Corpuscular Hemoglobin Concent 31.7 L 32.0-36.0 g/dL Red Cell Distribution Width 15.1 11.0-15.5 % Platelet Count 355 130-400 K/uL Mean Platelet Volume 9.2 7.5-10.5 fL Nucleated Red Blood Cells 0.0 0.0-0.19 % Sodium Level 132 L 136-145 mmol/L Potassium Level 4.9 3.5-5.1 mmol/L Chloride Level 100 L 101-111 mmol/L Carbon Dioxide Level 29 21-32 mmol/L Blood Urea Nitrogen 32 H 7-18 mg/dL Creatinine 1.0 0.5-1.0 mg/dL Glomerular Filtration Rate Calc 57 >90 mL/min Random Glucose 120 H 70-105 mg/dL Total Calcium 9.4 8.5-10.1 mg/dL Magnesium Level 2.00 1.80-2.40 mg/dL ASSESSMENT: Diverticulitis with perforation. Intra-abdominal abscess. Sepsis. Leukocytosis, improving. Diabetes mellitus. Debility. PLAN: Continue linezolid. Continue meropenem. Continue fluconazole IV. We will follow up on the repeat blood cultures. Patient is currently on TPN. Advance diet as recommended by General surgery. Continue physical therapy. Continue GI prophylaxis. Patient being referred to LTAC. This case was reviewed and discussed with my supervising physician and the above assessment and plan was formulated and agreed upon. ATTESTATION BY PHYSICIAN I have seen and examined the patient. I reviewed the documentation, medical decision making, and treatment plan as noted by the mid-level provider above. I agree with the findings and plan of care. GABBI OGDEN MD, [facility] Feb 17, 2024 13:22
[2024-02-17] MEDS: metoPROLOL tartRATE 50 MG TAB PO ONE (13:26)
--- NOTE | 2024-02-17 13:45 | PN ---
[facility] PROGRESS NOTE Date Patient Seen: Feb 17, 2024 Time of Visit: 13:44 Supervising Physician: Dr. Tao Thurston Consulting Physician: Dr Morgan Outpatient Specialists: NA Inpatient Consults: Dr. Narayanan, Dr. Bustamante, Dr Gonzalez PROBLEM LIST: Acute hypoxemic and hypercapnic respiratory failure secondary to below Small right pleural effusion, POA not large enough for thoracentesis on POC US Acute diverticulitis with contained perforation, - suspect polymicrobial peritonitis- evaluated by General surgery, no surgical intervention at this time Diverticula Abscess 4.2 x [address] 02/09 Sepsis present on admission Acute metabolic acidosis, POA, resolved Acute encephalopathy, POA, resolved DM type II, with hyperglycemia, POA Elevated Right hemidiaphragm, POA Non anion gap metabolic acidosis-, resolved Acute renal failure on CKD- secondary to ATN from sepsis, improved Hypernatremia, POA resolved Chronic congestive heart failure- preserved EF LVEF 60% Hypertension Hyperlipidemia Plan Summary: ABG, BNP and CXR Supplemental oxygen as needed Continue full liquid diet and advance as tolerates DC TPN once tolerating oral intake Continue IV antibiotics as per Infectious Disease Follow Surgery recommendations Prognosis remains guarded PT evaluate and treat Out of [id number] as tolerates Disposition: per primary team INTERVAL HISTORY: Patient assessed at bedside. Awake, but falls asleep easily. Currently on 02@2LPM via NC. Noticed abdominal breathing, STAT CXR, ABG and BNP ordered. ABG showed PCO2 49, PO2 90.4.BIPAP at bedside. BNP 186. Patient continues on TPN and eating about 25% of full liquid diet. Denies any abdominal pain, nausea or vomiting. Per granddaughter at bedside, they don't want hospice and want aggressive medical treatment. Pending acceptance at SNF, if patient fails SNF, would recommend LTACH. REVIEW OF SYSTEMS: General: No malaise or fever. Neurological: No fainting episodes or seizures. HEENT: No nasal congestion or nasal secretion. Respiratory: No cough, yes to shortness of breath on minimal exertion, no wheezing Cardiac: No chest pain or palpitations. Gastrointestinal: No vomiting yes to loose stools Genitourinary: No dysuria hematuria. Skin: No rashes or lesions. Hematological: No bruises or bleeding. Musculoskeletal: No joint pains or arthralgias. Psychiatric: No depression or panic attacks. PHYSICAL EXAM: GENERAL: Patient awake alert and oriented x3, weak on NC HEENT: EOMI, Sclera non icteric, moist mucosa NECK: Supple, no JVD, trachea midline LUNGS: Clear breath sounds bilaterally. No wheezes HEART: Regular rate and rhythm. Normal S1 and S2, without murmurs ABD: Abdomen soft, nontender. Bowel sounds present EXT: No clubbing cyanosis or edema NEURO: Patient deconditioned awake alert and oriented x3. Vital Signs (last 8hr) Date Time Temp Pulse Resp B/P (MAP) Pulse Ox O2 Delivery O2 Flow Rate FiO2 02/17/24 12:00 98.6 125 18 169/78 99 Nasal Cannula 2.0 02/17/24 08:00 97.9 125 18 149/77 99 Nasal Cannula 2.0 02/17/24 06:37 121 20 N/Cannula Low lpm 2.0 28 LABS: Hematology Labs: Test 02/17/24 04:41 Range/Units White Blood Count 7.4 4.8-10.8 K/uL Red Blood Count 2.79 L 4.00-5.50 MIL/uL Hemoglobin 7.8 L 12.0-16.0 g/dL Hematocrit 24.6 L 36-48 % Mean Corpuscular Volume 88.2 79-99 fL Mean Corpuscular Hemoglobin 28.0 27.0-33.0 pg Mean Corpuscular Hemoglobin Concent 31.7 L 32.0-36.0 g/dL Red Cell Distribution Width 15.1 11.0-15.5 % Platelet Count 355 130-400 K/uL Mean Platelet Volume 9.2 7.5-10.5 fL Nucleated Red Blood Cells 0.0 0.0-0.19 % Chemistry Labs: Test 02/17/24 11:33 02/17/24 04:41 Range/Units Whole Blood Glucose 168 H 70-110 MG/DL Sodium Level 132 L 136-145 mmol/L Potassium Level 4.9 3.5-5.1 mmol/L Chloride Level 100 L 101-111 mmol/L Carbon Dioxide Level 29 21-32 mmol/L Blood Urea Nitrogen 32 H 7-18 mg/dL Creatinine 1.0 0.5-1.0 mg/dL Glomerular Filtration Rate Calc 57 >90 mL/min Random Glucose 120 H 70-105 mg/dL Total Calcium 9.4 8.5-10.1 mg/dL Magnesium Level 2.00 1.80-2.40 mg/dL DIAGNOSTICS / RADIOLOGY RESULTS: PROCEDURE: CXR1VW - CHEST 1VW CHEST 1VW REASON: SOB COMPARISON: 02/13/2024 FINDINGS: Single view of the chest was obtained. Lungs are clear. Heart size is normal. There is no pulmonary vascular congestion. There is marked elevation of the right hemidiaphragm, unchanged. Left-sided PICC line remains in place. Tip is in the left brachiocephalic vein. Mediastinum and bony thorax appear unremarkable. IMPRESSION: 1. Elevated right hemidiaphragm, unchanged, no new finding. Code Status: Do not resuscitate Disposition: [facility] as per attending. Other: Total patient care time exceeds 35 minutes excluding all procedures. LIZETT ALVARADO [facility] Feb 17, 2024 13:45
[2024-02-17 14:10] LABS: ABG BASE EXCESS 1.2 mmol/L (-2.0-3.0); ABG HCO3 27.3 mmol/L (21.0-28.0); ABG OXYGEN SATURATION 96.6 % (94.0-98.0); ABG PCO2 49 mmHg (32-45); ABG PH 7.368 (7.350-7.450); DEVICE COMMENT RR 2LNC; PO2, ARTERIAL BG 90.4 mmHg (83.0-108.0)
[2024-02-17] MEDS ORDERED: MAG IV SCH (15:00)
[2024-02-17] MEDS ORDERED: ACET IV SCH (15:00)
[2024-02-17] MEDS ORDERED: HUMAN IV SCH (15:00)
[2024-02-17] MEDS ORDERED: CHLOR IV SCH (15:00)
[2024-02-17] MEDS ORDERED: [UNRECOGNIZED DRUG - OTHER] IV SCH (15:00)
[2024-02-17] MEDS ORDERED: INSULIN REGULAR IV SCH (15:00)
[2024-02-17] MEDS ORDERED: CALC IV SCH (15:00)
[2024-02-17] MEDS ORDERED: SODIUM IV SCH (15:00)
[2024-02-17] MEDS ORDERED: POT IV SCH (15:00)
--- NOTE | 2024-02-17 15:39 | HMCIMG ---
CHEST 1VW REASON: SOB COMPARISON: 02/13/2024 FINDINGS: Single view of the chest was obtained. Lungs are clear. Heart size is normal. There is no pulmonary vascular congestion. There is marked elevation of the right hemidiaphragm, unchanged. Left-sided PICC line remains in place. Tip is in the left brachiocephalic vein. Mediastinum and bony thorax appear unremarkable. IMPRESSION: 1. Elevated right hemidiaphragm, unchanged, no new finding.
--- NOTE | 2024-02-17 18:37 | PN ---
GASTROENTEROLOGY PROGRESS NOTE Date of Consultation: Feb 17, 2024 Time of Consultation: 18:36 Events / Notes: [ ] Review of Systems: CONSTITUTIONAL: No malaise or change in sensation of wellbeing. ENMT: No rhinorrhea, otorrhea, sinus pain, ear ache. CARDIOVASCULAR: No angina, palpitations, orthopnea or paroxysmal dyspnea. RESPIRATORY: No SOB. GASTROINTESTINAL: No abdominal pain, nausea, vomiting, diarrhea, hematemesis, melena or change in the patient's habitual bowel movements consistency/number. GENITOURINARY: No dysuria, hematuria or change in bladder continence. MUSCULOSKELETAL: No new muscle pain or decrease in muscular strength. No new joint swelling, redness or tenderness. SKIN: No new rash. Physical Exam: GEN: Awake, alert, oriented in person, time and place, and in no acute distress. HEENT: No sinus tenderness. Tympanic membranes were not examined. No rhinorrhea. Oral pharyngeal mucosa is pink, moist and within normal limits. Neck is supple with no cervical lymphadenopathy, thyromegaly or JVD. CHEST: Inspection, palpation and percussion of the chest were unremarkable. Lung auscultation revealed normal breath sounds bilaterally. CARDIAC: PMI is within normal limits. Heart sounds are regular. Normal S1, S2. No gallop or murmur. ABD: Soft, non-tender and not distended. No peritoneal signs on palpation. No organomegaly. Normal bowel sounds. EXT: No cyanosis or clubbing. No edema. SKIN: Intact. No rashes. JOINTS: No evidence of synovitis or acute arthritis. NEURO: Alert and oriented to name, place and person. Cranial nerve examination is unremarkable. No focal motor deficits. Normal speech. Gait is normal. Strength is normal. Vital Signs (last 8hr) Date Time Temp Pulse Resp B/P (MAP) Pulse Ox O2 Delivery O2 Flow Rate FiO2 02/17/24 16:00 98.2 88 18 162/70 99 Nasal Cannula 2.0 02/17/24 12:00 98.6 125 18 169/78 99 Nasal Cannula 2.0 Laboratory: [ ] Laboratory: Test 02/17/24 16:03 02/17/24 15:40 02/17/24 14:08 02/17/24 04:41 Range/Units Whole Blood Glucose 131 H 70-110 MG/DL B-Type Natriuretic Peptide 186 H 0-100 pg/mL Blood Gas Specimen Type Arterial Arterial Blood pH 7.368 7.350-7.450 Arterial Blood Partial Pressure CO2 49 H 32-45 mmHg Arterial Blood Partial Pressure O2 90.4 83.0-108.0 mmHg Arterial Blood HCO3 27.3 21.0-28.0 mmol/L Arterial Blood Oxygen Saturation 96.6 94.0-98.0 % Arterial Blood Base Excess 1.2 -2.0-3.0 mmol/L Blood Gas Temperature 37.0 35.5-37.0 CELSIUS Blood Gas Flow-by 2.00 0.00-15.00 L/min FiO2 28.0 % Blood Gas Specimen Comment RR 2LNC White Blood Count 7.4 4.8-10.8 K/uL Red Blood Count 2.79 L 4.00-5.50 MIL/uL Hemoglobin 7.8 L 12.0-16.0 g/dL Hematocrit 24.6 L 36-48 % Mean Corpuscular Volume 88.2 79-99 fL Mean Corpuscular Hemoglobin 28.0 27.0-33.0 pg Mean Corpuscular Hemoglobin Concent 31.7 L 32.0-36.0 g/dL Red Cell Distribution Width 15.1 11.0-15.5 % Platelet Count 355 130-400 K/uL Mean Platelet Volume 9.2 7.5-10.5 fL Nucleated Red Blood Cells 0.0 0.0-0.19 % Sodium Level 132 L 136-145 mmol/L Potassium Level 4.9 3.5-5.1 mmol/L Chloride Level 100 L 101-111 mmol/L Carbon Dioxide Level 29 21-32 mmol/L Blood Urea Nitrogen 32 H 7-18 mg/dL Creatinine 1.0 0.5-1.0 mg/dL Glomerular Filtration Rate Calc 57 >90 mL/min Random Glucose 120 H 70-105 mg/dL Total Calcium 9.4 8.5-10.1 mg/dL Magnesium Level 2.00 1.80-2.40 mg/dL Current Medications Medications (Trade) Dose Ordered Sig/Ana Route PRN Reason Start Time Stop Time Status Last Admin Dose Admin Acetaminophen (TYLenol 325MG TAB) 650 mg Q6H PRN PO FEVER 02/10/24 06:00 03/11/24 05:59 02/16/24 07:44 650 MG Acetaminophen (TYLenol 650MG SUPPOSITORY) 650 mg Q6H PRN RC FEVER 02/05/24 13:30 03/06/24 13:29 02/05/24 13:19 650 MG Albumin Human 50 ml @ 50 mls/hr Q6H IV 02/11/24 09:30 02/11/24 10:21 DC Atenolol (Atenolol) 50 mg DAILY PO 02/02/24 09:00 02/10/24 08:39 DC 02/09/24 10:25 50 MG Chromium/Copper/ Manganese/Zinc 1.5 ml/ Multivitamins/ Minerals 5 ml/ Amino Acids/ Electrolytes/ Dextrose 1,000 ml @ 83 mls/hr AD IV 02/09/24 19:00 02/10/24 06:33 DC 02/09/24 20:26 83 MLS/HR Chromium/Copper/ Manganese/Zinc 3 ml/Multivitamins/ Minerals 10 ml/ Amino Acids/ Electrolytes/ Dextrose 2,000 ml @ 83 mls/hr AD IV 02/05/24 20:00 02/06/24 06:47 DC Chromium/Copper/ Manganese/Zinc 3 ml/Multivitamins/ Minerals 10 ml/Aa 5 %/Calcium/Lytes/ Dext 20 % 1,000 ml @ 80 mls/hr AD IV 02/09/24 18:30 03/10/24 18:29 Cancel Dextrose/Sodium Chloride 1,000 ml @ 75 mls/hr [id number] IV 02/01/24 18:30 02/05/24 13:10 DC 02/04/24 08:36 75 MLS/HR Dicyclomine HCl (Bentyl 20mg Tab) 20 mg TID PO 02/02/24 09:00 02/09/24 17:08 DC 02/09/24 10:24 20 MG Doxycycline Hyclate 250 ml @ 125 mls/hr Q12H IV 02/04/24 10:00 02/09/24 09:59 DC 02/08/24 21:35 125 MLS/HR Famotidine (Pepcid 20mg Vial) 20 mg Q24H IV 02/10/24 21:00 03/11/24 20:59 02/16/24 20:30 20 MG Fat Emulsion Intravenous 250 ml @ 42 mls/hr QODAY@2100 IV 02/06/24 21:00 03/07/24 20:59 02/16/24 20:36 42 MLS/HR Fluconazole/ Sodium Chloride 200 ml @ 100 mls/hr DAILY IV 02/04/24 10:00 03/05/24 09:59 02/17/24 11:01 100 MLS/HR Furosemide (LASix 20MG VIAL) 20 mg DAILY IV 02/09/24 09:00 02/08/24 13:09 DC Furosemide (LASix 20MG VIAL) 20 mg Q12H IV 02/08/24 21:00 02/09/24 13:39 DC 02/09/24 10:26 20 MG Furosemide (LASix 40MG VIAL) 40 mg DAILY IV 02/06/24 11:00 02/08/24 10:29 DC 02/08/24 08:37 40 MG Furosemide (LASix 40MG VIAL) 40 mg DAILY IV 02/07/24 09:00 02/06/24 10:35 DC Heparin Sodium (Porcine) (HEParin 5,000 UNIT VIAL) 5,000 unit Q12H SQ 02/11/24 09:00 03/12/24 08:59 02/17/24 11:06 5,000 UNIT Home Med (Home Medication) DAILY PO 02/02/24 09:00 02/09/24 17:22 DC 02/09/24 10:27 1 EACH Home Med (Home Medication) (Semaglutide (Rybelsus) 7 MG) DAILY PO 02/02/24 09:00 03/03/24 08:59 02/09/24 10:27 1 EACH Hydralazine HCl (APRESOLine 20MG INJ) 20 mg Q4H PRN IV ADMINISTER FOR SBP > 160 02/06/24 11:00 03/07/24 10:59 02/08/24 02:28 20 MG Insulin Glargine (LANtus 100 UNITS/ML 10 ML VIAL) 15 units BID@0730,2100 SQ 02/05/24 10:00 02/06/24 09:35 DC 02/06/24 08:12 15 UNITS Insulin Glargine (LANtus 100 UNITS/ML 10 ML VIAL) 25 units BID@0730,2100 SQ 02/06/24 21:00 02/06/24 10:01 DC Insulin Glargine (LANtus 100 UNITS/ML 10 ML VIAL) 25 units BID@0730,2100 SQ 02/06/24 21:00 03/07/24 20:59 02/15/24 20:08 25 UNITS Insulin Human Regular (humuLIN R 100 UNIT/ML 3ML) INSULIN SLIDING SCAL... ACHS SQ 02/01/24 21:00 02/05/24 09:56 DC 02/05/24 06:27 7 UNIT Insulin Human Regular (humuLIN R 100 UNIT/ML 3ML) INSULIN SLIDING SCAL... ACHS SQ 02/05/24 11:30 02/06/24 09:35 DC 02/06/24 06:41 16 UNIT Insulin Human Regular (humuLIN R 100 UNIT/ML 3ML) INSULIN SLIDING SCAL... ACHS SQ 02/07/24 21:00 03/08/24 20:59 02/10/24 05:57 6 UNIT Insulin Human Regular 100 unit/ Sodium Chloride 100 ml @ 0 mls/hr AD PRN IV HYPERGLYCEMIA PROTOCOL 02/06/24 10:00 03/07/24 09:59 02/07/24 15:04 7 MLS/HR Labetalol HCl (TRANdate 20MG SYG) 10 mg Q6H PRN IV IF SBP GREATER THAN 170 02/10/24 09:00 03/11/24 08:59 Leptospermum Honey (Medihoney) 1 appl DAILY TP 02/03/24 09:00 03/04/24 08:59 02/17/24 09:00 1 APPL Lidocaine (Lidocaine Patch 4%) 1 each DAILY TP 02/06/24 10:00 03/07/24 09:59 02/17/24 09:00 1 EACH Linezolid 300 ml @ 150 mls/hr Q12H IV 02/10/24 15:00 02/20/24 14:59 02/17/24 14:49 150 MLS/HR Lorazepam (AtiVAN) 1 mg HS PRN PO ANXIETY/AGITATION 02/15/24 07:00 03/16/24 06:59 Losartan Potassium (CozAAR 100MG TAB) 100 mg DAILY PO 02/02/24 09:00 02/04/24 12:12 DC 02/03/24 08:38 100 MG Magnesium Oxide (Mag-Ox) 400 mg DAILY PO 02/02/24 09:00 03/03/24 08:59 02/17/24 11:01 400 MG Magnesium Sulfate 50 ml @ 0 mls/hr PROTOCOL PRN IV MAGNESIUM PROTOCOL 02/02/24 08:30 03/03/24 08:29 02/02/24 10:25 25 MLS/HR Magnesium Sulfate 50 ml @ 0 mls/hr PROTOCOL PRN IV MAGNESIUM PROTOCOL 02/06/24 11:30 02/06/24 11:16 DC Meropenem 1 gm/ Sodium Chloride 100 ml @ 33.333 mls/ hr Q12H IV 02/06/24 10:00 02/16/24 09:59 DC 02/15/24 20:07 33.333 MLS/HR Meropenem 1 gm/ Sodium Chloride 100 ml @ 33.333 mls/ hr Q12H IV 02/16/24 15:00 02/26/24 14:59 02/17/24 17:51 33.333 MLS/HR Metoprolol Tartrate (loprESSOR) 100 mg BID PO 02/17/24 21:00 03/18/24 20:59 Metronidazole (flaGYL) 500 mg Q8H PO 02/01/24 18:30 02/01/24 18:41 DC Metronidazole/ Sodium Chloride (flaGYL) 500 mg Q8H IV 02/01/24 19:00 02/02/24 07:17 DC 02/02/24 02:36 500 MG Multivitamins/ Minerals 5 ml/ Chromium/Copper/ Manganese/Zinc 1.5 ml/Amino Acids/ Electrolytes/ Dextrose 1,000 ml @ 83 mls/hr AD IV 02/10/24 13:30 02/11/24 08:14 DC 02/10/24 21:50 83 MLS/HR Olanzapine (ZyPREXA 5 mg tab) 5 mg DAILY PO 02/02/24 09:00 02/10/24 16:58 DC 02/09/24 10:26 5 MG Ondansetron HCl (zoFRAN 4MG INJ) 4 mg Q6H PRN IVP NAUSEA/VOMITING 02/09/24 23:00 03/10/24 22:59 02/15/24 11:34 4 MG Paroxetine HCl (PAxil 20 MG TABLET) 20 mg BID PO 02/02/24 09:00 03/03/24 08:59 02/17/24 11:02 20 MG Piperacillin Sod/ Tazobactam Sod (Zosyn 3.375gm+NS 50ml) 2.25 gm Q12H IV 02/02/24 06:30 02/02/24 07:17 DC Piperacillin Sod/ Tazobactam Sod (Zosyn 3.375gm+NS 50ml) 3.375 gm Q12H IV 02/02/24 07:30 02/06/24 09:48 DC 02/06/24 06:43 3.375 GM Potassium Chloride 100 ml @ 100 mls/hr AD PRN IV POTASSIUM PROTOCOL 02/06/24 11:30 03/07/24 11:29 02/07/24 08:43 100 MLS/HR Potassium Chloride (K-Dur/Klor-Con 20meq) 20 meq AD PRN PO POTASSIUM PROTOCOL 02/06/24 11:30 03/07/24 11:29 Potassium Chloride (KCl 10% Elixir 20meq/15ml) 20 meq AD PRN PO POTASSIUM PROTOCOL 02/06/24 11:30 03/07/24 11:29 Sodium Chloride (NS Flush 10ml) 10 ml DAILY IV 02/03/24 09:00 03/04/24 08:59 02/17/24 09:00 10 ML Sodium/Pot/Mag/ Calc/Chlor/Acet 20 ml/Insulin Human Regular 10 unit/Amino Acids/ Dextrose 1,000 ml @ 83 mls/hr Q12H IV 02/15/24 19:00 02/16/24 18:59 DC 02/16/24 16:48 83 MLS/HR Sodium/Pot/Mag/ Calc/Chlor/Acet 20 ml/Insulin Human Regular 10 unit/Amino Acids/ Dextrose 1,000 ml @ 83 mls/hr Q12H IV 02/17/24 05:30 02/17/24 15:03 DC 02/17/24 05:25 83 MLS/HR Sodium/Pot/Mag/ Calc/Chlor/Acet 20 ml/Insulin Human Regular 10 unit/Amino Acids/ Dextrose 1,000 ml @ 83 mls/hr Q12H IV 02/17/24 15:00 02/18/24 14:59 Sodium/Pot/Mag/ Calc/Chlor/Acet 40 ml/Insulin Human Regular 10 unit/Amino Acids/ Dextrose 1,000 ml @ 83 mls/hr Q12H IV 02/17/24 15:00 02/18/24 14:59 Cancel Tramadol HCl (UltRAM) 50 mg Q6H PRN PO MODERATE PAIN (4-6) 02/06/24 10:00 02/10/24 16:47 DC 02/07/24 22:04 50 MG Wound Care/ Dressing Products (Venelex Ointment) BID TP 02/02/24 09:00 03/03/24 08:59 02/17/24 09:00 1 GM Diagnostics / Radiology: [COPY/PASTE HERE IF NO REPORTS PLEASE DELETE SECTION] Assessment: Sigmoid diverticulitis with contained perforation Plan: Follow surgical recommendations Patient not candidate for colonoscopy given the above Continue GI prophylaxis Advance diet as tolerated Avoid NSAIDs Antireflux measures Monitor H&H and transfuse as needed Call with questions, concerns or change in clinical status Patient to follow-up at clinic post discharge Thank you for this consult BENJAMIN CURRY [employer] ENG[employer] Feb 17, 2024 18:37
[2024-02-17] MEDS: metoPROLOL tartRATE 50 MG TAB PO SCH (20:20)
[2024-02-18] VITALS (12 sets, daily range): BP systolic 149–168; BP diastolic 65–95; PULSE 73–89; RESP 16–27; TEMP 98.2–99.4; O2SAT 97–99
--- NOTE | 2024-02-18 04:01 | PN ---
SUBJECTIVE: The patient in the medical floor. Continues with oxygen through nasal cannula. Continues with IV antibiotics. The patient was examined at the bedside. She opens eyes to call. Follows minimal commands, minimal verbal response. The patient is status post colon perforation secondary to diverticulitis. The patient is considered not a surgical candidate at this time. PHYSICAL EXAMINATION: GENERAL: She is currently comfortable in bed with oxygen 2 liters via nasal cannula. VITAL SIGNS: Blood pressure 127/98, pulse 109, respiratory rate 20. HEENT: Normocephalic. Atraumatic. LUNGS: Decreased breath sounds bilaterally. HEART: S1, S2 are distant. ABDOMEN: Soft. Nontender. EXTREMITIES: No clubbing or cyanosis. LABORATORY DATA: WBC count 7.4, hemoglobin 7.8, platelets 355. Sodium 132, potassium 4.9, creatinine 1, BUN 32. Random glucose 120. BNP 186. ASSESSMENT AND PLAN: * Respiratory failure with hypoxemia and hypercarbia. Continue supportive care. * sepsis secondary to diverticulitis associated with colon perforation. Continue conservative therapy. The patient is not a candidate for surgery. * Right lower lobe pneumonia and pleural effusion. Continue current therapy. * Acute kidney injury, improving. Continue supportive care. * Type 2 diabetes. Continue with current treatment. * The patient is DNR/DNI. * Urinary tract infection. Continue with current therapy. The patient's condition continues to be guarded. She has not improved significantly in the last few days, the patient's prognosis is poor. She is not a candidate for LTAC. She is a candidate for hospice and palliative care and long-term placement if needed. The patient and family members are aware. We will keep them posted. They agreed on having a conversation with hospice service that I will contact. Follow up in a.m. with results. TID: [id number] RECEIPT: [id number] QIANA
[2024-02-18] MEDS: CALC IV SCH (06:15)
[2024-02-18] MEDS: SODIUM IV SCH (06:15)
[2024-02-18] MEDS: [UNRECOGNIZED DRUG - OTHER] IV SCH (06:15)
[2024-02-18] MEDS: HUMAN IV SCH (06:15)
[2024-02-18] MEDS: MAG IV SCH (06:15)
[2024-02-18] MEDS: ACET IV SCH (06:15)
[2024-02-18] MEDS: POT IV SCH (06:15)
[2024-02-18] MEDS: INSULIN REGULAR IV SCH (06:15)
[2024-02-18] MEDS: CHLOR IV SCH (06:15)
--- NOTE | 2024-02-18 11:03 | PN ---
INFECTIOUS DISEASE PROGRESS NOTE Date of Service: Feb 18, 2024 SUBJECTIVE: Patient was seen and examined at bedside in room 413. Patient is awake, alert and oriented x 3. Patient's family present at bedside stated that patient is not tolerating full liquid diet well and is eating very little. Patient to continue on the TPN and nursing to inform the primary care physician. No reports of fever, temperature is 98.2. We will continue on linezolid, meropenem and fluconazole IV. Per report patient was referred to [facility]. We will continue to monitor. PHYSICAL EXAM EYES: Anicteric. Pupils equal and reactive. HENT: No oral thrush seen, moist Oral mucosa. NECK: Supple, no JVD or thyromegaly. LUNGS: Good air entry. No rales, no rhonchi. Oxygen at 2LPM via nasal cannula. CARDIOVASCULAR: S1, S2 regular. No murmur heard. ABDOMEN: Soft, non tender, bowel sounds present, no organomegaly CENTRAL NERVOUS SYSTEM: Awake, alert, oriented x 3. SKIN: No rashes, no swelling. LYMPHATICS: No peripheral lymphadenopathy. MUSCULOSKELETAL: No joint swelling, erythema or tenderness. EXTREMITIES: No cyanosis or clubbing. Weakness. BACK: No deformity, no pressure ulcer. GENITOURINARY: No dysuria or hematuria. Vital Sign (Last 12 Hours) 02/18/24 02/18/24 02/18/24 02/18/24 00:15 04:09 06:37 07:46 Temp 99.3 98.8 98.2 Pulse 76 86 79 89 Resp 20 22 B/P (MAP) 152/85 157/89 168/95 Pulse Ox 97 99 97 O2 Delivery Nasal Cannula Nasal Cannula N/Cannula Low lpm Nasal Cannula O2 Flow Rate 2.0 2.0 2.0 2.0 FiO2 Intake & Output (last 24hrs) 02/17/24 02/17/24 02/18/24 15:00 23:00 07:00 Intake Total 1400.0 ml Output Total 925 ml 350 ml 900 ml Balance -925 ml -350 ml 500.0 ml LABS: Laboratory: Test 02/18/24 05:35 02/17/24 15:40 02/17/24 14:08 02/17/24 04:41 Range/Units Whole Blood Glucose 135 H 70-110 MG/DL B-Type Natriuretic Peptide 186 H 0-100 pg/mL Blood Gas Specimen Type Arterial Arterial Blood pH 7.368 7.350-7.450 Arterial Blood Partial Pressure CO2 49 H 32-45 mmHg Arterial Blood Partial Pressure O2 90.4 83.0-108.0 mmHg Arterial Blood HCO3 27.3 21.0-28.0 mmol/L Arterial Blood Oxygen Saturation 96.6 94.0-98.0 % Arterial Blood Base Excess 1.2 -2.0-3.0 mmol/L Blood Gas Temperature 37.0 35.5-37.0 CELSIUS Blood Gas Flow-by 2.00 0.00-15.00 L/min FiO2 28.0 % Blood Gas Specimen Comment RR 2LNC White Blood Count 7.4 4.8-10.8 K/uL Red Blood Count 2.79 L 4.00-5.50 MIL/uL Hemoglobin 7.8 L 12.0-16.0 g/dL Hematocrit 24.6 L 36-48 % Mean Corpuscular Volume 88.2 79-99 fL Mean Corpuscular Hemoglobin 28.0 27.0-33.0 pg Mean Corpuscular Hemoglobin Concent 31.7 L 32.0-36.0 g/dL Red Cell Distribution Width 15.1 11.0-15.5 % Platelet Count 355 130-400 K/uL Mean Platelet Volume 9.2 7.5-10.5 fL Nucleated Red Blood Cells 0.0 0.0-0.19 % Sodium Level 132 L 136-145 mmol/L Potassium Level 4.9 3.5-5.1 mmol/L Chloride Level 100 L 101-111 mmol/L Carbon Dioxide Level 29 21-32 mmol/L Blood Urea Nitrogen 32 H 7-18 mg/dL Creatinine 1.0 0.5-1.0 mg/dL Glomerular Filtration Rate Calc 57 >90 mL/min Random Glucose 120 H 70-105 mg/dL Total Calcium 9.4 8.5-10.1 mg/dL Magnesium Level 2.00 1.80-2.40 mg/dL ASSESSMENT: Diverticulitis with perforation. Intra-abdominal abscess. Sepsis. Leukocytosis, improving. Diabetes mellitus. Debility. PLAN: Continue linezolid. Continue meropenem. Continue fluconazole IV. Continue oxygen support. Patient is currently on TPN. Continue nutritional support, currently on full liquid diet. Continue physical therapy. Continue GI prophylaxis. Case management working on placement. This case was reviewed and discussed with my supervising physician and the above assessment and plan was formulated and agreed upon. ATTESTATION BY PHYSICIAN I have seen and examined the patient. I reviewed the documentation, medical decision making, and treatment plan as noted by the mid-level provider above. I agree with the findings and plan of care. GABBI OGDEN MD, MIRTA L FNP Feb 18, 2024 11:03
--- NOTE | 2024-02-18 12:23 | PN ---
[facility] PROGRESS NOTE Date Patient Seen: Feb 18, 2024 Time of Visit: 12:23 Supervising Physician: Dr. Tao Thurston Consulting Physician: Dr Morgan Outpatient Specialists: NA Inpatient Consults: Dr. Narayanan, Dr. Bustamante, Dr Gonzalez PROBLEM LIST: Acute hypoxemic and hypercapnic respiratory failure secondary to below Small right pleural effusion, POA not large enough for thoracentesis on POC US Acute diverticulitis with contained perforation, - suspect polymicrobial peritonitis- evaluated by General surgery, no surgical intervention at this time Diverticula Abscess 4.2 x [address] 02/09 Sepsis present on admission Acute metabolic acidosis, POA, resolved Acute encephalopathy, POA, resolved DM type II, with hyperglycemia, POA Elevated Right hemidiaphragm, POA Non anion gap metabolic acidosis-, resolved Acute renal failure on CKD- secondary to ATN from sepsis, improved Hypernatremia, POA resolved Chronic congestive heart failure- preserved EF LVEF 60% Hypertension Hyperlipidemia Plan Summary: Family undecided on disposition TPN discontinued per primary team Nocturnal CPAP Supplemental oxygen as needed Continue full liquid diet and advance as tolerates Continue IV antibiotics as per Infectious Disease Follow Surgery recommendations Prognosis remains guarded PT evaluate and treat Out of [id number] as tolerates Disposition: per primary team INTERVAL HISTORY: Patient assessed at bedside. Awake, but falls asleep easily. Currently on 02@2LPM via NC. Advised nursing to place patient on CPAP when she naps and at night. Denies any abdominal pain, nausea or vomiting. TPN was discontinued per primary team. Per niece at bedside, patient ate all her meals yesterday but ate about half her breakfast today. No overnight issues per nursing Per daughter at bedside, they don't want patient to go to SNF, because they were told by someone she could stay in the hospital. Advised that patient was stable to go to SNF if accepted, verbalized understanding but pending to make final decision. State they understand she is a high risk for decompensation. REVIEW OF SYSTEMS: General: No malaise or fever. Neurological: No fainting episodes or seizures. HEENT: No nasal congestion or nasal secretion. Respiratory: No cough, yes to shortness of breath on minimal exertion, no wheezing Cardiac: No chest pain or palpitations. Gastrointestinal: No vomiting yes to loose stools Genitourinary: No dysuria hematuria. Skin: No rashes or lesions. Hematological: No bruises or bleeding. Musculoskeletal: No joint pains or arthralgias. Psychiatric: No depression or panic attacks. PHYSICAL EXAM: GENERAL: Patient awake alert and oriented x3, weak on NC HEENT: EOMI, Sclera non icteric, moist mucosa NECK: Supple, no JVD, trachea midline LUNGS: Clear breath sounds bilaterally. No wheezes HEART: Regular rate and rhythm. Normal S1 and S2, without murmurs ABD: Abdomen soft, nontender. Bowel sounds present EXT: No clubbing cyanosis or edema NEURO: Patient deconditioned awake alert and oriented x3. Vital Signs (last 8hr) Date Time Temp Pulse Resp B/P (MAP) Pulse Ox O2 Delivery O2 Flow Rate FiO2 02/18/24 11:31 99.3 86 16 161/84 99 Room Air 02/18/24 08:15 97 Nasal Cannula* 2 28 02/18/24 07:46 98.2 89 22 168/95 97 Nasal Cannula 2.0 02/18/24 06:37 79 22 N/Cannula Low lpm 2.0 28 LABS: Hematology Labs: Test 02/17/24 04:41 Range/Units White Blood Count 7.4 4.8-10.8 K/uL Red Blood Count 2.79 L 4.00-5.50 MIL/uL Hemoglobin 7.8 L 12.0-16.0 g/dL Hematocrit 24.6 L 36-48 % Mean Corpuscular Volume 88.2 79-99 fL Mean Corpuscular Hemoglobin 28.0 27.0-33.0 pg Mean Corpuscular Hemoglobin Concent 31.7 L 32.0-36.0 g/dL Red Cell Distribution Width 15.1 11.0-15.5 % Platelet Count 355 130-400 K/uL Mean Platelet Volume 9.2 7.5-10.5 fL Nucleated Red Blood Cells 0.0 0.0-0.19 % Chemistry Labs: Test 02/18/24 10:56 02/17/24 15:40 02/17/24 04:41 Range/Units Whole Blood Glucose 121 H 70-110 MG/DL B-Type Natriuretic Peptide 186 H 0-100 pg/mL Sodium Level 132 L 136-145 mmol/L Potassium Level 4.9 3.5-5.1 mmol/L Chloride Level 100 L 101-111 mmol/L Carbon Dioxide Level 29 21-32 mmol/L Blood Urea Nitrogen 32 H 7-18 mg/dL Creatinine 1.0 0.5-1.0 mg/dL Glomerular Filtration Rate Calc 57 >90 mL/min Random Glucose 120 H 70-105 mg/dL Total Calcium 9.4 8.5-10.1 mg/dL Magnesium Level 2.00 1.80-2.40 mg/dL DIAGNOSTICS / RADIOLOGY RESULTS: NA Code Status: Do not resuscitate Disposition: [facility] as per attending. LIZETT ALVARADO SALES TEAM MEMBER Feb 18, 2024 12:23
--- NOTE | 2024-02-18 14:35 | PN ---
GASTROENTEROLOGY PROGRESS NOTE Date of Consultation: Feb 18, 2024 Time of Consultation: 14:35 Events / Notes: [ ] Review of Systems: CONSTITUTIONAL: No malaise or change in sensation of wellbeing. ENMT: No rhinorrhea, otorrhea, sinus pain, ear ache. CARDIOVASCULAR: No angina, palpitations, orthopnea or paroxysmal dyspnea. RESPIRATORY: No SOB. GASTROINTESTINAL: No abdominal pain, nausea, vomiting, diarrhea, hematemesis, melena or change in the patient's habitual bowel movements consistency/number. GENITOURINARY: No dysuria, hematuria or change in bladder continence. MUSCULOSKELETAL: No new muscle pain or decrease in muscular strength. No new joint swelling, redness or tenderness. SKIN: No new rash. Physical Exam: GEN: Awake, alert, oriented in person, time and place, and in no acute distress. HEENT: No sinus tenderness. Tympanic membranes were not examined. No rhinorrhea. Oral pharyngeal mucosa is pink, moist and within normal limits. Neck is supple with no cervical lymphadenopathy, thyromegaly or JVD. CHEST: Inspection, palpation and percussion of the chest were unremarkable. Lung auscultation revealed normal breath sounds bilaterally. CARDIAC: PMI is within normal limits. Heart sounds are regular. Normal S1, S2. No gallop or murmur. ABD: Soft, non-tender and not distended. No peritoneal signs on palpation. No organomegaly. Normal bowel sounds. EXT: No cyanosis or clubbing. No edema. SKIN: Intact. No rashes. JOINTS: No evidence of synovitis or acute arthritis. NEURO: Alert and oriented to name, place and person. Cranial nerve examination is unremarkable. No focal motor deficits. Normal speech. Gait is normal. Strength is normal. Vital Signs (last 8hr) Date Time Temp Pulse Resp B/P (MAP) Pulse Ox O2 Delivery O2 Flow Rate FiO2 02/18/24 11:31 99.3 86 16 161/84 99 Room Air 02/18/24 08:15 97 Nasal Cannula* 2 28 02/18/24 07:46 98.2 89 22 168/95 97 Nasal Cannula 2.0 02/18/24 06:37 79 22 N/Cannula Low lpm 2.0 28 Laboratory: [ ] Laboratory: Test 02/18/24 10:56 02/17/24 15:40 02/17/24 14:08 02/17/24 04:41 Range/Units Whole Blood Glucose 121 H 70-110 MG/DL B-Type Natriuretic Peptide 186 H 0-100 pg/mL Blood Gas Specimen Type Arterial Arterial Blood pH 7.368 7.350-7.450 Arterial Blood Partial Pressure CO2 49 H 32-45 mmHg Arterial Blood Partial Pressure O2 90.4 83.0-108.0 mmHg Arterial Blood HCO3 27.3 21.0-28.0 mmol/L Arterial Blood Oxygen Saturation 96.6 94.0-98.0 % Arterial Blood Base Excess 1.2 -2.0-3.0 mmol/L Blood Gas Temperature 37.0 35.5-37.0 CELSIUS Blood Gas Flow-by 2.00 0.00-15.00 L/min FiO2 28.0 % Blood Gas Specimen Comment RR 2LNC White Blood Count 7.4 4.8-10.8 K/uL Red Blood Count 2.79 L 4.00-5.50 MIL/uL Hemoglobin 7.8 L 12.0-16.0 g/dL Hematocrit 24.6 L 36-48 % Mean Corpuscular Volume 88.2 79-99 fL Mean Corpuscular Hemoglobin 28.0 27.0-33.0 pg Mean Corpuscular Hemoglobin Concent 31.7 L 32.0-36.0 g/dL Red Cell Distribution Width 15.1 11.0-15.5 % Platelet Count 355 130-400 K/uL Mean Platelet Volume 9.2 7.5-10.5 fL Nucleated Red Blood Cells 0.0 0.0-0.19 % Sodium Level 132 L 136-145 mmol/L Potassium Level 4.9 3.5-5.1 mmol/L Chloride Level 100 L 101-111 mmol/L Carbon Dioxide Level 29 21-32 mmol/L Blood Urea Nitrogen 32 H 7-18 mg/dL Creatinine 1.0 0.5-1.0 mg/dL Glomerular Filtration Rate Calc 57 >90 mL/min Random Glucose 120 H 70-105 mg/dL Total Calcium 9.4 8.5-10.1 mg/dL Magnesium Level 2.00 1.80-2.40 mg/dL Current Medications Medications (Trade) Dose Ordered Sig/Ana Route PRN Reason Start Time Stop Time Status Last Admin Dose Admin Acetaminophen (TYLenol 325MG TAB) 650 mg Q6H PRN PO FEVER 02/10/24 06:00 03/11/24 05:59 02/16/24 07:44 650 MG Acetaminophen (TYLenol 650MG SUPPOSITORY) 650 mg Q6H PRN RC FEVER 02/05/24 13:30 03/06/24 13:29 02/05/24 13:19 650 MG Albumin Human 50 ml @ 50 mls/hr Q6H IV 02/11/24 09:30 02/11/24 10:21 DC Atenolol (Atenolol) 50 mg DAILY PO 02/02/24 09:00 02/10/24 08:39 DC 02/09/24 10:25 50 MG Chromium/Copper/ Manganese/Zinc 1.5 ml/ Multivitamins/ Minerals 5 ml/ Amino Acids/ Electrolytes/ Dextrose 1,000 ml @ 83 mls/hr AD IV 02/09/24 19:00 02/10/24 06:33 DC 02/09/24 20:26 83 MLS/HR Chromium/Copper/ Manganese/Zinc 3 ml/Multivitamins/ Minerals 10 ml/ Amino Acids/ Electrolytes/ Dextrose 2,000 ml @ 83 mls/hr AD IV 02/05/24 20:00 02/06/24 06:47 DC Chromium/Copper/ Manganese/Zinc 3 ml/Multivitamins/ Minerals 10 ml/Aa 5 %/Calcium/Lytes/ Dext 20 % 1,000 ml @ 80 mls/hr AD IV 02/09/24 18:30 03/10/24 18:29 Cancel Dextrose/Sodium Chloride 1,000 ml @ 75 mls/hr [id number] IV 02/01/24 18:30 02/05/24 13:10 DC 02/04/24 08:36 75 MLS/HR Dicyclomine HCl (Bentyl 20mg Tab) 20 mg TID PO 02/02/24 09:00 02/09/24 17:08 DC 02/09/24 10:24 20 MG Doxycycline Hyclate 250 ml @ 125 mls/hr Q12H IV 02/04/24 10:00 02/09/24 09:59 DC 02/08/24 21:35 125 MLS/HR Famotidine (Pepcid 20mg Vial) 20 mg Q24H IV 02/10/24 21:00 03/11/24 20:59 02/17/24 20:17 20 MG Fat Emulsion Intravenous 250 ml @ 42 mls/hr QODAY@2100 IV 02/06/24 21:00 03/07/24 20:59 02/16/24 20:36 42 MLS/HR Fluconazole/ Sodium Chloride 200 ml @ 100 mls/hr DAILY IV 02/04/24 10:00 03/05/24 09:59 02/18/24 09:08 100 MLS/HR Furosemide (LASix 20MG VIAL) 20 mg DAILY IV 02/09/24 09:00 02/08/24 13:09 DC Furosemide (LASix 20MG VIAL) 20 mg Q12H IV 02/08/24 21:00 02/09/24 13:39 DC 02/09/24 10:26 20 MG Furosemide (LASix 40MG VIAL) 40 mg DAILY IV 02/06/24 11:00 02/08/24 10:29 DC 02/08/24 08:37 40 MG Furosemide (LASix 40MG VIAL) 40 mg DAILY IV 02/07/24 09:00 02/06/24 10:35 DC Heparin Sodium (Porcine) (HEParin 5,000 UNIT VIAL) 5,000 unit Q12H SQ 02/11/24 09:00 03/12/24 08:59 02/18/24 09:10 5,000 UNIT Home Med (Home Medication) DAILY PO 02/02/24 09:00 02/09/24 17:22 DC 02/09/24 10:27 1 EACH Home Med (Home Medication) (Semaglutide (Rybelsus) 7 MG) DAILY PO 02/02/24 09:00 03/03/24 08:59 02/09/24 10:27 1 EACH Hydralazine HCl (APRESOLine 20MG INJ) 20 mg Q4H PRN IV ADMINISTER FOR SBP > 160 02/06/24 11:00 03/07/24 10:59 02/08/24 02:28 20 MG Insulin Glargine (LANtus 100 UNITS/ML 10 ML VIAL) 15 units BID@0730,2100 SQ 02/05/24 10:00 02/06/24 09:35 DC 02/06/24 08:12 15 UNITS Insulin Glargine (LANtus 100 UNITS/ML 10 ML VIAL) 25 units BID@0730,2100 SQ 02/06/24 21:00 02/06/24 10:01 DC Insulin Glargine (LANtus 100 UNITS/ML 10 ML VIAL) 25 units BID@0730,2100 SQ 02/06/24 21:00 03/07/24 20:59 02/15/24 20:08 25 UNITS Insulin Human Regular (humuLIN R 100 UNIT/ML 3ML) INSULIN SLIDING SCAL... ACHS SQ 02/01/24 21:00 02/05/24 09:56 DC 02/05/24 06:27 7 UNIT Insulin Human Regular (humuLIN R 100 UNIT/ML 3ML) INSULIN SLIDING SCAL... ACHS SQ 02/05/24 11:30 02/06/24 09:35 DC 02/06/24 06:41 16 UNIT Insulin Human Regular (humuLIN R 100 UNIT/ML 3ML) INSULIN SLIDING SCAL... ACHS SQ 02/07/24 21:00 03/08/24 20:59 02/10/24 05:57 6 UNIT Insulin Human Regular 100 unit/ Sodium Chloride 100 ml @ 0 mls/hr AD PRN IV HYPERGLYCEMIA PROTOCOL 02/06/24 10:00 03/07/24 09:59 02/07/24 15:04 7 MLS/HR Labetalol HCl (TRANdate 20MG SYG) 10 mg Q6H PRN IV IF SBP GREATER THAN 170 02/10/24 09:00 03/11/24 08:59 Leptospermum Honey (1SDKhoney) 1 appl DAILY TP 02/03/24 09:00 03/04/24 08:59 02/18/24 09:20 1 APPL Lidocaine (Lidocaine Patch 4%) 1 each DAILY TP 02/06/24 10:00 03/07/24 09:59 02/18/24 09:08 1 EACH Linezolid 300 ml @ 150 mls/hr Q12H IV 02/10/24 15:00 02/20/24 14:59 02/18/24 02:51 150 MLS/HR Lorazepam (AtiVAN) 1 mg HS PRN PO ANXIETY/AGITATION 02/15/24 07:00 03/16/24 06:59 Losartan Potassium (CozAAR 100MG TAB) 100 mg DAILY PO 02/02/24 09:00 02/04/24 12:12 DC 02/03/24 08:38 100 MG Magnesium Oxide (Mag-Ox) 400 mg DAILY PO 02/02/24 09:00 03/03/24 08:59 02/18/24 09:08 400 MG Magnesium Sulfate 50 ml @ 0 mls/hr PROTOCOL PRN IV MAGNESIUM PROTOCOL 02/02/24 08:30 03/03/24 08:29 02/02/24 10:25 25 MLS/HR Magnesium Sulfate 50 ml @ 0 mls/hr PROTOCOL PRN IV MAGNESIUM PROTOCOL 02/06/24 11:30 02/06/24 11:16 DC Meropenem 1 gm/ Sodium Chloride 100 ml @ 33.333 mls/ hr Q12H IV 02/06/24 10:00 02/16/24 09:59 DC 02/15/24 20:07 33.333 MLS/HR Meropenem 1 gm/ Sodium Chloride 100 ml @ 33.333 mls/ hr Q12H IV 02/16/24 15:00 02/26/24 14:59 02/18/24 02:51 33.333 MLS/HR Metoprolol Tartrate (loprESSOR) 100 mg BID PO 02/17/24 21:00 03/18/24 20:59 02/18/24 09:08 100 MG Metronidazole (flaGYL) 500 mg Q8H PO 02/01/24 18:30 02/01/24 18:41 DC Metronidazole/ Sodium Chloride (flaGYL) 500 mg Q8H IV 02/01/24 19:00 02/02/24 07:17 DC 02/02/24 02:36 500 MG Multivitamins/ Minerals 5 ml/ Chromium/Copper/ Manganese/Zinc 1.5 ml/Amino Acids/ Electrolytes/ Dextrose 1,000 ml @ 83 mls/hr AD IV 02/10/24 13:30 02/11/24 08:14 DC 02/10/24 21:50 83 MLS/HR Olanzapine (ZyPREXA 5 mg tab) 5 mg DAILY PO 02/02/24 09:00 02/10/24 16:58 DC 02/09/24 10:26 5 MG Ondansetron HCl (zoFRAN 4MG INJ) 4 mg Q6H PRN IVP NAUSEA/VOMITING 02/09/24 23:00 03/10/24 22:59 02/15/24 11:34 4 MG Paroxetine HCl (PAxil 20 MG TABLET) 20 mg BID PO 02/02/24 09:00 03/03/24 08:59 02/18/24 09:07 20 MG Piperacillin Sod/ Tazobactam Sod (Zosyn 3.375gm+NS 50ml) 2.25 gm Q12H IV 02/02/24 06:30 02/02/24 07:17 DC Piperacillin Sod/ Tazobactam Sod (Zosyn 3.375gm+NS 50ml) 3.375 gm Q12H IV 02/02/24 07:30 02/06/24 09:48 DC 02/06/24 06:43 3.375 GM Potassium Chloride 100 ml @ 100 mls/hr AD PRN IV POTASSIUM PROTOCOL 02/06/24 11:30 03/07/24 11:29 02/07/24 08:43 100 MLS/HR Potassium Chloride (K-Dur/Klor-Con 20meq) 20 meq AD PRN PO POTASSIUM PROTOCOL 02/06/24 11:30 03/07/24 11:29 Potassium Chloride (KCl 10% Elixir 20meq/15ml) 20 meq AD PRN PO POTASSIUM PROTOCOL 02/06/24 11:30 03/07/24 11:29 Sodium Chloride (NS Flush 10ml) 10 ml DAILY IV 02/03/24 09:00 03/04/24 08:59 02/18/24 09:08 10 ML Sodium/Pot/Mag/ Calc/Chlor/Acet 20 ml/Insulin Human Regular 10 unit/Amino Acids/ Dextrose 1,000 ml @ 83 mls/hr Q12H IV 02/15/24 19:00 02/16/24 18:59 DC 02/16/24 16:48 83 MLS/HR Sodium/Pot/Mag/ Calc/Chlor/Acet 20 ml/Insulin Human Regular 10 unit/Amino Acids/ Dextrose 1,000 ml @ 83 mls/hr Q12H IV 02/17/24 05:30 02/17/24 15:03 DC 02/17/24 05:25 83 MLS/HR Sodium/Pot/Mag/ Calc/Chlor/Acet 20 ml/Insulin Human Regular 10 unit/Amino Acids/ Dextrose 1,000 ml @ 83 mls/hr Q12H IV 02/17/24 15:00 02/18/24 14:59 02/18/24 06:15 83 MLS/HR Sodium/Pot/Mag/ Calc/Chlor/Acet 40 ml/Insulin Human Regular 10 unit/Amino Acids/ Dextrose 1,000 ml @ 83 mls/hr Q12H IV 02/17/24 15:00 02/18/24 14:59 Cancel Tramadol HCl (UltRAM) 50 mg Q6H PRN PO MODERATE PAIN (4-6) 02/06/24 10:00 02/10/24 16:47 DC 02/07/24 22:04 50 MG Wound Care/ Dressing Products (Venelex Ointment) BID TP 02/02/24 09:00 03/03/24 08:59 02/18/24 09:19 1 GM Diagnostics / Radiology: [COPY/PASTE HERE IF NO REPORTS PLEASE DELETE SECTION] Assessment: Sigmoid diverticulitis with contained perforation Plan: Follow surgical recommendations Patient not candidate for colonoscopy given the above Continue GI prophylaxis Advance diet as tolerated Avoid NSAIDs Antireflux measures Monitor H&H and transfuse as needed Call with questions, concerns or change in clinical status Patient to follow-up at clinic post discharge Thank you for this consult BENJAMIN CURRY [employer]ARET[employer] MAKING EXAMINER Feb 18, 2024 14:35
--- NOTE | 2024-02-18 18:30 | PN ---
SUBJECTIVE: The patient is comfortable in bed. Continue with TPN. Continue with oxygen. The patient is being examined at the bedside. OBJECTIVE: GENERAL: Currently awake, alert, oriented in person, and time not in place, and not in distress. VITAL SIGNS: Blood pressure was 161/84, pulse 86, and respiratory rate 16. HEENT: Normocephalic, atraumatic. LUNGS: Decreased breath sounds bilaterally. HEART: S1, S2 are distant. ABDOMEN: Prominent, soft, nontender. EXTREMITIES: No clubbing, cyanosis. LABORATORY DATA: WBC count 7.4, hemoglobin 7.8, and platelets 355. ASSESSMENT AND PLAN: * Perforated colon secondary to diverticulitis. The patient is not a surgical candidate. Continue conservative approach. * Respiratory failure with hypoxemia and hypercarbia. Continue with supportive care with oxygen through nasal cannula. * Right lower lobe pneumonia, pleural effusion, controlled. Continue current therapy. * Acute kidney injury controlled. * Type 2 diabetes, controlled. * Urinary tract infection. Continue with current treatment. * Anemia. Continue to monitor. * Nutritionally state. The patient will be discontinued from TPN. After discussing the case with the nurse practitioner for [facility], I agree upon conservative treatment. Family present during the visit was informed of the patient's condition, prognosis, and plan; however, would like to keep the patient in the hospital. Apparently, according to the , somebody from the hospital had told him that he could keep the patient in-house, at this time, the patient would not benefit from any further therapy. Her condition is terminal. Her prognosis is poor. They understand the patient's evaluation, but have not yet decided. They have contemplated also possibility of hospice and hospice service has been called and they have interviewed him, but the patient's not decided yet. He does not want the patient to go to [facility] or home or a shelter at this point. We will continue to work with consultants as well as with social media campaign manager, supervisor case loading and nurse to achieve plan that will meet family wishes. Follow up in a.m. with results. DOS: 02/18/2024 TID: [id number] RECEIPT: [id number] [facility]
[2024-02-19] VITALS (11 sets, daily range): BP systolic 152–170; BP diastolic 69–94; PULSE 71–88; RESP 18–26; TEMP 97.6–99.3; O2SAT 96–100
--- NOTE | 2024-02-19 11:18 | PN ---
INFECTIOUS DISEASE PROGRESS NOTE Date of Service: Feb 19, 2024 SUBJECTIVE: Patient was seen and examined at bedside in room 413. Patient is very week and has declined. Not waking up answer questions. Observe some difficulty breathing even though patient is on oxygen via nasal cannula 2 L. Per report patient used the CPAP during the night. Dr. Ogden spoke to patient's and other family members present in the room regarding patient not improving and doing worst and he discussed the option of hospice. As per family they will discuss it among the family and decide. Patient is not eating and the TPN has been discontinued. Patient had a low-grade fever of 99.3 and continues on linezolid, meropenem and fluconazole IV. We will continue to monitor. PHYSICAL EXAM EYES: Anicteric. Pupils equal and reactive. HENT: No oral thrush seen, moist Oral mucosa. NECK: Supple, no JVD or thyromegaly. LUNGS: Good air entry. No rales, no rhonchi. Oxygen at 2LPM via nasal cannula. CARDIOVASCULAR: S1, S2 regular. No murmur heard. ABDOMEN: Soft, non tender, bowel sounds present, no organomegaly CENTRAL NERVOUS SYSTEM: Awake, alert, oriented x 3. SKIN: No rashes, no swelling. LYMPHATICS: No peripheral lymphadenopathy. MUSCULOSKELETAL: No joint swelling, erythema or tenderness. EXTREMITIES: No cyanosis or clubbing. Weakness. BACK: No deformity, no pressure ulcer. GENITOURINARY: No dysuria or hematuria. Vital Sign (Last 12 Hours) 02/18/24 02/19/24 02/19/24 02/19/24 23:35 00:07 03:58 07:05 Temp 98.4 98.1 Pulse 79 75 71 76 Resp 22 26 22 20 B/P (MAP) 149/65 152/69 Pulse Ox 97 100 O2 Delivery CPAP CPAP FiO2 28 28 02/19/24 07:40 Temp 99.3 Pulse 81 Resp 18 B/P (MAP) 158/78 Pulse Ox 96 O2 Delivery Nasal Cannula O2 Flow Rate 2.0 Intake & Output (last 24hrs) 0 02/18/24 02/18/24 02/19/24 15:00 23:00 07:00 Intake Total 240 ml 400 ml Output Total 1000 ml 1000 ml Balance 240 ml -600 ml -1000 ml LABS: Laboratory: Test 02/19/24 10:36 02/17/24 15:40 10/29/24 14:08 Range/Units Whole Blood Glucose 110 70-110 MG/DL B-Type Natriuretic Peptide 186 H 0-100 pg/mL Blood Gas Specimen Type Arterial Arterial Blood pH 7.368 7.350-7.450 Arterial Blood Partial Pressure CO2 49 H 32-45 mmHg Arterial Blood Partial Pressure O2 90.4 83.0-108.0 mmHg Arterial Blood HCO3 27.3 21.0-28.0 mmol/L Arterial Blood Oxygen Saturation 96.6 94.0-98.0 % Arterial Blood Base Excess 1.2 -2.0-3.0 mmol/L Blood Gas Temperature 37.0 35.5-37.0 CELSIUS Blood Gas Flow-by 2.00 0.00-15.00 L/min FiO2 28.0 % Blood Gas Specimen Comment RR 2LNC ASSESSMENT: Diverticulitis with perforation. Intra-abdominal abscess. Sepsis. Leukocytosis, improving. Diabetes mellitus. Debility. PLAN: Continue linezolid. Continue meropenem. Continue fluconazole IV. Continue oxygen support. Continue nutritional support, currently on full liquid diet. Continue physical therapy if tolerated. Continue GI prophylaxis. Patient to decide on hospice care option. This case was reviewed and discussed with my supervising physician and the above assessment and plan was formulated and agreed upon. ATTESTATION BY PHYSICIAN I have seen and examined the patient. I reviewed the documentation, medical decision making, and treatment plan as noted by the mid-level provider above. I agree with the findings and plan of care. GABBI OGDEN MD, MIRTA L KARDEX CLERK Feb 19, 2024 11:18
--- NOTE | 2024-02-19 13:41 | PN ---
[facility] PROGRESS NOTE Date Patient Seen: Feb 19, 2024 Time of Visit: 13:40 Supervising Physician: Dr. Jaime Rodgers Consulting Physician: Dr Morgan Outpatient Specialists: NA Inpatient Consults: Dr. Narayanan, Dr. Bustamante, Dr Gonzalez PROBLEM LIST: Acute hypoxemic and hypercapnic respiratory failure secondary to below Small right pleural effusion, POA not large enough for thoracentesis on POC US Acute diverticulitis with contained perforation, - suspect polymicrobial peritonitis- evaluated by General surgery, no surgical intervention at this time Diverticula Abscess 4.2 x 4[address] 02/09 Sepsis present on admission Acute metabolic acidosis, POA, resolved Acute encephalopathy, POA, resolved DM type II, with hyperglycemia, POA Elevated Right hemidiaphragm, POA Non anion gap metabolic acidosis-, resolved Acute renal failure on CKD- secondary to ATN from sepsis, improved Hypernatremia, POA resolved Chronic congestive heart failure- preserved EF LVEF 60% Hypertension Hyperlipidemia Plan Summary: Family undecided on disposition TPN discontinued per primary team Nocturnal CPAP Supplemental oxygen as needed Continue full liquid diet and advance as tolerates Continue IV antibiotics as per Infectious Disease Follow Surgery recommendations Prognosis remains guarded PT evaluate and treat Out of [id number] as tolerates Disposition: per primary team INTERVAL HISTORY: Patient assessed at bedside. Lethargic today, responds to verbal and tactile stimuli. Currently on 02@2LPM via NC. Not eating at all per family. Patient wore CPAP last night. and family have opted to withdraw care and make patient as comfortable as possible. Comfort measures in place, pending hospice evaluation. BIS will sign off at this time, please re-consult if needed. Thank you. REVIEW OF SYSTEMS: Unable due to mental status PHYSICAL EXAM: GENERAL: Lethargic on NC HEENT: EOMI, Sclera non icteric, moist mucosa NECK: Supple, no JVD, trachea midline LUNGS: Clear breath sounds bilaterally. No wheezes HEART: Regular rate and rhythm. Normal S1 and S2, without murmurs ABD: Abdomen soft, nontender. Bowel sounds present EXT: No clubbing cyanosis or edema NEURO: Lethargic on NC Vital Signs (last 8hr) Date Time Temp Pulse Resp B/P (MAP) Pulse Ox O2 Delivery O2 Flow Rate FiO2 02/19/24 11:20 98.1 80 20 164/78 Room Air 21 02/19/24 11:20 98.1 80 02/19/24 08:50 96 Nasal Cannula* 2 28 02/19/24 07:40 99.3 81 18 158/78 96 Nasal Cannula 2.0 02/19/24 07:05 76 20 28 LABS: Chemistry Labs: Test 02/19/24 10:36 02/17/24 15:40 Range/Units Whole Blood Glucose 110 70-110 MG/DL B-Type Natriuretic Peptide 186 H 0-100 pg/mL DIAGNOSTICS / RADIOLOGY RESULTS: NA Code Status: Do not resuscitate LIZETT RODGERS [facility] Feb 19, 2024 13:40
--- NOTE | 2024-02-19 17:44 | PN ---
GASTROENTEROLOGY PROGRESS NOTE Date of Consultation: Feb 19, 2024 Time of Consultation: 17:44 Events / Notes: [ ] Review of Systems: CONSTITUTIONAL: No malaise or change in sensation of wellbeing. ENMT: No rhinorrhea, otorrhea, sinus pain, ear ache. CARDIOVASCULAR: No angina, palpitations, orthopnea or paroxysmal dyspnea. RESPIRATORY: No SOB. GASTROINTESTINAL: No abdominal pain, nausea, vomiting, diarrhea, hematemesis, melena or change in the patient's habitual bowel movements consistency/number. GENITOURINARY: No dysuria, hematuria or change in bladder continence. MUSCULOSKELETAL: No new muscle pain or decrease in muscular strength. No new joint swelling, redness or tenderness. SKIN: No new rash. Physical Exam: GEN: Awake, alert, oriented in person, time and place, and in no acute distress. HEENT: No sinus tenderness. Tympanic membranes were not examined. No rhinorrhea. Oral pharyngeal mucosa is pink, moist and within normal limits. Neck is supple with no cervical lymphadenopathy, thyromegaly or JVD. CHEST: Inspection, palpation and percussion of the chest were unremarkable. Lung auscultation revealed normal breath sounds bilaterally. CARDIAC: PMI is within normal limits. Heart sounds are regular. Normal S1, S2. No gallop or murmur. ABD: Soft, non-tender and not distended. No peritoneal signs on palpation. No organomegaly. Normal bowel sounds. EXT: No cyanosis or clubbing. No edema. SKIN: Intact. No rashes. JOINTS: No evidence of synovitis or acute arthritis. NEURO: Alert and oriented to name, place and person. Cranial nerve examination is unremarkable. No focal motor deficits. Normal speech. Gait is normal. Strength is normal. Vital Signs (last 8hr) Date Time Temp Pulse Resp B/P (MAP) Pulse Ox O2 Delivery O2 Flow Rate FiO2 02/19/24 11:20 98.1 80 20 164/78 Room Air 21 02/19/24 11:20 98.1 80 Laboratory: [ ] Laboratory: Test 02/19/24 16:18 Range/Units Whole Blood Glucose 115 H 70-110 MG/DL Current Medications Medications (Trade) Dose Ordered Sig/Ana Route PRN Reason Start Time Stop Time Status Last Admin Dose Admin Acetaminophen (TYLenol 325MG TAB) 650 mg Q6H PRN PO FEVER 02/10/24 06:00 03/11/24 05:59 02/16/24 07:44 650 MG Acetaminophen (TYLenol 650MG SUPPOSITORY) 650 mg Q6H PRN RC FEVER 02/05/24 13:30 03/06/24 13:29 02/05/24 13:19 650 MG Albumin Human 50 ml @ 50 mls/hr Q6H IV 02/11/24 09:30 02/11/24 10:21 DC Atenolol (Atenolol) 50 mg DAILY PO 02/02/24 09:00 02/10/24 08:39 DC 02/09/24 10:25 50 MG Chromium/Copper/ Manganese/Zinc 1.5 ml/ Multivitamins/ Minerals 5 ml/ Amino Acids/ Electrolytes/ Dextrose 1,000 ml @ 83 mls/hr AD IV 02/09/24 19:00 02/10/24 06:33 DC 02/09/24 20:26 83 MLS/HR Chromium/Copper/ Manganese/Zinc 3 ml/Multivitamins/ Minerals 10 ml/ Amino Acids/ Electrolytes/ Dextrose 2,000 ml @ 83 mls/hr AD IV 02/05/24 20:00 02/06/24 06:47 DC Chromium/Copper/ Manganese/Zinc 3 ml/Multivitamins/ Minerals 10 ml/Aa 5 %/Calcium/Lytes/ Dext 20 % 1,000 ml @ 80 mls/hr AD IV 02/09/24 18:30 03/10/24 18:29 Cancel Dextrose/Sodium Chloride 1,000 ml @ 75 mls/hr [id number] IV 02/01/24 18:30 02/05/24 13:10 DC 02/04/24 08:36 75 MLS/HR Dicyclomine HCl (Bentyl 20mg Tab) 20 mg TID PO 02/02/24 09:00 02/09/24 17:08 DC 02/09/24 10:24 20 MG Doxycycline Hyclate 250 ml @ 125 mls/hr Q12H IV 02/04/24 10:00 02/09/24 09:59 DC 02/08/24 21:35 125 MLS/HR Famotidine (Pepcid 20mg Vial) 20 mg Q24H IV 02/10/24 21:00 02/19/24 15:16 DC 02/18/24 22:21 20 MG Fat Emulsion Intravenous 250 ml @ 42 mls/hr QODAY@2100 IV 02/06/24 21:00 02/18/24 16:30 DC 02/16/24 20:36 42 MLS/HR Fluconazole/ Sodium Chloride 200 ml @ 100 mls/hr DAILY IV 02/04/24 10:00 02/19/24 15:13 DC 02/18/24 09:08 100 MLS/HR Furosemide (LASix 20MG VIAL) 20 mg DAILY IV 02/09/24 09:00 02/08/24 13:09 DC Furosemide (LASix 20MG VIAL) 20 mg Q12H IV 02/08/24 21:00 02/09/24 13:39 DC 02/09/24 10:26 20 MG Furosemide (LASix 40MG VIAL) 40 mg DAILY IV 02/06/24 11:00 02/08/24 10:29 DC 02/08/24 08:37 40 MG Furosemide (LASix 40MG VIAL) 40 mg DAILY IV 02/07/24 09:00 02/06/24 10:35 DC Heparin Sodium (Porcine) (HEParin 5,000 UNIT VIAL) 5,000 unit Q12H SQ 02/11/24 09:00 02/19/24 15:16 DC 02/18/24 22:18 5,000 UNIT Home Med (Home Medication) DAILY PO 02/02/24 09:00 02/09/24 17:22 DC 02/09/24 10:27 1 EACH Home Med (Home Medication) (Semaglutide (Rybelsus) 7 MG) DAILY PO 02/02/24 09:00 02/19/24 15:16 DC 02/09/24 10:27 1 EACH Hydralazine HCl (APRESOLine 20MG INJ) 20 mg Q4H PRN IV ADMINISTER FOR SBP > 160 02/06/24 11:00 02/19/24 15:16 DC 02/08/24 02:28 20 MG Insulin Glargine (LANtus 100 UNITS/ML 10 ML VIAL) 15 units BID@0730,2100 SQ 02/05/24 10:00 02/06/24 09:35 DC 02/06/24 08:12 15 UNITS Insulin Glargine (LANtus 100 UNITS/ML 10 ML VIAL) 25 units BID@0730,2100 SQ 02/06/24 21:00 02/06/24 10:01 DC Insulin Glargine (LANtus 100 UNITS/ML 10 ML VIAL) 25 units BID@0730,2100 SQ 02/06/24 21:00 02/19/24 15:16 DC 02/18/24 22:22 25 UNITS Insulin Human Regular (humuLIN R 100 UNIT/ML 3ML) INSULIN SLIDING SCAL... ACHS SQ 02/01/24 21:00 02/05/24 09:56 DC 02/05/24 06:27 7 UNIT Insulin Human Regular (humuLIN R 100 UNIT/ML 3ML) INSULIN SLIDING SCAL... ACHS SQ 02/05/24 11:30 02/06/24 09:35 DC 02/06/24 06:41 16 UNIT Insulin Human Regular (humuLIN R 100 UNIT/ML 3ML) INSULIN SLIDING SCAL... ACHS SQ 02/07/24 21:00 02/19/24 15:16 DC 02/10/24 05:57 6 UNIT Insulin Human Regular 100 unit/ Sodium Chloride 100 ml @ 0 mls/hr AD PRN IV HYPERGLYCEMIA PROTOCOL 02/06/24 10:00 02/19/24 15:16 DC 02/07/24 15:04 7 MLS/HR Labetalol HCl (TRANdate 20MG SYG) 10 mg Q6H PRN IV IF SBP GREATER THAN 170 02/10/24 09:00 02/19/24 15:16 DC Leptospermum Honey ([facility]) 1 appl DAILY TP 02/03/24 09:00 03/04/24 08:59 02/18/24 09:20 1 APPL Lidocaine (Lidocaine Patch 4%) 1 each DAILY TP 02/06/24 10:00 03/07/24 09:59 02/19/24 09:55 1 EACH Linezolid 300 ml @ 150 mls/hr Q12H IV 02/10/24 15:00 02/19/24 15:18 DC 02/19/24 03:48 150 MLS/HR Lorazepam (AtiVAN) 1 mg HS PRN PO ANXIETY/AGITATION 02/15/24 07:00 03/16/24 06:59 Losartan Potassium (CozAAR 100MG TAB) 100 mg DAILY PO 02/02/24 09:00 02/04/24 12:12 DC 02/03/24 08:38 100 MG Magnesium Oxide (Mag-Ox) 400 mg DAILY PO 02/02/24 09:00 02/19/24 15:16 DC 02/18/24 09:08 400 MG Magnesium Sulfate 50 ml @ 0 mls/hr PROTOCOL PRN IV MAGNESIUM PROTOCOL 02/02/24 08:30 02/19/24 15:16 DC 02/02/24 10:25 25 MLS/HR Magnesium Sulfate 50 ml @ 0 mls/hr PROTOCOL PRN IV MAGNESIUM PROTOCOL 02/06/24 11:30 02/06/24 11:16 DC Meropenem 1 gm/ Sodium Chloride 100 ml @ 33.333 mls/ hr Q12H IV 02/06/24 10:00 02/16/24 09:59 DC 02/15/24 20:07 33.333 MLS/HR Meropenem 1 gm/ Sodium Chloride 100 ml @ 33.333 mls/ hr Q12H IV 02/16/24 15:00 02/19/24 15:13 DC 02/19/24 03:48 33.333 MLS/HR Metoprolol Tartrate (loprESSOR) 100 mg BID PO 02/17/24 21:00 02/19/24 15:16 DC 02/18/24 22:16 100 MG Metronidazole (flaGYL) 500 mg Q8H PO 02/01/24 18:30 02/01/24 18:41 DC Metronidazole/ Sodium Chloride (flaGYL) 500 mg Q8H IV 02/01/24 19:00 02/02/24 07:17 DC 02/02/24 02:36 500 MG Multivitamins/ Minerals 5 ml/ Chromium/Copper/ Manganese/Zinc 1.5 ml/Amino Acids/ Electrolytes/ Dextrose 1,000 ml @ 83 mls/hr AD IV 02/10/24 13:30 02/11/24 08:14 DC 02/10/24 21:50 83 MLS/HR Olanzapine (ZyPREXA 5 mg tab) 5 mg DAILY PO 02/02/24 09:00 02/10/24 16:58 DC 02/09/24 10:26 5 MG Ondansetron HCl (zoFRAN 4MG INJ) 4 mg Q6H PRN IVP NAUSEA/VOMITING 02/09/24 23:00 02/19/24 15:16 DC 02/15/24 11:34 4 MG Paroxetine HCl (PAxil 20 MG TABLET) 20 mg BID PO 02/02/24 09:00 02/19/24 15:16 DC 02/18/24 22:16 20 MG Piperacillin Sod/ Tazobactam Sod (Zosyn 3.375gm+NS 50ml) 2.25 gm Q12H IV 02/02/24 06:30 02/02/24 07:17 DC Piperacillin Sod/ Tazobactam Sod (Zosyn 3.375gm+NS 50ml) 3.375 gm Q12H IV 02/02/24 07:30 02/06/24 09:48 DC 02/06/24 06:43 3.375 GM Potassium Chloride 100 ml @ 100 mls/hr AD PRN IV POTASSIUM PROTOCOL 02/06/24 11:30 02/19/24 15:16 DC 02/07/24 08:43 100 MLS/HR Potassium Chloride (K-Dur/Klor-Con 20meq) 20 meq AD PRN PO POTASSIUM PROTOCOL 02/06/24 11:30 02/19/24 15:16 DC Potassium Chloride (KCl 10% Elixir 20meq/15ml) 20 meq AD PRN PO POTASSIUM PROTOCOL 02/06/24 11:30 02/19/24 15:16 DC Sodium Chloride (NS Flush 10ml) 10 ml DAILY IV 02/03/24 09:00 03/04/24 08:59 02/19/24 09:56 10 ML Sodium/Pot/Mag/ Calc/Chlor/Acet 20 ml/Insulin Human Regular 10 unit/Amino Acids/ Dextrose 1,000 ml @ 83 mls/hr Q12H IV 02/15/24 19:00 02/16/24 18:59 DC 02/16/24 16:48 83 MLS/HR Sodium/Pot/Mag/ Calc/Chlor/Acet 20 ml/Insulin Human Regular 10 unit/Amino Acids/ Dextrose 1,000 ml @ 83 mls/hr Q12H IV 02/17/24 05:30 02/17/24 15:03 DC 02/17/24 05:25 83 MLS/HR Sodium/Pot/Mag/ Calc/Chlor/Acet 20 ml/Insulin Human Regular 10 unit/Amino Acids/ Dextrose 1,000 ml @ 83 mls/hr Q12H IV 02/17/24 15:00 02/18/24 14:59 DC 02/18/24 06:15 83 MLS/HR Sodium/Pot/Mag/ Calc/Chlor/Acet 40 ml/Insulin Human Regular 10 unit/Amino Acids/ Dextrose 1,000 ml @ 83 mls/hr Q12H IV 02/17/24 15:00 02/18/24 14:59 Cancel Tramadol HCl (UltRAM) 50 mg Q6H PRN PO MODERATE PAIN (4-6) 02/06/24 10:00 02/10/24 16:47 DC 02/07/24 22:04 50 MG Wound Care/ Dressing Products (Venelex Ointment) BID TP 02/02/24 09:00 03/03/24 08:59 02/18/24 22:19 1 GM Diagnostics / Radiology: [COPY/PASTE HERE IF NO REPORTS PLEASE DELETE SECTION] Assessment: Sigmoid diverticulitis with contained perforation Plan: Follow surgical recommendations Patient not candidate for colonoscopy given the above Continue GI prophylaxis Advance diet as tolerated Avoid NSAIDs Antireflux measures Monitor H&H and transfuse as needed Call with questions, concerns or change in clinical status Patient to follow-up at clinic post discharge Thank you for this consult BENJAMIN CURRY PIPELINE DISPATCH OPERATOR Feb 19, 2024 17:44
--- NOTE | 2024-02-20 02:21 | PN ---
SUBJECTIVE: The patient is comfortable in bed, not in distress. Examined at the bedside. Family was at bedside. Discussed with patient's and daughters the patient's condition, prognoses and survival. They are going to consider hospice services since her prognosis is poor, the patient overnight has become more dyspneic. She will require using BiPAP at night, but the now is requesting to withhold with BiPAP machine use. OBJECTIVE: GENERAL: Otherwise, the patient is comfortable in bed with oxygen. VITAL SIGNS: In the chart. HEENT: Normocephalic, atraumatic. LUNGS: Decreased breath sounds bilaterally. HEART: S1, S2 are distant. ABDOMEN: Soft and nontender. EXTREMITIES: No clubbing or cyanosis. LABORATORY DATA: Reviewed. ASSESSMENT AND PLAN: * Respiratory failure. Continue with oxygen and nasal cannula. Discontinue BiPAP as per family recommendations. * Sepsis with septicemia secondary to perforated colon secondary to diverticulitis. The patient is not a surgical candidate. Continue conservative approach. * Right lower lobe pneumonia. Continue current supportive care and treatment. * Type 2 diabetes. Continue to monitor. Urinary tract infection. Continue current treatment. Anemia continue to monitor. Nutritional state, TPA has been discontinued. Discussed extensively with family, and daughters that the patient's condition had deteriorated overnight. She at this time will not be able to be transferred to a SNF. The patient will be continued with current treatment until further decision from family. Best option will be to have hospice in-house. We will wait for patient's family's decision. mail clerks supervisor to pronounce if needed. DOS: 02/19/2024 TID: [id number] RECEIPT: [id number] [facility]
[2024-02-20 08:00] VITALS: BP 150/69; PULSE 103; RESP 18; TEMP 99; O2SAT 100
[2024-02-20 08:05] VITALS: PULSE 99; RESP 20; O2SAT 99
--- NOTE | 2024-02-20 18:25 | PN ---
GASTROENTEROLOGY PROGRESS NOTE Date of Consultation: Feb 20, 2024 Time of Consultation: 18:25 Events / Notes: [ ] Review of Systems: CONSTITUTIONAL: No malaise or change in sensation of wellbeing. ENMT: No rhinorrhea, otorrhea, sinus pain, ear ache. CARDIOVASCULAR: No angina, palpitations, orthopnea or paroxysmal dyspnea. RESPIRATORY: No SOB. GASTROINTESTINAL: No abdominal pain, nausea, vomiting, diarrhea, hematemesis, melena or change in the patient's habitual bowel movements consistency/number. GENITOURINARY: No dysuria, hematuria or change in bladder continence. MUSCULOSKELETAL: No new muscle pain or decrease in muscular strength. No new joint swelling, redness or tenderness. SKIN: No new rash. Physical Exam: GEN: Awake, alert, oriented in person, time and place, and in no acute distress. HEENT: No sinus tenderness. Tympanic membranes were not examined. No rhinorrhea. Oral pharyngeal mucosa is pink, moist and within normal limits. Neck is supple with no cervical lymphadenopathy, thyromegaly or JVD. CHEST: Inspection, palpation and percussion of the chest were unremarkable. Lung auscultation revealed normal breath sounds bilaterally. CARDIAC: PMI is within normal limits. Heart sounds are regular. Normal S1, S2. No gallop or murmur. ABD: Soft, non-tender and not distended. No peritoneal signs on palpation. No organomegaly. Normal bowel sounds. EXT: No cyanosis or clubbing. No edema. SKIN: Intact. No rashes. JOINTS: No evidence of synovitis or acute arthritis. NEURO: Alert and oriented to name, place and person. Cranial nerve examination is unremarkable. No focal motor deficits. Normal speech. Gait is normal. Strength is normal. Laboratory: [ ] Laboratory: Test 02/19/24 16:18 Range/Units Whole Blood Glucose 115 H 70-110 MG/DL Current Medications Medications (Trade) Dose Ordered Sig/Ana Route PRN Reason Start Time Stop Time Status Last Admin Dose Admin Acetaminophen (TYLenol 325MG TAB) 650 mg Q6H PRN PO FEVER 02/10/24 06:00 03/11/24 05:59 02/16/24 07:44 650 MG Acetaminophen (TYLenol 650MG SUPPOSITORY) 650 mg Q6H PRN RC FEVER 02/05/24 13:30 03/06/24 13:29 02/05/24 13:19 650 MG Albumin Human 50 ml @ 50 mls/hr Q6H IV 02/11/24 09:30 02/11/24 10:21 DC Atenolol (Atenolol) 50 mg DAILY PO 02/02/24 09:00 02/10/24 08:39 DC 02/09/24 10:25 50 MG Chromium/Copper/ Manganese/Zinc 1.5 ml/ Multivitamins/ Minerals 5 ml/ Amino Acids/ Electrolytes/ Dextrose 1,000 ml @ 83 mls/hr AD IV 02/09/24 19:00 02/10/24 06:33 DC 02/09/24 20:26 83 MLS/HR Chromium/Copper/ Manganese/Zinc 3 ml/Multivitamins/ Minerals 10 ml/ Amino Acids/ Electrolytes/ Dextrose 2,000 ml @ 83 mls/hr AD IV 02/05/24 20:00 02/06/24 06:47 DC Chromium/Copper/ Manganese/Zinc 3 ml/Multivitamins/ Minerals 10 ml/Aa 5 %/Calcium/Lytes/ Dext 20 % 1,000 ml @ 80 mls/hr AD IV 02/09/24 18:30 03/10/24 18:29 Cancel Dextrose/Sodium Chloride 1,000 ml @ 75 mls/hr [id number] IV 02/01/24 18:30 02/05/24 13:10 DC 02/04/24 08:36 75 MLS/HR Dicyclomine HCl (Bentyl 20mg Tab) 20 mg TID PO 02/02/24 09:00 02/09/24 17:08 DC 02/09/24 10:24 20 MG Doxycycline Hyclate 250 ml @ 125 mls/hr Q12H IV 02/04/24 10:00 02/09/24 09:59 DC 02/08/24 21:35 125 MLS/HR Famotidine (Pepcid 20mg Vial) 20 mg Q24H IV 02/10/24 21:00 02/19/24 15:16 DC 02/18/24 22:21 20 MG Fat Emulsion Intravenous 250 ml @ 42 mls/hr QODAY@2100 IV 02/06/24 21:00 02/18/24 16:30 DC 02/16/24 20:36 42 MLS/HR Fluconazole/ Sodium Chloride 200 ml @ 100 mls/hr DAILY IV 02/04/24 10:00 02/19/24 15:13 DC 02/18/24 09:08 100 MLS/HR Furosemide (LASix 20MG VIAL) 20 mg DAILY IV 02/09/24 09:00 02/08/24 13:09 DC Furosemide (LASix 20MG VIAL) 20 mg Q12H IV 02/08/24 21:00 02/09/24 13:39 DC 02/09/24 10:26 20 MG Furosemide (LASix 40MG VIAL) 40 mg DAILY IV 02/06/24 11:00 02/08/24 10:29 DC 02/08/24 08:37 40 MG Furosemide (LASix 40MG VIAL) 40 mg DAILY IV 02/07/24 09:00 02/06/24 10:35 DC Heparin Sodium (Porcine) (HEParin 5,000 UNIT VIAL) 5,000 unit Q12H SQ 02/11/24 09:00 02/19/24 15:16 DC 02/18/24 22:18 5,000 UNIT Home Med (Home Medication) DAILY PO 02/02/24 09:00 02/09/24 17:22 DC 02/09/24 10:27 1 EACH Home Med (Home Medication) (Semaglutide (Rybelsus) 7 MG) DAILY PO 02/02/24 09:00 02/19/24 15:16 DC 02/09/24 10:27 1 EACH Hydralazine HCl (APRESOLine 20MG INJ) 20 mg Q4H PRN IV ADMINISTER FOR SBP > 160 02/06/24 11:00 02/19/24 15:16 DC 02/08/24 02:28 20 MG Insulin Glargine (LANtus 100 UNITS/ML 10 ML VIAL) 15 units BID@0730,2100 SQ 02/05/24 10:00 02/06/24 09:35 DC 02/06/24 08:12 15 UNITS Insulin Glargine (LANtus 100 UNITS/ML 10 ML VIAL) 25 units BID@0730,2100 SQ 02/06/24 21:00 02/06/24 10:01 DC Insulin Glargine (LANtus 100 UNITS/ML 10 ML VIAL) 25 units BID@0730,2100 SQ 02/06/24 21:00 02/19/24 15:16 DC 02/18/24 22:22 25 UNITS Insulin Human Regular (humuLIN R 100 UNIT/ML 3ML) INSULIN SLIDING SCAL... ACHS SQ 02/01/24 21:00 02/05/24 09:56 DC 02/05/24 06:27 7 UNIT Insulin Human Regular (humuLIN R 100 UNIT/ML 3ML) INSULIN SLIDING SCAL... ACHS SQ 02/05/24 11:30 02/06/24 09:35 DC 02/06/24 06:41 16 UNIT Insulin Human Regular (humuLIN R 100 UNIT/ML 3ML) INSULIN SLIDING SCAL... ACHS SQ 02/07/24 21:00 02/19/24 15:16 DC 02/10/24 05:57 6 UNIT Insulin Human Regular 100 unit/ Sodium Chloride 100 ml @ 0 mls/hr AD PRN IV HYPERGLYCEMIA PROTOCOL 02/06/24 10:00 02/19/24 15:16 DC 02/07/24 15:04 7 MLS/HR Labetalol HCl (TRANdate 20MG SYG) 10 mg Q6H PRN IV IF SBP GREATER THAN 170 02/10/24 09:00 02/19/24 15:16 DC Leptospermum Honey ([facility]) 1 appl DAILY TP 02/03/24 09:00 03/04/24 08:59 02/20/24 13:06 1 APPL Lidocaine (Lidocaine Patch 4%) 1 each DAILY TP 02/06/24 10:00 03/07/24 09:59 02/20/24 12:58 1 EACH Linezolid 300 ml @ 150 mls/hr Q12H IV 02/10/24 15:00 02/19/24 15:18 DC 02/19/24 03:48 150 MLS/HR Lorazepam (AtiVAN) 1 mg HS PRN PO ANXIETY/AGITATION 02/15/24 07:00 03/16/24 06:59 Losartan Potassium (CozAAR 100MG TAB) 100 mg DAILY PO 02/02/24 09:00 02/04/24 12:12 DC 02/03/24 08:38 100 MG Magnesium Oxide (Mag-Ox) 400 mg DAILY PO 02/02/24 09:00 02/19/24 15:16 DC 02/18/24 09:08 400 MG Magnesium Sulfate 50 ml @ 0 mls/hr PROTOCOL PRN IV MAGNESIUM PROTOCOL 02/02/24 08:30 02/19/24 15:16 DC 02/02/24 10:25 25 MLS/HR Magnesium Sulfate 50 ml @ 0 mls/hr PROTOCOL PRN IV MAGNESIUM PROTOCOL 02/06/24 11:30 02/06/24 11:16 DC Meropenem 1 gm/ Sodium Chloride 100 ml @ 33.333 mls/ hr Q12H IV 02/06/24 10:00 02/16/24 09:59 DC 02/15/24 20:07 33.333 MLS/HR Meropenem 1 gm/ Sodium Chloride 100 ml @ 33.333 mls/ hr Q12H IV 02/16/24 15:00 02/19/24 15:13 DC 02/19/24 03:48 33.333 MLS/HR Metoprolol Tartrate (loprESSOR) 100 mg BID PO 02/17/24 21:00 02/19/24 15:16 DC 02/18/24 22:16 100 MG Metronidazole (flaGYL) 500 mg Q8H PO 02/01/24 18:30 02/01/24 18:41 DC Metronidazole/ Sodium Chloride (flaGYL) 500 mg Q8H IV 02/01/24 19:00 02/02/24 07:17 DC 02/02/24 02:36 500 MG Multivitamins/ Minerals 5 ml/ Chromium/Copper/ Manganese/Zinc 1.5 ml/Amino Acids/ Electrolytes/ Dextrose 1,000 ml @ 83 mls/hr AD IV 02/10/24 13:30 02/11/24 08:14 DC 02/10/24 21:50 83 MLS/HR Olanzapine (ZyPREXA 5 mg tab) 5 mg DAILY PO 02/02/24 09:00 02/10/24 16:58 DC 02/09/24 10:26 5 MG Ondansetron HCl (zoFRAN 4MG INJ) 4 mg Q6H PRN IVP NAUSEA/VOMITING 02/09/24 23:00 02/19/24 15:16 DC 02/15/24 11:34 4 MG Paroxetine HCl (PAxil 20 MG TABLET) 20 mg BID PO 02/02/24 09:00 02/19/24 15:16 DC 02/18/24 22:16 20 MG Piperacillin Sod/ Tazobactam Sod (Zosyn 3.375gm+NS 50ml) 2.25 gm Q12H IV 02/02/24 06:30 02/02/24 07:17 DC Piperacillin Sod/ Tazobactam Sod (Zosyn 3.375gm+NS 50ml) 3.375 gm Q12H IV 02/02/24 07:30 02/06/24 09:48 DC 02/06/24 06:43 3.375 GM Potassium Chloride 100 ml @ 100 mls/hr AD PRN IV POTASSIUM PROTOCOL 02/06/24 11:30 02/19/24 15:16 DC 02/07/24 08:43 100 MLS/HR Potassium Chloride (K-Dur/Klor-Con 20meq) 20 meq AD PRN PO POTASSIUM PROTOCOL 02/06/24 11:30 02/19/24 15:16 DC Potassium Chloride (KCl 10% Elixir 20meq/15ml) 20 meq AD PRN PO POTASSIUM PROTOCOL 02/06/24 11:30 02/19/24 15:16 DC Sodium Chloride (NS Flush 10ml) 10 ml DAILY IV 02/03/24 09:00 03/04/24 08:59 02/19/24 09:56 10 ML Sodium/Pot/Mag/ Calc/Chlor/Acet 20 ml/Insulin Human Regular 10 unit/Amino Acids/ Dextrose 1,000 ml @ 83 mls/hr Q12H IV 02/15/24 19:00 02/16/24 18:59 DC 02/16/24 16:48 83 MLS/HR Sodium/Pot/Mag/ Calc/Chlor/Acet 20 ml/Insulin Human Regular 10 unit/Amino Acids/ Dextrose 1,000 ml @ 83 mls/hr Q12H IV 02/17/24 05:30 02/17/24 15:03 DC 02/17/24 05:25 83 MLS/HR Sodium/Pot/Mag/ Calc/Chlor/Acet 20 ml/Insulin Human Regular 10 unit/Amino Acids/ Dextrose 1,000 ml @ 83 mls/hr Q12H IV 02/17/24 15:00 02/18/24 14:59 DC 02/18/24 06:15 83 MLS/HR Sodium/Pot/Mag/ Calc/Chlor/Acet 40 ml/Insulin Human Regular 10 unit/Amino Acids/ Dextrose 1,000 ml @ 83 mls/hr Q12H IV 02/17/24 15:00 02/18/24 14:59 Cancel Tramadol HCl (UltRAM) 50 mg Q6H PRN PO MODERATE PAIN (4-6) 02/06/24 10:00 02/10/24 16:47 DC 02/07/24 22:04 50 MG Wound Care/ Dressing Products (Venelex Ointment) BID TP 02/02/24 09:00 03/03/24 08:59 02/20/24 13:06 1 GM Diagnostics / Radiology: [COPY/PASTE HERE IF NO REPORTS PLEASE DELETE SECTION] Assessment: Sigmoid diverticulitis with contained perforation Plan: Follow surgical recommendations Patient not candidate for colonoscopy given the above Continue GI prophylaxis Advance diet as tolerated Avoid NSAIDs Antireflux measures Monitor H&H and transfuse as needed Call with questions, concerns or change in clinical status Patient to follow-up at clinic post discharge Thank you for this consult BENJAMIN CURRY PACKING MACHINE FEEDER Feb 20, 2024 18:25
[2024-02-20 20:00] VITALS: BP 155/85; PULSE 20; RESP 20; TEMP 98.6
[2024-02-20 21:30] VITALS: O2SAT 100
--- NOTE | 2024-02-20 21:30 | PN ---
SUBJECTIVE: The patient is examined at bedside, this was the case with patient and daughters. There is still undecided and confused regarding patient's options. I have discussed the case also with the case work aide and apparently family is still having unrealistic expectations still considering the patient to remain in the hospital to continue treatment. Even though, they have previously agreed on hospice services, inpatient hospice was consulted and They came and talked with the patient and the , saw the case considered the patient not a candidate for inpatient hospice services. Because of this, it was informed the patient that since they do not want to take her home, the [facility], but apparently they still wanted to hear from a social work administrator or somebody else. The patient otherwise continue comfortable in bed with oxygen 2 liters nasal cannula. OBJECTIVE: VITAL SIGNS: In the chart. LUNGS: Decreased breath sounds bilaterally. HEART: S1, S2 are distant. ABDOMEN: Soft, nontender. ASSESSMENT AND PLAN: * Respiratory failure with hypoxemia. Continue with oxygen through nasal cannula, discontinue BiPAP after the family. * Sepsis with septicemia secondary to perforated colon, secondary to diverticulitis not a surgical candidate. Continue conservative approach. * Right lower lobe pneumonia. Continue supportive care, antibiotic therapy has been finished. * Type 2 diabetes. Continue to monitor. * Dysphagia with aspiration. Continue with the pleasure feedings, pudding, and nectar thickness fluids. At this time, there is no further medical treatment that will benefit the patient's condition other than comfort care as we are doing now. However, the patient's and others still undecided regarding SNF placement, which had already been approved. They are still insisting on having the patient as an inpatient to continue therapy. I have informed the current status of conversation to the case work aide and they will continue to help the patient in making a decision. We will follow up in a.m. DOS: 02/20/2024 TID: [id number] RECEIPT: [id number]
[2024-02-21] VITALS (8 sets, daily range): BP systolic 144–168; BP diastolic 69–80; PULSE 95–123; RESP 20–22; TEMP 98.2–99.8; O2SAT 96–98
--- NOTE | 2024-02-21 03:21 | PN ---
INFECTIOUS DISEASE FOLLOWUP NOTE DATE OF SERVICE: 02/20/2024 SUBJECTIVE: The patient is seen and examined at bedside today. The patient has ____. PHYSICAL EXAMINATION: ____. ABDOMEN: Obese, soft. Bowel sounds present. CENTRAL NERVOUS SYSTEM: The patient is awake, encephalopathic. SKIN: No rashes, no itchiness. MUSCULOSKELETAL: No joint swelling, erythema or tenderness. BACK: No deformity, no pressure ulcer. ASSESSMENT: A 79-year-old female with multiple problems, which include: * Sepsis. * Diverticulitis with perforation. * Hypertension. * Intraabdominal abscess. * Encephalopathy. * Obesity. PLAN: * Antibiotic will be discontinued. * Continue pain management. * Continue antiemetic. * Continue comfort measures. TID: [id number] RECEIPT: [id number]
--- NOTE | 2024-02-21 11:27 | PN ---
PROGRESS NOTE PROGRESS NOTE DATE OF PROGRESS NOTE: 02/21/24 SUBJECTIVE: Patient continues to do poorly VITAL SIGNS Vital Signs Date Time Temp Pulse Resp B/P (MAP) Pulse Ox O2 Delivery O2 Flow Rate FiO2 02/21/24 08:00 99.0 123 20 168/77 100 02/21/24 04:00 Nasal Cannula 2.5 02/20/24 21:30 28 PHYSICAL EXAM: OBJECTIVE: GENERAL: She is currently, awake, alert, oriented in person and place with the BiPAP in place. VITAL SIGNS: Blood pressure 146/63, pulse 101, respiratory rate 25. HEENT: Normocephalic and atraumatic. LUNGS: Decreased breath sounds in right anterior and posterior hemithorax. No wheezes. No rhonchi. HEART: S1, S2 are clear. ABDOMEN: Soft. Nontender. No masses. INPATIENT MEDS: Current Medications Medications Dose Ordered Sig/Ana Start Time Stop Time Status Last Admin Wound Care/ Dressing Products BID 02/02/24 09:00 03/03/24 08:59 02/20/24 20:17 Sodium Chloride 10 ml DAILY 02/03/24 09:00 03/04/24 08:59 02/19/24 09:56 Leptospermum Honey 1 appl DAILY 02/03/24 09:00 03/04/24 08:59 02/20/24 13:06 Acetaminophen 650 mg Q6H PRN 02/05/24 13:30 03/06/24 13:29 02/05/24 13:19 Lidocaine 1 each DAILY 02/06/24 10:00 03/07/24 09:59 02/20/24 12:58 Acetaminophen 650 mg Q6H PRN 02/10/24 06:00 03/11/24 05:59 02/16/24 07:44 Lorazepam 1 mg HS PRN 02/15/24 07:00 03/16/24 06:59 PROBLEM LIST: (1) Acute diverticulitis ICD Code: K57.92 - Diverticulitis of intestine, part unspecified, without perforation or abscess without bleeding (2) UTI (urinary tract infection) ICD Code: N39.0 - Urinary tract infection, site not specified (3) Hypomagnesemia ICD Code: E83.42 - Hypomagnesemia (4) Acute kidney injury ICD Code: N17.9 - Acute kidney failure, unspecified PLAN: Echocardiogram shows ejection fraction 60% to 65%, calcified aortic valve, mild aortic stenosis. CT scan of the abdomen and pelvis shows inflammatory changes in sigmoid consistent with diverticulitis with an adjacent 2.8 collection of air and fluid consistent with contained perforation unchanged compared to previous examination. Mild bibasilar atelectasis. ASSESSMENT AND PLAN: * Respiratory failure with hypoxemia. Continue with BiPAP. Clinically improved *Sepsis secondary to diverticulitis and perforated colon. . * Right lower lobe pneumonia and pleural effusion * Acute renal failure, improving. * Type 2 diabetes. Sliding scale. * Hypertension, controlled. * The patient is back to her baseline. * Severe malnutrition supportive treatment continue with TPN Perforated colon with fluid contained intraperitoneal collection 2.8 cm follow with repeat CT as no surgical management or intervention Radiology being planned Improved diarrhea Improved confusion supportive treatment Severe malnutrition albumin supplementation Oral prognosis remains guarded supportive treatment ISAIAH FLORES MD Feb 21, 2024 11:27
[2024-02-21] MEDS ORDERED: LORazepam 2 MG/ML 1 ML VIAL IM PRN (17:00)
[2024-02-21] MEDS ORDERED: PHARMACY COMMUNICATION MISC SCH (17:30)
[2024-02-21] MEDS: LoSARTan 50 MG TABLET PO SCH (19:42)
[2024-02-21] MEDS: hydroMORPHone 0.5 MG SYG (0.5MG/0.5ML) IVP PRN (19:42)
--- NOTE | 2024-02-22 07:01 | PN ---
PROGRESS NOTE PROGRESS NOTE DATE OF PROGRESS NOTE: 02/22/24 SUBJECTIVE: patient has poor appetite and weaker VITAL SIGNS Vital Signs Date Time Temp Pulse Resp B/P (MAP) Pulse Ox O2 Delivery O2 Flow Rate FiO2 02/21/24 20:27 98.2 111 22 144/73 98 Nasal Cannula 2.0 24 PHYSICAL EXAM: OBJECTIVE: GENERAL: She is currently, awake, alert, oriented in person and place with the BiPAP in place. VITAL SIGNS: Blood pressure 146/63, pulse 101, respiratory rate 25. HEENT: Normocephalic and atraumatic. LUNGS: Decreased breath sounds in right anterior and posterior hemithorax. No wheezes. No rhonchi. HEART: S1, S2 are clear. ABDOMEN: Soft. Nontender. No masses. INPATIENT MEDS: Current Medications Medications Dose Ordered Sig/Ana Start Time Stop Time Status Last Admin Wound Care/ Dressing Products BID 02/02/24 09:00 03/03/24 08:59 02/21/24 22:05 Sodium Chloride 10 ml DAILY 02/03/24 09:00 03/04/24 08:59 02/21/24 11:44 Leptospermum Honey 1 appl DAILY 02/03/24 09:00 03/04/24 08:59 02/21/24 11:45 Acetaminophen 650 mg Q6H PRN 02/05/24 13:30 03/06/24 13:29 02/05/24 13:19 Lidocaine 1 each DAILY 02/06/24 10:00 03/07/24 09:59 02/21/24 11:44 Acetaminophen 650 mg Q6H PRN 02/10/24 06:00 03/11/24 05:59 02/16/24 07:44 Lorazepam 1 mg HS PRN 02/15/24 07:00 03/16/24 06:59 Lorazepam 1 mg Q4H PRN 02/21/24 17:00 02/28/24 16:59 Atenolol 25 mg DAILY 02/22/24 09:00 03/23/24 08:59 Pharmacy Profile Note 1 each ONCE 02/21/24 17:30 02/28/24 17:29 Hydromorphone HCl 0.5 mg Q4H PRN 02/21/24 17:30 02/26/24 17:29 02/21/24 19:42 Losartan Potassium 50 mg DAILY 02/22/24 09:00 03/23/24 08:59 PROBLEM LIST: (1) Acute diverticulitis ICD Code: K57.92 - Diverticulitis of intestine, part unspecified, without perforation or abscess without bleeding (2) UTI (urinary tract infection) ICD Code: N39.0 - Urinary tract infection, site not specified (3) Hypomagnesemia ICD Code: E83.42 - Hypomagnesemia (4) Acute kidney injury ICD Code: N17.9 - Acute kidney failure, unspecified PLAN: Echocardiogram shows ejection fraction 60% to 65%, calcified aortic valve, mild aortic stenosis. CT scan of the abdomen and pelvis shows inflammatory changes in sigmoid consistent with diverticulitis with an adjacent 2.8 collection of air and fluid consistent with contained perforation unchanged compared to previous examination. Mild bibasilar atelectasis. ASSESSMENT AND PLAN: * Respiratory failure with hypoxemia. Continue with BiPAP. Clinically improved *Sepsis secondary to diverticulitis and perforated colon. . * Right lower lobe pneumonia and pleural effusion * Acute renal failure, improving. * Type 2 diabetes. Sliding scale. * Hypertension, controlled. * The patient is back to her baseline. * Severe malnutrition supportive treatment continue with TPN Perforated colon with fluid contained intraperitoneal collection 2.8 cm follow with repeat CT as no surgical management or intervention Radiology being planned Improved diarrhea Improved confusion supportive treatment Severe malnutrition albumin supplementation Oral prognosis remains guarded supportive treatment ISAIAH FLORES MD Feb 22, 2024 07:01
[2024-02-22 08:00] VITALS: BP 150/70; PULSE 112; RESP 18; TEMP 98.3; O2SAT 100
[2024-02-22] MEDS: LoSARTan 50 MG TABLET PO SCH (10:38)
[2024-02-22] MEDS: ATENOLOL 25 MG TABLET PO SCH (10:40)
[2024-02-22 14:41] VITALS: O2SAT 98
[2024-02-22 16:00] VITALS: BP 143/58; PULSE 95; RESP 18; TEMP 97.7
[2024-02-22 19:37] VITALS: O2SAT 100
[2024-02-22 20:28] VITALS: BP 140/63; PULSE 101; RESP 22; TEMP 98.8
[2024-02-22 23:48] VITALS: BP 130/68; PULSE 96; RESP 22; TEMP 98.4
[2024-02-23 04:11] VITALS: BP 127/59; PULSE 98; RESP 20; TEMP 98.1
[2024-02-23 08:00] VITALS: BP 145/80; PULSE 101; RESP 19; TEMP 98.5; O2SAT 100
[2024-02-23 10:25] VITALS: BP 145/80; PULSE 101
--- NOTE | 2024-02-23 12:24 | PN ---
GASTROENTEROLOGY PROGRESS NOTE Date of Consultation: Feb 23, 2024 Time of Consultation: 12:23 Events / Notes: [ ] Review of Systems: CONSTITUTIONAL: No malaise or change in sensation of wellbeing. ENMT: No rhinorrhea, otorrhea, sinus pain, ear ache. CARDIOVASCULAR: No angina, palpitations, orthopnea or paroxysmal dyspnea. RESPIRATORY: No SOB. GASTROINTESTINAL: No abdominal pain, nausea, vomiting, diarrhea, hematemesis, melena or change in the patient's habitual bowel movements consistency/number. GENITOURINARY: No dysuria, hematuria or change in bladder continence. MUSCULOSKELETAL: No new muscle pain or decrease in muscular strength. No new joint swelling, redness or tenderness. SKIN: No new rash. Physical Exam: GEN: Awake, alert, oriented in person, time and place, and in no acute distress. HEENT: No sinus tenderness. Tympanic membranes were not examined. No rhinorrhea. Oral pharyngeal mucosa is pink, moist and within normal limits. Neck is supple with no cervical lymphadenopathy, thyromegaly or JVD. CHEST: Inspection, palpation and percussion of the chest were unremarkable. Lung auscultation revealed normal breath sounds bilaterally. CARDIAC: PMI is within normal limits. Heart sounds are regular. Normal S1, S2. No gallop or murmur. ABD: Soft, non-tender and not distended. No peritoneal signs on palpation. No organomegaly. Normal bowel sounds. EXT: No cyanosis or clubbing. No edema. SKIN: Intact. No rashes. JOINTS: No evidence of synovitis or acute arthritis. NEURO: Alert and oriented to name, place and person. Cranial nerve examination is unremarkable. No focal motor deficits. Normal speech. Gait is normal. Strength is normal. Vital Signs (last 8hr) Date Time Temp Pulse Resp B/P (MAP) Pulse Ox O2 Delivery O2 Flow Rate FiO2 02/23/24 10:25 101 145/80 02/23/24 08:00 98.4 101 19 145/80 100 Nasal Cannula 3.0 Laboratory: [ ] Current Medications Medications (Trade) Dose Ordered Sig/Ana Route PRN Reason Start Time Stop Time Status Last Admin Dose Admin Acetaminophen (TYLenol 325MG TAB) 650 mg Q6H PRN PO FEVER 02/10/24 06:00 03/11/24 05:59 02/16/24 07:44 650 MG Acetaminophen (TYLenol 650MG SUPPOSITORY) 650 mg Q6H PRN RC FEVER 02/05/24 13:30 03/06/24 13:29 02/05/24 13:19 650 MG Albumin Human 50 ml @ 50 mls/hr Q6H IV 02/11/24 09:30 02/11/24 10:21 DC Atenolol (Atenolol) 25 mg DAILY PO 02/22/24 09:00 03/23/24 08:59 02/23/24 10:25 25 MG Atenolol (Atenolol) 50 mg DAILY PO 02/02/24 09:00 02/10/24 08:39 DC 02/09/24 10:25 50 MG Chromium/Copper/ Manganese/Zinc 1.5 ml/ Multivitamins/ Minerals 5 ml/ Amino Acids/ Electrolytes/ Dextrose 1,000 ml @ 83 mls/hr AD IV 02/09/24 19:00 02/10/24 06:33 DC 02/09/24 20:26 83 MLS/HR Chromium/Copper/ Manganese/Zinc 3 ml/Multivitamins/ Minerals 10 ml/ Amino Acids/ Electrolytes/ Dextrose 2,000 ml @ 83 mls/hr AD IV 02/05/24 20:00 02/06/24 06:47 DC Chromium/Copper/ Manganese/Zinc 3 ml/Multivitamins/ Minerals 10 ml/Aa 5 %/Calcium/Lytes/ Dext 20 % 1,000 ml @ 80 mls/hr AD IV 02/09/24 18:30 03/10/24 18:29 Cancel Dextrose/Sodium Chloride 1,000 ml @ 75 mls/hr [id number] IV 02/01/24 18:30 02/05/24 13:10 DC 02/04/24 08:36 75 MLS/HR Dicyclomine HCl (Bentyl 20mg Tab) 20 mg TID PO 02/02/24 09:00 02/09/24 17:08 DC 02/09/24 10:24 20 MG Doxycycline Hyclate 250 ml @ 125 mls/hr Q12H IV 02/04/24 10:00 02/09/24 09:59 DC 02/08/24 21:35 125 MLS/HR Famotidine (Pepcid 20mg Vial) 20 mg Q24H IV 02/10/24 21:00 02/19/24 15:16 DC 02/18/24 22:21 20 MG Fat Emulsion Intravenous 250 ml @ 42 mls/hr QODAY@2100 IV 02/06/24 21:00 02/18/24 16:30 DC 02/16/24 20:36 42 MLS/HR Fluconazole/ Sodium Chloride 200 ml @ 100 mls/hr DAILY IV 02/04/24 10:00 02/19/24 15:13 DC 02/18/24 09:08 100 MLS/HR Furosemide (LASix 20MG VIAL) 20 mg DAILY IV 02/09/24 09:00 02/08/24 13:09 DC Furosemide (LASix 20MG VIAL) 20 mg Q12H IV 02/08/24 21:00 02/09/24 13:39 DC 02/09/24 10:26 20 MG Furosemide (LASix 40MG VIAL) 40 mg DAILY IV 02/06/24 11:00 02/08/24 10:29 DC 02/08/24 08:37 40 MG Furosemide (LASix 40MG VIAL) 40 mg DAILY IV 02/07/24 09:00 02/06/24 10:35 DC Heparin Sodium (Porcine) (HEParin 5,000 UNIT VIAL) 5,000 unit Q12H SQ 02/11/24 09:00 02/19/24 15:16 DC 02/18/24 22:18 5,000 UNIT Home Med (Home Medication) DAILY PO 02/02/24 09:00 02/09/24 17:22 DC 02/09/24 10:27 1 EACH Home Med (Home Medication) (Semaglutide (Rybelsus) 7 MG) DAILY PO 02/02/24 09:00 02/19/24 15:16 DC 02/09/24 10:27 1 EACH Hydralazine HCl (APRESOLine 20MG INJ) 20 mg Q4H PRN IV ADMINISTER FOR SBP > 160 02/06/24 11:00 02/19/24 15:16 DC 02/08/24 02:28 20 MG Hydromorphone HCl (DiLAUDid 0.5MG INJ) 0.5 mg Q4H PRN IVP SEVERE PAIN (7-10) 02/21/24 17:30 02/26/24 17:29 02/23/24 00:05 0.5 MG Insulin Glargine (LANtus 100 UNITS/ML 10 ML VIAL) 15 units BID@0730,2100 SQ 02/05/24 10:00 02/06/24 09:35 DC 02/06/24 08:12 15 UNITS Insulin Glargine (LANtus 100 UNITS/ML 10 ML VIAL) 25 units BID@0730,2100 SQ 02/06/24 21:00 02/06/24 10:01 DC Insulin Glargine (LANtus 100 UNITS/ML 10 ML VIAL) 25 units BID@0730,2100 SQ 02/06/24 21:00 02/19/24 15:16 DC 02/18/24 22:22 25 UNITS Insulin Human Regular (humuLIN R 100 UNIT/ML 3ML) INSULIN SLIDING SCAL... ACHS SQ 02/01/24 21:00 02/05/24 09:56 DC 02/05/24 06:27 7 UNIT Insulin Human Regular (humuLIN R 100 UNIT/ML 3ML) INSULIN SLIDING SCAL... ACHS SQ 02/05/24 11:30 02/06/24 09:35 DC 02/06/24 06:41 16 UNIT Insulin Human Regular (humuLIN R 100 UNIT/ML 3ML) INSULIN SLIDING SCAL... ACHS SQ 02/07/24 21:00 02/19/24 15:16 DC 02/10/24 05:57 6 UNIT Insulin Human Regular 100 unit/ Sodium Chloride 100 ml @ 0 mls/hr AD PRN IV HYPERGLYCEMIA PROTOCOL 02/06/24 10:00 02/19/24 15:16 DC 02/07/24 15:04 7 MLS/HR Labetalol HCl (TRANdate 20MG SYG) 10 mg Q6H PRN IV IF SBP GREATER THAN 170 02/10/24 09:00 02/19/24 15:16 DC Leptospermum Honey (Medihoney) 1 appl DAILY TP 02/03/24 09:00 03/04/24 08:59 02/23/24 10:26 1 APPL Lidocaine (Lidocaine Patch 4%) 1 each DAILY TP 02/06/24 10:00 03/07/24 09:59 02/22/24 10:40 1 EACH Linezolid 300 ml @ 150 mls/hr Q12H IV 02/10/24 15:00 02/19/24 15:18 DC 02/19/24 03:48 150 MLS/HR Lorazepam (AtiVAN) 1 mg HS PRN PO ANXIETY/AGITATION 02/15/24 07:00 03/16/24 06:59 Lorazepam (AtiVAN) 1 mg Q4H PRN IM ANXIETY/AGITATION 02/21/24 17:00 02/28/24 16:59 Losartan Potassium (CozAAR 100MG TAB) 100 mg DAILY PO 02/02/24 09:00 02/04/24 12:12 DC 02/03/24 08:38 100 MG Losartan Potassium (CozAAR 50 mg TAB) 50 mg DAILY PO 02/22/24 09:00 03/23/24 08:59 02/23/24 10:26 50 MG Losartan Potassium (CozAAR 50 mg TAB) 50 mg ONCE PO 02/21/24 18:00 02/21/24 22:00 DC 02/21/24 19:42 50 MG Magnesium Oxide (Mag-Ox) 400 mg DAILY PO 02/02/24 09:00 02/19/24 15:16 DC 02/18/24 09:08 400 MG Magnesium Sulfate 50 ml @ 0 mls/hr PROTOCOL PRN IV MAGNESIUM PROTOCOL 02/02/24 08:30 02/19/24 15:16 DC 02/02/24 10:25 25 MLS/HR Magnesium Sulfate 50 ml @ 0 mls/hr PROTOCOL PRN IV MAGNESIUM PROTOCOL 02/06/24 11:30 02/06/24 11:16 DC Meropenem 1 gm/ Sodium Chloride 100 ml @ 33.333 mls/ hr Q12H IV 02/06/24 10:00 02/16/24 09:59 DC 02/15/24 20:07 33.333 MLS/HR Meropenem 1 gm/ Sodium Chloride 100 ml @ 33.333 mls/ hr Q12H IV 02/16/24 15:00 02/19/24 15:13 DC 02/19/24 03:48 33.333 MLS/HR Metoprolol Tartrate (loprESSOR) 100 mg BID PO 02/17/24 21:00 02/19/24 15:16 DC 02/18/24 22:16 100 MG Metronidazole (flaGYL) 500 mg Q8H PO 02/01/24 18:30 02/01/24 18:41 DC Metronidazole/ Sodium Chloride (flaGYL) 500 mg Q8H IV 02/01/24 19:00 02/02/24 07:17 DC 02/02/24 02:36 500 MG Multivitamins/ Minerals 5 ml/ Chromium/Copper/ Manganese/Zinc 1.5 ml/Amino Acids/ Electrolytes/ Dextrose 1,000 ml @ 83 mls/hr AD IV 02/10/24 13:30 02/11/24 08:14 DC 02/10/24 21:50 83 MLS/HR Olanzapine (ZyPREXA 5 mg tab) 5 mg DAILY PO 02/02/24 09:00 02/10/24 16:58 DC 02/09/24 10:26 5 MG Ondansetron HCl (zoFRAN 4MG INJ) 4 mg Q6H PRN IVP NAUSEA/VOMITING 02/09/24 23:00 02/19/24 15:16 DC 02/15/24 11:34 4 MG Paroxetine HCl (PAxil 20 MG TABLET) 20 mg BID PO 02/02/24 09:00 02/19/24 15:16 DC 02/18/24 22:16 20 MG Pharmacy Profile Note (Pharmacy Communication) 1 each ONCE MISC 02/21/24 17:30 02/22/24 07:06 DC Piperacillin Sod/ Tazobactam Sod (Zosyn 3.375gm+NS 50ml) 2.25 gm Q12H IV 02/02/24 06:30 02/02/24 07:17 DC Piperacillin Sod/ Tazobactam Sod (Zosyn 3.375gm+NS 50ml) 3.375 gm Q12H IV 02/02/24 07:30 02/06/24 09:48 DC 02/06/24 06:43 3.375 GM Potassium Chloride 100 ml @ 100 mls/hr AD PRN IV POTASSIUM PROTOCOL 02/06/24 11:30 02/19/24 15:16 DC 02/07/24 08:43 100 MLS/HR Potassium Chloride (K-Dur/Klor-Con 20meq) 20 meq AD PRN PO POTASSIUM PROTOCOL 02/06/24 11:30 02/19/24 15:16 DC Potassium Chloride (KCl 10% Elixir 20meq/15ml) 20 meq AD PRN PO POTASSIUM PROTOCOL 02/06/24 11:30 02/19/24 15:16 DC Sodium Chloride (NS Flush 10ml) 10 ml DAILY IV 02/03/24 09:00 03/04/24 08:59 02/23/24 10:26 10 ML Sodium/Pot/Mag/ Calc/Chlor/Acet 20 ml/Insulin Human Regular 10 unit/Amino Acids/ Dextrose 1,000 ml @ 83 mls/hr Q12H IV 02/15/24 19:00 02/16/24 18:59 DC 02/16/24 16:48 83 MLS/HR Sodium/Pot/Mag/ Calc/Chlor/Acet 20 ml/Insulin Human Regular 10 unit/Amino Acids/ Dextrose 1,000 ml @ 83 mls/hr Q12H IV 02/17/24 05:30 02/17/24 15:03 DC 02/17/24 05:25 83 MLS/HR Sodium/Pot/Mag/ Calc/Chlor/Acet 20 ml/Insulin Human Regular 10 unit/Amino Acids/ Dextrose 1,000 ml @ 83 mls/hr Q12H IV 02/17/24 15:00 02/18/24 14:59 DC 02/18/24 06:15 83 MLS/HR Sodium/Pot/Mag/ Calc/Chlor/Acet 40 ml/Insulin Human Regular 10 unit/Amino Acids/ Dextrose 1,000 ml @ 83 mls/hr Q12H IV 02/17/24 15:00 02/18/24 14:59 Cancel Tramadol HCl (UltRAM) 50 mg Q6H PRN PO MODERATE PAIN (4-6) 02/06/24 10:00 02/10/24 16:47 DC 02/07/24 22:04 50 MG Wound Care/ Dressing Products (Venelex Ointment) BID TP 02/02/24 09:00 03/03/24 08:59 02/23/24 10:26 1 GM Diagnostics / Radiology: [COPY/PASTE HERE IF NO REPORTS PLEASE DELETE SECTION] Assessment: Sigmoid diverticulitis with contained perforation Plan: Follow surgical recommendations Patient not candidate for colonoscopy given the above Continue GI prophylaxis Advance diet as tolerated Avoid NSAIDs Antireflux measures Monitor H&H and transfuse as needed Call with questions, concerns or change in clinical status Patient to follow-up at clinic post discharge Thank you for this consult BENJAMIN CURRY [employer] Feb 23, 2024 12:24
--- NOTE | 2024-02-24 09:50 | PN ---
SUBJECTIVE: The patient is examined at the bedside, comfortable, afebrile and on comfort treatment. Family has agreed to discharge the patient to a SNF facility, specifically [facility]. is in agreement to continue with hospice services at the facility. OBJECTIVE: GENERAL: She is currently comfortable in bed, not in distress. VITAL SIGNS: In the chart. HEENT: Normocephalic. Atraumatic. LUNGS: Clear to auscultation. HEART: S1, S2 are distant. ABDOMEN: Soft and nontender. ASSESSMENT AND PLAN: * Respiratory failure with hypoxemia. Continue with oxygen. * Sepsis with septicemia secondary to perforated colon/diverticulitis not a surgical candidate. Continue with supportive care. The patient will continue with Hospice Services. * Right lower lobe pneumonia. Antibiotic has been discontinued. White count has been normalized. Continue supportive care. * Type 2 diabetes. Continue supportive care. * Dysphagia with aspiration. Continue with pleasure feedings. The patient will be able to be transferred to a SNF facility. Continue with Hospice Services. The patient will be followed up by physician from that facility. Family was in the room during the visit. All questions were answered. Follow up in a.m., if still in the hospital. DOS: 02/23/2024 TID: [id number] RECEIPT: [id number]
== END 2024-02-23 21:50 | DRG 871 ==
LOC: EDH 13:46 → EDHIP 18:20 → 2AH 22:26 → 3CH 02-03 15:05 → 2BH 02-03 17:45 → 2AH 02-08 18:11 → 2BH 02-10 09:36 → 4CH 02-11 14:53
PROVIDERS: ADMIT Internal Medicine; ATTEND Internal Medicine
PROC: 02HV33Z Insertion of Infusion Device into Superior Vena Cava, Percutaneous Approach (ICD-10-PCS; 2024-02-02)
PROC: 5A09357 Assistance with Respiratory Ventilation, Less than 24 Consecutive Hours, Continuous Positive Airway Pressure (ICD-10-PCS; principal; 2024-02-03)
PROC: 5A09357 Assistance with Respiratory Ventilation, Less than 24 Consecutive Hours, Continuous Positive Airway Pressure (ICD-10-PCS; 2024-02-04)
PROC: 5A0935A Assistance with Respiratory Ventilation, Less than 24 Consecutive Hours, High Flow/Velocity Cannula (ICD-10-PCS; 2024-02-04)
PROC: 5A09357 Assistance with Respiratory Ventilation, Less than 24 Consecutive Hours, Continuous Positive Airway Pressure (ICD-10-PCS; 2024-02-05)
PROC: 5A09357 Assistance with Respiratory Ventilation, Less than 24 Consecutive Hours, Continuous Positive Airway Pressure (ICD-10-PCS; 2024-02-06)
PROC: 5A0935A Assistance with Respiratory Ventilation, Less than 24 Consecutive Hours, High Flow/Velocity Cannula (ICD-10-PCS; 2024-02-06)
PROC: 5A09357 Assistance with Respiratory Ventilation, Less than 24 Consecutive Hours, Continuous Positive Airway Pressure (ICD-10-PCS; 2024-02-07)
PROC: 5A0935A Assistance with Respiratory Ventilation, Less than 24 Consecutive Hours, High Flow/Velocity Cannula (ICD-10-PCS; 2024-02-07)
PROC: 5A09357 Assistance with Respiratory Ventilation, Less than 24 Consecutive Hours, Continuous Positive Airway Pressure (ICD-10-PCS; 2024-02-08)
PROC: 5A0935A Assistance with Respiratory Ventilation, Less than 24 Consecutive Hours, High Flow/Velocity Cannula (ICD-10-PCS; 2024-02-09)
PROC: 5A09357 Assistance with Respiratory Ventilation, Less than 24 Consecutive Hours, Continuous Positive Airway Pressure (ICD-10-PCS; 2024-02-18)
DX: A41.9 Sepsis, unspecified organism (principal); E43 Unspecified severe protein-calorie malnutrition; J18.9 Pneumonia, unspecified organism; J96.01 Acute respiratory failure with hypoxia; J96.02 Acute respiratory failure with hypercapnia; G93.41 Metabolic encephalopathy; K65.1 Peritoneal abscess; N17.0 Acute kidney failure with tubular necrosis; I13.0 Hypertensive heart and chronic kidney disease with heart failure and stage 1 through stage 4 chronic kidney disease, or unspecified chronic kidney disease; K57.20 Diverticulitis of large intestine with perforation and abscess without bleeding; E87.0 Hyperosmolality and hypernatremia; E87.21 Acute metabolic acidosis; J44.0 Chronic obstructive pulmonary disease with (acute) lower respiratory infection; E87.4 Mixed disorder of acid-base balance; Z66 Do not resuscitate; I50.9 Heart failure, unspecified; E11.65 Type 2 diabetes mellitus with hyperglycemia; N18.9 Chronic kidney disease, unspecified; D64.9 Anemia, unspecified; N73.9 Female pelvic inflammatory disease, unspecified; R65.20 Severe sepsis without septic shock; E83.42 Hypomagnesemia; E11.22 Type 2 diabetes mellitus with diabetic chronic kidney disease; E86.1 Hypovolemia; E78.5 Hyperlipidemia, unspecified; F03.90 Unspecified dementia, unspecified severity, without behavioral disturbance, psychotic disturbance, mood disturbance, and anxiety; I27.20 Pulmonary hypertension, unspecified; E66.01 Morbid (severe) obesity due to excess calories; Z68.32 Body mass index [BMI] 32.0-32.9, adult; E87.5 Hyperkalemia; Z79.4 Long term (current) use of insulin; Z83.3 Family history of diabetes mellitus; Z51.5 Encounter for palliative care
CPT/HCPCS: 36415; 36569; 36600; 70450; 71045; 74176; 80048; 80053; 81001; 82140; 82270; 82306; 82435; 82607; 82803; 82947; 82948; 83605; 83690; 83735; 83880; 84100; 84132; 84145; 84295; 84425; 84443; 85018; 85025; 85027; 85610; 85730; 86140; 86850; 86900; 86901; 87040; 87086; 87635; 87641; 87804; 92507; 92610; 93005; 93306; 93356; 94640; 94660; 96365; C1894; G0378; J0360; J1171; J1450; J1644; J1815; J1940; J2020; J2185; J2405; J2543; J3475; J3480; J3490; J7042; A4600